=== PATIENT | female | born 1955 | race Caucasian/White ===

== ENCOUNTER 2017-08-10 14:12 | Emergency (ER) | payer MEDICARE, SELFPAY ==
[2017-08-10 14:13] VITALS: BMI 27.4
[2017-08-10 14:18] VITALS: BP 149/71; PULSE 74; RESP 18; TEMP 36.7; O2SAT 96; BMI 29.2
--- NOTE | 2017-08-10 14:57 | HMH.EDSKAF ---
ED Disposition Clinical Impression: Herpes zoster Qualifiers: Herpes zoster complications: without complications Qualified Code(s): B02.9 - Zoster without complications Disposition: Home, Self-Care Condition on Discharge: Good Instructions: DI for Shingles Additional Instructions: Please drink plenty of fluids, do the medications prescribed as directed, follow-up with PCP if not better within 2 days. Prescriptions: Acyclovir [Zovirax] 800 mg PO TID #30 tab Etodolac [Etodolac 200mg Cap] 200 mg PO TID PRN #25 cap PRN Reason: Moderate Pain Referrals: Stephanie Shepherd APRN [Primary Care Provider] - Time of Disposition: 15:00 - Critical Care Critical Care Time: No Attestation: On 08/10/17, the high probability of a clinically significant, sudden or life threatening deterioration of the following system(s) required my full and direct attention, intervention and personal management. The time I documented below is in addition to time spent performing reported procedures but includes the following listed in this critical care notation. Medical Decision Making - Medical Records Medical records reviewed: Yes: I reviewed the patient's medical records. Vital Signs: 08/10/17 14:18 08/10/17 15:30 Temperature 98.0 F 98.0 F Temperature Source Oral Oral Pulse Rate 82 Pulse Rate [Right Brachial] 74 Respiratory Rate 18 18 Blood Pressure 141/70 Blood Pressure [Right Arm] 149/71 Blood Pressure Mean [Right Arm] 97 Blood Pressure Source Automatic Cuff Blood Pressure Source [Right Arm] Automatic Cuff Blood Pressure Position Sitting Blood Pressure Position [Right Arm] Sitting 02 Sat by Pulse Oximetry 96 Oxygen Delivery Method Room Air Room Air Orders (Tests/Meds): ED MEDICATIONS Discontinued Medications Generic Name Dose Route Start Last Admin Trade Name Freq PRN Reason Stop Dose Admin Acyclovir 800 mg 08/10/17 15:01 Zovirax 400mg Tablet PO 08/10/17 15:02 ONCE ONE - Chaitanya Inquiry Pt receiving controlled substance: No - Reevaluation(s) Time: 14:50 Reevaluation #1: Patient advised of diagnosis, need to be quarantined. She understands the need to take acyclovir, as well as possible complications such as postherpetic neuralgia. Follow-up with PCP within 2-3 days if not better. Skin/Abscess/FB HPI - General Chief complaint: Skin/Abscess/Foreign Body Stated complaint: POSSIBLE SHINGLES Time Seen by Provider: 08/10/17 14:25 Mode of Arrival: EMS Source of Information: Patient Limitations: No Limitations Description of Symptoms (Recalled from ER Triage Doc. by RN): LEFT LATERAL RASH AFTER HAVING PAIN FOR 4 DAYS - History of Present Illness HPI narrative: This is a 62-year-old female patient presenting to the emergency room with left flank pain, for the past 1 week, now presenting to the emergency room with rash, for the past 24 hours. Patient denies any shingle outbreaks in the past. She denies any fever, chills, productive cough. Denies any recent exposure to sick contacts, denies any recent travel. MD complaint: rash Onset (ago): day(s) (1) Tetanus up to date: yes Location: chest (left lower chest) Severity scale (1-10): 8 Quality: burning, stabbing Consistency: constant Relieving factors: none Exacerbating factors: palpation, movement Treatments prior to arrival: NSAID - Related Data Previous Rx's Medication Instructions Recorded Acyclovir [Zovirax] 800 mg PO TID #30 tab 08/10/17 Etodolac [Etodolac 200mg Cap] 200 mg PO TID PRN #25 cap 08/10/17 Allergies Allergy/AdvReac Type Severity Reaction Status Date / Time erythromycin base Allergy Severe S-BLISTERING Unverified 07/12/17 14:48 WELTS tiotropium Allergy Severe S-SWELLS-OR Unverified 07/12/17 14:48 [From Spiriva with AL/THROAT HandiHaler] [facility] History I have reviewed the patient's past medical history: Yes Medical History: Denies:: Cancer, Diabetes Mellitus Type 1, Caridad
--- NOTE | 2017-08-10 15:00 | ED_ITS ---
ED Disposition Clinical Impression: Herpes zoster Qualifiers: Herpes zoster complications: without complications Qualified Code(s): B02.9 - Zoster without complications Disposition: Home, Self-Care Condition on Discharge: Good Instructions: DI for Shingles Additional Instructions: Please drink plenty of fluids, do the medications prescribed as directed, follow -up with PCP if not better within 2 days. Prescriptions: Acyclovir [Zovirax] 800 mg PO TID #30 tab Etodolac [Etodolac 200mg Cap] 200 mg PO TID PRN #25 cap PRN Reason: Moderate Pain Referrals: Stephanie Shepherd APRN [Primary Care Provider] - Time of Disposition: 15:00 - Critical Care Critical Care Time: No Attestation: On 08/10/17, the high probability of a clinically significant, sudden or life threatening deterioration of the following system(s) required my full and direct attention, intervention and personal management. The time I documented below is in addition to time spent performing reported procedures but includes the following listed in this critical care notation. Medical Decision Making - Medical Records Medical records reviewed: Yes: I reviewed the patient's medical records. Vital Signs: 08/10/17 14:18 08/10/17 15:30 Temperature 98.0 F 98.0 F Temperature Source Oral Oral Pulse Rate 82 Pulse Rate [Right Brachial] 74 Respiratory Rate 18 18 Blood Pressure 141/70 Blood Pressure [Right Arm] 149/71 Blood Pressure Mean [Right Arm] 97 Blood Pressure Source Automatic Cuff Blood Pressure Source [Right Arm] Automatic Cuff Blood Pressure Position Sitting Blood Pressure Position [Right Arm] Sitting 02 Sat by Pulse Oximetry 96 Oxygen Delivery Method Room Air Room Air Orders (Tests/Meds): ED MEDICATIONS Discontinued Medications Generic Name Dose Route Start Last Admin Trade Name Freq PRN Reason Stop Dose Admin Acyclovir 800 mg 08/10/17 15:01 Zovirax 400mg Tablet PO 08/10/17 15:02 ONCE ONE - Chaitanya Inquiry Pt receiving controlled substance: No - Reevaluation(s) Time: 14:50 Reevaluation #1: Patient advised of diagnosis, need to be quarantined. She understands the need to take acyclovir, as well as possible complications such as postherpetic neuralgia. Follow-up with PCP within 2-3 days if not better. Skin/Abscess/FB HPI - General Chief complaint: Skin/Abscess/Foreign Body Stated complaint: POSSIBLE SHINGLES Time Seen by Provider: 08/10/17 14:25 Mode of Arrival: EMS Source of Information: Patient Limitations: No Limitations Description of Symptoms (Recalled from ER Triage Doc. by RN): LEFT LATERAL RASH AFTER HAVING PAIN FOR 4 DAYS - History of Present Illness HPI narrative: This is a 62-year-old female patient presenting to the emergency room with left flank pain, for the past 1 week, now presenting to the emergency room with rash, for the past 24 hours. Patient denies any shingle outbreaks in the past. She denies any fever, chills, productive cough. Denies any recent exposure to sick contacts, denies any recent travel. complaint: rash Onset (ago): day(s) (1) Tetanus up to date: yes Location: chest (left lower chest) Severity scale (1-10): 8 Quality: burning, stabbing Consistency: constant Relieving factors: none Exacerbating factors: palpation, movement Treatments prio
[2017-08-10 15:30] VITALS: BP 141/70; PULSE 82; RESP 18; TEMP 36.7; O2SAT 100
== END 2017-08-10 15:31 | disposition home or self-care (01) ==
PROVIDERS: Emergency Provider Emergency Medicine; Family Provider Nurse Practitioner; PCP Nurse Practitioner
DX: B02.9 Zoster without complications (principal); Z95.0 Presence of cardiac pacemaker; F17.210 Nicotine dependence, cigarettes, uncomplicated
CPT/HCPCS: 99282

== ENCOUNTER 2020-12-17 08:36 | Emergency (ER) | payer MEDICARE, MEDICAID, SELFPAY ==
[2020-12-17 08:39] VITALS: BP 155/89; PULSE 94; RESP 18; TEMP 36.6; O2SAT 98; BMI 28.0
--- NOTE | 2020-12-17 08:40 | HMH.EDGENADL ---
ED Disposition Clinical Impression: Wrist strain Qualifiers: Encounter type: initial encounter Laterality: right Qualified Code(s): S66.911A - Strain of unspecified muscle, fascia and tendon at wrist and hand level, right hand, initial encounter Disposition: Home, Self-Care Condition on Discharge: Good Instructions: DI for Acute Pain -- Adult Additional Instructions: Wear your wrist splint for comfort, but make sure you take it off several times per day to work on your range of motion. [id number] and topical medications as needed for symptom control. Follow-up with your PCP on Tuesday. Return to the emergency department for worsening pain, fall, weakness. Referrals: Tien Hernandez MD [Primary Care Provider] - 3 days Time of Disposition: 09:12 - Critical Care Critical Care Time: No Attestation: On , the high probability of a clinically significant, sudden or life threatening deterioration of the following system(s) required my full and direct attention, intervention and personal management. The time I documented below is in addition to time spent performing reported procedures but includes the following listed in this critical care notation. Medical Decision Making - Medical Records Medical records reviewed: Yes: I reviewed the patient's medical records. - Chaitanya Inquiry Pt receiving controlled substance: No Reason not queried -: Emergent pt cond-no time Vital Signs: 12/17/20 08:39 Temperature 97.9 F Temperature Source Oral Pulse Rate [Radial] 94 H Respiratory Rate 18 Blood Pressure [Right Arm] 155/89 H Blood Pressure Mean [Right Arm] 111 Blood Pressure Position [Right Arm] Sitting 02 Sat by Pulse Oximetry 98 Oxygen Delivery Method Room Air Medical Decision Narrative: 65yo F evaluated for right wrist pain after cleaning her house yesterday. No history of fall or trauma, therefore do not believe an x-ray is warranted. Other than pain, the patient has a benign x-ray; she is neurovascularly intact. She has slightly reduced range of motion secondary to pain. She has 4 out of 5 sharepoint application architect strength on the right with 5 out of 5 sharepoint application architect strength on the left. There is no ecchymosis, step-off, crepitus. Patient is placed in a wrist splint and instructed to use topical pain medication she already has at home, such as icy hot/capsaicin/BenGay. Patient instructed to take her wrist out of the splint several times per day to work on range of motion. Patient to follow-up with her PCP by the end of the week. General Adult HPI - General Stated complaint: ao rt arm/wrist injury 12/16/20 Time Seen by Provider: 12/17/20 08:40 Mode of Arrival: Ambulatory Limitations: No Limitations - History of Present Illness HPI narrative: 65yo F with past medical history significant hypertension hyperlipidemia presents emergency department secondary to right wrist pain. Patient is right-hand dominant. She reports she worked all day yesterday cleaning her house and developed pain in her right wrist. She denies any fall, injury, crush. She denies any previous pain or surgery to this extremity. She denies any swelling, fever, erythema. - Related Data Home Medications Medication Instructions Recorded Confirmed Amlodipine Besylate [Norvasc 5mg 5 mg PO DAILY 11/16/17 01/24/18 tablet] Atorvastatin Calcium [Atorvastatin 40 mg PO DAILY 11/16/17 01/24/18 40mg Tab] Benazepril HCl 10 mg PO DAILY 11/16/17 01/24/18 aspirin 81 mg tablet,delayed 81 mg PO ONCE 12/12/17 01/24/18 release clonazePAM [Clonazepam] 1 mg PO DAILY 01/24/18 01/24/18 Allergies Allergy/AdvReac Type Severity Reaction Status Date / Time erythromycin base Allergy Severe S-BLISTERING Verified 12/12/17 08:36 WELTS tiotropium Allergy Severe S-SWELLS-OR Verified 12/12/17 08:36 [From Spiriva with AL/THROAT HandiHaler] [facility] History - Hepatitis A Screen Drug use history?: No Attestation statement:: This patient has been screened for Hepa
[2020-12-17 09:20] VITALS: BP 155/89; PULSE 88; RESP 16; TEMP 36.6; O2SAT 97
== END 2020-12-17 09:21 | disposition home or self-care (01) ==
PROVIDERS: Emergency Provider Family Medicine; PCP Family Medicine
DX: S66.911A Strain of unspecified muscle, fascia and tendon at wrist and hand level, right hand, initial encounter (principal); X50.0XXA Overexertion from strenuous movement or load, initial encounter; Y92.019 Unspecified place in single-family (private) house as the place of occurrence of the external cause; I10 Essential (primary) hypertension; E78.5 Hyperlipidemia, unspecified; F17.210 Nicotine dependence, cigarettes, uncomplicated
CPT/HCPCS: 29125; 99281

== ENCOUNTER → 2021-03-26 14:11 | Outpatient (CLI) | payer MEDICARE, MEDICAID, SELFPAY ==
--- NOTE | 2021-03-26 14:14 | US_ITS ---
APPROVED REPORT Exam Type: Lower Extremity Segmental Pressures Terrazzo Laborer: Isha Paz RVT Indications Claudication: Bilaterally Rest Pain: Bilaterally LT GREAT TOE TURNS PURPLE Risk Factors Hypertension Hyperlipidemia TIA/CVA History Current Smoker Pressures/Indices Right Indices Left Indices Brachial 130.00 mmHg Brachial 123.00 mmHg Low Thigh 143.00 mmHg 1.10 Low Thigh 75.00 mmHg 0.58 Calf 162.00 mmHg 1.25 Calf 80.00 mmHg 0.62 Ankle(PT) 151.00 mmHg 1.16 Ankle(PT) 85.00 mmHg 0.65 Ankle(DP) 144.00 mmHg 1.11 Ankle(DP) 121.00 mmHg 0.93 Digit 103.00 mmHg 0.79 Digit 42.00 mmHg 0.32 Findings RT VENU:1.16 LT VENU:0.65 RT TBI:0.79 LT TBI:0.32 DAMPANED WAVEFORMS ON THE LEFT. NORMAL PULSES BILATERAL MODERATE ARTERIAL DISEASE ON THE LEFT. Conclusion RT VENU:1.16 LT VENU:0.65 RT TBI:0.79 LT TBI:0.32 DAMPANED WAVEFORMS ON THE LEFT. NORMAL PULSES BILATERAL MODERATE ARTERIAL DISEASE ON THE LEFT. Electronically signed by : Jimi Barron MD 03/26/2021 16:28:49
== END ==
PROVIDERS: PCP Family Medicine; Visit Provider Family Medicine
DX: I73.9 Peripheral vascular disease, unspecified (principal)
CPT/HCPCS: 93923

== ENCOUNTER → 2021-04-21 09:47 | Outpatient (CLI) | payer MEDICARE, MEDICAID, SELFPAY ==
[2021-04-21 09:50] LABS: Coronavirus 19, PCR Not Detected (NotDetected); Influenza A, PCR Not Detected (NotDetected); Influenza B, PCR Not Detected (NotDetected)
[2021-04-21 10:46] LABS: Basophils % 0.4 % (0.1-2.0); Eosinophils % 0.6 % (0.1-12.0); Hematocrit 43.8 % (37.0-47.0); Hemoglobin 14.2 g/dL (12.2-16.2); Lymphocytes # 1.4 K/mm3 (0.7-4.5); Lymphocytes % 17.8 % (10-50); Mean Corpuscular HGB Conc 32.4 g/dL (31.8-35.4); Mean Corpuscular Hemoglobin 32.5 pg (27.0-31.2); Mean Corpuscular Volume 100.6 fl (81-99); Mean Platelet Volume 8.8 fl (7.4-10.4); Monocytes # 0.3 K/mm3 (0.1-1.0); Monocytes % 3.2 % (1.7-9.3); Platelet Count 265 K/mm3 (142-424); Red Blood Count 4.35 M/mm3 (4.20-5.40); Red Cell Distribution Width 13.9 % (11.5-17.5); White Blood Count 7.7 K/mm3 (4.8-10.8)
[2021-04-21 11:19] LABS: Anion Gap 14.6 mEq/L (5-15); Blood Urea Nitrogen 15 mg/dl (7-17); Carbon Dioxide 27 mmol/L (22.0-30.0); Chloride 102 mmol/L (98-107); Estimated Glomerular Filt Rate 83 ml/min (>60); GFR (African American) 101 ML/MIN (>60); Glucose 134 mg/dl (74-100); Potassium 4.6 mmoL/L (3.5-5.1); Sodium 139 mmol/L (136-145)
== END ==
PROVIDERS: Visit Provider Internal Medicine
DX: Z01.818 Encounter for other preprocedural examination (principal); B02.9 Zoster without complications; M79.606 Pain in leg, unspecified
CPT/HCPCS: 36415; 80048; 85025; C9803; U0003; U0005

== ENCOUNTER 2021-04-21 10:36 | Day surgery (SDC) | payer MEDICARE, MEDICAID, SELFPAY ==
[2021-04-21] VITALS (13 sets, daily range): BP systolic 99–193; BP diastolic 46–98; PULSE 50–90; RESP 13–18; TEMP 36.8; O2SAT 96–100; BMI 29.2
--- NOTE | 2021-04-21 | IR_ITS ---
APPROVED REPORT PROCEDURES Right radial arterial access Catheter placement in the distal abdominal aorta Distal abdominal aortogram Left femoral arterial access Left retrograde femoral angiogram Angioplasty to the left common iliac artery Bare-metal stent deployment to the left common iliac artery Bilateral iliofemoral runoff INDICATION Abnormal VENU 0.6 on the left, Peripheral artery disease, Niels claudication class III-IV left side, Informed consent was obtained prior to the procedure. Estimated Blood Loss: less than 10 ml TECHNIQUE 1% lidocaine used to excise right anterior aspect of the right wrist. The right radial artery was accessed via the Salinger technique and a 5 Estonian hydrophilic sheath was placed in the right radial artery. An arterial cocktail was administered. A PV multi curve catheter was then placed in the descending aorta down into the distal abdominal aorta and distal abdominal aortography was performed. Following this 1% lidocaine was used anesthetize the left groin left femoral artery was accessed via the Salinger technique and a 6 Estonian sheath was placed in the left femoral artery. Therapeutic heparin was administered giving a therapeutic ACT. An 8 mm x 57 mm balloon expandable stent was deployed in the left common iliac artery at 12 carina reducing the 100% occlusion to 0%. Following this the apparatus was removed and bilateral iliofemoral runoff was performed. Thrombus was identified in the proximal left superficial femoral artery therefore the sheath was advanced into the left common iliac artery and a wire was placed into the left superficial femoral artery. The placement of the wire cause disruption of the thrombus and buddhism of flow. At the end of the procedure the arterial sheath was removed good hemostasis was achieved using TR banding. The left groin was then reprepped closure changed sheath was removed good hemostasis was achieved using Perclose device patient was transferred to the postop already in stable condition ANGIOGRAPHIC RESULTS The distal abdominal aorta is patent but atheromatous Right common iliac artery is mildly atheromatous with a 10% ostial stenosis. The left common iliac artery is ostially occluded and fills distally via collaterals. The bilateral internal iliac arteries are patent the bilateral external iliac arteries are patent the bilateral common femoral arteries are patent Bilateral profunda femoris arteries are patent Bilateral superficial femoral arteries are widely patent the bilateral popliteal arteries are patent. There appears to be 2-3 vessel runoff below the knee bilaterally. IMPRESSION Chronically occluded left common iliac artery Successful percutaneous revascularization of left common iliac artery 1% occlusion reduced to 0% with 1 bare-metal stent PLAN 1. Aspirin and Brilinta 2. 2 days from now patient should start Xarelto 2.5 p.o. twice daily with possible discontinuation of Brilinta provided there is no cardiac indication for Brilinta 3. LDL less than 55 4. Physical therapy 5. Avoidance of tobacco products 6. Risk factor modification Electronically signed by : Kel Jamil MD 04/21/2021 15:58:10
--- NOTE | 2021-04-21 13:49 | CT_ITS ---
PROCEDURE: CT ABDOMEN PELVIS WO CON CLINICAL INDICATION: retroperitoneal bleed COMPARISON: No exams were available for comparison TECHNIQUE: Axial images obtained with sagittal and coronal reformats. All CT scans at the facility use one or more dose reduction, viz: automated exposure control, ma/kV adjustment per patient size (including targeted exams where dose is matched to indication, i.e. head), or iterative reconstruction technique. FINDINGS: LOWER THORAX: Atelectatic changes are present in the lung bases posteriorly. Coronary artery calcification and/or stent noted along with calcification of the aortic root. There is a small hiatal hernia. The liver and spleen have an unremarkable appearance. No radiopaque gallstones. Unremarkable appearing adrenal glands and pancreas. Contrast is present in the urinary collecting system. There is a small right renal cyst at 9 mm. There are bilateral common iliac artery stents which appear patent. There is no evidence of hemorrhage around the stents. No free pelvic fluid is evident. There is diffuse increased density in the left inguinal region consistent with hemorrhage. There is focal thickening of the left transverse abdominis musculature inferiorly consistent with a small hematoma also with thickening of the left rectus abdominus inferiorly and the left obturator internus muscle consistent with some underlying hemorrhage. There are mild osteoarthritic changes of the hips and degenerative changes of the lumbar spine. IMPRESSION: 1. No intraperitoneal hemorrhage. 2. Hematoma in the left groin with small hematoma in the inferior aspect of the left transverse abdominus musculature, left obturator internus muscle and the inferior aspect of the left rectus abdominus muscle. No free fluid/blood in the abdomen or pelvis. Dictated by: Jimi Barron MD 04/21/2021 14:08 Jimi Barron MD in [facility] 04/21/2021 14:08
--- NOTE | 2021-04-21 14:01 | ECG_ITS ---
APPROVED REPORT Exam: Resting ECG HR:84 bpm ECG Measurements Heart Rate 84 AXES CO 288 P 58 QRSd 90 QRS 34 QT 392 T 70 QTc 463 Conclusion Sinus rhythm with 1st degree AV block Septal infarct, age undetermined Abnormal ECG Electronically signed by : Tien Parker MD 04/22/2021 11:18:58
--- NOTE | 2021-04-21 14:56 | SUR.PHASEII ---
1330 PATIENT COMPLAINS OF LEFT GROIN PAIN, MILD TENDERNESS. bp 195/95 HYDRAZINE 10 MG IV. 1345 PATIENT COMPLAINING OF ABDOMINAL PAIN 8/10 BP 104/54. DR. HUNTER NOTIFIED ORDERED STAT ABDOMINAL CT. [address], PHYSICIAN AT BEDSIDE NO NEW ORDERS
--- NOTE | 2021-04-21 16:22 | HMH.PHACLD ---
Sandy Heller has received discharge medication counseling on the following medications: MD STARTING BRILINTA AND XARELTO (START TUESDAY). PATIENT IS ALREADY ON ASPIRIN.
== END 2021-04-21 16:03 | disposition home or self-care (01) ==
LOC: CATHLAB 10:41
PROVIDERS: PCP Family Medicine; Visit Provider Internal Medicine
DX: I70.212 Atherosclerosis of native arteries of extremities with intermittent claudication, left leg (principal); Z20.822 Contact with and (suspected) exposure to COVID-19; F17.210 Nicotine dependence, cigarettes, uncomplicated; I10 Essential (primary) hypertension; E78.5 Hyperlipidemia, unspecified; I77.1 Stricture of artery; I74.3 Embolism and thrombosis of arteries of the lower extremities
CPT/HCPCS: 36247; 36415; 37186; 37221; 74176; 75630; 80048; 85025; 93005; 99152; 99153; C1725; C1760; C1769; C1876; C1894; C9803; J1644; J2405; Q9966; U0003; U0005

== ENCOUNTER → 2021-04-24 10:27 | Outpatient (CLI) | payer MEDICARE, MEDICAID, SELFPAY ==
--- NOTE | 2021-04-24 | CA_ITS ---
APPROVED REPORT Laterality: Unilateral right Program Manager Rn: Isha Paz RVT Comments S/P ANGIO 04/21/21, C/O RT WRIST PAIN/BRUISING Findings Study suggests no evidence of psuedoaneurysm or AV fistula of the right wrist. Thrombus is seen in the distal to mid radial artery. Conclusion Study suggests no evidence of psuedoaneurysm or AV fistula of the right wrist. Thrombus is seen in the distal to mid radial artery. Critical Notification Physician Notified Date: 04/24/2021 Time: 10:55 Physician Name: Andrzej Saba Electronically signed by : Jimi Barron MD 04/24/2021 16:17:53
== END ==
PROVIDERS: PCP Family Medicine; Visit Provider Urology
DX: I77.0 Arteriovenous fistula, acquired (principal)
CPT/HCPCS: 93931

== ENCOUNTER → 2021-05-01 09:58 | Outpatient (CLI) | payer MEDICARE, MEDICAID, SELFPAY ==
--- NOTE | 2021-05-01 10:03 | CA_ITS ---
APPROVED REPORT Greaser Helper: Isha Paz RVT Laterality: Bilateral Study Quality: Good Indications: Carotid stenosis Risk Factors Hypertension: TIA/CVA History Surgery/Intervention Endarterectomy: right Doppler Spectral Velocity Analysis ECA (R) 41.10/5.10 cm/s ECA (L) 121.70/11.10 cm/s dICA (R) 113.30/29.90 cm/s dICA (L) 97.70/30.80 cm/s Jose (R) 142.20/37.40 cm/s Jose (L) 125.10/34.30 cm/s pICA (R) 106.90/33.10 cm/s pICA (L) 99.50/36.60 cm/s dCCA (R) 54.00/16.30 cm/s dCCA (L) 53.30/16.70 cm/s pCCA (R) 37.40/9.60 cm/s pCCA (L) 63.60/16.10 cm/s Vert (R) 100.50/17.10 cm/s Vert (L) 54.00/12.00 cm/s ICA/CCA 2.63 ICA/CCA 2.35 Findings Study suggests 20-49% stenosis of the right internal cartoid artery. Study suggests 20-49% stenosis of the left internal cartoid artery. Antegrade flow seen bilateral vertebral arteries. Conclusion Study suggests 20-49% stenosis of the right internal cartoid artery. Study suggests 20-49% stenosis of the left internal cartoid artery. Antegrade flow seen bilateral vertebral arteries. Electronically signed by : Jimi Barron MD 05/05/2021 09:17:40
== END ==
PROVIDERS: PCP Family Medicine; Visit Provider Nurse Practitioner Family
DX: I65.23 Occlusion and stenosis of bilateral carotid arteries (principal)
CPT/HCPCS: 93880

== ENCOUNTER → 2021-05-12 14:29 | Outpatient (CLI) | payer MEDICARE, MEDICAID, SELFPAY ==
[2021-05-12 14:40] LABS: Basophils # 0.1 K/mm3 (0-0.2); Basophils % 0.5 % (0.1-2.0); Eosinophils # 0.1 K/mm3 (0.0-0.4); Eosinophils % 1.3 % (0.1-12.0); Hematocrit 39.8 % (37.0-47.0); Hemoglobin 12.3 g/dL (12.2-16.2); Lymphocytes # 1.9 K/mm3 (0.7-4.5); Mean Corpuscular HGB Conc 30.9 g/dL (31.8-35.4); Mean Corpuscular Hemoglobin 31.9 pg (27.0-31.2); Mean Corpuscular Volume 103.3 fl (81-99); Mean Platelet Volume 8.3 fl (7.4-10.4); Monocytes # 0.7 K/mm3 (0.1-1.0); Monocytes % 7.5 % (1.7-9.3); Neutrophils # 6.8 K/mm3 (1.8-7.8); Neutrophils % 70.7 % (37.0-80.0); Platelet Count 317 K/mm3 (142-424); Red Blood Count 3.85 M/mm3 (4.20-5.40); Red Cell Distribution Width 13.9 % (11.5-17.5); White Blood Count 9.6 K/mm3 (4.8-10.8)
[2021-05-12 15:46] LABS: Chloride 99 mmol/L (98-107)
[2021-05-12 15:47] LABS: Potassium 4.8 mmoL/L (3.5-5.1); Sodium 138 mmol/L (136-145)
[2021-05-12 15:49] LABS: Alanine Aminotransferase 15 U/L (12-78); Aspartate Amino Transferase 28 U/L (14-36); Blood Urea Nitrogen 22 mg/dl (7-17); Estimated Glomerular Filt Rate 55 ml/min (>60); GFR (African American) 67 ML/MIN (>60)
[2021-05-12 15:50] LABS: Albumin Level 3.8 g/dl (3.5-5.0); Alkaline Phosphatase 134 U/L (38-126); Anion Gap 14.8 mEq/L (5-15); Bilirubin,Direct 0.4 mg/dl (0.0-0.4); Bilirubin,Total 0.4 mg/dl (0.2-1.3); Carbon Dioxide 29 mmol/L (22.0-30.0); Chol/HDL Ratio 3.7 (1-3.5); Cholesterol 127 mg/dl (140-200); Glucose 195 mg/dl (74-100); HDL Cholesterol 34 mg/dl (40-60); Total Protein,Serum 7.4 g/dl (6.3-8.2); Triglycerides 173 mg/dl (30-150); VLDL Cholesterol 35 mg/dL (0-40)
[2021-05-12 16:01] LABS: Direct LDL Cholesterol 58.13 mg/dL (100-129)
== END ==
PROVIDERS: Visit Provider Physician Assistant
DX: E78.5 Hyperlipidemia, unspecified (principal); I10 Essential (primary) hypertension; I65.29 Occlusion and stenosis of unspecified carotid artery; I73.9 Peripheral vascular disease, unspecified; I74.2 Embolism and thrombosis of arteries of the upper extremities; M79.601 Pain in right arm
CPT/HCPCS: 36415; 80048; 80061; 80076; 85025

== ENCOUNTER → 2021-06-02 13:38 | Outpatient (CLI) | payer MEDICARE, MEDICAID, SELFPAY ==
--- NOTE | 2021-06-02 13:42 | CT_ITS ---
PROCEDURE: CT ABDOMEN PELVIS WO CON CLINICAL INDICATION: abdominal pain COMPARISON: CT CT ABDOMEN PELVIS WO CON from 04/21/2021 TECHNIQUE: Axial images obtained with sagittal and coronal reformats. All CT scans at the facility use one or more dose reduction, viz: automated exposure control, ma/kV adjustment per patient size (including targeted exams where dose is matched to indication, i.e. head), or iterative reconstruction technique. FINDINGS: LOWER THORAX: No acute finding ABDOMEN & PELVIS: The liver, gallbladder, spleen, and adrenal glands have an unremarkable appearance. A 4 mm hypodensity is present in the central aspect of the spleen nonspecific. The spleen is otherwise unremarkable. No renal or ureteral calculi. No hydronephrosis. Calcification present in the aortoiliac vessels with a stent in the left common iliac artery and proximal left external iliac artery. No acute retroperitoneal hemorrhage is evident. The pelvis has an unremarkable appearance. Previously noted hematoma in the left inguinal region has improved. The thickening of the left rectus abdominus, obturator internus and the inferior aspect of the left transversus abdominus has improved. There is minimal stranding of the fat in the left lower inguinal area. No pelvic hematoma. Mild lumbar scoliosis convex left. Mild osteoarthritic changes of the hips and degenerative changes is present in the lumbar spine. There is minimal ectasia of the infrarenal abdominal aorta. IMPRESSION: Interval improvement in the left inguinal hematoma and improvement in the hemorrhage within the transversus abdominus and obturator internus and rectus abdominus. No evidence of acute retroperitoneal or pelvic hematoma Dictated by: Jimi Barron MD 06/02/2021 19:51 Jimi Barron MD in [facility] 06/02/2021 19:51
== END ==
PROVIDERS: PCP Family Medicine; Visit Provider Nurse Practitioner Family
DX: R10.9 Unspecified abdominal pain (principal); I10 Essential (primary) hypertension; I74.2 Embolism and thrombosis of arteries of the upper extremities; I73.9 Peripheral vascular disease, unspecified; M79.601 Pain in right arm; E78.5 Hyperlipidemia, unspecified
CPT/HCPCS: 74176

== ENCOUNTER → 2021-09-07 14:55 | Outpatient (CLI) | payer MEDICARE, MEDICAID, SELFPAY ==
[2021-09-07 16:46] LABS: Basophils % 0.4 % (0.1-2.0); Eosinophils # 0.1 K/mm3 (0.0-0.4); Eosinophils % 0.7 % (0.1-12.0); Hematocrit 40.1 % (37.0-47.0); Hemoglobin 13.2 g/dL (12.2-16.2); Lymphocytes # 1.7 K/mm3 (0.7-4.5); Lymphocytes % 24.9 % (10-50); Mean Corpuscular Hemoglobin 32.7 pg (27.0-31.2); Mean Platelet Volume 9.5 fl (7.4-10.4); Monocytes # 0.3 K/mm3 (0.1-1.0); Monocytes % 4.1 % (1.7-9.3); Neutrophils # 4.8 K/mm3 (1.8-7.8); Platelet Count 203 K/mm3 (142-424); Red Blood Count 4.05 M/mm3 (4.20-5.40); Red Cell Distribution Width 13.9 % (11.5-17.5); White Blood Count 6.8 K/mm3 (4.8-10.8)
[2021-09-07 17:15] LABS: Triiodothryronine (T3) Uptake 32 % (23.5-40.5)
[2021-09-07 17:16] LABS: Free Thyroxine Index 3.2 ug/dL (5.93-13.13)
[2021-09-07 17:30] LABS: Thyroid Stimulating Hormone 2.34 uIU/mL (0.465-4.68)
[2021-09-07 18:16] LABS: Anion Gap 11.1 mEq/L (5-15); Blood Urea Nitrogen 17 mg/dl (7-17); Calcium 9.4 mg/dl (8.4-10.2); Carbon Dioxide 28 mmol/L (22.0-30.0); Chloride 106 mmol/L (98-107); Estimated Glomerular Filt Rate 50 ml/min (>60); GFR (African American) 60 ML/MIN (>60); Glucose 155 mg/dl (74-100); Potassium 4.1 mmoL/L (3.5-5.1); Sodium 141 mmol/L (136-145)
== END ==
PROVIDERS: PCP Family Medicine; Visit Provider Physician Assistant
DX: E78.2 Mixed hyperlipidemia (principal); I10 Essential (primary) hypertension; I65.23 Occlusion and stenosis of bilateral carotid arteries; I73.9 Peripheral vascular disease, unspecified; I63.9 Cerebral infarction, unspecified
CPT/HCPCS: 36415; 80048; 84436; 84443; 84479; 85025

== ENCOUNTER → 2021-09-09 13:23 | Outpatient (CLI) | payer MEDICARE, MEDICAID, SELFPAY ==
--- NOTE | 2021-09-09 13:24 | US_ITS ---
FINAL REPORT CLINICAL HISTORY: malignant HTN,STENT L LEG, SMOKER,H/O CVA,CLAUDICATION FINDINGS: Ankle brachial indices were obtained bilaterally. The right VENU is 1.0 which is normal. The left VENU is 0.93 which is borderline. IMPRESSION: Borderline vascular disease on the left. Reviewed, Interpreted and Dictated by Turner Mccrary III, MD Transcribed by Calli Joiner Authenticated by Turner Mccrary III, MD on 09/09/2021 03:39:24 PM [facility]
== END ==
PROVIDERS: PCP Family Medicine; Visit Provider Physician Assistant
DX: E78.2 Mixed hyperlipidemia (principal); I10 Essential (primary) hypertension; I65.23 Occlusion and stenosis of bilateral carotid arteries; I73.9 Peripheral vascular disease, unspecified
CPT/HCPCS: 93923

== ENCOUNTER → 2022-05-24 10:43 | Outpatient (CLI) | payer MEDICARE, MEDICAID, SELFPAY ==
[2022-05-24 11:37] LABS: Chloride 96 mmol/L (98-107); Potassium 4.2 mmoL/L (3.5-5.1); Sodium 136 mmol/L (136-145)
[2022-05-24 11:40] LABS: Anion Gap 14.2 mEq/L (5-15); Blood Urea Nitrogen 16 mg/dl (7-17); Calcium 10.3 mg/dl (8.4-10.2); Carbon Dioxide 30 mmol/L (22.0-30.0); Estimated Glomerular Filt Rate 71 ml/min (>60); GFR (African American) 86 ML/MIN (>60); Glucose 190 mg/dl (74-100)
== END ==
PROVIDERS: PCP Family Medicine; Visit Provider Family Medicine
DX: R42 Dizziness and giddiness (principal)
CPT/HCPCS: 36415; 80048

== ENCOUNTER → 2022-05-26 12:55 | Outpatient (CLI) | payer MEDICARE, MEDICAID, SELFPAY ==
--- NOTE | 2022-05-26 13:04 | MR_ITS ---
FINAL REPORT CLINICAL HISTORY: DIZZINESS [id number].[id number]. FALL 3 TIMES. NO LOC. 14ML PROHANCE GIVEN. FINDINGS: Multiplanar MR imaging of the brain was performed without and with contrast. There is age-appropriate atrophy. Multiple foci of increased T2 signal are seen in the cerebral white matter consistent with moderate to severe chronic ischemic/gliotic changes. There is no evidence of intracranial hemorrhage or mass. No abnormal ventricular dilatation is identified. There is no evidence of shift of the midline structures. No abnormal extra-axial fluid collection is seen. No area of abnormal restricted diffusion is identified. There are chronic ischemic/gliotic changes in the aidan. No abnormal contrast enhancement is seen. Normal major vessel vascular flow voids are seen. IMPRESSION: Atrophy with moderate to severe chronic ischemic/gliotic change. No acute intracranial abnormality. Reviewed, Interpreted and Dictated by Turner Mccrary III, MD Transcribed by Francis Smart Authenticated and [facility]
== END ==
PROVIDERS: PCP Family Medicine; Visit Provider Family Medicine
DX: R42 Dizziness and giddiness (principal)
CPT/HCPCS: 70553; A9576

== ENCOUNTER 2022-07-27 08:50 | Emergency (ER) | payer MEDICARE, MEDICAID, SELFPAY ==
[2022-07-27 08:51] VITALS: BP 174/66; PULSE 88; RESP 18; TEMP 36.7; O2SAT 96; BMI 28.3
--- NOTE | 2022-07-27 09:06 | ECG_ITS ---
APPROVED REPORT Exam: Resting ECG HR:72 bpm ECG Measurements Heart Rate 72 AXES NC 181 P 78 QRSd 97 QRS -44 QT 398 T 57 QTc 422 Conclusion SINUS RHYTHM LEFT AXIS DEVIATION [QRS AXIS < -30] MINIMAL VOLTAGE CRITERIA FOR LVH, CONSIDER NORMAL VARIANT [MEETS CRITERIA IN ONE OF: R(aVL), S(V1), R(V5), R(V5/V6)+S(V1)] ANTEROSEPTAL MYOCARDIAL INFARCTION , OF INDETERMINATE AGE [40+ ms Q WAVE IN V1-V4] ABNORMAL ECG UNCONFIRMED REPORT Electronically signed by : Tien Parker MD 07/27/2022 16:57:23
--- NOTE | 2022-07-27 09:10 | HMH.EDGENADL ---
Discharge Plan Disposition Patient Disposition: Home, Self-Care Condition: Good Prescriptions Prescriptions: No Action lorazepam 2 mg tablet 2 mg PO TID PRN albuterol sulfate [ProAir HFA] 90 mcg/actuation HFA aerosol inhaler 2 puff INHALATION ONCE fluticasone propionate 50 mcg/actuation spray,suspension 1 spray INTRANASAL DAILY metoprolol succinate [Toprol XL] 50 mg tablet extended release 24 hr 25 mg PO DAILY benazepril 20 mg tablet 20 mg PO BID aspirin 81 mg tablet,delayed release (DR/EC) 81 mg PO DAILY atorvastatin 40 MG tablet 40 mg PO DAILY Referrals Follow up/Referrals: Emeli Cowan MD [Primary Care Provider] - See instructions Activity Restrictions/Add. Instructions Additional Instructions/Restrictions: 48-hour Holter monitor. See your primary care provider for follow-up of results of Holter monitor and for further evaluation and care. Call today to make appointment. Clinical Impressions Clinical Impression: Syncope and collapse Instructions Patient Instructions: DI for Syncope in Adults (Fainting) Discharge ED Provider: Kurt Poe General Adult HPI General Chief complaint: Dizziness Stated complaint: Fall@home 07/25 physician referral Time Seen by Provider: 07/27/22 09:30 Mode of Arrival: Ambulatory Source of Information: Patient Limitations: No Limitations Description of Symptoms (Recalled from ER Triage Doc. by RN): Pt reports 2 days ago she was at a friends house, got dizzy and suddenly fell out of her chair, pt reports she was unaware of falling out of her chair at the time of it happening. Pt reports was dizzy feeling all day yesterday. Pt reports was told by PCP to be seen in ER today r/t dizziness. History of Present Illness HPI narrative: The patient is a states that night before last she was at a friend's house sitting in a chair and fell out for no apparent reason. She says that she passed out. Her friend told her she was out for 10 to 15 minutes. Currently she feels fine except she is a little bit dizzy. Says that she has been having dizzy spells for months. She has been evaluated with an MRI of the brain which she said showed blood clots in different spots . She has never had syncope in the past. She apparently spoke with her primary care provider's office today and was told to come to the emergency department. She states that she previously had been on a blood thinner because of a blood clot in her left groin that was operated on by Dr. Jamil. She says that Dr. Hernandez took her off of her blood thinner, Xarelto, 6 months ago or more. Also states she has had a prior stroke and carotid endarterectomy. She states she has not recently been ill. She has chronic diarrhea every 3 days for years, but this is unchanged. No recent chest pain, shortness of breath, URI, fever, vomiting. No abdominal pain. No headache. Related Data Home Medications Medication Instructions Recorded Confirmed atorvastatin 40 mg tablet 40 mg PO DAILY Cholesterol 11/16/17 03/08/22 albuterol sulfate 90 mcg/actuation 2 puff inhalation ONCE 04/14/21 03/08/22 aerosol inhaler (ProAir HFA) fluticasone propionate 50 1 spray intranasal DAILY 04/14/21 03/08/22 mcg/actuation nasal spray,suspension lorazepam 2 mg tablet 2 mg PO TID PRN 04/14/21 03/08/22 aspirin 81 mg tablet,delayed 81 mg PO DAILY 04/28/21 03/08/22 release metoprolol succinate 50 mg 25 mg PO DAILY 12/09/21 03/08/22 tablet,extended release 24 hr (Toprol XL) benazepril 20 mg tablet 20 mg PO BID 02/02/22 03/08/22 Allergies Allergy/AdvReac Type Severity Reaction Status Date / Time erythromycin base Allergy Severe S-BLISTERING Verified 03/08/22 14:14 WELTS tiotropium Allergy Severe S-SWELLS-OR Verified 03/08/22 14:14 [From Spiriva with AL/THROAT HandiHaler] [facility] Disclaimer: The information contained in this section may have been updated after the patient w
[2022-07-27 09:24] LABS: Chloride 101 mmol/L (98-107)
[2022-07-27 09:25] LABS: Potassium 4.4 mmoL/L (3.5-5.1); Sodium 138 mmol/L (136-145)
[2022-07-27 09:27] LABS: Alanine Aminotransferase 19 U/L (12-78); Alkaline Phosphatase 144 U/L (38-126); Aspartate Amino Transferase 30 U/L (14-36); Bilirubin,Total 0.5 mg/dl (0.2-1.3); Blood Urea Nitrogen 20 mg/dl (7-17); Creatinine Clearance Estimated 56 mL/min (50-200); Estimated Glomerular Filt Rate 49 ml/min (>60); GFR (African American) 60 ML/MIN (>60)
[2022-07-27 09:28] LABS: Albumin Level 4.2 g/dl (3.5-5.0); Albumin/Globulin Ratio 1.2 (1.1-1.8); Anion Gap 13.4 mEq/L (5-15); Calcium 9.7 mg/dl (8.4-10.2); Carbon Dioxide 28 mmol/L (22.0-30.0); Globulin 3.6 g/dL (1.3-3.2); Glucose 193 mg/dl (74-100); Total Protein,Serum 7.8 g/dl (6.3-8.2)
[2022-07-27 10:04] VITALS: BP 140/62; PULSE 62; RESP 18; O2SAT 96
[2022-07-27 10:11] LABS: Basophils # 0.1 K/mm3 (0-0.2); Basophils % 0.8 % (0.1-2.0); Eosinophils # 0.1 K/mm3 (0.0-0.4); Eosinophils % 0.8 % (0.1-12.0); Hematocrit 42.1 % (37.0-47.0); Hemoglobin 13.7 g/dL (12.2-16.2); Lymphocytes % 22.8 % (10-50); Mean Corpuscular HGB Conc 32.6 g/dL (31.8-35.4); Mean Corpuscular Hemoglobin 31.8 pg (27.0-31.2); Mean Corpuscular Volume 97.7 fl (81-99); Mean Platelet Volume 10.3 fl (7.4-10.4); Monocytes # 0.3 K/mm3 (0.1-1.0); Monocytes % 3.7 % (1.7-9.3); Neutrophils # 6.2 K/mm3 (1.8-7.8); Neutrophils % 71.9 % (37.0-80.0); Platelet Count 239 K/mm3 (142-424); Red Blood Count 4.31 M/mm3 (4.20-5.40); Red Cell Distribution Width 13.8 % (11.5-17.5); Troponin I < 0.01 ng/ml (0.00-0.034); White Blood Count 8.6 K/mm3 (4.8-10.8)
[2022-07-27 10:30] VITALS: BP 130/70; PULSE 58; O2SAT 95
--- NOTE | 2022-07-27 10:31 | PC.NURSE ---
notified RT of order for holter monitor
[2022-07-27 10:50] VITALS: BP 130/70; PULSE 58; RESP 18; TEMP 36.7; O2SAT 95
--- NOTE | 2022-07-27 10:57 | PC.NURSE ---
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
== END 2022-07-27 10:50 | disposition home or self-care (01) ==
PROVIDERS: Emergency Provider Emergency Medicine; PCP Family Medicine
DX: R55 Syncope and collapse (principal); R42 Dizziness and giddiness; R07.9 Chest pain, unspecified; I70.3 Atherosclerosis of unspecified type of bypass graft(s) of the extremities; I10 Essential (primary) hypertension; Z86.718 Personal history of other venous thrombosis and embolism; F17.210 Nicotine dependence, cigarettes, uncomplicated
CPT/HCPCS: 80053; 84484; 85025; 93005; 93225; 93226; 99285

== ENCOUNTER 2022-09-21 11:54 | Emergency (ER) | payer MEDICARE, MEDICAID, SELFPAY ==
[2022-09-21 11:55] VITALS: BP 143/48; PULSE 69; RESP 18; TEMP 36.4; O2SAT 98; BMI 27.8
[2022-09-21 12:07] VITALS: BP 143/48; PULSE 78; O2SAT 98
--- NOTE | 2022-09-21 12:11 | XR_ITS ---
FINAL REPORT CLINICAL HISTORY: left posterior rib pain since lifting and pulling on large furniture. FINDINGS: LEFT RIB SERIES 4 views of the left ribs show no fractures. There is no pneumothorax or pleural fluid collection. Frontal chest radiograph show increased interstitial markings which could be related to chronic edema. The heart mediastinum are unremarkable. IMPRESSION: Negative left rib series. No pneumothorax. Reviewed, Interpreted and Dictated by Ada Waddell MD Transcribed by Tressa Brantley Authenticated and [facility]
--- NOTE | 2022-09-21 12:12 | HMH.EDGENADL ---
Discharge Plan Disposition Patient Disposition: Home, Self-Care Condition: Good Prescriptions Prescriptions: New hydrocodone-acetaminophen 5-325 mg tablet 1 tab PO Q8H PRN (Reason: pain) Qty: 7 0RF No Action lorazepam 2 mg tablet 2 mg PO TID PRN albuterol sulfate [ProAir HFA] 90 mcg/actuation HFA aerosol inhaler 2 puff INHALATION ONCE fluticasone propionate 50 mcg/actuation spray,suspension 1 spray INTRANASAL DAILY benazepril 20 mg tablet 20 mg PO BID aspirin 81 mg tablet,delayed release (DR/EC) 81 mg PO DAILY metoprolol succinate [Toprol XL] 50 mg tablet extended release 24 hr 50 mg PO DAILY Qty: 30 5RF atorvastatin 40 MG tablet 40 mg PO DAILY Referrals Follow up/Referrals: Emeli Cowan MD [Primary Care Provider] - See instructions Activity Restrictions/Add. Instructions Additional Instructions/Restrictions: Avoid exertion. Ice to the affected area as needed for discomfort. Follow-up with primary care provider as needed Clinical Impressions Clinical Impression: Muscle strain Discharge ED Provider: Rafi Howard General Adult HPI General Chief complaint: PAIN Stated complaint: back pain, no accident Time Seen by Provider: 09/21/22 12:08 History of Present Illness HPI narrative: Patient presents complaining of left posterior chest wall pain that began yesterday after having moved some furniture. She states is worse with positional changes. She denies shortness of air. Symptoms are described as moderate to severe Related Data Home Medications Medication Instructions Recorded Confirmed atorvastatin 40 mg tablet 40 mg PO DAILY Cholesterol 11/16/17 09/16/22 albuterol sulfate 90 mcg/actuation 2 puff inhalation ONCE 04/14/21 09/16/22 aerosol inhaler (ProAir HFA) fluticasone propionate 50 1 spray intranasal DAILY 04/14/21 09/16/22 mcg/actuation nasal spray,suspension lorazepam 2 mg tablet 2 mg PO TID PRN 04/14/21 09/16/22 aspirin 81 mg tablet,delayed 81 mg PO DAILY 04/28/21 09/16/22 release benazepril 20 mg tablet 20 mg PO BID 02/02/22 09/16/22 Previous Rx's Medication Instructions Recorded metoprolol succinate 50 mg 50 mg PO DAILY #30 tabs 09/16/22 tablet,extended release 24 hr (Toprol XL) hydrocodone 5 mg-acetaminophen 325 1 tab PO Q8H PRN pain #7 tabs 09/21/22 mg tablet Allergies Allergy/AdvReac Type Severity Reaction Status Date / Time erythromycin base Allergy Severe S-BLISTERING Verified 09/16/22 13:34 WELTS tiotropium Allergy Severe S-SWELLS-OR Verified 09/16/22 13:34 [From Spiriva with AL/THROAT HandiHaler] [facility] Disclaimer: The information contained in this section may have been updated after the patient was seen, as this information can be updated by other users. Medical History Chest pain Claudication DVT (deep venous thrombosis) Malignant hypertension Social History Smoking Status: Current every day smoker tobacco type: cigarettes packs per day: 1 alcohol intake: never substance use type: denies use current occupational status: unemployed Travel in the last 8 weeks: Inside the [place] household members: none housing: apartment current occupational exposures/hazards: No caffeine: Yes ROS Obtained: Yes All systems reviewed & no additional complaints except as documented Physical Exam General General appearance: alert Head Head exam: atraumatic, normocephalic and normal inspection Eye Eye exam: Present normal appearance, PERRL and EOMI ENT ENT exam: Present normal exam, normal oropharynx, mucous membranes moist, TM's normal bilaterally and normal external ear exam Neck Neck exam: Present normal inspection, full ROM and trachea midline; Absent meningismus or lymphadenopathy Chest Chest inspection: Present normal inspection and symmetric chest wall rise; Abse
--- NOTE | 2022-09-21 12:20 | PC.NURSE ---
pt states she cant lay back in bed at this time due to pain, pain medicine given per sep order. no other needs at this time
--- NOTE | 2022-09-21 12:31 | PC.NURSE ---
pt ambulated to bathroom and back to room
--- NOTE | 2022-09-21 12:32 | PC.NURSE ---
pt able to lay back in bed at this time
[2022-09-21 12:42] VITALS: BP 111/63; PULSE 61; O2SAT 98
[2022-09-21 13:00] VITALS: BP 112/46; PULSE 54; O2SAT 98
[2022-09-21 13:45] VITALS: BP 115/42; PULSE 52; RESP 19; TEMP 36.4; O2SAT 95
== END 2022-09-21 14:09 | disposition home or self-care (01) ==
PROVIDERS: Emergency Provider Emergency Medicine; PCP Family Medicine
DX: S29.011A Strain of muscle and tendon of front wall of thorax, initial encounter (principal); I70.219 Atherosclerosis of native arteries of extremities with intermittent claudication, unspecified extremity; I10 Essential (primary) hypertension; F17.210 Nicotine dependence, cigarettes, uncomplicated; X50.0XXA Overexertion from strenuous movement or load, initial encounter; Z86.718 Personal history of other venous thrombosis and embolism
CPT/HCPCS: 71101; 96372; 99283; 99284

== ENCOUNTER → 2022-10-21 12:47 | Outpatient (CLI) | payer MEDICARE, MEDICAID, SELFPAY ==
--- NOTE | 2022-10-21 12:54 | CA_ITS ---
FINAL REPORT TECHNIQUE: Color Doppler, duplex Doppler and medina scale sonography of the bilateral neck arterial vasculature was performed. Velocities were measured in the carotid arteries. Stenosis evaluation based on the validated velocity criteria. CLINICAL HISTORY: RENEE,HTN,HX CVA,HX RT ENDARDECTOMY FINDINGS: The peak systolic velocity of the right common carotid artery is 44 cm/s. The peak systolic velocity of the right internal carotid artery is 157 cm/s and end diastolic velocity 35 cm/s. The ICA/CCA ratio is 3.6. A mild to moderate amount of plaque is present. The right external carotid artery is patent. The right vertebral artery is patent with antegrade flow. The peak systolic velocity of the left common carotid artery is 63 cm/s. The peak systolic velocity of the left internal carotid artery is 162 cm/s and end diastolic velocity 39 cm/s. The ICA/CCA ratio is 2.9. A mild to moderate amount of plaque is present. The left external carotid artery is patent.The left vertebral artery is patent with antegrade flow. IMPRESSION: 50-69% bilateral carotid stenosis. Bilateral patent vertebral arteries with antegrade flow. If indicated, CTA or MRA could further evaluate. Reviewed, Interpreted and Dictated by Ada Waddell MD Transcribed by Calli Joiner Authenticated and [facility]
== END ==
PROVIDERS: PCP Family Medicine; Visit Provider Nurse Practitioner Family
DX: R42 Dizziness and giddiness (principal); R55 Syncope and collapse; I63.9 Cerebral infarction, unspecified; I10 Essential (primary) hypertension
CPT/HCPCS: 93880

== ENCOUNTER → 2022-11-01 12:14 | Outpatient (CLI) | payer MEDICARE, MEDICAID, SELFPAY ==
--- NOTE | 2022-11-01 12:40 | MR_ITS ---
FINAL REPORT CLINICAL HISTORY: CAROTID STENOSIS DIZZINESS FINDINGS: Multiple projection images of the neck arterial vasculature were obtained without contrast. The raw data images were also reviewed. Motion on many of the images decreases exam sensitivity. The right common carotid artery has an unremarkable appearance without evidence of stenosis or occlusion. There is less than 50% stenosis of the proximal ICA. The right external carotid artery is patent. The right vertebral artery is patent without evidence of stenosis. The left common carotid artery has an unremarkable appearance without evidence of stenosis or occlusion. There is less than 50% stenosis of the proximal ICA. The left external carotid artery is patent. The left vertebral artery is patent without evidence of stenosis. IMPRESSION: Less than 50% stenosis of the bilateral proximal ICAs. Reviewed, Interpreted and Dictated by Turner Mccrary III, MD Transcribed by Francis Smart Authenticated and [facility]
--- NOTE | 2022-11-01 12:40 | MR_ITS ---
FINAL REPORT CLINICAL HISTORY: .DIZZINESS FINDINGS: Multiple projection images of the brain arterial vasculature were obtained without contrast. The raw data images were also reviewed. Motion on many of the images decreases exam sensitivity. The distal internal carotid, distal vertebral and basilar arteries have an unremarkable appearance without evidence of significant stenosis or occlusion. The proximal anterior, middle and posterior cerebral arteries have an unremarkable appearance. There is no evidence of significant stenosis or major branch occlusion. No aneurysm or vascular malformation is identified. IMPRESSION: No acute abnormality. Reviewed, Interpreted and Dictated by Turner Mccrary III, MD Transcribed by Francis Smart Authenticated and [facility]
[2022-11-01 12:46] LABS: Blood Urea Nitrogen 24 mg/dl (7-17); Estimated Glomerular Filt Rate 45 ml/min (>60); GFR (African American) 54 ML/MIN (>60)
== END ==
PROVIDERS: PCP Family Medicine; Visit Provider Nurse Practitioner Family
DX: I65.23 Occlusion and stenosis of bilateral carotid arteries (principal)
CPT/HCPCS: 36415; 70544; 70547; 82565; 84520

== ENCOUNTER → 2022-11-04 12:59 | Outpatient (CLI) | payer MEDICARE, MEDICAID, SELFPAY ==
--- NOTE | 2022-11-04 13:04 | MM_ITS ---
PROCEDURE INFORMATION: Exam: MG Bilateral Screening 3D Mammography Exam date and time: 11/04/2022 1:13 PM Age: 67 years old Clinical indication: Screening examination TECHNIQUE: Imaging protocol: Bilateral Screening tomosynthesis and 2D mammography including computer-aided detection (CAD) when performed. COMPARISON: No relevant prior studies available. FINDINGS: MAMMOGRAPHY: Breast composition: There are scattered areas of fibroglandular density. Mass: None. Architectural distortion: None. Calcifications: No suspicious calcifications. Asymmetric density: None. Skin thickening: None. Axillary adenopathy: None. IMPRESSION: No mammographic evidence of malignancy. Annual screening is recommended unless otherwise clinically indicated. ASSESSMENT: BI-RADS Category 1: Negative
--- NOTE | 2022-11-04 13:05 | XR_ITS ---
FINAL REPORT TECHNIQUE: Bone densitometry calculations of the lumbar spine and hip were obtained. CLINICAL HISTORY: post menopausal FINDINGS: DEXA BONE DENSITY AXIAL SKELETON Using L1-4, the bone mineral density of the spine is 0.982 g/cm2, corresponding to T-score of -0.6. These values may be falsely elevated secondary to hypertrophic change. Using the left hip, the bone mineral density of the femoral neck is 0.621 g/cm2, corresponding to a T-score of -2.1. NOTE: T-score: Standard deviation compared with peak bone mass of young adult mean. *Following the recommendations of the International Society of Bone densitometry, classification of hip BMD is based on the lower of two T-scores; total hip or femoral neck. IMPRESSION: Diminished bone mineral density of the lumbar spine and left hip consistent with osteopenia. FRAX 10 year fracture risk is 3.0% for a hip fracture and 11% for a major osteoporotic fracture. Reviewed, Interpreted and Dictated by Turner Mccrary III, MD Transcribed by Keyla Rivera Authenticated and [facility]
== END ==
PROVIDERS: PCP Nurse Practitioner Family; Visit Provider Nurse Practitioner Family
DX: Z12.31 Encounter for screening mammogram for malignant neoplasm of breast (principal); Z78.0 Asymptomatic menopausal state; Z13.820 Encounter for screening for osteoporosis
CPT/HCPCS: 77063; 77067; 77080

== ENCOUNTER → 2022-12-15 11:50 | Outpatient (CLI) | payer MEDICARE, MEDICAID, SELFPAY ==
--- NOTE | 2022-12-15 12:05 | CT_ITS ---
FINAL REPORT TECHNIQUE: Multiple axial CT sections were performed from the foramen magnum to the vertex. Coronal reformatted images were also obtained. Precontrast and postcontrast injection images were obtained. This study was performed with technique to keep radiation doses as low as reasonably achievable, (ALARA). Individualized dose reduction techniques using automated exposure control or adjustment of mA and/or kV according to the patient size were employed. CLINICAL HISTORY: recent dizzy spells , hx cva 3 years ago COMPARISON: 01/24/2018 FINDINGS: There is atrophy and mild periventricular chronic ischemic changes. There is a right posterior frontal area of encephalomalacia, stable. There is a small left basal ganglia lacunar infarct. The ventricles are normal in size. There is no evidence of hemorrhage. No masses are identified. No extra-axial fluid collection is seen. The sinuses are normal. No osseous abnormality is seen on the bone window images. Postcontrast images demonstrate no abnormal enhancement. IMPRESSION: Atrophy and mild chronic ischemic changes. Other chronic appearing findings without acute intracranial abnormality. Reviewed, Interpreted and Dictated by Turner Mccrary III, MD Transcribed by Calli Joiner Authenticated and [facility]
[2022-12-15 12:13] LABS: Blood Urea Nitrogen 18 mg/dl (7-17); Estimated Glomerular Filt Rate 55 ml/min (>60); GFR (African American) 67 ML/MIN (>60)
== END ==
PROVIDERS: PCP Nurse Practitioner Family; Visit Provider Nurse Practitioner Family
DX: I63.9 Cerebral infarction, unspecified (principal)
CPT/HCPCS: 36415; 70470; 82565; 84520; Q9966

== ENCOUNTER 2023-03-18 07:17 | Emergency (ER) | payer MEDICARE, MEDICAID, SELFPAY ==
[2023-03-18] VITALS (7 sets, daily range): BP systolic 130–158; BP diastolic 61–90; PULSE 60–76; RESP 18–20; TEMP 36.5–36.8; O2SAT 95–97; BMI 29.2
--- NOTE | 2023-03-18 07:20 | ECG_ITS ---
APPROVED REPORT Exam: Resting ECG HR:67 bpm ECG Measurements Heart Rate 67 AXES IA 190 P 75 QRSd 94 QRS -44 QT 395 T 69 QTc 411 Conclusion SINUS RHYTHM LEFT AXIS DEVIATION LVH Old anteroseptal changes ABNORMAL ECG UNCONFIRMED REPORT Electronically signed by : Tien Parker MD 03/18/2023 15:29:34
--- NOTE | 2023-03-18 07:27 | XR_ITS ---
FINAL REPORT CLINICAL HISTORY: dyspnea COMPARISON: 09/21/2022 FINDINGS: The heart size is normal. The mediastinum is normal. There is no focal infiltrate or edema. Mild chronic changes are noted in the lung miles bilaterally, unchanged since the prior chest x-ray of August 2022. There are no pleural effusions. There is no pneumothorax. There is no osseous abnormality. IMPRESSION: No acute cardiopulmonary process Reviewed, Interpreted and Dictated by Jessee Gee MD Transcribed by Paula Wu Authenticated and [facility]
--- NOTE | 2023-03-18 07:27 | CT_ITS ---
FINAL REPORT TECHNIQUE: NASCET technique utilized for stenosis evaluation. CLINICAL HISTORY: RLE weakness COMPARISON: None FINDINGS: RIGHT CAROTID: There is moderate vascular calcification present in the proximal right common carotid artery without evidence of significant stenosis. LEFT CAROTID: There is circumferential moderate vascular calcification in the proximal left internal carotid artery, which produces approximately 50 to 60% luminal diameter stenosis. VERTEBRALS: The vertebrals are patent. No significant stenosis is present. IMPRESSION: Bilateral vascular calcification, on the left side producing 50 to 60% stenosis of the proximal left internal carotid artery. Reviewed, Interpreted and Dictated by Jessee Gee MD Transcribed by Paula Wu Authenticated and [facility]
--- NOTE | 2023-03-18 07:27 | CT_ITS ---
FINAL REPORT TECHNIQUE: thin section axial CT with and without IV contrast supplemented with multiplanar 3-D reconstruction of the head. This study was performed with techniques to keep radiation doses as low as reasonably achievable, (ALARA)individualized dose reduction techniques using automated exposure control or adjustment of mA and/or kV according to the patient's size were employed. CLINICAL HISTORY: .bilateral lower ext weakness COMPARISON: Head CT 12/15/2022 FINDINGS: HEAD CT: There is mild to moderate atrophy as well as multiple areas of decreased attenuation in the deep white matter most compatible with ischemic microvascular/gliotic change. This is unchanged since the prior CT of 12/15/2022. There is no evidence of hemorrhage. No masses are identified. No extra-axial fluid is seen. The sinuses are normal. CTA: The cranial circulation is unremarkable. There is no significant stenosis, aneurysm or occlusion. IMPRESSION: No acute process. Reviewed, Interpreted and Dictated by Jessee Gee MD Transcribed by Paula Wu Authenticated and [facility]
--- NOTE | 2023-03-18 07:34 | HMH.EDGENADL ---
Discharge Plan Disposition Patient Disposition: Home, Self-Care Prescriptions Prescriptions: New sulfamethoxazole-trimethoprim [Bactrim DS] 800-160 mg tablet 1 tab PO BID 7 Days Qty: 14 0RF No Action albuterol sulfate [ProAir HFA] 90 mcg/actuation HFA aerosol inhaler 2 puff INHALATION ONCE fluticasone propionate 50 mcg/actuation spray,suspension 1 spray INTRANASAL DAILY benazepril 20 mg tablet 20 mg PO BID aspirin 81 mg tablet,delayed release (DR/EC) 81 mg PO DAILY atorvastatin 40 MG tablet 40 mg PO DAILY metoprolol succinate [Toprol XL] 50 mg tablet extended release 24 hr 50 mg PO DAILY lorazepam 1 mg tablet 1 mg PO TIDP PRN (Reason: Anxiety) Referrals Follow up/Referrals: Provider,Referral, [Referring] - See instructions Activity Restrictions/Add. Instructions Additional Instructions/Restrictions: There is no evidence of an acute neurologic abnormality including stroke today. Your right lower extremity weakness which appears to be chronic in nature seems to have slightly been exacerbated likely secondary to urinary tract infection and systemic effects called on an anamnestic recall of stroke symptoms. This should resolve with treatment of urinary tract infection. Please follow-up with your primary care doctor and return to the emergency part with any worsening symptoms. Clinical Impressions Clinical Impression: Acute UTI, Right leg weakness Discharge ED Provider: Denise Bowden General Adult HPI General Chief complaint: Weakness Stated complaint: fall Time Seen by Provider: 03/18/23 07:27 History of Present Illness HPI narrative: Patient is a 67-year-old female here with right lower extremity weakness. She states she has a history of major stroke 3 years ago and had another small stroke 4 months ago and has residual right lower extremity weakness. She vacillated significantly when asked if this weakness was new. She states that this weakness is the same that its been over the last 4 months however at the same time she states that this morning she felt like it was weaker than normal which led to a fall. She normally walks with assist devices at home and this morning she was try to walk without it. She states that sometimes she is able to walk without it and that this weakness gets worse and better at times. This morning she fell and called 911 as a result. She denies any fevers chills weakness elsewhere or other new neurologic symptoms. She denies any other preceding illnesses leading up to today. She does state that she has an aide that comes to her home and helps her but she does not have home health and is not undergoing physical therapy. She states that she did not enter a rehab facility after her most recent hospitalization. Related Data Home Medications Medication Instructions Recorded Confirmed atorvastatin 40 mg tablet 40 mg PO DAILY Cholesterol 11/16/17 03/18/23 albuterol sulfate 90 mcg/actuation 2 puff inhalation ONCE shortness 04/14/21 03/18/23 aerosol inhaler (ProAir HFA) of breath fluticasone propionate 50 1 spray intranasal DAILY Allergy 04/14/21 03/18/23 mcg/actuation nasal Symptoms spray,suspension aspirin 81 mg tablet,delayed 81 mg PO DAILY antiplatlett therapy 04/28/21 03/18/23 release benazepril 20 mg tablet 20 mg PO BID High Blood Pressure 02/02/22 03/18/23 lorazepam 1 mg tablet 1 mg PO TIDP PRN Anxiety 03/18/23 03/18/23 metoprolol succinate 50 mg 50 mg PO DAILY heart rate & blood 03/18/23 03/18/23 tablet,extended release 24 hr pressure (Toprol XL) Previous Rx's Medication Instructions Recorded sulfamethoxazole 800 1 tab PO BID 7 days #14 tabs 03/18/23 mg-trimethoprim 160 mg tablet (Bactrim DS) Allergies Allergy/AdvReac Type Severity Reaction Status Date / Time erythromycin base Allergy Severe S-BLISTERING Verified 09/16/22 13:34 DALY tiotropium Allergy Severe S-SWELLS-OR Verified 09/16/22 13:34
[2023-03-18 07:47] LABS: Basophils % 0.4 % (0.1-2.0); Eosinophils # 0.1 K/mm3 (0.0-0.4); Eosinophils % 1.5 % (0.1-12.0); Hematocrit 42.6 % (37.0-47.0); Hemoglobin 13.8 g/dL (12.2-16.2); Lymphocytes # 1.4 K/mm3 (0.7-4.5); Lymphocytes % 23.1 % (10-50); Mean Corpuscular HGB Conc 32.3 g/dL (31.8-35.4); Mean Corpuscular Hemoglobin 31.5 pg (27.0-31.2); Mean Corpuscular Volume 97.6 fl (81-99); Mean Platelet Volume 8.7 fl (7.4-10.4); Monocytes # 0.3 K/mm3 (0.1-1.0); Monocytes % 5.6 % (1.7-9.3); Neutrophils # 4.3 K/mm3 (1.8-7.8); Neutrophils % 69.5 % (37.0-80.0); Platelet Count 195 K/mm3 (142-424); Red Blood Count 4.37 M/mm3 (4.20-5.40); Red Cell Distribution Width 13.1 % (11.5-17.5); White Blood Count 6.1 K/mm3 (4.8-10.8)
[2023-03-18 07:48] LABS: Chloride 102 mmol/L (98-107); Potassium 4.3 mmoL/L (3.5-5.1); Sodium 137 mmol/L (136-145)
[2023-03-18 07:51] LABS: Alanine Aminotransferase 21 U/L (12-78); Albumin Level 3.8 g/dl (3.5-5.0); Alkaline Phosphatase 149 U/L (38-126); Anion Gap 13.3 mEq/L (5-15); Aspartate Amino Transferase 29 U/L (14-36); Bilirubin,Total 0.7 mg/dl (0.2-1.3); Blood Urea Nitrogen 20 mg/dl (7-17); Carbon Dioxide 26 mmol/L (22.0-30.0); Creatinine Clearance Estimated 53 mL/min (50-200); Estimated Glomerular Filt Rate 49 ml/min (>60); GFR (African American) 60 ML/MIN (>60); Total Protein,Serum 7.8 g/dl (6.3-8.2)
[2023-03-18 07:52] LABS: Calcium 10.2 mg/dl (8.4-10.2); Glucose 169 mg/dl (74-100)
[2023-03-18 07:53] LABS: Activated Partial Thrombo Time 26.7 seconds (22.8-30.6); Prothrombin Time 10.8 seconds (10.1-12.5)
[2023-03-18 08:04] LABS: Troponin I < 0.01 ng/ml (0.00-0.034)
--- NOTE | 2023-03-18 08:42 | PC.NURSE ---
pt back from ct and I assisted her to the bathroom with her cane. Urine sample was collected. Pt had some difficulty getting back onto the stretcher d/t the height. But with 1x staff assist and standing stool, able to get pt back into the bed.
[2023-03-18 08:49] LABS: Microscopic, Urine URINE MICROSCOPIC (MICROSCOPIC)
[2023-03-18 09:08] LABS: Appearance,Urine CLEAR (Clear); Bilirubin,Urine Negative (Negative); Blood, Urine TRACE-I (Negative); Color,Urine YELLOW (Yellow); Glucose,Urine (UA) Negative (Negative); Ketones,Urine Negative (Negative); Leukocyte Esterase,Urine 1+ (Negative); Nitrate,Urine POSITIVE (Negative); PH,Urine 5.5 (5.0-8.5); Protein,Urine Negative (Negative); Urobilinogen,Urine 0.2 EU/dl (0.2)
--- NOTE | 2023-03-18 09:15 | PC.NURSE ---
rounded on pt, assisted pt to reposition in bed. call button in reach.
== END 2023-03-18 09:50 | disposition home or self-care (01) ==
PROVIDERS: Emergency Provider Student in an Organized Health Care Education/Training Program; PCP Nurse Practitioner Family
DX: N39.0 Urinary tract infection, site not specified (principal); B96.29 Other Escherichia coli [E. coli] as the cause of diseases classified elsewhere; M62.81 Muscle weakness (generalized); I10 Essential (primary) hypertension; F17.210 Nicotine dependence, cigarettes, uncomplicated; Z86.73 Personal history of transient ischemic attack (TIA), and cerebral infarction without residual deficits
CPT/HCPCS: 70496; 70498; 71045; 80053; 81001; 84484; 85025; 85610; 85730; 87086; 87088; 87186; 93005; Q9967

== ENCOUNTER 2023-03-18 12:41 | Observation (INO) | payer MEDICARE, MEDICAID, SELFPAY ==
[2023-03-18] VITALS (7 sets, daily range): BP systolic 126–170; BP diastolic 60–82; PULSE 71–88; RESP 18–22; TEMP 36.6–37.2; O2SAT 90–97; BMI 30.2; BMI 29.7
--- NOTE | 2023-03-18 12:50 | PC.NURSE ---
DR DUMONT SPEAKING WITH DR BERMUDEZ
--- NOTE | 2023-03-18 12:54 | PC.NURSE ---
notified care management of consult needed on pt (placement vs home health) ER MD Bowden has spoken to hospitalist Dr. Urena about pt.
--- NOTE | 2023-03-18 12:55 | HMH.EDGENADL ---
Discharge Plan Disposition Patient Disposition: Home, Self-Care Prescriptions Prescriptions: No Action albuterol sulfate [ProAir HFA] 90 mcg/actuation HFA aerosol inhaler 2 puff INHALATION ONCE fluticasone propionate 50 mcg/actuation spray,suspension 1 spray INTRANASAL DAILY benazepril 20 mg tablet 20 mg PO BID aspirin 81 mg tablet,delayed release (DR/EC) 81 mg PO DAILY atorvastatin 40 MG tablet 40 mg PO DAILY metoprolol succinate [Toprol XL] 50 mg tablet extended release 24 hr 50 mg PO DAILY lorazepam 1 mg tablet 1 mg PO TIDP PRN (Reason: Anxiety) sulfamethoxazole-trimethoprim [Bactrim DS] 800-160 mg tablet 1 tab PO BID Referrals Follow up/Referrals: Becca Park APRN [Primary Care Provider] - See instructions Activity Restrictions/Add. Instructions Additional Instructions/Restrictions: Care management and physical therapy evaluated you today and felt that you are appropriate to be discharged. Please make sure you get your antibiotic prescription filled and complete your antibiotic course. We have put in an order for home health which will be completed by Dr. Cowan's office. Return with any other concerns. Clinical Impressions Clinical Impression: Right leg weakness, Acute UTI, Falling Discharge ED Provider: Denise Bowden General Adult HPI General Chief complaint: Weakness Stated complaint: right side weakness Time Seen by Provider: 03/18/23 12:46 History of Present Illness HPI narrative: Patient is a 67-year-old female who is a bounce back from a discharge earlier this morning. She has a history of a stroke most recently several months ago and presents today with the same neurologic deficits that she had from previous strokes primarily right lower extremity weakness. She states this has gotten to the point where she has difficulty walking at times but this morning she was not walking with her walker and she fell prompting an ER visit. She had CT CT angio of her head and neck that were done which did not show any acute abnormalities. She is already on antiplatelet agents beta-popeye statin and has no focal stenotic lesions that require surgical intervention. This morning I do not feel she needed to be admitted in the hospital and that her symptoms were chronic. However she went home and still was having difficulty with walking and called EMS and returned today. She specifically states she does not want to be in rehab facility or a care home and states those are not options. She denies any new or different symptoms at the moment still has the chronic right lower extremity weakness no other neurologic complaints. She was also treated for urinary tract infection earlier today and presumptively her systemic infection is what exacerbated her symptoms at the moment. Related Data Home Medications Medication Instructions Recorded Confirmed atorvastatin 40 mg tablet 40 mg PO DAILY Cholesterol 11/16/17 03/18/23 albuterol sulfate 90 mcg/actuation 2 puff inhalation ONCE shortness 04/14/21 03/18/23 aerosol inhaler (ProAir HFA) of breath fluticasone propionate 50 1 spray intranasal DAILY Allergy 04/14/21 03/18/23 mcg/actuation nasal Symptoms spray,suspension aspirin 81 mg tablet,delayed 81 mg PO DAILY antiplatlett therapy 04/28/21 03/18/23 release benazepril 20 mg tablet 20 mg PO BID High Blood Pressure 02/02/22 03/18/23 lorazepam 1 mg tablet 1 mg PO TIDP PRN Anxiety 03/18/23 03/18/23 metoprolol succinate 50 mg 50 mg PO DAILY heart rate & blood 03/18/23 03/18/23 tablet,extended release 24 hr pressure (Toprol XL) sulfamethoxazole 800 1 tab PO BID uti 03/1803/18/23 03/18/23 mg-trimethoprim 160 mg tablet (Bactrim DS) Allergies Allergy/AdvReac Type Severity Reaction Status Date / Time erythromycin base Allergy Severe S-BLISTERING Verified 09/16/22 13:34 DALY tiotropium Allergy Severe S-SWELLS-OR Verified 09/16/22 13:34 [From [email or web address] wi
--- NOTE | 2023-03-18 13:00 | PC.NURSE ---
thierno from care management at
--- NOTE | 2023-03-18 13:08 | PC.NURSE ---
notified rehab department of pt/ot consult order
--- NOTE | 2023-03-18 13:31 | PC.NURSE ---
Assisted pt to the Bathroom, she was max x1 assist. She would not bear but 10% of her weight to stand. She could not move her legs OOB. I stood pt and transferred to wheelchair and then took her to the bathroom, where pt was unable to stand on her own or sit upright on the commode. notified of pt's increased difficulty with ambulation.
--- NOTE | 2023-03-18 13:55 | SW/DCPLANNER ---
Addendum entered by [facility] 03/21/23 15:25: Emerald rubin/ Gregorio stated that home health services will begin Tuesday for this patient. Addendum entered by [facility] 03/21/23 12:11: Julissa rubin/ Jose stated patient plans to discharge home w/ son in [place]. Patient information/order has been faxed to Emerald rubin/ [facility]. Addendum entered by [facility] 03/21/23 08:32: I updated Radha rubin/ [facility]aylor that patient discharged home. Patient information/order has been faxed to [facility]. I will follow up with [facility] once patient information/order is reviewed. Addendum entered by [facility] 03/18/23 15:52: Radha rubin/ [facility]aylor stated that she can accept this patient for admission on Tuesday pending precert. Radha will start the precert today. Addendum entered by [facility] 03/18/23 15:06: Patient information has also been faxed to Mayte rubin/ [facility] to see if patient has out of network benefits. Addendum entered by [facility] 03/18/23 14:49: Patient is now interested in placement at [facility] in [place]. Patient information will be faxed to Radha rubin/ Imt[facility] Naylor. I will also follow up with Jason CHAKRABORTY (Rosa) to attempt placement from ED. Per Rosa patient does NOT require an OT evaluation from ED. Original Note: I spoke with this patient regarding plans once medically stable for discharge. PT/OT has been ordered to evaluate this patient. Patient stated that she is unable to walk and resides at home alone. This is patient's second admission to ED today. I discussed with patient options of placement and she is unsure of placement at this time. We discussed having PT work with her to see what she is capable of completing then I will follow back up. If patient is interested in placement the following facilities do not have beds or are not in network with patient's insurance: [facility], [facility], [facility], [facility] and [facility]. I will continue to follow up with patient once PT evaluation is completed.
--- NOTE | 2023-03-18 14:20 | PC.NURSE ---
Physical therapy here to assess pt.
--- NOTE | 2023-03-18 14:34 | PC.NURSE ---
Cayla Villarreal here with Case consulting technical director with Harinder from rehab and Dr Bowden
--- NOTE | 2023-03-18 14:56 | HMH.PTEV ---
Physical Therapy Evaluation Rehab PT IP Evaluation Start: 03/18/23 13:06 Freq: ONCE Status: Active Protocol: Document 03/18/23 14:40 PHOMARISELA (Rec: 03/18/23 14:56 PHOMARISELA [id number]) Subjective/History History History 67 yowf who presents with the ED for the second time this date with c/o weakness and R LE pain. She has hx of prior CVA x 2 with R UE and LE residual weakness. She reports she fell this am landing on her R side. I just got dizzy and fell. Luckily, she had no significant injuries as a result of her fall. She reports she lives alone at baseline and uses a RW for all mobility. She reports she has an aide that comes to her hoem 2 days per week to assist her with bathing and cooking. Subjective Subjective Pt reports pain in the R LE, but does not rate when asked. Rehab PT IP Eval Objective Appearance Patient Behavior Appropriate Patient Orientation Person,Place,Time Difficulty following instructions none Speech Pattern Clear Ambulation Patient Able to Ambulate Yes Ambulation Observation IP General Gait Pattern Observation Shuffling Step Ambulation Distance (feet) 40 Ambulation Assistive Device Rolling Walker Ambulation Ability Supervision/Stand by Balance Ability to Arise Able, uses arms to help Sitting Balance Steady, safe Standing Balance Unsteady Dynamic Sitting Balance Ability Good Dynamic Standing Balance Ability Poor Transfers Bed Transfer Ability Contact Guard/Hand Hold Chair Transfer Ability Supervision/Stand by Sit to Stand Bed Transfer Ability Supervision/Stand by Sit to Stand Chair Transfer Ability Supervision/Stand by Rehab PT IP prob,goals,plan Problems Date of Evaluation: 03/18/23 PT IP Problems Bed Mobility,Transfers,Gait Rehab Potential Rehab Potential Good Plan PT Intervention Plan Bed Mobility,Transfers,Gait PT Plan Frequency Daily Duration LOS Discharge Goals Bed Transfer Ability Supervision/Stand by Sit to Stand Chair Transfer Ability Independent Ambulation Assistive Device Rolling Walker Ambulation Distance (feet) 50 Discharge Plan PT Discharge Plan Pt is currently most
--- NOTE | 2023-03-18 15:28 | PC.NURSE ---
thierno with case management, states unable to get pt placement today. Updated ER MD Villar, I called Dr. Urena (hospitalist) to notify his of what thierno theodore had said. States he will place admission orders for pt.
--- NOTE | 2023-03-18 15:31 | PC.NURSE ---
notified care management of admission
--- NOTE | 2023-03-18 16:00 | PC.NURSE ---
report called to bobby hamilton on second floor at this time, states will send staff down to transport pt.
--- NOTE | 2023-03-18 16:19 | PC.NURSE ---
Dr. Urena at bedside s/w patient
--- NOTE | 2023-03-18 16:30 | PC.NURSE ---
staff here to collect pt to 2nd floor
--- NOTE | 2023-03-18 16:37 | PC.NURSE ---
arrived by w/c from ED
--- NOTE | 2023-03-18 16:45 | PC.NURSE ---
pt has home medications with her, will pass on in report
--- NOTE | 2023-03-18 16:59 | EXP.HP ---
History of Present Illness *Admission Date: 03/18/23 *Reason for visit:: Weakness, fall *History of present illness: Ms. Heller is a 67-year-old female with history of CVA, hypertension, hyperlipidemia, PAD, who ambulates with a walker at home. She presented to the ER twice today. Initially presented with concern for some neurologic deficits, weakness and difficulty walking with pain in her right side. States she fell at home this morning and was unable to get up and walk with her walker. She called EMS and had them bring her to the ER for further evaluation. CT, CT angio of her head and neck were done which did not show any acute abnormalities. She is already on goal-directed therapy. Work-up did identify a UTI. She was deemed stable to discharge home and was discharged. Upon returning home, she realized that she could not ambulate comfortably and did not feel safe being at home. Due to her difficulty walking, she came back to the ER for reevaluation. During her second visit to the ER, PT evaluated and she was able to walk but very unsteady. She fell again when walking with her walker to the bathroom. Both physical therapy and case management were consulted to assist with social needs and possible placement. As patient is not safe to discharge home in her current state, ER consulted medicine for admission to assist with placement and further rehabilitation. On evaluation, patient complains of right leg pain. She appears to have a bruise on her right thigh from her fall. Denies any cough, shortness of breath, nausea, vomiting, confusion, headache, abdominal pain. Complains of residual deficits in her right side from her stroke. Right leg is mainly the affected limb. Is stable on room air. Reviewed labs from initial visit to the ER, urine positive for nitrate, leuk esterase, 5-10 white cells. Was initiated on Bactrim but has not taken any of this medication yet. [facility] Disclaimer: The information contained in this section may have been updated after the patient was seen, as this information can be updated by other users. Medical History Chest pain Claudication DVT (deep venous thrombosis) Malignant hypertension Social History Smoking Status: Current every day smoker tobacco type: cigarettes packs per day: 1 alcohol intake: never substance use type: denies use current occupational status: unemployed Travel in the last 8 weeks: Inside the [place] household members: none housing: apartment current occupational exposures/hazards: No caffeine: Yes Review of Systems Review of Systems Review of systems (narrative): 14 point review of systems performed, pertinent positives and negatives as per HPI Meds Home Medications and Allergies Home Medications Medication Instructions Recorded Confirmed Type atorvastatin 40 mg tablet 40 mg PO DAILY Cholesterol 11/16/17 03/18/23 History albuterol sulfate 90 mcg/actuation 2 puff inhalation ONCE shortness 04/14/21 03/18/23 History aerosol inhaler (ProAir HFA) of breath fluticasone propionate 50 1 spray intranasal DAILY Allergy 04/14/21 03/18/23 History mcg/actuation nasal Symptoms spray,suspension aspirin 81 mg tablet,delayed 81 mg PO DAILY antiplatlett therapy 04/28/21 03/18/23 History release benazepril 20 mg tablet 20 mg PO BID High Blood Pressure 02/02/22 03/18/23 History lorazepam 1 mg tablet 1 mg PO TIDP PRN Anxiety 03/18/23 03/18/23 History metoprolol succinate 50 mg 50 mg PO DAILY heart rate & blood 03/18/23 03/18/23 History tablet,extended release 24 hr pressure (Toprol XL) sulfamethoxazole 800 1 tab PO BID uti 03/1803/18/23 03/18/23 History mg-trimethoprim 160 mg tablet (Bactrim DS) New Prescriptions to Start Prescriptions: Allergies Allergy/AdvReac Type Severity Reaction Status Date / Time erythromycin base Al
[2023-03-19 04:00] VITALS: BP 147/59; PULSE 66; RESP 18; TEMP 36.3; O2SAT 98; BMI 30.1
--- NOTE | 2023-03-19 06:26 | PC.NURSE ---
Patient alert and oriented x3. Complaints of pain treated per MAR with relief noted. Vitals WNL, remains on RA. No other issues at this time. Call mills and personal items in reach POC ongoing.
[2023-03-19 07:46] VITALS: BP 186/77; PULSE 69; RESP 16; TEMP 36.9; O2SAT 92
[2023-03-19 07:48] LABS: Basophils % 0.4 % (0.1-2.0); Eosinophils # 0.1 K/mm3 (0.0-0.4); Eosinophils % 1.3 % (0.1-12.0); Hematocrit 42.7 % (37.0-47.0); Hemoglobin 14.3 g/dL (12.2-16.2); Lymphocytes # 1.2 K/mm3 (0.7-4.5); Lymphocytes % 14.7 % (10-50); Mean Corpuscular HGB Conc 33.5 g/dL (31.8-35.4); Mean Corpuscular Hemoglobin 32.3 pg (27.0-31.2); Mean Corpuscular Volume 96.5 fl (81-99); Mean Platelet Volume 8.5 fl (7.4-10.4); Monocytes # 0.4 K/mm3 (0.1-1.0); Monocytes % 4.4 % (1.7-9.3); Neutrophils # 6.5 K/mm3 (1.8-7.8); Neutrophils % 79.3 % (37.0-80.0); Platelet Count 216 K/mm3 (142-424); Red Blood Count 4.43 M/mm3 (4.20-5.40); Red Cell Distribution Width 13.2 % (11.5-17.5); White Blood Count 8.2 K/mm3 (4.8-10.8)
[2023-03-19 08:10] LABS: Chloride 104 mmol/L (98-107); Potassium 4.3 mmoL/L (3.5-5.1); Sodium 138 mmol/L (136-145)
[2023-03-19 08:12] LABS: Blood Urea Nitrogen 18 mg/dl (7-17); Creatinine Clearance Estimated 49 mL/min (50-200); Estimated Glomerular Filt Rate 45 ml/min (>60); GFR (African American) 54 ML/MIN (>60)
[2023-03-19 08:13] LABS: Alanine Aminotransferase 23 U/L (12-78); Albumin Level 3.8 g/dl (3.5-5.0); Albumin/Globulin Ratio 0.9 (1.1-1.8); Alkaline Phosphatase 152 U/L (38-126); Anion Gap 16.3 mEq/L (5-15); Aspartate Amino Transferase 35 U/L (14-36); Bilirubin,Total 0.7 mg/dl (0.2-1.3); Calcium 10.3 mg/dl (8.4-10.2); Carbon Dioxide 22 mmol/L (22.0-30.0); Globulin 4.1 g/dL (1.3-3.2); Glucose 184 mg/dl (74-100); Magnesium 1.9 mg/dl (1.6-2.3); Total Protein,Serum 7.9 g/dl (6.3-8.2)
--- NOTE | 2023-03-19 09:46 | HMH.PHAINT1 ---
Pharmacy Intervention Comments: MEDICATION RECONCILIATION COMPLETE USING EXTERNAL PHARMACY FILL HISTORY AND MOST RECENT MD OFFICE VISIT (02/21/23).
[2023-03-19 11:07] VITALS: BP 136/62; PULSE 66; RESP 16; TEMP 36.5; O2SAT 96
--- NOTE | 2023-03-19 13:44 | EXP.DC.SUM ---
General Admission date:: 03/18/23 Discharge date: 03/19/23 HPI HPI HPI: Ms. Heller is a 67-year-old female with history of CVA, hypertension, hyperlipidemia, PAD, who ambulates with a walker at home. She presented to the ER twice today. Initially presented with concern for some neurologic deficits, weakness and difficulty walking with pain in her right side. States she fell at home this morning and was unable to get up and walk with her walker. She called EMS and had them bring her to the ER for further evaluation. CT, CT angio of her head and neck were done which did not show any acute abnormalities. She is already on goal-directed therapy. Work-up did identify a UTI. She was deemed stable to discharge home and was discharged. Upon returning home, she realized that she could not ambulate comfortably and did not feel safe being at home. Due to her difficulty walking, she came back to the ER for reevaluation. During her second visit to the ER, PT evaluated and she was able to walk but very unsteady. She fell again when walking with her walker to the bathroom. Both physical therapy and case management were consulted to assist with social needs and possible placement. As patient is not safe to discharge home in her current state, ER consulted medicine for admission to assist with placement and further rehabilitation. On evaluation, patient complains of right leg pain. She appears to have a bruise on her right thigh from her fall. Denies any cough, shortness of breath, nausea, vomiting, confusion, headache, abdominal pain. Complains of residual deficits in her right side from her stroke. Right leg is mainly the affected limb. Is stable on room air. Reviewed labs from initial visit to the ER, urine positive for nitrate, leuk esterase, 5-10 white cells. Was initiated on Bactrim but has not taken any of this medication yet. Hospital Course Hospital Course Hospital Course: 67-year-old female with history of hypertension, hyperlipidemia, stroke with right-sided residual deficits. Fell earlier today and has weakness. Unable to ambulate independently. Found to have UTI. Discussed case with the ER, patient not safe to go home. They request admission for assistance with placement and further management of her UTI along with PT eval and treatment. Medicine agreed to admit for further management. Patient admitted to observation. Problems addressed as follows: UTI: Urine grossly abnormal with leukesterase, nitrate, white blood cells. Initiated on ceftriaxone 1 g daily. Urine culture positive for gram-negative rods. Will transition to cefdinir to complete course. History of stroke Right-sided weakness Frequent falls -PT consulted, appreciate their recommendations and assistance with care and placement -Patient will need placement. Case management consulted to assist with placement. -Continue patient's aspirin 81 mg daily and statin 40 mg Lipitor daily. - Patient is also on Ativan 1 mg 3 times daily as needed at home. We will hold during admission given her unsteadiness and weakness. Hypertension: Continue home metoprolol 50 mg daily and benazepril per home regimen. Patient stable to go home with home health. Extensive discussion about continuing to keep to assist with placement versus discharging home with home health. Patient initially thought she might want to stay admitted but then after much thought, decided she would rather go home she did not want to go to the senior living. Spent 40 minutes in discharge counseling and direct care with patient. Exam Data for Last 24 hours Vital signs and Labs for Last 24 Hours: Temp Pulse Resp BP Pulse Ox O2 Del Method 97.7 F 66 16 136/62 96 Room Air 03/19/23 11:07 03/19/23 11:07 03/19/23 11:07 03/19/23 11:07 03/19/23 11:07 03/19/23 12:59 Laboratory Results - last 24 hr 03/19/23 07:31: WBC 8.2 D, RBC 4.43, Hgb 14.3, Hct 42.7, MCV 96.5, MCH 32.3 H, MCHC 33.5, RDW 13.2, Plt
--- NOTE | 2023-03-21 14:33 | CARE MANAGER ---
Spoke with patient for post-discharge phone interview. No issues noted.
== END 2023-03-19 14:04 | disposition home health service (06) ==
LOC: ER 15:43 → 2ND 16:02
PROVIDERS: Admitting Provider Internal Medicine Adolescent Medicine; Emergency Provider Emergency Medicine; PCP Nurse Practitioner Family; Visit Provider Internal Medicine Adolescent Medicine
DX: N39.0 Urinary tract infection, site not specified (principal); R29.6 Repeated falls; I10 Essential (primary) hypertension; E78.2 Mixed hyperlipidemia; I73.9 Peripheral vascular disease, unspecified; Z86.73 Personal history of transient ischemic attack (TIA), and cerebral infarction without residual deficits; Z86.718 Personal history of other venous thrombosis and embolism
CPT/HCPCS: 36415; 70496; 70498; 71045; 80053; 81001; 83735; 84484; 85025; 85610; 85730; 87086; 87088; 87186; 93005; 99285; G0378; J0696; Q9967

== ENCOUNTER 2023-03-20 19:01 | Emergency (ER) | payer MEDICARE, MEDICAID, SELFPAY ==
[2023-03-20 19:14] VITALS: BP 135/35; PULSE 74; RESP 18; TEMP 36.5; O2SAT 96; BMI 29.2
[2023-03-20 19:30] VITALS: BP 142/57; PULSE 73; O2SAT 96
--- NOTE | 2023-03-20 19:40 | CT_ITS ---
PROCEDURE INFORMATION: Exam: CT Head Without Contrast Exam date and time: 03/20/2023 7:59 PM Age: 67 years old Clinical indication: Injury or trauma; Fall TECHNIQUE: Imaging protocol: Computed tomography of the head without contrast. Radiation optimization: All CT scans at this facility use at least one of these dose optimization techniques: automated exposure control; mA and/or kV adjustment per patient size (includes targeted exams where dose is matched to clinical indication); or iterative reconstruction. REPORTING DATA: Count of CT and Cardiac NM exams in prior 12 months: This patient has received 3 known CTs and 0 known cardiac nuclear medicine studies in the 12 months prior to the current study. COMPARISON: CT ANGIO HEAD WITH W/O 03/18/2023 8:21 AM FINDINGS: Brain: The brain demonstrates diffuse volume loss. There is extensive white matter hypodensity most consistent with severe chronic small vessel ischemic change. There is a small stable region of encephalomalacia of the right frontal parietal junction. There are small foci of low attenuation in the basal ganglia bilaterally related to chronic lacunar infarctions. Cerebral ventricles: The ventricles and CSF spaces are proportionately enlarged. Paranasal sinuses: Visualized sinuses are unremarkable. No fluid levels. Mastoid air cells: Visualized mastoid air cells are well aerated. Auditory system: There is material in the left external auditory canal which presumably represents cerumen. Orbital cavities: There are postop changes from a left lens replacement. Vascular: There is atherosclerotic disease involving the vertebral basilar system and cavernous ICAs. Bones/joints: No acute fracture. Soft tissues: Unremarkable. IMPRESSION: 1. Atrophy and the sequela of prior small vessel ischemia. 2. No sequela of acute intracranial trauma.
--- NOTE | 2023-03-20 19:40 | XR_ITS ---
PROCEDURE INFORMATION: Exam: XR Chest Exam date and time: 03/20/2023 7:49 PM Age: 67 years old Clinical indication: Injury or trauma; Fall; Blunt trauma (contusions or hematomas) TECHNIQUE: Imaging protocol: Radiologic exam of the chest. Views: 1 view. COMPARISON: CR XR CHEST PORTABLE 03/18/2023 8:24 AM FINDINGS: Lungs: Unremarkable. No consolidation. Pleural spaces: Unremarkable. No pleural effusion. No pneumothorax. Heart/Mediastinum: Unremarkable. No cardiomegaly. Vasculature: There are calcifications of the aortic arch. Bones/joints: Unremarkable. IMPRESSION: No dense parenchymal consolidation, pleural effusion, or pneumothorax.
--- NOTE | 2023-03-20 19:40 | CT_ITS ---
PROCEDURE INFORMATION: Exam: CT Cervical Spine Without Contrast Exam date and time: 03/20/2023 8:02 PM Age: 67 years old Clinical indication: Injury or trauma; Fall TECHNIQUE: Imaging protocol: Computed tomography of the cervical spine without contrast. Radiation optimization: All CT scans at this facility use at least one of these dose optimization techniques: automated exposure control; mA and/or kV adjustment per patient size (includes targeted exams where dose is matched to clinical indication); or iterative reconstruction. REPORTING DATA: Count of CT and Cardiac NM exams in prior 12 months: This patient has received 3 known CTs and 0 known cardiac nuclear medicine studies in the 12 months prior to the current study. COMPARISON: [facility] CT cervical spine wo con 01/24/2018 8:50 AM FINDINGS: Bones/joints: There is loss of disc space height throughout, related to degenerative disc disease. There are facet joint degenerative changes. 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 There is no acute cervical spine fracture. There is a stable leftward partially calcified protrusion at C6-C7. Lungs: Lung apices are normal. Vasculature: There is atherosclerotic disease of carotid arteries not fully assessed. Soft tissues: Unremarkable. IMPRESSION: 1. Degenerative changes throughout. 2. There is no acute cervical spine fracture.
--- NOTE | 2023-03-20 19:40 | XR_ITS ---
PROCEDURE INFORMATION: Exam: XR Pelvis Exam date and time: 03/20/2023 7:49 PM Age: 67 years old Clinical indication: Injury or trauma; Fall; Blunt trauma (contusions or hematomas); Bilateral; Pelvic region TECHNIQUE: Imaging protocol: Radiologic exam of the pelvis. Views: 1 or 2 view. COMPARISON: CT ABDOMEN PELVIS WO CON 06/02/2021 1:56 PM FINDINGS: Bones/joints: There is mild osteoarthritis of the hips with joint space narrowing, productive changes, and subchondral sclerosis. There is a left common iliac arterial stent in place. There are partially visualized degenerative changes of the sacroiliac joints and lumbar spine as well as some degenerative disease of the pubic symphysis. No acute fracture or dislocation is identified. Soft tissues: Unremarkable. Vasculature: Scattered atherosclerotic disease of the arterial vasculature. Multiple pelvic phleboliths are present. IMPRESSION: Degenerative disease without acute injury identified.
[2023-03-20 20:15] VITALS: BP 148/40; PULSE 64; O2SAT 95
--- NOTE | 2023-03-20 20:15 | PC.NURSE ---
Pt ambulatory to bathroom x1 person assist. Warm blanket and socks provided.
[2023-03-20 20:28] LABS: Microscopic, Urine URINE MICROSCOPIC (MICROSCOPIC)
[2023-03-20 20:29] LABS: Appearance,Urine CLEAR (Clear); Blood, Urine Negative (Negative); Color,Urine YELLOW (Yellow); Glucose,Urine (UA) Negative (Negative); Ketones,Urine TRACE (Negative); Leukocyte Esterase,Urine Negative (Negative); Nitrate,Urine Negative (Negative); PH,Urine 5.5 (5.0-8.5); Protein,Urine Negative (Negative); Specific Gravity, Urine >= 1.030 (1.005-1.030); Urobilinogen,Urine 0.2 EU/dl (0.2)
--- NOTE | 2023-03-20 20:35 | HMH.EDGENADL ---
Discharge Plan Disposition Patient Disposition: Home, Self-Care Condition: Good Prescriptions Prescriptions: No Action fluticasone propionate 50 mcg/actuation spray,suspension 1 spray INTRANASAL DAILY benazepril 20 mg tablet 20 mg PO DAILY aspirin 81 mg tablet,delayed release (DR/EC) 81 mg PO DAILY atorvastatin 40 MG tablet 40 mg PO DAILY metoprolol succinate [Toprol XL] 50 mg tablet extended release 24 hr 50 mg PO DAILY lorazepam 1 mg tablet 1 mg PO TIDP PRN (Reason: Anxiety) ibandronate 150 mg tablet 150 mg PO MONTHLY albuterol sulfate 90 mcg/actuation Hfa Aerosol Inhaler 2 puff inhalation Q6H PRN (Reason: Dyspnea) 30 Days Qty: 0 0RF cefdinir 300 mg capsule 300 mg PO BID 5 Days Qty: 10 0RF Referrals Follow up/Referrals: Provider,Referral, MD [Primary Care Provider] - See instructions Activity Restrictions/Add. Instructions Additional Instructions/Restrictions: You were evaluated in the emergency department today. Please proceed with home health tomorrow as scheduled. Follow-up with your primary care provider. I recommend PT/OT. Return to the emergency department for new or worsening symptoms. Clinical Impressions Clinical Impression: Fall Qualifiers: Encounter type: initial encounter Qualified Code(s): W19.XXXA - Unspecified fall, initial encounter Instructions Patient Instructions: How to Prevent Falls Discharge ED Provider: Jaquelin Villar General Adult HPI General Chief complaint: Fall Stated complaint: Fall Time Seen by Provider: 03/20/23 19:40 Mode of Arrival: EMS Source of Information: Patient Limitations: No Limitations Description of Symptoms (Recalled from ER Triage Doc. by RN): 67 yo female presents for cc of continued falls at home. According to her, her right leg gives out and she 'falls over'. Patient is A&o x3, verbal with clear speech. vss. emv 15. No LOC, states didn't hurt anything , has alot of bruising from falling . History of Present Illness HPI narrative: This patient is a 67-year-old female with a history of hypertension, hyperlipidemia, peripheral arterial disease, carotid stenosis, and UTIs coming in for evaluation after a mechanical ground-level fall. She states that she was turning to sit down on the toilet when she fell. She was feeling fine prior to the fall. She denies any injuries and states that she is feeling okay. She has been able to ambulate since then. She did not hit her head or lose consciousness, she denies any numbness, tingling, or other concerns, and she was well prior to this. Patient was recently admitted on medical record review and discharged after she refused placement for PT/OT. She has home health that is set to start tomorrow. She states again that she does not want to pursue placement at this time. Related Data Home Medications Medication Instructions Recorded Confirmed atorvastatin 40 mg tablet 40 mg PO DAILY Cholesterol 11/16/17 03/18/23 fluticasone propionate 50 1 spray intranasal DAILY Allergy 04/14/21 03/18/23 mcg/actuation nasal Symptoms spray,suspension aspirin 81 mg tablet,delayed 81 mg PO DAILY Blood Thinner 04/28/21 03/18/23 release benazepril 20 mg tablet 20 mg PO DAILY High Blood Pressure 02/02/22 03/19/23 lorazepam 1 mg tablet 1 mg PO TIDP PRN Anxiety 03/18/23 03/18/23 metoprolol succinate 50 mg 50 mg PO DAILY heart rate & blood 03/18/23 03/18/23 tablet,extended release 24 hr pressure (Toprol XL) ibandronate 150 mg tablet 150 mg PO MONTHLY [facility] 03/19/23 03/19/23 Previous Rx's Medication Instructions Recorded albuterol sulfate 90 mcg/actuation 2 puff inhalation Q6H PRN Dyspnea 03/19/23 aerosol inhaler 30 days #0 grams cefdinir 300 mg capsule 300 mg PO BID 5 days #10 caps 03/19/23 Allergies Allergy/AdvReac Type Severity Reaction Status Date / Time erythromycin base Allergy Severe S-BLISTERING Verified 03/18/23 16:44 DALY tiotropium Herbert
[2023-03-20 20:48] LABS: Bilirubin,Urine 1+ (Negative)
[2023-03-20 21:03] LABS: Squamous Epithelial Cell,Urine Occasional #/hpf (0-5); Uric Acid Crystals,Urine 1+ /lpf; WBC,Urine Occasional #/hpf (0-3)
[2023-03-20 21:19] VITALS: BP 140/50; PULSE 68; RESP 14; TEMP 36.6; O2SAT 96
== END 2023-03-20 21:21 | disposition home or self-care (01) ==
PROVIDERS: Emergency Provider Emergency Medicine
DX: R29.6 Repeated falls (principal); I25.10 Atherosclerotic heart disease of native coronary artery without angina pectoris; I10 Essential (primary) hypertension; E78.5 Hyperlipidemia, unspecified; I73.9 Peripheral vascular disease, unspecified; I65.29 Occlusion and stenosis of unspecified carotid artery; F17.210 Nicotine dependence, cigarettes, uncomplicated; Z79.02 Long term (current) use of antithrombotics/antiplatelets; W18.30XA Fall on same level, unspecified, initial encounter
CPT/HCPCS: 70450; 71045; 72125; 72170; 81001; 99285

== ENCOUNTER 2023-03-22 18:25 | Observation (INO) | payer MEDICARE, MEDICAID, SELFPAY ==
[2023-03-22 18:27] VITALS: BP 140/52; PULSE 67; RESP 16; TEMP 36.8; O2SAT 97; BMI 29.2
[2023-03-22 18:44] VITALS: BP 139/42; PULSE 61; RESP 20; TEMP 36.7; O2SAT 95
--- NOTE | 2023-03-22 20:12 | HMH.EDGENADL ---
Discharge Plan Disposition Patient Disposition: Admitted Condition: Fair Chief Complaint: Weakness Prescriptions Prescriptions: No Action fluticasone propionate 50 mcg/actuation spray,suspension 1 spray INTRANASAL DAILY benazepril 20 mg tablet 20 mg PO DAILY aspirin 81 mg tablet,delayed release (DR/EC) 81 mg PO DAILY atorvastatin 40 MG tablet 40 mg PO DAILY metoprolol succinate [Toprol XL] 50 mg tablet extended release 24 hr 50 mg PO DAILY lorazepam 1 mg tablet 1 mg PO TIDP PRN (Reason: Anxiety) ibandronate 150 mg tablet 150 mg PO MONTHLY albuterol sulfate 90 mcg/actuation Hfa Aerosol Inhaler 2 puff inhalation Q6H PRN (Reason: Dyspnea) 30 Days Qty: 0 0RF cefdinir 300 mg capsule 300 mg PO BID 5 Days Qty: 10 0RF Referrals Follow up/Referrals: Becca Park APRN [Primary Care Provider] - See instructions Clinical Impressions Clinical Impression: Weakness, Falls Discharge ED Provider: Frank Heller General Adult HPI General Chief complaint: Weakness Stated complaint: stroke 4 mo ago, Dizzy,Weakness Time Seen by Provider: 03/22/23 19:57 Mode of Arrival: Wheelchair Source of Information: Patient and Relative Limitations: No Limitations Description of Symptoms (Recalled from ER Triage Doc. by RN): c/o weakness and difficulty doing ADLs since Tuesday.PT states that she was suppose to be admitted to [facility] for PT but pt refused and signed out AMA on 03/19/23 from this hospital. Family talked with her and she has decided that she needs to go for PT. History of Present Illness HPI narrative: Patient is 67-year-old female with past medical history of CVA with right lower extremity residual, recent admission with acute functional decline for placement who elected to go home with home health who presents emergency department for evaluation of continued persistent functional decline and frequent falls. History is obtained by family and patient at bedside as well as chart review of recent hospital discharge summary. Since discharge summary patient has had 1 ground-level fall onto her right hip which she states is sore. Her right lower extremity weakness is at her baseline. Denies hitting her head or anticoagulants. Does not have any other acute complaints at this time however after discussion with family bedside it appears that patient originally at baseline got around with a walker on her own accord and lives alone however due to frequent falls moved in with a friend and subsequently with her daughter over the last 24 hours. After assessment of her needs they determined that they are not fit to take care of her and after discussion with her hearing therapy teacher was referred here for continued evaluation. Related Data Home Medications Medication Instructions Recorded Confirmed atorvastatin 40 mg tablet 40 mg PO DAILY Cholesterol 11/16/17 03/18/23 fluticasone propionate 50 1 spray intranasal DAILY Allergy 04/14/21 03/18/23 mcg/actuation nasal Symptoms spray,suspension aspirin 81 mg tablet,delayed 81 mg PO DAILY Blood Thinner 04/28/21 03/18/23 release benazepril 20 mg tablet 20 mg PO DAILY High Blood Pressure 02/02/22 03/19/23 lorazepam 1 mg tablet 1 mg PO TIDP PRN Anxiety 03/18/23 03/18/23 metoprolol succinate 50 mg 50 mg PO DAILY heart rate & blood 03/18/23 03/18/23 tablet,extended release 24 hr pressure (Toprol XL) ibandronate 150 mg tablet 150 mg PO MONTHLY [facility] 03/19/23 03/19/23 Previous Rx's Medication Instructions Recorded albuterol sulfate 90 mcg/actuation 2 puff inhalation Q6H PRN Dyspnea 03/19/23 aerosol inhaler 30 days #0 grams cefdinir 300 mg capsule 300 mg PO BID 5 days #10 caps 03/19/23 Allergies Allergy/AdvReac Type Severity Reaction Status Date / Time erythromycin base Allergy Severe S-BLISTERING Verified 03/18/23 16:44 DALY tiotropium Allergy Severe S-SWELLS-OR Verified 03/18/23 16:44 [From Fran with AL/THROAT
--- NOTE | 2023-03-22 20:13 | XR_ITS ---
PROCEDURE INFORMATION: Exam: XR Right Hip Exam date and time: 03/22/2023 8:25 PM Age: 67 years old Clinical indication: Injury or trauma; Fall; Blunt trauma (contusions or hematomas); Right; Hip TECHNIQUE: Imaging protocol: Radiologic exam of the right hip. Views: 2 or 3 views hip with pelvis when performed. COMPARISON: CR XR PELVIS 1-2V 03/20/2023 7:49 PM FINDINGS: Bones/joints: The generalized osteopenia. Mild-moderate narrowing of the right hip joint greatest along the superolateral margin. Left common iliac arterial stent again visualized. Soft tissues: Unremarkable. IMPRESSION: 1. No evidence of acute osseous injury. 2. Mild-moderate degenerative osteoarthritis. Findings stable.
--- NOTE | 2023-03-22 20:14 | PC.NURSE ---
pt daughter in law states patient has a pillowcase sewer and her name is Jessie and number is [phone]
[2023-03-22 20:20] LABS: Chloride 104 mmol/L (98-107); Sodium 136 mmol/L (136-145)
[2023-03-22 20:21] LABS: Potassium 4.7 mmoL/L (3.5-5.1)
[2023-03-22 20:23] LABS: Alanine Aminotransferase 22 U/L (12-78); Albumin Level 3.8 g/dl (3.5-5.0); Alkaline Phosphatase 136 U/L (38-126); Anion Gap 14.7 mEq/L (5-15); Aspartate Amino Transferase 41 U/L (14-36); Bilirubin,Total 0.6 mg/dl (0.2-1.3); Blood Urea Nitrogen 22 mg/dl (7-17); Calcium 10.2 mg/dl (8.4-10.2); Carbon Dioxide 22 mmol/L (22.0-30.0); Creatinine Clearance Estimated 39 mL/min (50-200); Estimated Glomerular Filt Rate 35 ml/min (>60); GFR (African American) 42 ML/MIN (>60); Glucose 136 mg/dl (74-100); Total Protein,Serum 7.8 g/dl (6.3-8.2)
[2023-03-22 20:24] LABS: Basophils % 0.2 % (0.1-2.0); Eosinophils # 0.1 K/mm3 (0.0-0.4); Eosinophils % 0.8 % (0.1-12.0); Hematocrit 40.1 % (37.0-47.0); Hemoglobin 13.1 g/dL (12.2-16.2); Lymphocytes # 1.3 K/mm3 (0.7-4.5); Lymphocytes % 16.1 % (10-50); Mean Corpuscular HGB Conc 32.7 g/dL (31.8-35.4); Mean Corpuscular Hemoglobin 32.4 pg (27.0-31.2); Mean Corpuscular Volume 99.2 fl (81-99); Mean Platelet Volume 10.2 fl (7.4-10.4); Monocytes # 0.5 K/mm3 (0.1-1.0); Neutrophils # 6.4 K/mm3 (1.8-7.8); Neutrophils % 76.9 % (37.0-80.0); Platelet Count 200 K/mm3 (142-424); Red Blood Count 4.04 M/mm3 (4.20-5.40); Red Cell Distribution Width 13.2 % (11.5-17.5); White Blood Count 8.3 K/mm3 (4.8-10.8)
--- NOTE | 2023-03-22 20:32 | PC.NURSE ---
pt to radiology
--- NOTE | 2023-03-22 20:41 | PC.NURSE ---
patient returned from radiology
--- NOTE | 2023-03-22 20:54 | PC.NURSE ---
pt resting in bed no needs,call light at bs
--- NOTE | 2023-03-22 22:14 | PC.NURSE ---
contacted data warehouse specialist for bed assignment
--- NOTE | 2023-03-22 22:15 | PC.NURSE ---
Admissions notified for admit
[2023-03-22 22:31] VITALS: BP 146/53; PULSE 58; RESP 18; TEMP 36.7; O2SAT 95; BMI 30.7
--- NOTE | 2023-03-22 22:32 | EXP.HP ---
History of Present Illness *Admission Date: 03/22/23 *Reason for visit:: Weakness *History of present illness: Ms. Heller is a 67-year-old female with history of CVA, hypertension, hyperlipidemia, PAD, who ambulates with a walker at home. She presented to the ER twice today. Initially presented with concern for some neurologic deficits, weakness and difficulty walking with pain in her right side. States she fell at home this morning and was unable to get up and walk with her walker. She called EMS and had them bring her to the ER for further evaluation. CT, CT angio of her head and neck were done which did not show any acute abnormalities. She is already on goal-directed therapy. Work-up did identify a UTI. She was deemed stable to discharge home and was discharged. Upon returning home, she realized that she could not ambulate comfortably and did not feel safe being at home. Due to her difficulty walking, she came back to the ER for reevaluation. During her second visit to the ER, PT evaluated and she was able to walk but very unsteady. She fell again when walking with her walker to the bathroom. Both physical therapy and case management were consulted to assist with social needs and possible placement. As patient is not safe to discharge home in her current state, ER consulted medicine for admission to assist with placement and further rehabilitation. Patient refused to go rehab, and decided to go home. patient was keep returning to ER for the last two days c/o keep falling at home. Stated that she changed her mind and now is accepting rehab placement for therapy. [facility] Disclaimer: The information contained in this section may have been updated after the patient was seen, as this information can be updated by other users. Medical History Chest pain Claudication DVT (deep venous thrombosis) Herpes zoster Hx of completed stroke Malignant hypertension Surgical History (Updated 03/22/23 @ 23:44 by Chloe Garcia RN) H/O tubal ligation Social History (Updated 03/22/23 @ 23:43 by Chloe Garcia RN) Smoking Status: Current every day smoker tobacco type: cigarettes packs per day: 1 pack-years: 42 alcohol intake: never substance use type: denies use current occupational status: unemployed Travel in the last 8 weeks: Inside the [place] household members: none housing: apartment current occupational exposures/hazards: No caffeine: Yes Review of Systems Review of Systems Review of systems:: pertinent systems reviewed and negative unless documented below Meds Home Medications and Allergies Home Medications Medication Instructions Recorded Confirmed Type atorvastatin 40 mg tablet 40 mg PO HS Cholesterol 11/16/17 03/22/23 History fluticasone propionate 50 1 spray intranasal DAILY Allergy 04/14/21 03/22/23 History mcg/actuation nasal Symptoms spray,suspension aspirin 81 mg tablet,delayed 81 mg PO DAILY Blood Thinner 04/28/21 03/22/23 History release benazepril 20 mg tablet 20 mg PO DAILY High Blood Pressure 02/02/22 03/22/23 History lorazepam 1 mg tablet 1 mg PO TIDP PRN Anxiety 03/18/23 03/22/23 History metoprolol succinate 50 mg 50 mg PO DAILY heart rate & blood 03/18/23 03/22/23 History tablet,extended release 24 hr pressure (Toprol XL) albuterol sulfate 90 mcg/actuation 2 puff inhalation Q6H PRN Dyspnea 03/19/23 03/22/23 Rx aerosol inhaler 30 days #0 grams ibandronate 150 mg tablet 150 mg PO MONTHLY [facility] 03/19/23 03/22/23 History cholecalciferol (vitamin D3) 50 50 mcg PO DAILY Supplement 03/22/23 03/22/23 History mcg (2,000 unit) capsule (Vitamin D3) sulfamethoxazole 800 1 tab PO BID UTI 03/22/23 03/22/23 History mg-trimethoprim 160 mg tablet New Prescriptions to Start Prescriptions: Allergies Allergy/AdvReac Type Severity Reaction Status Date / Time erythromycin base Al
--- NOTE | 2023-03-22 22:40 | PC.NURSE ---
called report to 2nd floor bobby Fuentes and all questions answered
[2023-03-22 22:56] VITALS: BP 149/53; PULSE 57; RESP 20; TEMP 36.7; O2SAT 97
--- NOTE | 2023-03-22 22:56 | PC.NURSE ---
PT ARRIVED TO FLOOR AT THIS TIME
[2023-03-23 04:00] VITALS: BP 138/79; PULSE 88; RESP 17; TEMP 36.7; O2SAT 96; BMI 30.7
[2023-03-23 07:07] LABS: Basophils % 0.4 % (0.1-2.0); Eosinophils # 0.1 K/mm3 (0.0-0.4); Eosinophils % 1.1 % (0.1-12.0); Hematocrit 37.5 % (37.0-47.0); Hemoglobin 11.9 g/dL (12.2-16.2); Lymphocytes # 1.2 K/mm3 (0.7-4.5); Lymphocytes % 19.1 % (10-50); Mean Corpuscular HGB Conc 31.7 g/dL (31.8-35.4); Mean Corpuscular Hemoglobin 31.4 pg (27.0-31.2); Mean Corpuscular Volume 99.2 fl (81-99); Mean Platelet Volume 9.3 fl (7.4-10.4); Monocytes # 0.3 K/mm3 (0.1-1.0); Monocytes % 5.6 % (1.7-9.3); Neutrophils # 4.5 K/mm3 (1.8-7.8); Neutrophils % 73.9 % (37.0-80.0); Platelet Count 152 K/mm3 (142-424); Red Blood Count 3.78 M/mm3 (4.20-5.40); Red Cell Distribution Width 13.2 % (11.5-17.5); White Blood Count 6.1 K/mm3 (4.8-10.8)
[2023-03-23 07:14] LABS: Alanine Aminotransferase 17 U/L (12-78); Albumin Level 3.3 g/dl (3.5-5.0); Albumin/Globulin Ratio 0.9 (1.1-1.8); Alkaline Phosphatase 121 U/L (38-126); Anion Gap 12.1 mEq/L (5-15); Aspartate Amino Transferase 29 U/L (14-36); Bilirubin,Total 0.3 mg/dl (0.2-1.3); Blood Urea Nitrogen 19 mg/dl (7-17); Calcium 9.3 mg/dl (8.4-10.2); Carbon Dioxide 25 mmol/L (22.0-30.0); Chloride 105 mmol/L (98-107); Creatinine Clearance Estimated 43 mL/min (50-200); Estimated Glomerular Filt Rate 37 ml/min (>60); GFR (African American) 45 ML/MIN (>60); Globulin 3.5 g/dL (1.3-3.2); Glucose 104 mg/dl (74-100); Potassium 4.1 mmoL/L (3.5-5.1); Sodium 138 mmol/L (136-145); Total Protein,Serum 6.8 g/dl (6.3-8.2)
[2023-03-23 08:00] VITALS: BP 141/53; PULSE 66; RESP 17; TEMP 36.6; O2SAT 93
--- NOTE | 2023-03-23 08:06 | HMH.PHAINT1 ---
Pharmacy Intervention Comments: Medication history complete, medications verified with fill history. - Eri Balderas, PharmD Candidate 2023
--- NOTE | 2023-03-23 08:07 | EXP.PN ---
Subjective *Date: 03/23/23 *Time: 13:57 Interval history: No acute events overnight. Denies chest pain and shortness of breath. Good appetite. Exam Data for Last 24 hours Vital signs and Labs for Last 24 Hours: Temp Pulse Resp BP Pulse Ox O2 Del Method 98.1 F 88 17 138/79 96 Room Air 03/23/23 04:00 03/23/23 04:00 03/23/23 04:00 03/23/23 04:00 03/23/23 04:00 03/23/23 07:00 Laboratory Results - last 24 hr 03/22/23 18:55: WBC 8.3, RBC 4.04 L, Hgb 13.1, Hct 40.1, MCV 99.2 H, MCH 32.4 H, MCHC 32.7, RDW 13.2, Plt Count 200, MPV 10.2, Neut % (Auto) 76.9, Lymph % (Auto) 16.1, [place] % (Auto) 6.0, Eos % (Auto) 0.8, Baso % (Auto) 0.2, Neut # (Auto) 6.4, Lymph # (Auto) 1.3, [place] # (Auto) 0.5, Eos # (Auto) 0.1, Baso # (Auto) 0.0, Sodium 136, Potassium 4.7, Chloride 104, Carbon Dioxide 22, Anion Gap 14.7, BUN 22 H, Creatinine 1.50 H, Estimated Creat Clear 39, Estimated GFR 35 L, Est GFR ( Amer) 42 L, Glucose 136 H, Calcium 10.2, Total Bilirubin 0.6, AST 41 H, ALT 22, Alkaline Phosphatase 136 H, Total Protein 7.8, Albumin 3.8, Globulin 4.0 H, Albumin/Globulin Ratio 1.0 L 03/23/23 06:06: WBC 6.1 D, RBC 3.78 L, Hgb 11.9 L, Hct 37.5, MCV 99.2 H, MCH 31.4 H, MCHC 31.7 L, RDW 13.2, Plt Count 152, MPV 9.3, Neut % (Auto) 73.9, Lymph % (Auto) 19.1, [place] % (Auto) 5.6, Eos % (Auto) 1.1, Baso % (Auto) 0.4, Neut # (Auto) 4.5, Lymph # (Auto) 1.2, [place] # (Auto) 0.3, Eos # (Auto) 0.1, Baso # (Auto) 0.0, Sodium 138, Potassium 4.1, Chloride 105, Carbon Dioxide 25, Anion Gap 12.1, BUN 19 H, Creatinine 1.40 H, Estimated Creat Clear 43, Estimated GFR 37 L, Est GFR ( Amer) 45 L, Glucose 104 H D, Calcium 9.3, Total Bilirubin 0.3, AST 29 D, ALT 17, Alkaline Phosphatase 121, Total Protein 6.8, Albumin 3.3 L D, Globulin 3.5 H, Albumin/Globulin Ratio 0.9 L I & O for Last 24 hours: Intake & Output 03/20/23 03/21/23 03/22/23 03/23/23 23:59 23:59 23:59 23:59 Intake Total 344 / 344 Output Total 150 / 150 Balance 194 / 194 Weight 70.851 kg 70.851 kg Constitutional Constitutional: no acute distress *Routine HEENT Exam Head: Present normocephalic Eye: Present EOMI and PERRL ENT: Present mucous membranes moist *Routine Neck Exam Neck: Present supple; Absent lymphadenopathy *Routine Respiratory Exam Respiratory: Present CTA bilaterally *Routine Cardiovascular Exam Cardiovascular: Present RRR *Routine Abdominal Exam Abdominal: Present soft and normoactive bowel sounds; Absent tenderness *Routine Extremities Exam Extremities: Absent cyanosis, clubbing or edema *Routine Skin Exam Skin: Present warm; Absent rash *Routine Neurological Exam Neurological: Present alert and oriented X3 Assessment and Plan *Assessment and plan (1) Right leg weakness: Status: Acute Category: Medical Code(s): R29.898 - Other symptoms and signs involving the musculoskeletal system (2) Falling: Status: Acute Category: Medical Code(s): R29.6 - Repeated falls (3) HTN (hypertension): Status: Chronic Qualifiers: Hypertension type: primary hypertension Qualified Code(s): I10 - Essential (primary) hypertension Category: Medical Code(s): I10 - Essential (primary) hypertension (4) HLD (hyperlipidemia): Status: Chronic Qualifiers: Hyperlipidemia type: mixed hyperlipidemia Qualified Code(s): E78.2 - Mixed hyperlipidemia Category: Medical Code(s): E78.5 - Hyperlipidemia, unspecified (5) PAD (peripheral artery disease): Status: Chronic Category: Medical Code(s): I73.9 - Peripheral vascular disease, unspecified (6) Hx of completed stroke: Status: Inactive Category: Medical Code(s): Z86.73 - Personal history of transient ischemic attack (TIA), and cerebral infarction without residual deficits Plan #Right-sided weakness #History of stroke #Frequent falls #Hypertension #anxiety Continue PT/OT Continuing l
--- NOTE | 2023-03-23 08:22 | SW/DCPLANNER ---
Addendum entered by Cayla Villarreal 03/24/23 13:42: I have arranged [facility] for this patient. Pack Worker Supervisor w/ [facility] [employer] stated that bus would be here to transport patient around 5PM. Addendum entered by Cayla Villarreal 03/24/23 11:01: Per Jaquelin LOVE patient has been approved for SNF level of care. I will update patient, nursing staff and MD. Patient will discharge to [facility] today SNF level of care. Addendum entered by Cayla Villarreal 03/23/23 13:16: Per Jaquelin rubin/ [facility] she is able to accept this patient and precert will be started today. Original Note: I spoke with patient this AM regarding plans once medically stable for discharge. Patient stated that she is not doing well at home, falls and needs placement. Patient stated that she did not wait for patient during recent hospitalization because she would miss her family too much. Patient and I discussed the need for SNF level of care due to multiple falls at home. [facility]. Jaquelin rubin/ [facility] stated that she does have female beds and is currently onsite to evaluate this patient. I will follow up with Jaquelin once she evaluates patient this AM.
--- NOTE | 2023-03-23 10:49 | HMH.PTEV ---
Physical Therapy Evaluation Rehab PT IP Evaluation Start: 03/22/23 23:02 Freq: ONCE Status: Active Protocol: Document 03/23/23 10:43 [facility] (Rec: 03/23/23 10:49 PHORNE [id number]) Subjective/History History History 67 yowf adm to [facility] with reports of frequent falls. Hx of CVA, hypertension, hyperlipidemia, PAD. Pt reports she lives alone, 1 step to enter her apartment, she uses a RW for all ambulation at baseline. She has an aide that assists her with bathing and some meals 2 x/wk. Subjective Subjective Pt reports no c/o this am. Rehab PT IP Eval Objective Appearance Patient Behavior Appropriate Patient Orientation Person,Place,Time Difficulty following instructions none Speech Pattern Clear Ambulation Patient Able to Ambulate Yes Ambulation Observation IP General Gait Pattern Observation Shuffling Step Ambulation Distance (feet) 40 Ambulation Assistive Device Rolling Walker Ambulation Ability Supervision/Stand by Balance Ability to Arise Able, uses arms to help Sitting Balance Steady, safe Standing Balance Steady, wide stance Dynamic Sitting Balance Ability Good Dynamic Standing Balance Ability Fair Transfers Bed Transfer Ability Supervision/Stand by Chair Transfer Ability Supervision/Stand by Sit to Stand Bed Transfer Ability Supervision/Stand by Sit to Stand Chair Transfer Ability Supervision/Stand by ROM All Extremities PT ROM Status WFL MMT All Extremities PT MMT WFL Rehab PT IP prob,goals,plan Problems Date of Evaluation: 03/23/23 PT IP Problems Bed Mobility,Transfers,Gait Rehab Potential Rehab Potential Good Plan PT Intervention Plan Bed Mobility,Transfers,Gait, Therapeutic Exercise PT Plan Frequency Daily Duration LOS Discharge Goals Bed Transfer Ability Independent Sit to Stand Chair Transfer Ability Independent Ambulation Assistive Device Rolling Walker Ambulation Distance (feet) 50 Discharge Plan PT Discharge Plan Pt is currently most appropriate for rehab placement once medically stable for d/c. She will be at increased risk for falls, in
--- NOTE | 2023-03-23 11:53 | HMH.OTEV ---
OT Inpatient Evaluation Rehab OT IP Evaluation Start: 03/23/23 07:44 Freq: ONCE Status: Active Protocol: Document 03/23/23 11:35 [facility] (Rec: 03/23/23 11:52 [facility] [id number]) Rehab OT IP Assessment Subjective History Pt oriented x 3 on arrival; pt agreeable to engage in therapy evaluation. Pt is a 67 yowf adm to [facility] with reports of frequent falls. Hx of CVA, hypertension, hyperlipidemia, PAD. Pt reports she lives alone, 1 step to enter her apartment, she uses a RW for all ambulation at baseline. She has an aide that assists her with bathing and some meals 2 x/wk. Subjective I am doing okay this morning. Objective Patient Orientation Person,Place,Birthday Transfer Training Sit/Stand Transfer Assist Level Contact Guard/Hand Hold Chair Transfer Ability Contact Guard/Hand Hold Chair Transfer Technique Sit to/from Ambulatory Chair Transfer Assistive Devices Rolling Walker Rehab OT IP prob,goals,plan Problems Date of Evaluation: 03/23/23 OT IP Problems Bed Mobility,Transfers,Balance ,Self care,Safety Rehab Potential Rehab Potential Good Equipment Needs Assistive Devices Rolling / Wheeled Walker Plan OT intervention Plan Bed Mobility,Transfers,Gait, Self care,Safety,Therapeutic Exercise OT Plan Frequency BID Duration LOS Discharge Goals Bed Mobility Ability Standby Assistance Sit to Stand Chair Transfer Ability Supervision/Stand by Chair Transfer Ability Supervision/Stand by Chair Transfer Technique Sit to/from Ambulatory Chair Transfer Assistive Devices Rolling Walker Feeding Ability Assist with Tray Set Up Lower Body Dressing Ability Assistance X1 Upper Body Dressing Ability Standby Assistance Bathing Ability Assistance x1 Performing Toilet Hygiene Ability Assistance X1 Overall Commode/Toilet Transfer Ability Assistance x1 Commode/Toilet Transfer Technique Sit to/from Ambulatory Oral Care Ability Independent Discharge Plan OT Discharge Plan Pt is currently most appropriate for rehab placement once medically stable
[2023-03-23 16:00] VITALS: BP 154/87; PULSE 60; RESP 18; TEMP 36.8; O2SAT 98
--- NOTE | 2023-03-23 18:12 | PC.NURSE ---
A&OX4. RESPIRATIONS REGULAR AND UNLABORED. LUNG SOUNDS CLEAR THROUGHOUT. NO COUGH NOTED. HAND TELEMETRY REGISTERED NURSE EQUAL. +2 PULSES NOTED THROUGHOUT. HEART RATE REGULAR. ACTIVE BOWEL SOUNDS HEARD IN ALL 4 QUADRANTS. SOFT AND NONTENDER ABDOMEN. VOIDS PER TOILET WITH 1 PERSON ASSIST. NO BM REPORTED THUS FAR. NO PAIN REPORTED THUS FAR. RECEIVED ATIVAN TWICE THIS SHIFT DUE TO ANXIETY. NO EDEMA NOTED. NS INFUSING AT 75ML/HR. BED IN LOWEST POSITION. BED ALARM ON TO PROMOTE SAFETY. CALL LIGHT WITHIN REACH. VSS.
[2023-03-23 20:00] VITALS: BP 141/56; PULSE 55; RESP 18; TEMP 36.4; O2SAT 95
[2023-03-23 23:59] VITALS: BP 136/72; PULSE 62; RESP 18; TEMP 36.5; O2SAT 92
[2023-03-24 04:00] VITALS: BP 129/60; PULSE 54; RESP 18; TEMP 36.6; O2SAT 97; BMI 25.0
--- NOTE | 2023-03-24 05:24 | PC.NURSE ---
VITAL SIGNS STABLE/AFEBRILE. RECEIVED LORAZEPSM 0.5 MG PO FOR NERVES AT 2217. NO FURTHER COMPLAINTS VOICED. HAS HAD AN UNEVENTFUL NIGHT.
[2023-03-24 06:41] LABS: Basophils % 0.3 % (0.1-2.0); Eosinophils # 0.1 K/mm3 (0.0-0.4); Eosinophils % 1.8 % (0.1-12.0); Hematocrit 36.6 % (37.0-47.0); Hemoglobin 11.9 g/dL (12.2-16.2); Lymphocytes # 1.6 K/mm3 (0.7-4.5); Lymphocytes % 29.7 % (10-50); Mean Corpuscular HGB Conc 32.4 g/dL (31.8-35.4); Mean Corpuscular Hemoglobin 32.5 pg (27.0-31.2); Mean Corpuscular Volume 100.2 fl (81-99); Mean Platelet Volume 9.1 fl (7.4-10.4); Monocytes # 0.3 K/mm3 (0.1-1.0); Monocytes % 6.4 % (1.7-9.3); Neutrophils # 3.3 K/mm3 (1.8-7.8); Neutrophils % 61.8 % (37.0-80.0); Platelet Count 163 K/mm3 (142-424); Red Blood Count 3.65 M/mm3 (4.20-5.40); White Blood Count 5.3 K/mm3 (4.8-10.8)
[2023-03-24 07:01] LABS: Anion Gap 10.4 mEq/L (5-15); Blood Urea Nitrogen 20 mg/dl (7-17); Calcium 8.8 mg/dl (8.4-10.2); Carbon Dioxide 23 mmol/L (22.0-30.0); Chloride 109 mmol/L (98-107); Creatinine Clearance Estimated 41 mL/min (50-200); Estimated Glomerular Filt Rate 45 ml/min (>60); GFR (African American) 54 ML/MIN (>60); Glucose 110 mg/dl (74-100); Potassium 4.4 mmoL/L (3.5-5.1); Sodium 138 mmol/L (136-145)
[2023-03-24 07:59] VITALS: BP 120/58; PULSE 56; RESP 16; TEMP 36.7; O2SAT 96
[2023-03-24 11:19] VITALS: BP 159/71; PULSE 55; RESP 16; TEMP 36.6; O2SAT 96
--- NOTE | 2023-03-24 12:47 | PC.NURSE ---
Rounded on patient. She denies any questions or concerns. Assisted her in finding a specific channel on her tv.
--- NOTE | 2023-03-24 12:52 | EXP.DC.SUM ---
General Admission date:: 03/22/23 Discharge date: 03/24/23 HPI HPI HPI: Forwarded from Admission H&P: Ms. Heller is a 67-year-old female with history of CVA, hypertension, hyperlipidemia, PAD, who ambulates with a walker at home. She presented to the ER twice today. Initially presented with concern for some neurologic deficits, weakness and difficulty walking with pain in her right side. States she fell at home this morning and was unable to get up and walk with her walker. She called EMS and had them bring her to the ER for further evaluation. CT, CT angio of her head and neck were done which did not show any acute abnormalities. She is already on goal-directed therapy. Work-up did identify a UTI. She was deemed stable to discharge home and was discharged. Upon returning home, she realized that she could not ambulate comfortably and did not feel safe being at home. Due to her difficulty walking, she came back to the ER for reevaluation. During her second visit to the ER, PT evaluated and she was able to walk but very unsteady. She fell again when walking with her walker to the bathroom. Both physical therapy and case management were consulted to assist with social needs and possible placement. As patient is not safe to discharge home in her current state, ER consulted medicine for admission to assist with placement and further rehabilitation. Patient refused to go rehab, and decided to go home. patient was keep returning to ER for the last two days c/o keep falling at home. Stated that she changed her mind and now is accepting rehab placement for therapy. Hospital Course Hospital Course Hospital Course: The patient's HR was mainly in the 60-80 range but the rate would go as low as the mid 50s. She did not have any complaints of chest pain, dyspnea or lightheadedness. I decreased the dose of her metoprolol XR from 50mg qd to 25mg qd. Her other home medications were resumed. She completed her fifth and last day of cefdinir while in the hospital for her recently diagnosed UTI. She will be discharging to [facility] for PT/OT/halfway. Exam Data for Last 24 hours Vital signs and Labs for Last 24 Hours: Temp Pulse Resp BP Pulse Ox O2 Del Method 97.9 F 55 L 16 159/71 H 96 Room Air 03/24/23 11:19 03/24/23 11:19 03/24/23 11:19 03/24/23 11:19 03/24/23 11:19 03/24/23 11:19 Laboratory Results - last 24 hr 03/24/23 05:50: WBC 5.3, RBC 3.65 L, Hgb 11.9 L, Hct 36.6 L, MCV 100.2 H, MCH 32.5 H, MCHC 32.4, RDW 13.0, Plt Count 163, MPV 9.1, Neut % (Auto) 61.8, Lymph % (Auto) 29.7, [place] % (Auto) 6.4, Eos % (Auto) 1.8, Baso % (Auto) 0.3, Neut # (Auto) 3.3, Lymph # (Auto) 1.6, [place] # (Auto) 0.3, Eos # (Auto) 0.1, Baso # (Auto) 0.0, Sodium 138, Potassium 4.4, Chloride 109 H, Carbon Dioxide 23, Anion Gap 10.4, BUN 20 H, Creatinine 1.20 H, Estimated Creat Clear 41, Estimated GFR 45 L, Est GFR ( Amer) 54 L, Glucose 110 H, Calcium 8.8 I & O for Last 24 hours: Intake & Output 03/21/23 03/22/23 03/23/23 03/24/23 23:59 23:59 23:59 23:59 Intake Total 2635 / 2635 817 / 817 Output Total 150 / 150 300 / 300 Balance 2485 / 2485 517 / 517 Weight 70.851 kg 70.851 kg 57.691 kg Constitutional Constitutional: no acute distress *Routine HEENT Exam Head: Present normocephalic Eye: Present EOMI and PERRL ENT: Present mucous membranes moist *Routine Neck Exam Neck: Present supple; Absent lymphadenopathy *Routine Respiratory Exam Respiratory: Present CTA bilaterally *Routine Cardiovascular Exam Cardiovascular: Present RRR *Routine Abdominal Exam Abdominal: Present soft and normoactive bowel sounds; Absent tenderness *Routine Extremities Exam Extremities: Absent cyanosis, clubbing or edema *Routine Skin Exam Skin: Present warm; Absent rash *Routine Neurological Exam Neurological: Present alert and oriented X3 Results Data Completed and Pending Labs on day of discharge: Labs from last 24 h
--- NOTE | 2023-03-24 13:14 | PC.NURSE ---
Attempted to call son and friend on contact list. Not able to reach either. Pt states her son will not be in until tuesday. Pt also states she doesn't have anyone else able to pick her up and take her to [facility]. CM notified.
--- NOTE | 2023-03-24 13:45 | PC.NURSE ---
Report called to [facility]. [facility] will pick pt up around 4:30-5:00 pm.
--- NOTE | 2023-03-24 14:26 | PC.NURSE ---
Courtesy Round Patient awake and sitting up in chair. Trash and linens emptied . Ice water refilled . Patient voiced no other needs at this time. Call light within reach
[2023-03-24 15:13] VITALS: BP 149/79; PULSE 57; RESP 16; TEMP 36.7; O2SAT 98
== END 2023-03-24 15:56 ==
LOC: ER 21:53 → 2ND 23:04
PROVIDERS: Nurse Practitioner Family; Admitting Provider Internal Medicine; Emergency Provider Emergency Medicine; PCP Nurse Practitioner Family; Visit Provider Internal Medicine
DX: R29.898 Other symptoms and signs involving the musculoskeletal system (principal); R29.6 Repeated falls; I10 Essential (primary) hypertension; E78.2 Mixed hyperlipidemia; I73.9 Peripheral vascular disease, unspecified; R53.1 Weakness; I69.398 Other sequelae of cerebral infarction; Z86.718 Personal history of other venous thrombosis and embolism
CPT/HCPCS: 36415; 73502; 80048; 80053; 85025; 97110; 97116; 97163; 97166; 97530; 99285; G0378

== ENCOUNTER 2023-03-26 15:06 | Emergency (ER) | payer MEDICARE, MEDICAID, SELFPAY ==
[2023-03-26 15:15] VITALS: BP 157/84; PULSE 60; RESP 16; TEMP 36.8; O2SAT 99; BMI 29.2
--- NOTE | 2023-03-26 15:17 | ECG_ITS ---
APPROVED REPORT Exam: Resting ECG HR:60 bpm ECG Measurements Heart Rate 60 AXES GA 210 P 71 QRSd 87 QRS -38 QT 417 T 43 QTc 418 Conclusion SINUS RHYTHM WITH SINUS ARRHYTHMIA WITH FIRST DEGREE AV BLOCK LEFT AXIS DEVIATION [QRS AXIS < -30] MODERATE VOLTAGE CRITERIA FOR LVH, CONSIDER NORMAL VARIANT [MEETS CRITERIA IN ONE OF: R(aVL), S(V1), R(V5), R(V5/V6)+S(V1)] POSSIBLE ANTEROSEPTAL MYOCARDIAL INFARCTION , OF INDETERMINATE AGE [30 ms Q WAVE IN V1-V4] ABNORMAL ECG UNCONFIRMED REPORT Electronically signed by : Tien Parker MD 03/28/2023 15:53:17
--- NOTE | 2023-03-26 15:19 | PC.NURSE ---
Dr. Bowden at [facility] for pt eval
--- NOTE | 2023-03-26 15:27 | XR_ITS ---
PROCEDURE INFORMATION: Exam: XR Chest Exam date and time: 03/26/2023 3:38 PM Age: 67 years old Clinical indication: Dyspnea TECHNIQUE: Imaging protocol: Radiologic exam of the chest. Views: 1 view. COMPARISON: CR XR CHEST PORTABLE 03/20/2023 7:49 PM FINDINGS: Lungs: Unremarkable. No consolidation. Pleural spaces: Unremarkable. No pleural effusion. No pneumothorax. Heart/Mediastinum: Unremarkable. No cardiomegaly. Bones/joints: Unremarkable. IMPRESSION: No acute findings.
--- NOTE | 2023-03-26 15:28 | HMH.EDGENADL ---
Discharge Plan Disposition Patient Disposition: Home, Self-Care Prescriptions Prescriptions: No Action fluticasone propionate 50 mcg/actuation spray,suspension 1 spray INTRANASAL DAILY benazepril 20 mg tablet 20 mg PO DAILY aspirin 81 mg tablet,delayed release (DR/EC) 81 mg PO DAILY lorazepam 1 mg tablet 1 mg PO TIDP PRN (Reason: Anxiety) Qty: 90 5RF atorvastatin 40 MG tablet 40 mg PO HS ibandronate 150 mg tablet 150 mg PO MONTHLY albuterol sulfate 90 mcg/actuation Hfa Aerosol Inhaler 2 puff inhalation Q6H PRN (Reason: Dyspnea) 30 Days Qty: 0 0RF cholecalciferol (vitamin D3) [Vitamin D3] 50 mcg (2,000 unit) Capsule 50 mcg PO DAILY metoprolol succinate 25 mg capsule,sprinkle,ER 24hr 25 mg PO DAILY Qty: 30 1RF Referrals Follow up/Referrals: Kel Jamil MD [Staff Physician] - See instructions Activity Restrictions/Add. Instructions Additional Instructions/Restrictions: There is no evidence of a cardiopulmonary emergency or any other concerns today from emergent standpoint. Please follow-up with your proprietary trader regarding your syncopal episode. Return with any worsening symptoms Clinical Impressions Clinical Impression: Syncope Discharge ED Provider: Denise Bowden General Adult HPI General Chief complaint: Dizziness Stated complaint: Dizziness Time Seen by Provider: 03/26/23 15:19 Mode of Arrival: EMS Source of Information: Patient and EMS Limitations: No Limitations Description of Symptoms (Recalled from ER Triage Doc. by RN): 67 yo F presents to ED via EMS for fall and unresponsiveness. per nursing staff report, pt was walking down the hallway and began to feel dizzy. staff reports they gave pt two chest compressions and pt began to talk and wake up. pt reports that she smoked two cigaretts and got dizzy. when she was walking back to her room, the staff laid her down on the floor. pt reports feeling dizzy upon arrival but no other complaints. History of Present Illness HPI narrative: Patient is a 67-year-old female who presents to the emergency department after a syncopal episode. States she was out on her walker felt lightheaded had a loss of consciousness. According to the staff that was there she lost consciousness just for a brief moment no pulse was checked with a attempted to start chest compressions and on the second compression the patient woke up immediately asking what was going on. There is no evidence objectively that she had a loss of pulse. She has no chest pain no shortness of breath then or now. She is at her neurologic baseline she has a history of chronic weakness on one side and she states this is at her baseline without any worsening symptoms. I saw her twice in 1 day last week at which point she was admitted mainly for functional reasons with a negative work-up and sent to [facility] for rehab. She states she is at her baseline right now other than some mild dizziness. She denies any nausea vomiting fevers diarrhea or any other symptoms. Related Data Home Medications Medication Instructions Recorded Confirmed atorvastatin 40 mg tablet 40 mg PO HS Cholesterol 11/16/17 03/22/23 fluticasone propionate 50 1 spray intranasal DAILY Allergy 04/14/21 03/22/23 mcg/actuation nasal Symptoms spray,suspension aspirin 81 mg tablet,delayed 81 mg PO DAILY Blood Thinner 04/28/21 03/22/23 release benazepril 20 mg tablet 20 mg PO DAILY High Blood Pressure 02/02/22 03/22/23 ibandronate 150 mg tablet 150 mg PO MONTHLY BONE HEALTH 03/19/23 03/22/23 cholecalciferol (vitamin D3) 50 50 mcg PO DAILY Supplement 03/22/23 03/22/23 mcg (2,000 unit) capsule (Vitamin D3) Previous Rx's Medication Instructions Recorded albuterol sulfate 90 mcg/actuation 2 puff inhalation Q6H PRN Dyspnea 03/19/23 aerosol inhaler 30 days #0 grams metoprolol succinate 25 mg capsule 25 mg PO DAILY #30 ea 03/24/23 jenniferle, ext. release 24 hr l
--- NOTE | 2023-03-26 15:38 | PC.NURSE ---
pt gave me the okay to let her sanjuanita evertonkristel Heller know what was going on with her
--- NOTE | 2023-03-26 15:38 | PC.NURSE ---
called dietary for lunch tray for pt
--- NOTE | 2023-03-26 15:42 | PC.NURSE ---
[facility] at [facility]
[2023-03-26 15:51] LABS: Alanine Aminotransferase 25 U/L (12-78); Albumin Level 3.9 g/dl (3.5-5.0); Alkaline Phosphatase 128 U/L (38-126); Anion Gap 13.3 mEq/L (5-15); Aspartate Amino Transferase 37 U/L (14-36); Bilirubin,Total 0.6 mg/dl (0.2-1.3); Blood Urea Nitrogen 22 mg/dl (7-17); Calcium 9.9 mg/dl (8.4-10.2); Carbon Dioxide 26 mmol/L (22.0-30.0); Chloride 105 mmol/L (98-107); Creatinine Clearance Estimated 48 mL/min (50-200); Estimated Glomerular Filt Rate 45 ml/min (>60); GFR (African American) 54 ML/MIN (>60); Globulin 4.1 g/dL (1.3-3.2); Glucose 124 mg/dl (74-100); Magnesium 1.8 mg/dl (1.6-2.3); Potassium 4.3 mmoL/L (3.5-5.1); Sodium 140 mmol/L (136-145)
[2023-03-26 15:57] LABS: Basophils % 0.5 % (0.1-2.0); Eosinophils # 0.1 K/mm3 (0.0-0.4); Eosinophils % 0.8 % (0.1-12.0); Hematocrit 39.7 % (37.0-47.0); Hemoglobin 12.6 g/dL (12.2-16.2); Lymphocytes # 1.4 K/mm3 (0.7-4.5); Lymphocytes % 21.3 % (10-50); Mean Corpuscular HGB Conc 31.7 g/dL (31.8-35.4); Mean Corpuscular Hemoglobin 31.5 pg (27.0-31.2); Mean Corpuscular Volume 99.3 fl (81-99); Mean Platelet Volume 9.3 fl (7.4-10.4); Monocytes # 0.3 K/mm3 (0.1-1.0); Monocytes % 3.8 % (1.7-9.3); Neutrophils # 4.7 K/mm3 (1.8-7.8); Neutrophils % 73.6 % (37.0-80.0); Platelet Count 195 K/mm3 (142-424); Red Cell Distribution Width 13.1 % (11.5-17.5); White Blood Count 6.4 K/mm3 (4.8-10.8)
[2023-03-26 16:14] LABS: Troponin I < 0.01 ng/ml (0.00-0.034)
[2023-03-26 16:30] VITALS: BP 140/55; PULSE 62; O2SAT 99
--- NOTE | 2023-03-26 16:30 | PC.NURSE ---
pt still setting up in bed eating food nothing needed at this time, we are working on paperwork to get pt sent back to assisted
--- NOTE | 2023-03-26 16:47 | PC.NURSE ---
Report called to Kitty at [facility]. EMS has been informed of patient transfer.
--- NOTE | 2023-03-26 17:34 | PC.NURSE ---
pt ex called back i let him know we are sending her back to facility
[2023-03-26 18:05] VITALS: BP 140/55; PULSE 62; RESP 13; TEMP 36.7
== END 2023-03-26 18:07 | disposition home or self-care (01) ==
PROVIDERS: Emergency Provider Student in an Organized Health Care Education/Training Program; PCP Family Medicine
DX: R55 Syncope and collapse (principal); I10 Essential (primary) hypertension; F17.210 Nicotine dependence, cigarettes, uncomplicated; Z86.73 Personal history of transient ischemic attack (TIA), and cerebral infarction without residual deficits; Z86.718 Personal history of other venous thrombosis and embolism
CPT/HCPCS: 71045; 80053; 83735; 84484; 85025; 93005; 99285

== ENCOUNTER → 2023-04-12 10:28 | Outpatient (CLI) | payer MEDICARE, MEDICAID, SELFPAY ==
[2023-04-12 11:31] LABS: Basophils % 0.5 % (0.1-2.0); Eosinophils # 0.1 K/mm3 (0.0-0.4); Eosinophils % 0.9 % (0.1-12.0); Hematocrit 43.4 % (37.0-47.0); Hemoglobin 13.4 g/dL (12.2-16.2); Lymphocytes # 1.2 K/mm3 (0.7-4.5); Lymphocytes % 17.1 % (10-50); Mean Corpuscular HGB Conc 30.8 g/dL (31.8-35.4); Mean Corpuscular Hemoglobin 30.6 pg (27.0-31.2); Mean Corpuscular Volume 99.1 fl (81-99); Monocytes # 0.3 K/mm3 (0.1-1.0); Monocytes % 3.8 % (1.7-9.3); Neutrophils # 5.3 K/mm3 (1.8-7.8); Neutrophils % 77.8 % (37.0-80.0); Platelet Count 232 K/mm3 (142-424); Red Blood Count 4.38 M/mm3 (4.20-5.40); Red Cell Distribution Width 13.4 % (11.5-17.5); White Blood Count 6.8 K/mm3 (4.8-10.8)
[2023-04-12 12:03] LABS: Chloride 102 mmol/L (98-107)
[2023-04-12 12:04] LABS: Potassium 4.8 mmoL/L (3.5-5.1); Sodium 139 mmol/L (136-145)
[2023-04-12 12:06] LABS: Alanine Aminotransferase 19 U/L (12-78); Alkaline Phosphatase 144 U/L (38-126); Aspartate Amino Transferase 31 U/L (14-36); Bilirubin,Direct 0.4 mg/dl (0.0-0.4); Bilirubin,Indirect 0.2 mg/dL (0.0-0.9); Bilirubin,Total 0.6 mg/dl (0.2-1.3); Bilirubin,Unconjugated 0.2 mg/dL (0.0-1.1); Blood Urea Nitrogen 21 mg/dl (7-17); Estimated Glomerular Filt Rate 62 ml/min (>60); GFR (African American) 75 ML/MIN (>60)
[2023-04-12 12:07] LABS: Albumin Level 3.7 g/dl (3.5-5.0); Anion Gap 13.8 mEq/L (5-15); Calcium 9.7 mg/dl (8.4-10.2); Carbon Dioxide 28 mmol/L (22.0-30.0); Cholesterol 124 mg/dl (140-200); Glucose 155 mg/dl (74-100); HDL Cholesterol 29 mg/dl (40-60); Magnesium 1.8 mg/dl (1.6-2.3); Total Protein,Serum 7.1 g/dl (6.3-8.2); Triglycerides 163 mg/dl (30-150); VLDL Cholesterol 33 mg/dL (0-40)
[2023-04-12 12:11] LABS: Chol/HDL Ratio 4.3 (1-3.5)
[2023-04-12 12:19] LABS: Direct LDL Cholesterol 64.47 mg/dL (100-129)
[2023-04-12 12:22] LABS: Free T4 (Free Thyroxine) 1.32 ng/dl (0.78-2.19)
[2023-04-12 12:37] LABS: Thyroid Stimulating Hormone 1.57 uIU/mL (0.465-4.68)
== END ==
PROVIDERS: PCP Family Medicine; Visit Provider Physician Assistant
DX: E78.5 Hyperlipidemia, unspecified (principal); I10 Essential (primary) hypertension; I73.9 Peripheral vascular disease, unspecified; R53.1 Weakness
CPT/HCPCS: 36415; 80048; 80061; 80076; 83735; 84439; 84443; 85025

== ENCOUNTER 2023-04-13 10:16 | Emergency (ER) | payer MEDICARE, MEDICAID, SELFPAY ==
[2023-04-13] VITALS (7 sets, daily range): BP systolic 127–164; BP diastolic 51–71; PULSE 60–71; RESP 16–18; TEMP 36.7; O2SAT 94–98; BMI 28.3
--- NOTE | 2023-04-13 10:29 | PC.NURSE ---
Dr. Bowden at [facility] for patient eval
--- NOTE | 2023-04-13 10:35 | HMH.EDGENADL ---
Discharge Plan Disposition Patient Disposition: Xfer SNF Prescriptions Prescriptions: No Action fluticasone propionate 50 mcg/actuation spray,suspension 1 spray INTRANASAL DAILY benazepril 20 mg tablet 20 mg PO DAILY varenicline [Chantix Starting Month Box] 0.5 mg (11)- 1 mg (42) tablets,dose pack See Rx Instructions PO PER PKG DIR Qty: 53 0RF Rx Instructions: PO PER PKG DIR Xarelto 2.5 mg tablet 2.5 mg PO BID Qty: 60 2RF aspirin 81 mg tablet,delayed release (DR/EC) 81 mg PO DAILY clonazepam [Klonopin] 1 mg tablet 1 mg PO TID PRN (Reason: anxiety) Qty: 90 2RF atorvastatin 40 MG tablet 40 mg PO HS albuterol sulfate 90 mcg/actuation Hfa Aerosol Inhaler 2 puff inhalation Q6H PRN (Reason: Dyspnea) 30 Days Qty: 0 0RF cholecalciferol (vitamin D3) [Vitamin D3] 50 mcg (2,000 unit) Capsule 50 mcg PO DAILY metoprolol succinate 25 mg capsule,sprinkle,ER 24hr 25 mg PO DAILY Qty: 30 1RF Referrals Follow up/Referrals: Provider,Referral, MD [Primary Care Provider] - See instructions Clinical Impressions Clinical Impression: Generalized weakness, Unable to care for self Discharge ED Provider: Denise Bowden General Adult HPI General Chief complaint: Weakness Stated complaint: weakness Time Seen by Provider: 04/13/23 10:26 Mode of Arrival: EMS Source of Information: Patient Limitations: No Limitations Description of Symptoms (Recalled from ER Triage Doc. by RN): Patient states she was recently discharge from [facility] on . States she did good for a couple days but then became weak and had pain in her legs anytime she began to walk. Patient states she wants to go back to the residential. History of Present Illness HPI narrative: Patient is a 68-year-old female this is her fifth emergency department visit for similar complaints of last month. I saw her twice 1 month ago where she was seen with her urinary tract infection weakness was discharged came back to the emergency department ultimately was evaluated by case management and physical therapy she walked 40 feet at that time was cleared to go home and then she fell upon being discharged was ultimately admitted to the hospital she returned multiple times to the ED she ultimately was sent to [facility] where she was recently discharged to get physical therapy at her home. She states her physical therapy has not come to her home and she is profoundly weak and she and the person she is living with states that she cannot take care of herself at home that she is return to the emergency department. She has no worsening symptoms other than generalized weakness and proximal leg pain. Related Data Home Medications Medication Instructions Recorded Confirmed atorvastatin 40 mg tablet 40 mg PO HS Cholesterol 11/16/17 04/12/23 fluticasone propionate 50 1 spray intranasal DAILY Allergy 04/14/21 04/12/23 mcg/actuation nasal Symptoms spray,suspension aspirin 81 mg tablet,delayed 81 mg PO DAILY Blood Thinner 04/28/21 04/12/23 release benazepril 20 mg tablet 20 mg PO DAILY High Blood Pressure 02/02/22 04/12/23 cholecalciferol (vitamin D3) 50 50 mcg PO DAILY Supplement 03/22/23 04/12/23 mcg (2,000 unit) capsule (Vitamin D3) Previous Rx's Medication Instructions Recorded albuterol sulfate 90 mcg/actuation 2 puff inhalation Q6H PRN Dyspnea 03/19/23 aerosol inhaler 30 days #0 grams metoprolol succinate 25 mg capsule 25 mg PO DAILY #30 ea 03/24/23 sprinkle, ext. release 24 hr clonazepam 1 mg tablet (Klonopin) 1 mg PO TID PRN anxiety #90 tabs 04/06/23 rivaroxaban 2.5 mg tablet (Xarelto) 2.5 mg PO BID #60 tabs 04/12/23 varenicline 0.5 mg (11)-1 mg (42) See Rx Instructions PO PER PKG DIR 04/12/23 tablets in a dose pack (Chantix #53 tabs Starting Month Box) Allergies Allergy/AdvReac Type Severity Reaction Status Date / Time erythromycin base Allergy Severe S-BLISTE
--- NOTE | 2023-04-13 10:36 | PC.NURSE ---
KARIE contacted about further evaluation for residential. Pt states that she wants to go to the residential due to weakness. PT states she contacted Jaquelin at [facility] who stated to come to the ER for assessment. Cayla TIWARI is contacting [facility] for further information. MD jesus
[2023-04-13 10:41] LABS: Basophils % 0.3 % (0.1-2.0); Eosinophils # 0.1 K/mm3 (0.0-0.4); Hematocrit 42.5 % (37.0-47.0); Hemoglobin 13.1 g/dL (12.2-16.2); Lymphocytes # 1.2 K/mm3 (0.7-4.5); Lymphocytes % 17.4 % (10-50); Mean Corpuscular HGB Conc 30.9 g/dL (31.8-35.4); Mean Corpuscular Hemoglobin 30.7 pg (27.0-31.2); Mean Corpuscular Volume 99.2 fl (81-99); Mean Platelet Volume 9.1 fl (7.4-10.4); Monocytes # 0.3 K/mm3 (0.1-1.0); Monocytes % 3.8 % (1.7-9.3); Neutrophils # 5.3 K/mm3 (1.8-7.8); Neutrophils % 77.5 % (37.0-80.0); Platelet Count 228 K/mm3 (142-424); Red Blood Count 4.28 M/mm3 (4.20-5.40); Red Cell Distribution Width 13.4 % (11.5-17.5); White Blood Count 6.9 K/mm3 (4.8-10.8)
[2023-04-13 10:42] LABS: Chloride 104 mmol/L (98-107)
[2023-04-13 10:43] LABS: Potassium 4.6 mmoL/L (3.5-5.1); Sodium 139 mmol/L (136-145)
[2023-04-13 10:45] LABS: Alanine Aminotransferase 22 U/L (12-78); Alkaline Phosphatase 132 U/L (38-126); Anion Gap 12.6 mEq/L (5-15); Aspartate Amino Transferase 32 U/L (14-36); Bilirubin,Total 0.5 mg/dl (0.2-1.3); Blood Urea Nitrogen 23 mg/dl (7-17); Carbon Dioxide 27 mmol/L (22.0-30.0); Creatinine Clearance Estimated 57 mL/min (50-200); Estimated Glomerular Filt Rate 55 ml/min (>60); GFR (African American) 67 ML/MIN (>60); Phosphorous 3.5 mg/dl (2.5-4.5)
[2023-04-13 10:46] LABS: Albumin Level 3.8 g/dl (3.5-5.0); Calcium 9.8 mg/dl (8.4-10.2); Creatine Kinase 54 U/L (30-135); Globulin 3.9 g/dL (1.3-3.2); Glucose 159 mg/dl (74-100); Magnesium 1.9 mg/dl (1.6-2.3); Total Protein,Serum 7.7 g/dl (6.3-8.2)
--- NOTE | 2023-04-13 11:02 | PC.NURSE ---
pt ambulated with one assist to the bathroom and back, tolerated well
--- NOTE | 2023-04-13 11:03 | PC.NURSE ---
urine sample collected and sent to the lab
[2023-04-13 11:04] LABS: Microscopic, Urine URINE MICROSCOPIC (MICROSCOPIC)
--- NOTE | 2023-04-13 11:08 | SW/DCPLANNER ---
The plan for this patient is to discharge to [facility] level of care from the ED. Jaquelin rubin/ [facility] is able to accept this patient from the ED today. I will arrange [employer] once patient is medically stable for discharge from the ED.
[2023-04-13 11:11] LABS: Appearance,Urine SL CLOUDY (Clear); Blood, Urine TRACE-I (Negative); Color,Urine YELLOW (Yellow); Glucose,Urine (UA) Negative (Negative); Ketones,Urine Negative (Negative); Leukocyte Esterase,Urine Negative (Negative); Nitrate,Urine Negative (Negative); Protein,Urine Negative (Negative); Specific Gravity, Urine 1.025 (1.005-1.030); Urobilinogen,Urine 0.2 EU/dl (0.2)
[2023-04-13 11:17] LABS: Bilirubin,Urine 1+ (Negative)
[2023-04-13 11:22] LABS: Bacteria,Urine 3+ /lpf; RBC,Urine Occasional #/hpf (0-3); WBC,Urine Occasional #/hpf (0-3)
--- NOTE | 2023-04-13 13:18 | PC.NURSE ---
Report called to Kitty at [facility].
== END 2023-04-13 13:25 ==
PROVIDERS: Emergency Provider Student in an Organized Health Care Education/Training Program
DX: R53.1 Weakness (principal); R29.6 Repeated falls; I10 Essential (primary) hypertension; Z86.73 Personal history of transient ischemic attack (TIA), and cerebral infarction without residual deficits
CPT/HCPCS: 80053; 81001; 82550; 83735; 84100; 85025; 87086; 96360; 99285

== ENCOUNTER 2023-06-22 11:57 | Emergency (ER) | payer MEDICARE, MEDICAID, SELFPAY ==
[2023-06-22 11:58] VITALS: BP 170/52; PULSE 69; RESP 16; TEMP 36.8; O2SAT 98; BMI 29.2
--- NOTE | 2023-06-22 12:19 | CT_ITS ---
FINAL REPORT TECHNIQUE: Axial images were obtained of the cervical spine by computed tomography. Coronal and sagittal reconstruction process performed. This study was performed with techniques to keep radiation doses as low as reasonably achievable (ALARA). Individualized dose reduction techniques using automated exposure control or adjustment of mA and/or kV according to the patient's size were employed. CLINICAL HISTORY: fall on xarelto COMPARISON: 03/20/2023 FINDINGS: Cervical vertebrae show normal height. There is moderate disc space narrowing involving primarily the C5-6 and C6-7 levels. Disc spaces are well-preserved. There is no malalignment. The facets are properly aligned. C2-3: No evidence of canal or neural foraminal narrowing. C3-4: A mild broad-based disc protrusion is present with mild canal stenosis. C4-5: Mild diffuse annular bulge, with mild bilateral neural foraminal narrowing. C5-6: Moderate annular disc bulge, with endplate hypertrophy and moderate canal stenosis. C6-7: Mild to moderate annular disc bulge, with endplate hypertrophy. There is mild to moderate bilateral neural foraminal narrowing. C7-T1: No evidence of significant canal stenosis or neural foraminal narrowing. IMPRESSION: Moderate degenerative change is present in the cervical spine, most prominent at the C5-6 and C6-7 levels as described. No acute bony abnormality is identified. Reviewed, Interpreted and Dictated by Jessee Gee MD Transcribed by Paula Wu Authenticated and [facility]
--- NOTE | 2023-06-22 12:19 | XR_ITS ---
FINAL REPORT CLINICAL HISTORY: fall COMPARISON: None FINDINGS: LEFT SHOULDER 3 views of the left shoulder were obtained. There is no acute fracture or dislocation. Visualized joint spaces are normally aligned. Soft tissues are unremarkable. IMPRESSION: No acute bony abnormality. Reviewed, Interpreted and Dictated by Jessee Gee MD Transcribed by Paula Wu Authenticated and [facility]
--- NOTE | 2023-06-22 12:19 | CT_ITS ---
PROCEDURE INFORMATION: Exam: CT Head Without Contrast Exam date and time: 06/22/2023 12:41 PM Age: 68 years old Clinical indication: Injury or trauma; Fall; Blunt trauma (contusions or hematomas); Additional info: Fall, xarelto TECHNIQUE: Imaging protocol: Computed tomography of the head without contrast. Radiation optimization: All CT scans at this facility use at least one of these dose optimization techniques: automated exposure control; mA and/or kV adjustment per patient size (includes targeted exams where dose is matched to clinical indication); or iterative reconstruction. REPORTING DATA: Count of CT and Cardiac NM exams in prior 12 months: This patient has received 5 known CTs and 0 known cardiac nuclear medicine studies in the 12 months prior to the current study. COMPARISON: CT HEAD/BRAIN WO CON 03/20/2023 7:59 PM FINDINGS: Brain: There is no mass effect, midline shift, acute hemorrhage, extra-axial fluid collection or acute lobar infarct. There is advanced hemispheric white matter hypodensity most likely representing chronic microvascular ischemic change. Cerebral ventricles: No ventriculomegaly. Paranasal sinuses: Visualized sinuses are unremarkable. No fluid levels. Mastoid air cells: Mastoid air cells are somewhat under developed. Orbital cavities: The patient is post left cataract surgery. Bones/joints: Unremarkable. No acute fracture. Soft tissues: Unremarkable. IMPRESSION: No acute intracranial process. No significant change from the prior examination.
--- NOTE | 2023-06-22 12:19 | CT_ITS ---
PROCEDURE INFORMATION: Exam: CT Chest Without Contrast; Diagnostic Exam date and time: 06/22/2023 12:45 PM Age: 68 years old Clinical indication: Chest wall pain; Additional info: Fall left anterior/chest wall pain TECHNIQUE: Imaging protocol: Diagnostic computed tomography of the chest without contrast. Radiation optimization: All CT scans at this facility use at least one of these dose optimization techniques: automated exposure control; mA and/or kV adjustment per patient size (includes targeted exams where dose is matched to clinical indication); or iterative reconstruction. REPORTING DATA: Count of CT and Cardiac NM exams in prior 12 months: This patient has received 5 known CTs and 0 known cardiac nuclear medicine studies in the 12 months prior to the current study. COMPARISON: CR XR CHEST PORTABLE 03/26/2023 3:38 PM FINDINGS: Lungs: Bibasilar atelectasis versus parenchymal scarring. 4 mm pleural-based nodule posteriorly left upper lobe. Tree-in-bud opacities in the juxtapleural region left upper lobe, right upper lobe. Findings compatible with mild inflammatory airspace disease. Calcified granulomas demonstrated at both lung bases. Pleural spaces: Unremarkable. No pneumothorax. No pleural effusion. Heart: Unremarkable. No cardiomegaly. No pericardial effusion. Coronary arteries: Coronary artery calcification Lymph nodes: Unremarkable. No enlarged lymph nodes. Vasculature: Regions of atherosclerotic vascular calcification involving the aortic arch. Bones/joints: Unremarkable. No acute fracture. Soft tissues: Unremarkable. IMPRESSION: 1. 4 mm pleural-based nodule posteriorly left upper lobe. For patients at low risk (minimal or absent history of smoking and of other known risk factors), no routine follow-up is indicated. For patients at high risk (history of smoking or of other known risk factors), consider optional CT Chest at 12 months. (Reference: Karol). 2. Tree-in-bud opacities in the juxtapleural region left upper lobe, right upper lobe. Findings compatible with mild inflammatory airspace disease. REFERENCES: Karol H, et al. Guidelines for Management of Incidental Pulmonary Nodules Detected on CT Images: From the Fleischner Society 2017. Radiology. 2017;284(1):228-243.
--- NOTE | 2023-06-22 12:20 | [facility].EDGENADL ---
Discharge Plan Disposition Patient Disposition: Home, Self-Care Prescriptions Prescriptions: No Action fluticasone propionate 50 mcg/actuation spray,suspension 1 spray INTRANASAL DAILY benazepril 20 mg tablet 20 mg PO DAILY varenicline [Chantix Starting Month Box] 0.5 mg (11)- 1 mg (42) tablets,dose pack See Rx Instructions PO PER PKG DIR Qty: 53 0RF Rx Instructions: PO PER PKG DIR Xarelto 2.5 mg tablet 2.5 mg PO BID Qty: 60 2RF aspirin 81 mg tablet,delayed release (DR/EC) 81 mg PO DAILY clonazepam [Klonopin] 1 mg tablet 1 mg PO TID PRN (Reason: anxiety) Qty: 90 2RF atorvastatin 40 MG tablet 40 mg PO HS albuterol sulfate 90 mcg/actuation Hfa Aerosol Inhaler 2 puff inhalation Q6H PRN (Reason: Dyspnea) 30 Days Qty: 0 0RF cholecalciferol (vitamin D3) [Vitamin D3] 50 mcg (2,000 unit) Capsule 50 mcg PO DAILY metoprolol succinate 25 mg capsule,sprinkle,ER 24hr 25 mg PO DAILY Qty: 30 1RF Activity Restrictions/Add. Instructions Additional Instructions/Restrictions: Your CT imaging and x-rays do not show any acute fractures dislocations or any other emergent medical condition. You may take Tylenol as needed for your symptoms return with any other complaints. Clinical Impressions Clinical Impression: Fall, Left shoulder pain, Contusion of left chest wall, Neck strain Discharge ED Provider: Denise Bowden General Adult HPI General Chief complaint: Fall Stated complaint: [id number] Lt shoulder pain Time Seen by Provider: 06/22/23 12:15 Mode of Arrival: Wheelchair Source of Information: Patient Limitations: No Limitations Description of Symptoms (Recalled from ER Triage Doc. by RN): c/o left shoulder pain after falling on the tile floor around 10:30 this morning, states she did not hit her head and denies any other injuries at this time. States she pulled herself up with that shoulder when getting out and she thinks that is what hurt her shoulder. History of Present Illness HPI narrative: Patient is a 68-year-old female who states that she was trying to kill a bug earlier today and she slipped while trying to do this and fell and landed directly onto her left shoulder sustaining left shoulder neck and head injury. She is on aspirin potentially Plavix and she is sure that she is on Xarelto. Denies any abdominal pain. No changes in mental status. No neurologic complaints. No bleeding that she is aware of. Related Data Home Medications Medication Instructions Recorded Confirmed atorvastatin 40 mg tablet 40 mg PO HS Cholesterol 11/16/17 04/12/23 fluticasone propionate 50 1 spray intranasal DAILY Allergy 04/14/21 04/12/23 mcg/actuation nasal Symptoms spray,suspension aspirin 81 mg tablet,delayed 81 mg PO DAILY Blood Thinner 04/28/21 04/12/23 release benazepril 20 mg tablet 20 mg PO DAILY High Blood Pressure 02/02/22 04/12/23 cholecalciferol (vitamin D3) 50 50 mcg PO DAILY Supplement 03/22/23 04/12/23 mcg (2,000 unit) capsule (Vitamin D3) Previous Rx's Medication Instructions Recorded albuterol sulfate 90 mcg/actuation 2 puff inhalation Q6H PRN Dyspnea 03/19/23 aerosol inhaler 30 days #0 grams metoprolol succinate 25 mg capsule 25 mg PO DAILY #30 ea 03/24/23 sprinkle, ext. release 24 hr clonazepam 1 mg tablet (Klonopin) 1 mg PO TID PRN anxiety #90 tabs 04/06/23 rivaroxaban 2.5 mg tablet (Xarelto) 2.5 mg PO BID #60 tabs 04/12/23 varenicline 0.5 mg (11)-1 mg (42) See Rx Instructions PO PER PKG DIR 04/12/23 tablets in a dose pack (Chantix #53 tabs Starting Month Box) Allergies Allergy/AdvReac Type Severity Reaction Status Date / Time erythromycin base Allergy Severe S-BLISTERING Verified 04/12/23 09:49 WELTS tiotropium Allergy Severe S-SWELLS-OR Verified 04/12/23 09:49 [From Spiriva with AL/THROAT HandiHaler] clopidogrel [From Plavix] AdvReac Intermediate Diarrhea Verified 04/12/23 09:49 levofloxacin [From Levaquin]
[2023-06-22 13:00] VITALS: BP 133/52; PULSE 58; RESP 18; O2SAT 96
[2023-06-22 14:45] VITALS: BP 138/79; PULSE 62; RESP 20; TEMP 36.8; O2SAT 97
== END 2023-06-22 14:48 | disposition home or self-care (01) ==
PROVIDERS: Emergency Provider Student in an Organized Health Care Education/Training Program; PCP Family Medicine
DX: S20.212A Contusion of left front wall of thorax, initial encounter (principal); M25.512 Pain in left shoulder; S16.1XXA Strain of muscle, fascia and tendon at neck level, initial encounter; I73.9 Peripheral vascular disease, unspecified; I10 Essential (primary) hypertension; E78.5 Hyperlipidemia, unspecified; Z79.01 Long term (current) use of anticoagulants; Z86.718 Personal history of other venous thrombosis and embolism; Z86.73 Personal history of transient ischemic attack (TIA), and cerebral infarction without residual deficits; W18.30XA Fall on same level, unspecified, initial encounter
CPT/HCPCS: 70450; 71250; 72125; 73030; 99285

== ENCOUNTER 2023-12-27 14:53 | Outpatient (CLI) | payer MEDICARE, MEDICAID, SELFPAY ==
[2023-12-29 13:47] LABS: Rapid Plasma Reagin Ab Titer Non Reactive titer (NonRea<1:1)
[2023-12-30 21:58] LABS: Neisseria gonorrhoeae, NAA Negative (Negative)
[2024-01-04 08:09] LABS: Miscellaneous Test SCANNED IMAGE
[2024-01-04 10:45] LABS: Hepatitis C Antibody Non Reactive
== END 2023-12-27 23:59 | disposition home or self-care (01) ==
LOC: LAB 14:55
PROVIDERS: PCP Nurse Practitioner; Visit Provider Nurse Practitioner
DX: Z11.3 Encounter for screening for infections with a predominantly sexual mode of transmission (principal); Z70.8 Other sex counseling
CPT/HCPCS: 36415; 86593; 87380; 87491; 87591

== ENCOUNTER 2024-02-20 16:24 | Emergency (ER) | payer MEDICARE, MEDICAID, SELFPAY ==
[2024-02-20 16:24] VITALS: BP 133/66; PULSE 77; RESP 19; TEMP 37.1; O2SAT 95; BMI 30.2
--- NOTE | 2024-02-20 16:37 | CT_ITS ---
PROCEDURE INFORMATION: Exam: CT Pelvis Without Contrast; Skeletal Exam date and time: 02/20/2024 5:02 PM Age: 68 years old Clinical indication: Injury or trauma; Fall; Blunt trauma (contusions or hematomas); Right; Hip; Additional info: Fall, pain TECHNIQUE: Imaging protocol: Computed tomography of the pelvis without contrast. Exam focused on the skeleton. Radiation optimization: All CT scans at this facility use at least one of these dose optimization techniques: automated exposure control; mA and/or kV adjustment per patient size (includes targeted exams where dose is matched to clinical indication); or iterative reconstruction. COMPARISON: CT LUMBAR SPINE WO CON 02/20/2024 5:00 PM FINDINGS: Bones/joints: Mild osteoarthritis along the otherwise intact sacroiliac joints. Femoral heads are well seated in the acetabula. Femoral neck and trochanteric regions are intact. Pubic rami are unremarkable. No visible fracture or dislocation. Mild degenerative changes along the otherwise intact pubic symphysis. Soft tissues: Unremarkable. IMPRESSION: No visible fracture or dislocation.
--- NOTE | 2024-02-20 16:37 | CT_ITS ---
PROCEDURE INFORMATION: Exam: CT Lumbar Spine Without Contrast Exam date and time: 02/20/2024 5:00 PM Age: 68 years old Clinical indication: Injury or trauma; Fall; Blunt trauma (contusions or hematomas); Additional info: Fall, pain TECHNIQUE: Imaging protocol: Computed tomography of the lumbar spine without contrast. Radiation optimization: All CT scans at this facility use at least one of these dose optimization techniques: automated exposure control; mA and/or kV adjustment per patient size (includes targeted exams where dose is matched to clinical indication); or iterative reconstruction. COMPARISON: CT THORACIC SPINE WO CON 02/20/2024 4:56 PM FINDINGS: Bones/joints: Diffuse sclerosis along the otherwise intact sacroiliac joints. There is mild levoconvex scoliosis with apex L3. Vertebral alignment is otherwise maintained.There is preservation of vertebral body heights. Facet joints are aligned. No acute fracture. Combination of diffuse disc bulge and facet arthropathy contribute to varying degrees of neural foramina narrowing multiple levels. No acute fracture. Vasculature: The aorta demonstrates moderate atherosclerotic calcification. There is a stent graft in the left common iliac artery Soft tissues: Unremarkable. IMPRESSION: No acute fracture. No traumatic subluxation.
--- NOTE | 2024-02-20 16:37 | XR_ITS ---
PROCEDURE INFORMATION: Exam: XR Right Knee Exam date and time: 02/20/2024 5:13 PM Age: 68 years old Clinical indication: Injury or trauma; Fall; Blunt trauma; Knee; Right; Additional info: Fall, pain TECHNIQUE: Imaging protocol: Radiologic exam of the right knee. Views: 3 views. COMPARISON: CR XR FEMUR RT 2V 02/20/2024 5:13 PM FINDINGS: Bones/joints: Diffuse osteopenia. There is chondrocalcinosis, consistent with calcium pyrophosphate deposition arthropathy. No joint effusion. No visible fracture or dislocation. 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 Soft tissues: Normal. IMPRESSION: No visible fracture or dislocation.
--- NOTE | 2024-02-20 16:37 | XR_ITS ---
PROCEDURE INFORMATION: Exam: XR Right Femur Exam date and time: 02/20/2024 5:13 PM Age: 68 years old Clinical indication: Injury or trauma; Fall; Blunt trauma; Thigh or upper leg; Right; Additional info: Fall, pain TECHNIQUE: Imaging protocol: Radiologic exam of the right femur. Views: 2 views. COMPARISON: CR XR HIP RT 2-3V W/PELVIS 02/20/2024 5:13 PM FINDINGS: Bones/joints: Diffuse osteopenia. No visible fracture or dislocation. Soft tissues: Unremarkable. IMPRESSION: No visible fracture or dislocation.
--- NOTE | 2024-02-20 16:37 | CT_ITS ---
PROCEDURE INFORMATION: Exam: CT Cervical Spine Without Contrast Exam date and time: 02/20/2024 4:54 PM Age: 68 years old Clinical indication: Injury or trauma; Fall; Blunt trauma; Additional info: Fall, pain TECHNIQUE: Imaging protocol: Computed tomography of the cervical spine without contrast. Radiation optimization: All CT scans at this facility use at least one of these dose optimization techniques: automated exposure control; mA and/or kV adjustment per patient size (includes targeted exams where dose is matched to clinical indication); or iterative reconstruction. COMPARISON: CT HEAD/BRAIN WO CON 02/20/2024 4:51 PM FINDINGS: Bones: Congenital non-fusion of the posterior arch of C1. Vertebral alignment is maintained. There is preservation of vertebral body heights. Facet joints are aligned. Odontoid process is intact. Atlantoaxial interval maintained. No acute fracture. Uncovertebral and facet arthropathy result in varying degrees of neural foraminal narrowing at multiple levels. Auditory system: Nodular soft tissue thickening in the left external auditory canal. While nonspecific statistically represents cerumen. Lungs: Lung apices are normal. Soft tissues: Prevertebral and paravertebral soft tissues are maintained IMPRESSION: No acute fracture. No traumatic subluxation.
--- NOTE | 2024-02-20 16:37 | CT_ITS ---
PROCEDURE INFORMATION: Exam: CT Head Without Contrast Exam date and time: 02/20/2024 4:51 PM Age: 68 years old Clinical indication: Injury or trauma; Fall; Blunt trauma (contusions or hematomas); Additional info: Fall, pain TECHNIQUE: Imaging protocol: Computed tomography of the head without contrast. Radiation optimization: All CT scans at this facility use at least one of these dose optimization techniques: automated exposure control; mA and/or kV adjustment per patient size (includes targeted exams where dose is matched to clinical indication); or iterative reconstruction. COMPARISON: CT HEAD/BRAIN WO CON 06/22/2023 12:41 PM FINDINGS: Brain: Age-related volume loss. Decreased attenuation of the supratentorial white matter is likely secondary to chronic microvascular ischemia. Chronic right frontoparietal infarct. No acute intracranial hemorrhage, midline shift or intracranial mass effect. Cerebral ventricles: Ventriculomegaly is commensurate for degree of volume loss. Paranasal sinuses: Visualized sinuses are unremarkable. No fluid levels. Mastoid air cells: Visualized mastoid air cells are well aerated. Bones: Unremarkable. No acute fracture. Soft tissues: Unremarkable. IMPRESSION: No acute intracranial abnormality.
--- NOTE | 2024-02-20 16:37 | XR_ITS ---
PROCEDURE INFORMATION: Exam: XR Right Hip Exam date and time: 02/20/2024 5:13 PM Age: 68 years old Clinical indication: Injury or trauma; Fall; Blunt trauma (contusions or hematomas); Bilateral; Pelvic region; Additional info: Fall, pain TECHNIQUE: Imaging protocol: Radiologic exam of the right hip. Views: 2 or 3 views hip with pelvis when performed. COMPARISON: CR XR FEMUR RT 2V 02/20/2024 5:13 PM FINDINGS: Tubes, catheters and devices: There is a stent graft projected over the left iliac region. Bones/joints: Diffuse osteopenia. No visible fracture or dislocation. Soft tissues: Unremarkable. IMPRESSION: No visible fracture or dislocation.
--- NOTE | 2024-02-20 16:37 | CT_ITS ---
PROCEDURE INFORMATION: Exam: CT Chest Without Contrast; Diagnostic Exam date and time: 02/20/2024 5:05 PM Age: 68 years old Clinical indication: Injury or trauma; Fall; Blunt trauma (contusions or hematomas); Additional info: Fall, pain TECHNIQUE: Imaging protocol: Diagnostic computed tomography of the chest without contrast. Radiation optimization: All CT scans at this facility use at least one of these dose optimization techniques: automated exposure control; mA and/or kV adjustment per patient size (includes targeted exams where dose is matched to clinical indication); or iterative reconstruction. COMPARISON: CT CHEST WO CON 06/22/2023 12:45 PM FINDINGS: Limitations: The absence of intravenous contrast limits the assessment of vascular structures, lesions and lymphadenopathy. Trachea: Main airways are patent. Lungs: Mild bilateral subpleural reticulation. Bibasilar subsegmental atelectasis noted. No pulmonary contusion or laceration. Pleural spaces: Unremarkable. No pneumothorax. No pleural effusion. Heart: Unremarkable. No cardiomegaly. No pericardial effusion. Coronary arteries: There is moderate atherosclerotic calcification of the coronary arteries. Esophagus: There is circumferential thickening and distension of the distal esophagus can be seen in the context of esophageal dysmotility. Lymph nodes: No evidence of hilar or mediastinal lymphadenopathy within the limits of noncontrast exam. Vasculature: The aorta demonstrates moderate atherosclerotic calcification. Bones/joints: Multilevel degenerative changes of the included spine. No acute rib fracture. Sternum is intact. Soft tissues: Unremarkable. IMPRESSION: 1. No pulmonary contusion or laceration. 2. No acute osseous abnormality.
--- NOTE | 2024-02-20 16:37 | CT_ITS ---
PROCEDURE INFORMATION: Exam: CT Thoracic Spine Without Contrast Exam date and time: 02/20/2024 4:56 PM Age: 68 years old Clinical indication: Injury or trauma; Fall; Blunt trauma (contusions or hematomas); Additional info: Fall, pain TECHNIQUE: Imaging protocol: Computed tomography of the thoracic spine without contrast. Radiation optimization: All CT scans at this facility use at least one of these dose optimization techniques: automated exposure control; mA and/or kV adjustment per patient size (includes targeted exams where dose is matched to clinical indication); or iterative reconstruction. COMPARISON: CT CERVICAL SPINE WO CON 02/20/2024 4:54 PM FINDINGS: Bones/joints: There is preservation of vertebral alignment and vertebral body heights. Facet joints are aligned. No acute fracture. There is no significant osseous encroachment of the spinal canal or neural foraminal narrowing at any level. Soft tissues: Unremarkable. Lymph nodes: Calcified mediastinal and hilar lymph nodes suggest prior granulomatous exposure. Lungs: Bibasilar subsegmental atelectasis noted. IMPRESSION: No acute fracture. No traumatic subluxation.
--- OUTSIDE RECORDS SUMMARY | 2024-02-20 16:42 | XMS_ITS ---
Author Organization [facility] ALLERGIES AND ADVERSE REACTIONS No information ASSESSMENT No information CHIEF COMPLAINT No information Medications Date Medication Dosage Dosageunit Startdate Active Dispense Refills Ndccode Isprescription Srcstatus 12/12 00:00 :00 Amoxicillin -Pot Clavulanate 875-125 MG Tablet 10/06/2023 00:00:00 0 14 Tablet 0 [id number] 534 P Discontinu ed 10/05 00:00 :00 Amoxicillin -Pot Clavulanate 875-125 MG Tablet 10/06/2023 00:00:00 1 14 Tablet 0 [id number] 534 P Start 01/04 00:00 :00 Aspirin 81 81 MG Tablet Delayed Release 11/24/2022 00:00:00 1 30 11 [id number] 210 P Taking 01/02 00:00 :00 Aspirin 81 81 MG Tablet Delayed Release 11/24/2022 00:00:00 1 30 11 [id number] 210 P Taking 12/26 00:00 :00 Aspirin 81 81 MG Tablet Delayed Release 11/24/2022 00:00:00 1 30 11 [id number] 210 P Taking 12/14 00:00 :00 Aspirin 81 81 MG Tablet Delayed Release 11/24/2022 00:00:00 1 30 11 [id number] 210 P Taking 12/12 00:00 :00 Aspirin 81 81 MG Tablet Delayed Release 11/24/2022 00:00:00 1 30 11 [id number] 210 P Taking 10/05 00:00 :00 Aspirin 81 81 MG Tablet Delayed Release 11/24/2022 00:00:00 1 30 11 [id number] 210 P Taking 08/25 00:00 :00 Aspirin 81 81 MG Tablet Delayed Release 11/24/2022 00:00:00 1 30 11 [id number] 210 P Refill 06/01 00:00 :00 Aspirin 81 81 MG Tablet Delayed Release 11/24/2022 00:00:00 1 30 5 [id number] 210 P Taking 05/10 00:00 :00 Aspirin 81 81 MG Tablet Delayed Release 11/24/2022 00:00:00 1 30 5 [id number] 210 P Taking 02/21 00:00 :00 Aspirin 81 81 MG Tablet Delayed Release 11/24/2022 00:00:00 1 30 5 [id number] 210 P Taking 01/04 00:00 :00 Atorvastati n Calcium 40 MG Tablet null 1 90 0 [id number] 502 P Taking 01/02 00:00 :00 Atorvastati n Calcium 40 MG Tablet null 1 90 0 [id number] 502 P Taking 12/26 00:00 :00 Atorvastati n Calcium 40 MG Tablet null 1 90 0 [id number] 502 P Taking 12/14 00:00 :00 Atorvastati n Calcium 40 MG Tablet null 1 90 0 [id number] 502 P Taking 12/12 00:00 :00 Atorvastati n Calcium 40 MG Tablet null 1 90 0 [id number] 502 P Taking 10/05 00:00 :00 Atorvastati n Calcium 40 MG Tablet null 1 90 0 [id number] 502 P Refill 10/05 00:00 :00 Atorvastati n Calcium 40 MG Tablet null 1 90 3 [id number] 502 P Taking 08/25 00:00 :00 Atorvastati n Calcium 40 MG Tablet null 1 90 3 [id number] 502 P Refill 06/01 00:00 :00 Atorvastati n Calcium 40 MG Tablet null 1 90 Tablet 1 [id number] 502 Taking 05/10 00:00 :00 Atorvastati n Calcium 40 MG Tablet null 1 90 Tablet 1 [id number] 502 Taking 02/21 00:00 :00 Atorvastati n Calcium 40 MG Tablet null 1 90 Tablet 1 [id number] 502 Taking 01/04 00:00 :00 Benazepril HCl 20 MG Tablet null 1 90 0 [id number] 701 P Taking 01/02 00:00 :00 Benazepril HCl 20 MG Tablet null 1 90 0 [id number] 701 P Taking 12/26 00:00 :00 Benazepril HCl 20 MG Tablet null 1 90 0 [id number] 701 P Taking 12/14 00:00 :00 Benazepril HCl 20 MG Tablet null 1 90 0 [id number] 701 P Taking 12/12 00:00 :00 Benazepril HCl 20 MG Tablet null 1 90 0 [id number] 701 P Taking 10/05 00:00 :00 Benazepril HCl 20 MG Tablet null 1 90 0 [id number] 701 P Refill 10/05 00:00 :00 Benazepril HCl 20 MG Tablet null 1 90 3 [id number] 701 P Taking 08/25 00:00 :00 Benazepril HCl 20 MG Tablet null 1 90 3 [id number] 701 P Refill 06/01 00:00 :00 Benazepril HCl 20 MG Tablet null 1 90 Tablet 1 [id number] 701 Taking 05/10 00:00 :00 Benazepril HCl 20 MG Tablet null 1 90 Tablet 1 [id number] 701 Taking 02/21 00:00 :00 Benazepril HCl 20 MG Tablet null 1 90 Tablet 1 [id number] 701 Taking 12/14 00:00 :00 Doxycycline Hyclate 100 MG Capsule 12/15/2023 00:00:00 1 20 Capsule 0 [id number] 250 P Start 01/04 00:00 :00 Fluticasone Propionate 50 MCG/ACT Suspension 03/16/2021 00:00:00 0 1 2 [id number] 099 P Unknown Status 01/02 00:00 :00 Fluticasone Propionate 50 MCG/ACT Suspension 03/16/2021 00:00:00 0 1 2 [id number] 099 P Unknown Status 12/26 00:00 :00 Fluticasone Propionate 50 MCG/ACT Suspension 03/16/2021 00:00:00 0 1 2 [id number] 099 P Unknown Status 12/14 00:00 :00 Fluticasone Propionate 50 MCG/ACT Suspension 03/16/2021 00:00:00 0 1 2 [id number] 099 P Unknown Status 12/12 00:00 :00 Fluticasone Propionate 50 MCG/ACT Suspension 03/16/2021 00:00:00 0 1 2 [id number] 099 P Unknown Status 10/05 00:00 :00 Fluticasone Propionate 50 MCG/ACT Suspension 03/16/2021 00:00:00 0 1 2 [id number] 099 P Unknown Status 06/01 00:00 :00 Fluticasone Propionate 50 MCG/ACT Suspension 03/16/2021 00:00:00 0 1 2 [id number] 099 P Unknown Status 05/10 00:00 :00 Fluticasone Propionate 50 MCG/ACT Suspension 03/16/2021 00:00:00 0 1 2 [id number] 099 P Unknown Status 02/21 00:00 :00 Fluticasone Propionate 50 MCG/ACT Suspension 03/16/2021 00:00:00 0 1 2 [id number] 099 P Unknown Status 01/04 00:00 :00 Ibandronate Sodium 150 MG Tablet 11/08/2022 00:00:00 1 3 0 [id number] 001 P Taking 01/02 00:00 :00 Ibandronate Sodium 150 MG Tablet 11/08/2022 00:00:00 1 3 0 [id number] 001 P Taking 12/26 00:00 :00 Ibandronate Sodium 150 MG Tablet 11/08/2022 00:00:00 1 3 0 [id number] 001 P Taking 12/14 00:00 :00 Ibandronate Sodium 150 MG Tablet 11/08/2022 00:00:00 1 3 0 [id number] 001 P Taking 12/12 00:00 :00 Ibandronate Sodium 150 MG Tablet 11/08/2022 00:00:00 1 3 0 [id number] 001 P Taking 10/05 00:00 :00 Ibandronate Sodium 150 MG Tablet 11/08/2022 00:00:00 1 3 0 [id number] 001 P Refill 10/05 00:00 :00 Ibandronate Sodium 150 MG Tablet 11/08/2022 00:00:00 1 3 3 [id number] 001 Taking 06/01 00:00 :00 Ibandronate Sodium 150 MG Tablet 11/08/2022 00:00:00 1 3 3 [id number] 001 Taking 05/10 00:00 :00 Ibandronate Sodium 150 MG Tablet 11/08/2022 00:00:00 1 3 3 [id number] 001 Taking 02/21 00:00 :00 Ibandronate Sodium 150 MG Tablet 11/08/2022 00:00:00 1 3 3 [id number] 001 Taking 01/04 00:00 :00 levoFLOXaci n 750 MG Tablet 03/10/2022 00:00:00 0 10 0 [id number] 605 P Unknown Status 01/02 00:00 :00 levoFLOXaci n 750 MG Tablet 03/10/2022 00:00:00 0 10 0 [id number] 605 P Unknown Status 12/26 00:00 :00 levoFLOXaci n 750 MG Tablet 03/10/2022 00:00:00 0 10 0 [id number] 605 P Unknown Status 12/14 00:00 :00 levoFLOXaci n 750 MG Tablet 03/10/2022 00:00:00 0 10 0 [id number] 605 P Unknown Status 12/12 00:00 :00 levoFLOXaci n 750 MG Tablet 03/10/2022 00:00:00 0 10 0 [id number] 605 P Unknown Status 10/05 00:00 :00 levoFLOXaci n 750 MG Tablet 03/10/2022 00:00:00 0 10 0 [id number] 605 P Unknown Status 06/01 00:00 :00 levoFLOXaci n 750 MG Tablet 03/10/2022 00:00:00 0 10 0 [id number] 605 P Unknown Status 05/10 00:00 :00 levoFLOXaci n 750 MG Tablet 03/10/2022 00:00:00 0 10 0 [id number] 605 P Unknown Status 02/21 00:00 :00 levoFLOXaci n 750 MG Tablet 03/10/2022 00:00:00 0 10 0 [id number] 605 P Unknown Status 01/04 00:00 :00 Loratadine 10 MG Tablet 03/11/2020 00:00:00 0 30 5 [id number] 430 P Unknown Status 01/02 00:00 :00 Loratadine 10 MG Tablet 03/11/2020 00:00:00 0 30 5 [id number] 430 P Unknown Status 12/26 00:00 :00 Loratadine 10 MG Tablet 03/11/2020 00:00:00 0 30 5 [id number] 430 P Unknown Status 12/14 00:00 :00 Loratadine 10 MG Tablet 03/11/2020 00:00:00 0 30 5 [id number] 430 P Unknown Status 12/12 00:00 :00 Loratadine 10 MG Tablet 03/11/2020 00:00:00 0 30 5 [id number] 430 P Unknown Status 10/05 00:00 :00 Loratadine 10 MG Tablet 03/11/2020 00:00:00 0 30 5 [id number] 430 P Unknown Status 06/01 00:00 :00 Loratadine 10 MG Tablet 03/11/2020 00:00:00 0 30 5 [id number] 430 P Unknown Status 05/10 00:00 :00 Loratadine 10 MG Tablet 03/11/2020 00:00:00 0 30 5 [id number] 430 P Unknown Status 02/21 00:00 :00 Loratadine 10 MG Tablet 03/11/2020 00:00:00 0 30 5 [id number] 430 P Unknown Status 02/05 00:00 :00 LORazepam 2 MG Tablet 02/06/2024 00:00:00 1 90 Tablet 0 [id number] 601 Start 02/05 00:00 :00 LORazepam 2 MG Tablet null 0 90 Tablet 1 [id number] 701 Stop 01/04 00:00 :00 LORazepam 2 MG Tablet 10/06/2023 00:00:00 1 90 Tablet 1 [id number] 701 P Taking 01/02 00:00 :00 LORazepam 2 MG Tablet 10/06/2023 00:00:00 1 90 Tablet 1 [id number] 701 P Taking 12/26 00:00 :00 LORazepam 2 MG Tablet 10/06/2023 00:00:00 1 90 Tablet 1 [id number] 701 P Taking 12/14 00:00 :00 LORazepam 2 MG Tablet 10/06/2023 00:00:00 1 90 Tablet 1 [id number] 701 P Taking 12/12 00:00 :00 LORazepam 2 MG Tablet 10/06/2023 00:00:00 1 90 Tablet 1 [id number] 701 P Taking 10/05 00:00 :00 LORazepam 2 MG Tablet 10/06/2023 00:00:00 1 90 Tablet 1 [id number] 701 P Refill 10/05 00:00 :00 LORazepam 2 MG/ML Solution 08/25/2023 00:00:00 1 1 [id number] 503 P Taking 08/25 00:00 :00 LORazepam 1 MG Tablet 08/25/2023 00:00:00 1 90 1 [id number] 601 P Refill 06/08 00:00 :00 LORazepam 1 MG Tablet 06/08/2023 00:00:00 1 90 Tablet 2 [id number] 601 P Refill 06/08 00:00 :00 LORazepam 1 MG Tablet 11/24/2022 00:00:00 1 90 Tablet 2 [id number] 601 P Refill 06/01 00:00 :00 LORazepam 1 MG Tablet 11/24/2022 00:00:00 1 90 Tablet 2 [id number] 601 Taking 05/10 00:00 :00 LORazepam 1 MG Tablet 11/24/2022 00:00:00 1 90 Tablet 2 [id number] 601 Taking 02/21 00:00 :00 LORazepam 1 MG Tablet 11/24/2022 00:00:00 1 90 Tablet 2 [id number] 601 Taking 01/04 00:00 :00 Meclizine HCl 12.5 MG Tablet 05/14/2022 00:00:00 0 90 Tablet 1 [id number] 504 P Unknown Status 01/02 00:00 :00 Meclizine HCl 12.5 MG Tablet 05/14/2022 00:00:00 0 90 Tablet 1 [id number] 504 P Unknown Status 12/26 00:00 :00 Meclizine HCl 12.5 MG Tablet 05/14/2022 00:00:00 0 90 Tablet 1 [id number] 504 P Unknown Status 12/14 00:00 :00 Meclizine HCl 12.5 MG Tablet 05/14/2022 00:00:00 0 90 Tablet 1 [id number] 504 P Unknown Status 12/12 00:00 :00 Meclizine HCl 12.5 MG Tablet 05/14/2022 00:00:00 0 90 Tablet 1 [id number] 504 P Unknown Status 10/05 00:00 :00 Meclizine HCl 12.5 MG Tablet 05/14/2022 00:00:00 0 90 Tablet 1 [id number] 504 P Unknown Status 06/01 00:00 :00 Meclizine HCl 12.5 MG Tablet 05/14/2022 00:00:00 0 90 Tablet 1 [id number] 504 P Unknown Status 05/10 00:00 :00 Meclizine HCl 12.5 MG Tablet 05/14/2022 00:00:00 0 90 Tablet 1 [id number] 504 P Unknown Status 02/21 00:00 :00 Meclizine HCl 12.5 MG Tablet 05/14/2022 00:00:00 0 90 Tablet 1 [id number] 504 P Unknown Status 01/04 00:00 :00 Metoprolol Succinate ER 50 MG Tablet Extended Release 24 Hour null 1 90 0 [id number] 302 P Taking 01/02 00:00 :00 Metoprolol Succinate ER 50 MG Tablet Extended Release 24 Hour null 1 90 0 [id number] 302 P Taking 12/26 00:00 :00 Metoprolol Succinate ER 50 MG Tablet Extended Release 24 Hour null 1 90 0 [id number] 302 P Taking 12/14 00:00 :00 Metoprolol Succinate ER 50 MG Tablet Extended Release 24 Hour null 1 90 0 [id number] 302 P Taking 12/12 00:00 :00 Metoprolol Succinate ER 50 MG Tablet Extended Release 24 Hour null 1 90 0 [id number] 302 P Taking 10/05 00:00 :00 Metoprolol Succinate ER 50 MG Tablet Extended Release 24 Hour null 1 90 0 [id number] 302 P Refill 10/05 00:00 :00 Metoprolol Succinate ER 50 MG Tablet Extended Release 24 Hour null 1 90 3 [id number] 302 P Taking 08/25 00:00 :00 Metoprolol Succinate ER 50 MG Tablet Extended Release 24 Hour null 1 90 3 [id number] 302 P Refill 06/01 00:00 :00 Metoprolol Succinate ER 50 MG Tablet Extended Release 24 Hour null 1 90 Tablet 1 [id number] 302 Taking 05/10 00:00 :00 Metoprolol Succinate ER 50 MG Tablet Extended Release 24 Hour null 1 90 Tablet 1 [id number] 302 Taking 02/21 00:00 :00 Metoprolol Succinate ER 50 MG Tablet Extended Release 24 Hour null 1 90 Tablet 1 [id number] 302 Taking 01/04 00:00 :00 Vitamin D (Ergocalcif puma) 13453 UNIT Capsule 03/10/2022 00:00:00 0 12 1 [id number] 901 P Unknown Status 01/02 00:00 :00 Vitamin D (Ergocalcif puma) 12498 UNIT Capsule 03/10/2022 00:00:00 0 12 1 [id number] 901 P Unknown Status 12/26 00:00 :00 Vitamin D (Ergocalcif puma) 84231 UNIT Capsule 03/10/2022 00:00:00 0 12 1 [id number] 901 P Unknown Status 12/14 00:00 :00 Vitamin D (Ergocalcif puma) 07423 UNIT Capsule 03/10/2022 00:00:00 0 12 1 [id number] 901 P Unknown Status 12/12 00:00 :00 Vitamin D (Ergocalcif puma) 78305 UNIT Capsule 03/10/2022 00:00:00 0 12 1 [id number] 901 P Unknown Status 10/05 00:00 :00 Vitamin D (Ergocalcif puma) 58204 UNIT Capsule 03/10/2022 00:00:00 0 12 1 [id number] 901 P Unknown Status 06/01 00:00 :00 Vitamin D (Ergocalcif puma) 12314 UNIT Capsule 03/10/2022 00:00:00 0 12 1 [id number] 901 P Unknown Status 05/10 00:00 :00 Vitamin D (Ergocalcif puma) 36201 UNIT Capsule 03/10/2022 00:00:00 0 12 1 [id number] 901 P Unknown Status 02/21 00:00 :00 Vitamin D (Ergocalcif puma) 14615 UNIT Capsule 03/10/2022 00:00:00 0 12 1 [id number] 901 P Unknown Status 02/13 00:00 :00 Xarelto 2.5 MG Tablet null 1 180 Tablet 0 [id number] 760 Start 02/13 00:00 :00 Xarelto 2.5 MG Tablet null 0 180 0 [id number] 701 Stop 01/04 00:00 :00 Xarelto 2.5 MG Tablet null 1 180 0 [id number] 701 P Taking 01/02 00:00 :00 Xarelto 2.5 MG Tablet null 1 180 0 [id number] 701 P Taking 12/26 00:00 :00 Xarelto 2.5 MG Tablet null 1 180 0 [id number] 701 P Taking 12/14 00:00 :00 Xarelto 2.5 MG Tablet null 1 180 0 [id number] 701 P Taking 12/12 00:00 :00 Xarelto 2.5 MG Tablet null 1 180 0 [id number] 701 P Taking 10/05 00:00 :00 Xarelto 2.5 MG Tablet null 1 180 0 [id number] 701 P Refill 10/05 00:00 :00 Xarelto 2.5 MG Tablet null 1 [id number] 701 Taking OBJECTIVE DATA No information PHYSICAL EXAMINATION No information TREATMENT PLAN No information PROBLEMS No information RESULTS No information REVIEW OF SYSTEMS No information SUBJECTIVE DATA No information VITAL SIGNS No information
--- OUTSIDE RECORDS SUMMARY | 2024-02-20 16:42 | XMS_ITS ---
Author Name Joel Bryant Address [address] [place] [id number] Organization Unknown Address [address] [place] [id number] ALLERGIES AND ADVERSE REACTIONS No information ASSESSMENT No information CHIEF COMPLAINT No information MEDICATIONS No information OBJECTIVE DATA No information PHYSICAL EXAMINATION No information TREATMENT PLAN Planned Care Start Date Provider Encounter for Check-up [id number] [facility] PROBLEMS No information RESULTS No information REVIEW OF SYSTEMS No information SUBJECTIVE DATA No information VITAL SIGNS No information
--- NOTE | 2024-02-20 16:52 | ED_ITS ---
Discharge Plan Disposition Patient Disposition: Home, Self-Care Condition: Good Prescriptions Prescriptions: No Action fluticasone propionate 50 mcg/actuation spray,suspension 1 spray INTRANASAL DAILY benazepril 20 mg tablet 20 mg PO DAILY varenicline [Chantix Starting Month Box] 0.5 mg (11)- 1 mg (42) tablets,dose pack See Rx Instructions PO PER PKG DIR Qty: 53 0RF Rx Instructions: PO PER PKG DIR aspirin 81 mg tablet,delayed release (DR/EC) 81 mg PO DAILY clonazepam [Klonopin] 1 mg tablet 1 mg PO TID PRN (Reason: anxiety) Qty: 90 2RF Xarelto 2.5 mg tablet See Rx Instructions .ROUTE .COMPLEX Qty: 180 4RF Dose Instruction: TAKE ONE TABLET BY MOUTH 2 TIMES A DAY Rx Instructions: TAKE ONE TABLET BY MOUTH 2 TIMES A DAY Clenpiq 10 mg-3.5 gram- 12 gram/175 mL solution 175 ml PO DAILY Qty: 350 0RF Rx Instructions: take first dose at 5-9PM evening before colonoscopy; 2nd dose the next day approximately 5 hrs before colonoscopy atorvastatin 40 MG tablet 40 mg PO HS albuterol sulfate 90 mcg/actuation Hfa Aerosol Inhaler 2 puff inhalation Q6H PRN (Reason: Dyspnea) 30 Days Qty: 0 0RF cholecalciferol (vitamin D3) [Vitamin D3] 50 mcg (2,000 unit) Capsule 50 mcg PO DAILY metoprolol succinate 25 mg capsule,sprinkle,ER 24hr 25 mg PO DAILY Qty: 30 1RF Referrals Follow up/Referrals: Stephanie Shepherd APRN [Primary Care Provider] - See instructions Activity Restrictions/Add. Instructions Additional Instructions/Restrictions: You were evaluated in the emergency department today. Please Clinical Impressions Clinical Impression: Fall, Skin tear of right upper extremity Print Language Print Language: Japanese Discharge ED Provider: Jaquelin Villar General Adult HPI General Chief complaint: Fall Stated complaint: Fall Time Seen by Provider: 02/20/24 16:31 History of Present Illness HPI narrative: This patient is a 68-year-old female with a history of hypertension, hyperlipidemia, prior DVT on Xarelto, prior CVA, PAD presented to the emergency department for evaluation with concern for fall. Patient reports that she was trying to lift her rollator up onto her porch when she fell. She does not further characterize the fall, but states that she did not hit her head or lose consciousness. She currently complains of neck pain, left rib pain, and right hip pain. She also has skin tears to her right upper extremity. She denies any other concerns at this time and states she was well prior to the fall. EMS arrived with the patient and notes that she is alert and oriented and was hemodynamically stable en route. Related Data Home Medications ?Medication ?Instructions ?Recorded ?Confirmed atorvastatin 40 mg tablet 40 mg PO HS Cholesterol 11/16/17 04/12/23 fluticasone propionate 50 1 spray intranasal DAILY Allergy 04/14/21 04/12/23 mcg/actuation nasal Symptoms spray,suspension aspirin 81 mg tablet,delayed 81 mg PO DAILY Blood Thinner 04/28/21 04/12/23 release benazepril 20 mg tablet 20 mg PO DAILY High Blood Pressure 02/02/22 04/12/23 cholecalciferol (vitamin D3) 50 50 mcg PO DAILY Supplement 03/22/23 04/12/23 mcg (2,000 unit) capsule (Vitamin D3) Previous Rx's ?Medication ?Instructions ?Recorded albuterol sulfate 90 mcg/actuation 2 puff inhalation Q6H PRN Dyspnea 03/19/23 aerosol inhaler 30 days #0 grams metoprolol succinate 25 mg capsule 25 mg PO DAILY #30 ea 03/24/23 sprinkle, ext. release 24 hr clonazepam 1 mg tablet (Klonopin) 1 mg PO TID PRN anxiety #90 tabs 04/06/23 varenicline 0.5 mg (11)-1 mg (42) See Rx Instructions PO PER PKG DIR 04/12/23 tablets in a dose pack (Chantix #53 tabs Starting Month Box) rivaroxaban 2.5 mg tablet (Xarelto) See Rx Instructions .Route 08/23/23 .COMPLEX #180 tabs sod picosulf 10 mg-magnes 3.5 175 ml PO DAILY 2 doses #350 mL 12/21/23 gram-citric 12 gram/175 mL oral solution (Clenpiq) Allergies Allergy/AdvReac Type Severity Reaction Status Date / Time erythromycin base Allergy Severe S-BLISTERING Verified 04/12/23 09:49 WELTS tiotropium Allergy Severe S-SWELLS-OR Verified 04/12/23 09:49 [From Spiriva with AL/THROAT HandiHaler] clopidogrel [From Plavix] AdvReac Intermediate Diarrhea Verified 04/12/23 09:49 levofloxacin [From Levaquin] AdvReac Intermediate nausea and Verified 04/12/23 09:49 vomiting [facility] Disclaimer: The information contained in this section may have been updated after the patient was seen, as this information can be updated by other users. Medical History Hx of completed stroke DVT (deep venous thrombosis) Chest pain Malignant hypertension Claudication Herpes zoster Surgical History H/O tubal ligation Social History Smoking Status: Current every day smoker tobacco type: cigarettes packs per day: 1 alcohol intake: never substance use type: denies use current occupational status: unemployed Travel in the last 8 weeks: Inside the [place] household members: none housing: apartment current occupational exposures/hazards: No caffeine: Yes ROS Obtained: Yes All systems reviewed & no additional complaints except as documented Physical Exam General General appearance: alert and in no apparent distress Head Head exam: atraumatic and normocephalic Eye Eye exam: Present normal appearance, PERRL and EOMI ENT ENT exam: Present normal exam, normal oropharynx, mucous membranes moist and normal external ear exam Neck Neck exam: Present trachea midline and other (Patient declined c-collar. Risk of potential spinal cord injury was explained to her. She has no midline bony tenderness.); Absent tenderness, meningismus or lymphadenopathy Chest Chest inspection: Present symmetric chest wall rise and tenderness (Mild tenderness to palpation of the left ribs. No palpable crepitus or step-offs.) Respiratory Respiratory exam: Present normal lung sounds bilaterally; Absent respiratory distress, wheezes, stridor or accessory muscle use Cardiovascular Cardiovascular exam: Present regular rate and normal rhythm Abdominal Exam Abdominal exam: Present soft; Absent distention, tenderness or guarding Extremities Exam Extremities exam: Present full ROM, tenderness (Tenderness palpation of the right hip. All compartments soft. Neurovascularly intact distally.) and normal capillary refill; Absent edema Back Exam Back exam: Present normal inspection and full ROM; Absent tenderness Neurological Exam Neurological exam: Present alert, oriented X3, CN II-XII intact and normal gait; Absent motor sensory deficit Psychiatric Psychiatric exam: Present normal affect and normal mood Skin Skin exam: Present warm, dry and other (Superficial skin tear to the right dorsal forearm that is hemostatic. No deep laceration for repair.) Medical Decision Making Medical Records Medical records reviewed: Yes I reviewed the patient's medical records. Chaitanya Inquiry Pt receiving controlled substance: No Vital Signs: 02/20/24 16:24 02/20/24 17:30 02/20/24 18:00 Temperature 98.7 F Temperature Source Oral Pulse Rate 74 70 Pulse Rate [Left Radial] 77 Respiratory Rate 19 Blood Pressure 194/75 H 146/74 H Blood Pressure [Right Arm] 133/66 Blood Pressure Mean [Right Arm] 88 02 Sat by Pulse Oximetry 95 93 L 96 Oxygen Delivery Method Room Air 02/20/24 18:17 Temperature 98.7 F Temperature Source Oral Pulse Rate 64 Pulse Rate [Left Radial] Respiratory Rate 16 Blood Pressure 146/74 H Blood Pressure [Right Arm] Blood Pressure Mean [Right Arm] 02 Sat by Pulse Oximetry Oxygen Delivery Method Room Air Lab Data Lab results reviewed: Yes I reviewed the patient's lab results. Orders (Tests/Meds): ED MEDICATIONS Discontinued Medications Generic Name Dose Route Start Last Admin Trade Name Freq PRN Reason Stop Dose Admin Bacitracin 1 gm 02/20/24 18:14 02/20/24 18:20 Bacitracin Zinc Oint 30gm Tube TP 02/20/24 18:15 1 gm ONCE ONE Administration ORDERS Category Date Time Status CT bony pelvis Stat Cat Scan 02/20/24 16:[address] cervical spine wo con Stat Cat Scan 02/20/24 16:[address] chest wo con Stat Cat Scan 02/20/24 16:[address] head/brain wo con Stat Cat Scan 02/20/24 16:[address] lumbar spine wo con Stat Cat Scan 02/20/24 16:[address] thoracic spine wo con Stat Cat Scan 02/20/24 16:37 Completed Femur XR right 2 views [XR femur RT 2V] Stat Exams 02/20/24 16:37 Completed Knee XR right 3 views [XR knee RT 3V] Stat Exams 02/20/24 16:37 Completed XR hip RT 2-3V w/pelvis Stat Exams 02/20/24 16:37 Completed Medical Decision Narrative: In summary, this patient is a 68-year-old female presenting to the Emergency Department for evaluation of neck pain, left rib pain, right hip pain after mechanical ground-level fall. Differential diagnoses considered include but are not limited to fracture, contusion, strain/pain, polytrauma. Ruling out the most morbid conditions drove assessment. It should be noted patient's history includes hypertension, hyperlipidemia, DVT on Xarelto which may or may not be at goal therapy. This complicates all aspects of care by increasing patient's risk for morbidity. On exam, the patient is well-appearing. She is alert and oriented with no focal neurologic deficits. Workup included CT head, CT C/T/L-spine, CT chest without contrast, CT bony pelvis. Given this was mechanical in nature I do not feel that labs are indicated at this time. I independently interpreted x-ray and CT prior to the radiologist read and noted no obvious displaced fracture and no obvious intracranial hemorrhage. Please see their read for final interpretation. Ultimately, patient stated that she was ready to go home when she came back from imaging. Given that scans are negative, decision was made to ambulate the patient to make sure that she is able to walk without any difficulty. She performed ambulation trial without issue and stated that she is ready to go. Her skin tear on her right forearm was dressed with bacitracin and patient was discharged home with instructions for supportive management and strict return precautions. Critical Care Critical Care Time Critical Care Time: No
--- NOTE | 2024-02-20 16:54 | PC.NURSE ---
c collar was applied. 1641. pt asked to removed c collar stating that she could not breathe and did not want to wear it. notified. explained risks to pt, she is aware and is refusing to wear the c collar. 1644
[2024-02-20 17:30] VITALS: BP 194/75; PULSE 74; O2SAT 93
[2024-02-20 18:00] VITALS: BP 146/74; PULSE 70; O2SAT 96
[2024-02-20 18:17] VITALS: BP 146/74; PULSE 64; RESP 16; TEMP 37.1; O2SAT 95
[2024-02-20] MEDS: BACITRACIN ZINC OINT 30GM TUBE TP (18:20)
--- NOTE | 2024-02-20 18:21 | PC.NURSE ---
call made to amie mane [phone] for pt transportation.
== END 2024-02-20 18:22 | disposition home or self-care (01) ==
PROVIDERS: Emergency Provider Emergency Medicine; PCP Nurse Practitioner
DX: S51.801A Unspecified open wound of right forearm, initial encounter (principal); R07.81 Pleurodynia; M25.551 Pain in right hip; Z86.718 Personal history of other venous thrombosis and embolism; Z79.01 Long term (current) use of anticoagulants; W01.198A Fall on same level from slipping, tripping and stumbling with subsequent striking against other object, initial encounter
CPT/HCPCS: 70450; 71250; 72125; 72128; 72131; 72192; 73502; 73552; 73562; 99285

== ENCOUNTER 2024-04-30 09:15 | Emergency (ER) | payer MEDICARE, MEDICAID, SELFPAY ==
[2024-04-30 09:15] VITALS: BP 165/72; PULSE 62; RESP 18; TEMP 36.4; O2SAT 98; BMI 29.2
--- NOTE | 2024-04-30 09:18 | PC.NURSE ---
DR GODINEZ AT BEDSIDE
--- NOTE | 2024-04-30 09:19 | XR_ITS ---
FINAL REPORT CLINICAL HISTORY: L hip pain COMPARISON: 02/20/2024 FINDINGS: LEFT HIP: 3 views of the left hip including an AP pelvis view demonstrate no acute fracture or dislocation. There are moderate degenerative changes of the hips. The visualized bony structures are well aligned. Vascular calcifications are identified. IMPRESSION: Degenerative changes without acute bony abnormality. Reviewed, Interpreted and Dictated by Turner Mccrary III, MD Transcribed by Sandy Nuñez Authenticated and [facility]
--- NOTE | 2024-04-30 09:21 | HMH.EDGENADL ---
Discharge Plan Disposition Patient Disposition: Home, Self-Care Condition: Good Prescriptions Prescriptions: No Action fluticasone propionate 50 mcg/actuation spray,suspension 1 spray INTRANASAL DAILY benazepril 20 mg tablet 20 mg PO DAILY varenicline [Chantix Starting Month Box] 0.5 mg (11)- 1 mg (42) tablets,dose pack See Rx Instructions PO PER PKG DIR Qty: 53 0RF Rx Instructions: PO PER PKG DIR aspirin 81 mg tablet,delayed release (DR/EC) 81 mg PO DAILY clonazepam [Klonopin] 1 mg tablet 1 mg PO TID PRN (Reason: anxiety) Qty: 90 2RF Xarelto 2.5 mg tablet See Rx Instructions .ROUTE .COMPLEX Qty: 180 4RF Dose Instruction: TAKE ONE TABLET BY MOUTH 2 TIMES A DAY Rx Instructions: TAKE ONE TABLET BY MOUTH 2 TIMES A DAY Clenpiq 10 mg-3.5 gram- 12 gram/175 mL solution 175 ml PO DAILY Qty: 350 0RF Rx Instructions: take first dose at 5-9PM evening before colonoscopy; 2nd dose the next day approximately 5 hrs before colonoscopy atorvastatin 40 MG tablet 40 mg PO HS albuterol sulfate 90 mcg/actuation Hfa Aerosol Inhaler 2 puff inhalation Q6H PRN (Reason: Dyspnea) 30 Days Qty: 0 0RF cholecalciferol (vitamin D3) [Vitamin D3] 50 mcg (2,000 unit) Capsule 50 mcg PO DAILY metoprolol succinate 25 mg capsule,sprinkle,ER 24hr 25 mg PO DAILY Qty: 30 1RF Referrals Follow up/Referrals: Jaz Shepherd APRN [Primary Care Provider] - See instructions Activity Restrictions/Add. Instructions Additional Instructions/Restrictions: Follow-up with primary care doctor. Take Tylenol and ibuprofen as needed for pain. Please return the emerged part with any new, concerning, worsening symptoms. Clinical Impressions Clinical Impression: Acute pain of left hip Print Language Print Language: Armenian Discharge ED Provider: Donell Tejada General Adult HPI General Chief complaint: PAIN Stated complaint: LEG PAIN Time Seen by Provider: 04/30/24 09:21 Mode of Arrival: EMS Source of Information: Patient Limitations: No Limitations History of Present Illness HPI narrative: This is a 69-year-old female with a history of DVT on Xarelto, claudication status post stenting, hypertension, stroke who presents with left hip pain. States that it began yesterday whenever she was getting up off her couch. Never fell or injured herself. Denies any numbness or tingling of left lower extremity. States that she has been able to walk due to pain leading to her calling EMS today. Typically uses a walker. Related Data Home Medications ?Medication ?Instructions ?Recorded ?Confirmed atorvastatin 40 mg tablet 40 mg PO HS Cholesterol 11/16/17 04/12/23 fluticasone propionate 50 1 spray intranasal DAILY Allergy 04/14/21 04/12/23 mcg/actuation nasal Symptoms spray,suspension aspirin 81 mg tablet,delayed 81 mg PO DAILY Blood Thinner 04/28/21 04/12/23 release benazepril 20 mg tablet 20 mg PO DAILY High Blood Pressure 02/02/22 04/12/23 cholecalciferol (vitamin D3) 50 50 mcg PO DAILY Supplement 03/22/23 04/12/23 mcg (2,000 unit) capsule (Vitamin D3) Previous Rx's ?Medication ?Instructions ?Recorded albuterol sulfate 90 mcg/actuation 2 puff inhalation Q6H PRN Dyspnea 03/19/23 aerosol inhaler 30 days #0 grams metoprolol succinate 25 mg capsule 25 mg PO DAILY #30 ea 03/24/23 sprinkle, ext. release 24 hr clonazepam 1 mg tablet (Klonopin) 1 mg PO TID PRN anxiety #90 tabs 04/06/23 varenicline 0.5 mg (11)-1 mg (42) See Rx Instructions PO PER PKG DIR 04/12/23 tablets in a dose pack (Chantix #53 tabs Starting Month Box) rivaroxaban 2.5 mg tablet (Xarelto) See Rx Instructions .Route 08/23/23 .COMPLEX #180 tabs sod picosulf 10 mg-magnes 3.5 175 ml PO DAILY 2 doses #350 mL 12/21/23 gram-citric 12 gram/175 mL oral solution (Clenpiq) Allergies Allergy/AdvReac Type Severity Reaction Status Date / Time erythromycin base Allergy Severe S-BLISTERING Verified 04/12/23 09:49 WELTS tiotropium Allergy Severe S-SWELLS-OR Verified 04/12/23 09:49 [From Spiriva with AL/THROAT HandiHaler] clopidogrel [From Plavix] AdvReac Intermediate Diarrhea Verified 04/12/23 09:49 levofloxacin [From Levaquin] AdvReac Intermediate nausea and Verified 04/12/23 09:49 vomiting PFSH [facility] Disclaimer: The information contained in this section may have been updated after the patient was seen, as this information can be updated by other users. Medical History Hx of completed stroke DVT (deep venous thrombosis) Chest pain Malignant hypertension Claudication Herpes zoster Surgical History H/O tubal ligation Social History Smoking Status: Current every day smoker tobacco type: cigarettes packs per day: 1 alcohol intake: never substance use type: denies use current occupational status: unemployed Travel in the last 8 weeks: Inside the [place] household members: none housing: apartment current occupational exposures/hazards: No caffeine: Yes Other Medical History Have you received the Flu Vaccine for this season: No Have you received the Pneumonia Vaccine: Yes ROS Obtained: Yes All systems reviewed & no additional complaints except as documented Physical Exam General General appearance: alert and in no apparent distress Eye Eye exam: Present normal appearance, PERRL and EOMI Respiratory Respiratory exam: Present normal lung sounds bilaterally; Absent respiratory distress Cardiovascular Cardiovascular exam: Present regular rate and normal rhythm Abdominal Exam Abdominal exam: Present soft and distention; Absent tenderness, guarding or rebound Extremities Exam Extremities exam: Present normal inspection Neurological Exam Neurological exam: Present alert and oriented X3 Skin Skin exam: Present warm and dry Medical Decision Making Medical Records Medical records reviewed: Yes I reviewed the patient's medical records. Screening: Per USPSTF and CDC recommendations, given the prevalence of disease in our region, it is our hospital?s policy to screen for HIV and viral Hepatitis for all patients aged 18 and over and those with ongoing risk factors. MR Comment: Reviewed cardiology clinic visit note from 04/12/2023 notable for patient's history of claudication. status post left iliac stenting in March 2021. Restarted on Xarelto. Declined angiogram with runoff but was agreeable to ABIs. Chaitanya Inquiry Pt receiving controlled substance: No Vital Signs: 04/30/24 09:15 04/30/24 09:35 04/30/24 10:00 Temperature 97.6 F Temperature Source Oral Pulse Rate 61 55 L Pulse Rate [Radial] 62 Respiratory Rate 18 Blood Pressure 121/90 128/52 L Blood Pressure [Right Arm] 165/72 H Blood Pressure Mean Blood Pressure Mean [Right Arm] 103 Blood Pressure Source Blood Pressure Source [Right Arm] Automatic Cuff Blood Pressure Position Blood Pressure Position [Right Arm] Sitting 02 Sat by Pulse Oximetry 98 98 94 L Oxygen Delivery Method Room Air Room Air Room Air 04/30/24 10:30 04/30/24 11:57 Temperature 97.8 F Temperature Source Oral Pulse Rate 56 L 74 Pulse Rate [Radial] Respiratory Rate 18 Blood Pressure 129/72 142/60 H Blood Pressure [Right Arm] Blood Pressure Mean 91 Blood Pressure Mean [Right Arm] Blood Pressure Source Automatic Cuff Blood Pressure Source [Right Arm] Blood Pressure Position Supine Blood Pressure Position [Right Arm] 02 Sat by Pulse Oximetry 95 Oxygen Delivery Method Room Air Orders (Tests/Meds): ED MEDICATIONS Discontinued Medications Generic Name Dose Route Start Last Admin Trade Name Freq PRN Reason Stop Dose Admin Acetaminophen 1,000 mg 04/30/24 09:19 04/30/24 09:25 Acetaminophen 500mg Tab PO 04/30/24 09:20 1,000 mg ONCE ONE Administration Oxycodone HCl 2.5 mg 04/30/24 09:20 04/30/24 09:25 Oxycodone 5mg Immediate Release Tablet PO 04/30/24 09:21 2.5 mg ONCE ONE Administration ORDERS Category Date Time Status Hip XR left minimum 2 views [XR hip LT 2-3V w/pelvis] Exams 04/30/24 09:19 Completed Stat Medical Decision Narrative: In summary, this 69-year-old female with a history of DVT on Xarelto, PAD status post left iliac stenting in 2020, hypertension, stroke presents to the emergency department today with atraumatic left hip pain that began when she was try to get off of her couch yesterday. On initial evaluation patient is afebrile, hemodynamically stable, nontoxic-appearing, no focal neurological deficits. Differential diagnosis includes but is not limited to acute limb ischemia, osteoarthritis, fracture. No evidence of limb ischemia or DVT. Based on these concerns, I ordered pelvis x-ray, left hip x-ray. Patient received Tylenol and oxycodone for treatment. XR personally interpreted demonstrates osteoarthritis of the left hip but no other acute osseous pathology. On reassessment patient was ambulatory with improvement in symptoms. Was appropriate for discharge at this time with follow-up with her PCP. Critical Care Critical Care Time Critical Care Time: No
[2024-04-30] MEDS: OXYCODONE 5MG IMMEDIATE RELEASE TABLET 2.5 MG PO (09:25)
[2024-04-30] MEDS: ACETAMINOPHEN 500MG TAB 1000 MG PO (09:25)
--- NOTE | 2024-04-30 09:34 | PC.NURSE ---
XR AT BEDSIDE
[2024-04-30 09:35] VITALS: BP 121/90; PULSE 61; O2SAT 98
[2024-04-30 10:00] VITALS: BP 128/52; PULSE 55; O2SAT 94
[2024-04-30 10:30] VITALS: BP 129/72; PULSE 56; O2SAT 95
--- NOTE | 2024-04-30 11:26 | PC.NURSE ---
Pt updated on POC, pt states she will have a ride home.
[2024-04-30 11:57] VITALS: BP 142/60; PULSE 74; RESP 18; TEMP 36.6; O2SAT 98
== END 2024-04-30 12:04 | disposition home or self-care (01) ==
PROVIDERS: Emergency Provider Student in an Organized Health Care Education/Training Program; PCP Nurse Practitioner
DX: M25.552 Pain in left hip (principal)
CPT/HCPCS: 73502; 99283

== ENCOUNTER 2024-06-10 17:33 | Emergency (ER) | payer MEDICARE, MEDICAID, SELFPAY ==
[2024-06-10] VITALS (9 sets, daily range): BP systolic 107–204; BP diastolic 50–76; PULSE 52–78; RESP 16; TEMP 36.6; O2SAT 92–98; BMI 29.2
--- NOTE | 2024-06-10 17:43 | XR_ITS ---
PROCEDURE INFORMATION: Exam: XR Right Knee Exam date and time: 06/10/2024 6:22 PM Age: 69 years old Clinical indication: Pain; Knee; Right; Additional info: Fall TECHNIQUE: Imaging protocol: Radiologic exam of the right knee. Views: 3 views. COMPARISON: CR XR KNEE RT 3V 02/20/2024 5:13 PM FINDINGS: Bones/joints: Osseous alignment is normal. No acute fracture. Chondrocalcinosis of the menisci noted. No other significant arthritic changes. Stable benign-appearing area of sclerosis in the medullary cavity of the proximal tibia Soft tissues: Normal. Vasculature: Mild scattered atherosclerotic calcification of the popliteal artery IMPRESSION: No acute abnormality. Chronic findings as noted.
--- NOTE | 2024-06-10 17:43 | XR_ITS ---
PROCEDURE INFORMATION: Exam: XR Right Elbow Exam date and time: 06/10/2024 6:16 PM Age: 69 years old Clinical indication: Pain; Elbow; Right; Additional info: Fall TECHNIQUE: Imaging protocol: Radiologic exam of the right elbow. Views: 3 or more views. COMPARISON: US CA ARTERIAL PSEUDO RT UPPER 04/24/2021 10:32 AM FINDINGS: Bones/joints: Osseous alignment is normal. No acute fracture. No significant arthritic change. Soft tissues: Normal. IMPRESSION: Negative right elbow
--- NOTE | 2024-06-10 17:51 | ED_ITS ---
Discharge Plan Disposition Patient Disposition: Home, Self-Care Condition: Good Prescriptions Prescriptions: No Action fluticasone propionate 50 mcg/actuation spray,suspension 1 spray INTRANASAL DAILY benazepril 20 mg tablet 20 mg PO DAILY varenicline [Chantix Starting Month Box] 0.5 mg (11)- 1 mg (42) tablets,dose pack See Rx Instructions PO PER PKG DIR Qty: 53 0RF Rx Instructions: PO PER PKG DIR aspirin 81 mg tablet,delayed release (DR/EC) 81 mg PO DAILY clonazepam [Klonopin] 1 mg tablet 1 mg PO TID PRN (Reason: anxiety) Qty: 90 2RF Xarelto 2.5 mg tablet See Rx Instructions .ROUTE .COMPLEX Qty: 180 4RF Dose Instruction: TAKE ONE TABLET BY MOUTH 2 TIMES A DAY Rx Instructions: TAKE ONE TABLET BY MOUTH 2 TIMES A DAY Clenpiq 10 mg-3.5 gram- 12 gram/175 mL solution 175 ml PO DAILY Qty: 350 0RF Rx Instructions: take first dose at 5-9PM evening before colonoscopy; 2nd dose the next day approximately 5 hrs before colonoscopy atorvastatin 40 MG tablet 40 mg PO HS albuterol sulfate 90 mcg/actuation Hfa Aerosol Inhaler 2 puff inhalation Q6H PRN (Reason: Dyspnea) 30 Days Qty: 0 0RF cholecalciferol (vitamin D3) [Vitamin D3] 50 mcg (2,000 unit) Capsule 50 mcg PO DAILY metoprolol succinate 25 mg capsule,sprinkle,ER 24hr 25 mg PO DAILY Qty: 30 1RF Referrals Follow up/Referrals: Provider,Referral, MD [Primary Care Provider] - See instructions Activity Restrictions/Add. Instructions Additional Instructions/Restrictions: Elbow and knee x-rays were both negative. May use Tylenol and ibuprofen for pain if needed. Follow-up with PCP if needed. Clinical Impressions Clinical Impression: Falling, Elbow pain, Acute knee pain Instructions Patient Instructions: How to Prevent Falls Print Language Print Language: Albanian Discharge ED Provider: Rafi Soria General Adult HPI <Jaz Shepherd (ED), SIGN MANU[employer]URER - Last Filed: 06/10/24 20:47> General Chief complaint: Fall Stated complaint: Fall Time Seen by Provider: 06/10/24 17:35 Mode of Arrival: EMS Source of Information: Patient Limitations: No Limitations Description of Symptoms (Recalled from ER Triage Doc. by RN): Reports having frequent falls over the past couple of days. Complaint of bilateral knee and right elbow pain. History of Present Illness HPI narrative: This is a 69-year-old female presents today via EMS after she fell when she was walking with her walker today. She said she tripped over her walker. She fell on her right elbow and right knee. She complains of pain in both of those places. She denies any pain at this time. She did not strike her head or go unconscious. No other symptoms Related Data Home Medications ?Medication ?Instructions ?Recorded ?Confirmed atorvastatin 40 mg tablet 40 mg PO HS Cholesterol 11/16/17 04/12/23 fluticasone propionate 50 1 spray intranasal DAILY Allergy 04/14/21 04/12/23 mcg/actuation nasal Symptoms spray,suspension aspirin 81 mg tablet,delayed 81 mg PO DAILY Blood Thinner 04/28/21 04/12/23 release benazepril 20 mg tablet 20 mg PO DAILY High Blood Pressure 02/02/22 04/12/23 cholecalciferol (vitamin D3) 50 50 mcg PO DAILY Supplement 03/22/23 04/12/23 mcg (2,000 unit) capsule (Vitamin D3) Previous Rx's ?Medication ?Instructions ?Recorded albuterol sulfate 90 mcg/actuation 2 puff inhalation Q6H PRN Dyspnea 03/19/23 aerosol inhaler 30 days #0 grams metoprolol succinate 25 mg capsule 25 mg PO DAILY #30 ea 03/24/23 sprinkle, ext. release 24 hr clonazepam 1 mg tablet (Klonopin) 1 mg PO TID PRN anxiety #90 tabs 04/06/23 varenicline 0.5 mg (11)-1 mg (42) See Rx Instructions PO PER PKG DIR 04/12/23 tablets in a dose pack (Chantix #53 tabs Starting Month Box) rivaroxaban 2.5 mg tablet (Xarelto) See Rx Instructions .Route 08/23/23 .COMPLEX #180 tabs sod picosulf 10 mg-magnes 3.5 175 ml PO DAILY 2 doses #350 mL 12/21/23 gram-citric 12 gram/175 mL oral solution (Clenpiq) Allergies Allergy/AdvReac Type Severity Reaction Status Date / Time erythromycin base Allergy Severe S-BLISTERING Verified 04/12/23 09:49 WELTS tiotropium (From Spiriva Allergy Severe S-SWELLS-OR Verified 04/12/23 09:49 with HandiHaler) AL/THROAT clopidogrel (From Plavix) AdvReac Intermediate Diarrhea Verified 04/12/23 09:49 levofloxacin (From Levaquin) AdvReac Intermediate nausea and Verified 04/12/23 09:49 vomiting PFSH <Jaz Shepherd (ED), SIGN MANU[employer]URER - Last Filed: 06/10/24 20:47> PFSH Disclaimer: The information contained in this section may have been updated after the patient was seen, as this information can be updated by other users. Medical History Hx of completed stroke DVT (deep venous thrombosis) Chest pain Malignant hypertension Claudication Herpes zoster Surgical History H/O tubal ligation Social History Smoking Status: Current every day smoker tobacco type: cigarettes packs per day: 1 alcohol intake: never substance use type: denies use current occupational status: unemployed Travel in the last 8 weeks: [place] the [place] household members: none housing: apartment current occupational exposures/hazards: No caffeine: Yes Other Medical History Have you received the Flu Vaccine for this season: No Have you received the Pneumonia Vaccine: Yes <Jaz Shepherd (ED), SIGN MANU[employer]ER - Last Filed: 06/10/24 20:47> ROS Obtained: Yes Systems reviewed as appropriate & no additional complaints except as documented Constitutional Constitutional: Reports as per HPI Physical Exam <Jaz Shepherd (ED), SIGN MANU[employer]ER - Last Filed: 06/10/24 20:47> General General appearance: alert and in no apparent distress Head Head exam: atraumatic and normocephalic Eye Eye exam: Present normal appearance, PERRL and EOMI ENT ENT exam: Present normal exam, normal oropharynx and mucous membranes moist Neck Neck exam: Present normal inspection, full ROM and trachea midline Chest Chest inspection: Present normal inspection Respiratory Respiratory exam: Present normal lung sounds bilaterally Cardiovascular Cardiovascular exam: Present regular rate, normal rhythm, normal heart sounds, +S1 and +S2 Abdominal Exam Abdominal exam: Present soft and normal bowel sounds Extremities Exam Extremities exam: Present normal inspection, full ROM and normal capillary refill Back Exam Back exam: Present normal inspection Neurological Exam Neurological exam: Present alert and oriented X3 Skin Skin exam: Present warm and dry Medical Decision Making <Jaz Shepherd (NIKIA), SIGN MANU[employer]URER - Last Filed: 06/10/24 20:47> Medical Records Screening: Per USPSTF and CDC recommendations, given the prevalence of disease in our region, it is our hospital?s policy to screen for HIV and viral Hepatitis for all patients aged 18 and over and those with ongoing risk factors. Chaitanya Inquiry Pt receiving controlled substance: No Chaitanya was queried for this patient: No Vital Signs: 06/10/24 17:33 06/10/24 18:10 06/10/24 20:53 Temperature 97.9 F Temperature Source Oral Pulse Rate 78 60 Pulse Rate [Radial] 67 Respiratory Rate 16 Blood Pressure 107/50 L 178/76 H Blood Pressure [Right Arm] 125/55 L Blood Pressure Mean [Right Arm] 78 Blood Pressure Source [Right Arm] Automatic Cuff Blood Pressure Position [Right Arm] Sitting 02 Sat by Pulse Oximetry 95 96 95 Oxygen Delivery Method Room Air Room Air 06/10/24 21:00 06/10/24 21:30 06/10/24 22:01 Temperature Temperature Source Pulse Rate 57 L 62 55 L Pulse Rate [Radial] Respiratory Rate Blood Pressure 180/63 H 204/76 H 182/65 H Blood Pressure [Right Arm] Blood Pressure Mean [Right Arm] Blood Pressure Source [Right Arm] Blood Pressure Position [Right Arm] 02 Sat by Pulse Oximetry 94 L 93 L 92 L Oxygen Delivery Method Orders (Tests/Meds): ORDERS Category Date Time Status Elbow XR right minimum 3 views [XR elbow RT min 3V] Exams 06/10/24 17:43 Completed Stat XR knee RT 3V Stat Exams 06/10/24 17:43 Completed HIV (1&2) Antibody Rapid Stat Lab 06/10/24 19:26 Ordered Hep C Ab with Reflex to RNA Stat Lab 06/10/24 19:26 Ordered Medical Decision Narrative: Insert review patient is a 69-year-old female presenting to the emergency department for evaluation of right elbow pain and right knee pain after fall. Patient is hemodynamically stable and nontoxic-appearing upon arrival, afebrile. Differential diagnosis includes knee abrasion versus fracture, elbow abrasion versus fracture among others. Workup will be conducted with hematologic labs, specific imaging, provocative tests. Initial inventions include x-rays of knee and elbow. Initial knee and elbow x-rays read by my self were negative for fracture. Formal x-rays were also negative for fracture. Patient can be discharged safely. <Rafi Soria MD - Last Filed: 06/10/24 23:02> Vital Signs: 06/10/24 17:33 06/10/24 18:10 06/10/24 20:53 Temperature 97.9 F Temperature Source Oral Pulse Rate 78 60 Pulse Rate [Radial] 67 Respiratory Rate 16 Blood Pressure 107/50 L 178/76 H Blood Pressure [Right Arm] 125/55 L Blood Pressure Mean [Right Arm] 78 Blood Pressure Source [Right Arm] Automatic Cuff Blood Pressure Position [Right Arm] Sitting 02 Sat by Pulse Oximetry 95 96 95 Oxygen Delivery Method Room Air Room Air 06/10/24 21:00 06/10/24 21:30 06/10/24 22:01 Temperature Temperature Source Pulse Rate 57 L 62 55 L Pulse Rate [Radial] Respiratory Rate Blood Pressure 180/63 H 204/76 H 182/65 H Blood Pressure [Right Arm] Blood Pressure Mean [Right Arm] Blood Pressure Source [Right Arm] Blood Pressure Position [Right Arm] 02 Sat by Pulse Oximetry 94 L 93 L 92 L Oxygen Delivery Method Orders (Tests/Meds): ORDERS Category Date Time Status Elbow XR right minimum 3 views [XR elbow RT min 3V] Exams 06/10/24 17:43 Completed Stat XR knee RT 3V Stat Exams 06/10/24 17:43 Completed HIV (1&2) Antibody Rapid Stat Lab 06/10/24 19:26 Ordered Hep C Ab with Reflex to RNA Stat Lab 06/10/24 19:26 Ordered Medical Decision Narrative: Insert review patient is a 69-year-old female presenting to the emergency department for evaluation of right elbow pain and right knee pain after fall. Patient is hemodynamically stable and nontoxic-appearing upon arrival, afebrile. Differential diagnosis includes knee abrasion versus fracture, elbow abrasion versus fracture among others. Workup will be conducted with hematologic labs, specific imaging, provocative tests. Initial inventions include x-rays of knee and elbow. Initial knee and elbow x-rays read by my self were negative for fracture. Formal x-rays were also negative for fracture. Patient can be discharged safely. I was consulted by the SHANNON, and we discussed the complexity of the problems being addressed. I approved the treatment and management plan for this patient's care in the Emergency Department, thus performing a substantive portion of the medical decision making. Rafi Soria MD Critical Care <Jaz Shepherd (ED), SIGN MANUFACTURER - Last Filed: 06/10/24 20:47> Critical Care Time Critical Care Time: No
--- NOTE | 2024-06-10 20:50 | PC.NURSE ---
Pt ready for discharge per provider pt states having no ride home. Attempted to call PD. PD unable to provide a ride. Pt resting in bed.
--- NOTE | 2024-06-10 22:50 | PC.NURSE ---
Pt's ex- called. He states he doesn't have a car and doesn't know anyone that can picker box operator the patient. Pt is still resting at this time.
[2024-06-11] VITALS: BP 193/69; PULSE 66; O2SAT 95
[2024-06-11 06:41] VITALS: BP 215/79; PULSE 64; RESP 20; TEMP 36.5; O2SAT 95
--- NOTE | 2024-06-11 06:44 | PC.NURSE ---
Pt blood pressure on discharge high pt states it is due to not taking blood pressure medication pt took home blood pressure medication.
== END 2024-06-11 06:45 | disposition home or self-care (01) ==
PROVIDERS: Emergency Provider Emergency Medicine
DX: M25.561 Pain in right knee (principal); M25.562 Pain in left knee; M25.521 Pain in right elbow; R29.6 Repeated falls; W01.0XXA Fall on same level from slipping, tripping and stumbling without subsequent striking against object, initial encounter; Y93.89 Activity, other specified; Y92.9 Unspecified place or not applicable
CPT/HCPCS: 73080; 73562; 99283

== ENCOUNTER 2024-06-14 06:02 | Emergency (ER) | payer MEDICARE, MEDICAID, SELFPAY ==
[2024-06-14] VITALS (9 sets, daily range): BP systolic 153–192; BP diastolic 62–85; PULSE 49–64; RESP 16–18; TEMP 36.9–37; O2SAT 94–98
--- NOTE | 2024-06-14 06:05 | CT_ITS ---
PROCEDURE INFORMATION: Exam: CT Cervical Spine Without Contrast Exam date and time: 06/14/2024 6:31 AM Age: 69 years old Clinical indication: Injury or trauma; Fall; Blunt trauma TECHNIQUE: Imaging protocol: Computed tomography of the cervical spine without contrast. Radiation optimization: All CT scans at this facility use at least one of these dose optimization techniques: automated exposure control; mA and/or kV adjustment per patient size (includes targeted exams where dose is matched to clinical indication); or iterative reconstruction. COMPARISON: CT HEAD/BRAIN WO CON 06/14/2024 6:28 AM FINDINGS: Bones: Congenital non-fusion of the posterior arch of C1. Vertebral alignment is maintained. There is preservation of vertebral body heights. Facet joints are aligned. Odontoid process is intact. Atlantoaxial interval maintained. No acute fracture. Uncovertebral and facet arthropathy result in varying degrees of neural foraminal narrowing at multiple levels. Auditory system: Nodular soft tissue thickening in the left external auditory canal. While nonspecific statistically represent cerumen. Lungs: Lung apices are normal. Soft tissues: Prevertebral and paravertebral soft tissues are maintained IMPRESSION: No acute fracture. No traumatic subluxation.
--- NOTE | 2024-06-14 06:05 | XR_ITS ---
PROCEDURE INFORMATION: Exam: XR Pelvis Exam date and time: 06/14/2024 6:40 AM Age: 69 years old Clinical indication: Injury or trauma; Fall; Blunt trauma (contusions or hematomas); Bilateral; Pelvic region; Additional info: Fall, tailbone pain TECHNIQUE: Imaging protocol: Radiologic exam of the pelvis. Views: 1 or 2 view. COMPARISON: CR XR HIP LT 2-3V W/PELVIS 04/30/2024 9:24 AM FINDINGS: Bones/joints: No visible fracture or dislocation. Soft tissues: There is a stent graft partially imaged in the left paravertebral region. IMPRESSION: No visible fracture or dislocation.
--- NOTE | 2024-06-14 06:05 | XR_ITS ---
PROCEDURE INFORMATION: Exam: XR Left Knee Exam date and time: 06/14/2024 6:40 AM Age: 69 years old Clinical indication: Injury or trauma; Fall; Blunt trauma; Knee; Left; Additional info: Pain after falling directly on knee, mild swelling TECHNIQUE: Imaging protocol: Radiologic exam of the left knee. Views: 3 views. COMPARISON: US ARTERIAL LOWER EXT REST 09/09/2021 1:33 PM FINDINGS: Bones/joints: No visible fracture or dislocation. There is chondrocalcinosis, consistent with calcium pyrophosphate deposition arthropathy. No joint effusion Soft tissues: Normal. IMPRESSION: No visible fracture or dislocation.
--- NOTE | 2024-06-14 06:05 | CT_ITS ---
PROCEDURE INFORMATION: Exam: CT Head Without Contrast Exam date and time: 06/14/2024 6:28 AM Age: 69 years old Clinical indication: Injury or trauma; Fall; Blunt trauma (contusions or hematomas); Additional info: Fall on thinners TECHNIQUE: Imaging protocol: Computed tomography of the head without contrast. Radiation optimization: All CT scans at this facility use at least one of these dose optimization techniques: automated exposure control; mA and/or kV adjustment per patient size (includes targeted exams where dose is matched to clinical indication); or iterative reconstruction. COMPARISON: CT HEAD/BRAIN WO CON 02/20/2024 4:51 PM FINDINGS: Brain: There is no evidence of acute intracranial hemorrhage, extra-axial collection or locoregional mass effect. There are scattered hypodensities in the periventricular and subcortical white matter. The appearance is nonspecific, but most likely represents chronic small vessel disease in a person of this age Cerebral ventricles: The ventricles, sulci and cisterns are normal in size and configuration for patient's age. No hydrocephalus or midline structure shift Pituitary gland and sella: Sellar/parasellar structures, craniocervical junction and orbits are unremarkable Paranasal sinuses: Visualized sinuses are unremarkable. No fluid levels. Mastoid air cells: Visualized mastoid air cells are well aerated. Auditory system: Nodular soft tissue thickening in the left external auditory canal. While nonspecific statistically represent cerumen. Bones: Congenital non-fusion of the posterior arch of C1. No calvarial fracture Soft tissues: Unremarkable. Vasculature: There are calcifications in vertebral arteries and carotid siphons. IMPRESSION: No acute intracranial abnormality. No calvarial fracture.
--- NOTE | 2024-06-14 06:08 | HMH.EDGENADL ---
Discharge Plan Disposition Patient Disposition: Home, Self-Care Prescriptions Prescriptions: No Action fluticasone propionate 50 mcg/actuation spray,suspension 1 spray INTRANASAL DAILY benazepril 20 mg tablet 20 mg PO DAILY varenicline [Chantix Starting Month Box] 0.5 mg (11)- 1 mg (42) tablets,dose pack See Rx Instructions PO PER PKG DIR Qty: 53 0RF Rx Instructions: PO PER PKG DIR aspirin 81 mg tablet,delayed release (DR/EC) 81 mg PO DAILY clonazepam [Klonopin] 1 mg tablet 1 mg PO TID PRN (Reason: anxiety) Qty: 90 2RF Xarelto 2.5 mg tablet See Rx Instructions .ROUTE .COMPLEX Qty: 180 4RF Dose Instruction: TAKE ONE TABLET BY MOUTH 2 TIMES A DAY Rx Instructions: TAKE ONE TABLET BY MOUTH 2 TIMES A DAY Clenpiq 10 mg-3.5 gram- 12 gram/175 mL solution 175 ml PO DAILY Qty: 350 0RF Rx Instructions: take first dose at 5-9PM evening before colonoscopy; 2nd dose the next day approximately 5 hrs before colonoscopy atorvastatin 40 MG tablet 40 mg PO HS albuterol sulfate 90 mcg/actuation Hfa Aerosol Inhaler 2 puff inhalation Q6H PRN (Reason: Dyspnea) 30 Days Qty: 0 0RF cholecalciferol (vitamin D3) [Vitamin D3] 50 mcg (2,000 unit) Capsule 50 mcg PO DAILY metoprolol succinate 25 mg capsule,sprinkle,ER 24hr 25 mg PO DAILY Qty: 30 1RF Referrals Follow up/Referrals: Provider,Referral, MD [Primary Care Provider] - See instructions Activity Restrictions/Add. Instructions Additional Instructions/Restrictions: At this time it was felt you are safe to be discharged home. If new or worsening symptoms please do not hesitate to return the emergency department. Please follow-up with your family doctor in the next week for repeat evaluation as well as possible adjustment of your high blood pressure medications and possible home health set up. Clinical Impressions Clinical Impression: Fall, Knee pain, left Print Language Print Language: Iraqi Discharge ED Provider: Cristino Calix General Adult HPI <Cristino Calix MD - Last Filed: 06/14/24 06:56> General Chief complaint: PAIN Stated complaint: Left Knee Pain Time Seen by Provider: 06/14/24 06:05 History of Present Illness HPI narrative: 69-year-old female with history of hypertension, hyperlipidemia, PAD on Xarelto presents to the ER with complaints of left knee pain and tailbone pain after fall. Patient reports between 330 and 430 this morning she got up to lock her door and when she turned around, she fell landing on her left knee then tipping backwards onto her tailbone. She states both her left knee and her tailbone hurt but her left knee is worse. She denies hitting her head or losing consciousness but does take Xarelto. Patient reports no numbness, tingling, weakness, dizziness, headache, chest pain, abdominal pain, difficulty breathing, dysuria, hematuria, or other associated symptoms. Patient was able to get to her couch and crawl up onto it, she let herself rest but her knee did not improve so she called EMS. She reports she has taken her daily medications including her antihypertensives. She has not taken anything for pain. Related Data Home Medications ?Medication ?Instructions ?Recorded ?Confirmed atorvastatin 40 mg tablet 40 mg PO HS Cholesterol 11/16/17 04/12/23 fluticasone propionate 50 1 spray intranasal DAILY Allergy 04/14/21 04/12/23 mcg/actuation nasal Symptoms spray,suspension aspirin 81 mg tablet,delayed 81 mg PO DAILY Blood Thinner 04/28/21 04/12/23 release benazepril 20 mg tablet 20 mg PO DAILY High Blood Pressure 02/02/22 04/12/23 cholecalciferol (vitamin D3) 50 50 mcg PO DAILY Supplement 03/22/23 04/12/23 mcg (2,000 unit) capsule (Vitamin D3) Previous Rx's ?Medication ?Instructions ?Recorded albuterol sulfate 90 mcg/actuation 2 puff inhalation Q6H PRN Dyspnea 03/19/23 aerosol inhaler 30 days #0 grams metoprolol succinate 25 mg capsule 25 mg PO DAILY #30 ea 03/24/23 sprinkle, ext. release 24 hr clonazepam 1 mg tablet (Klonopin) 1 mg PO TID PRN anxiety #90 tabs 04/06/23 varenicline 0.5 mg (11)-1 mg (42) See Rx Instructions PO PER PKG DIR 04/12/23 tablets in a dose pack (Chantix #53 tabs Starting Month Box) rivaroxaban 2.5 mg tablet (Xarelto) See Rx Instructions .Route 01/30/24 .COMPLEX #180 tabs sod picosulf 10 mg-magnes 3.5 175 ml PO DAILY 2 doses #350 mL 12/21/23 gram-citric 12 gram/175 mL oral solution (Clenpiq) Allergies Allergy/AdvReac Type Severity Reaction Status Date / Time erythromycin base Allergy Severe S-BLISTERING Verified 04/12/23 09:49 WELTS tiotropium (From Spiriva Allergy Severe S-SWELLS-OR Verified 04/12/23 09:49 with HandiHaler) AL/THROAT clopidogrel (From Plavix) AdvReac Intermediate Diarrhea Verified 04/12/23 09:49 levofloxacin (From Levaquin) AdvReac Intermediate nausea and Verified 04/12/23 09:49 vomiting PFSH <Cristino Calix MD - Last Filed: 06/14/24 06:56> [facility] Disclaimer: The information contained in this section may have been updated after the patient was seen, as this information can be updated by other users. Medical History Hx of completed stroke DVT (deep venous thrombosis) Chest pain Malignant hypertension Claudication Herpes zoster Surgical History H/O tubal ligation Social History Smoking Status: Current every day smoker tobacco type: cigarettes packs per day: 1 alcohol intake: never substance use type: denies use current occupational status: unemployed household members: none housing: apartment current occupational exposures/hazards: No caffeine: Yes Other Medical History Have you received the Flu Vaccine for this season: No Have you received the Pneumonia Vaccine: Yes <Cristino Calix MD - Last Filed: 06/14/24 06:56> ROS Obtained: Yes Systems reviewed as appropriate & no additional complaints except as documented ROS per HPI Physical Exam <Cristino Calix MD - Last Filed: 06/14/24 06:56> General General appearance: alert and in no apparent distress Head Head exam: atraumatic and normocephalic Eye Eye exam: Present PERRL and EOMI ENT ENT exam: Present mucous membranes moist Neck Neck exam: Present normal inspection and full ROM Chest Chest inspection: Present symmetric chest wall rise Respiratory Respiratory exam: Present normal lung sounds bilaterally; Absent respiratory distress, wheezes or stridor Cardiovascular Cardiovascular exam: Present regular rate and normal rhythm Abdominal Exam Abdominal exam: Present soft; Absent distention or tenderness Extremities Exam Extremities exam: Present tenderness (Mild tenderness to palpation of the anterior left knee), joint swelling (Mild swelling of the anterior left knee without fluctuance, extensor mechanism intact) and other (Neurovascularly intact distal to left knee injury); Absent full ROM (Limited flexion of the left knee secondary to pain, extensor mechanism is intact) Back Exam Back exam: Present other (Tenderness near the coccyx but no deformity or step-off) Neurological Exam Neurological exam: Present alert and oriented X3; Absent motor sensory deficit Psychiatric Psychiatric exam: Present normal affect and normal mood Skin Skin exam: Present warm and dry Medical Decision Making <Cristino Calix MD - Last Filed: 06/14/24 06:56> Medical Records Medical records reviewed: Yes I reviewed the patient's medical records. Screening: Per USPSTF and CDC recommendations, given the prevalence of disease in our region, it is our hospital?s policy to screen for HIV and viral Hepatitis for all patients aged 18 and over and those with ongoing risk factors. MR Comment: Patient is previously known to this ER, she was here just 4 days ago after a trip and fall with right knee pain and elbow pain. She had reassuring workup with negative imaging. Chaitanya Inquiry Pt receiving controlled substance: No Vital Signs: 06/14/24 06:05 06/14/24 07:31 06/14/24 08:01 Temperature 98.6 F Temperature Source Oral Pulse Rate 57 L 61 Pulse Rate [Right Brachial] 64 Respiratory Rate 16 Blood Pressure 173/71 H 157/64 H Blood Pressure [Right Arm] 192/85 H Blood Pressure Mean 109 95 Blood Pressure Mean [Right Arm] 120 Blood Pressure Source [Right Arm] Automatic Cuff 02 Sat by Pulse Oximetry 97 94 L 95 Oxygen Delivery Method Room Air Room Air 06/14/24 08:13 06/14/24 08:30 Temperature Temperature Source Pulse Rate 63 61 Pulse Rate [Right Brachial] Respiratory Rate Blood Pressure 178/62 H 165/67 H Blood Pressure [Right Arm] Blood Pressure Mean Blood Pressure Mean [Right Arm] Blood Pressure Source [Right Arm] 02 Sat by Pulse Oximetry 98 95 Oxygen Delivery Method Orders (Tests/Meds): ED MEDICATIONS Discontinued Medications Generic Name Dose Route Start Last Admin Trade Name Lisa PRN Reason Stop Dose Admin Acetaminophen 1,000 mg 06/14/24 06:05 06/14/24 06:10 Acetaminophen 500mg Tab PO 06/14/24 06:06 1,000 mg ONCE ONE Administration ORDERS Category Date Time Status CT cervical spine wo con Stat Cat Scan 06/14/24 06:[address] head/brain wo con Stat Cat Scan 06/14/24 06:05 Completed Knee XR left 3 views [XR knee LT 3V] Stat Exams 06/14/24 06:05 Completed XR pelvis 1-2V Stat Exams 06/14/24 06:05 Completed HIV (1&2) Antibody Rapid Stat Lab 06/14/24 06:08 Ordered Hep C Ab with Reflex to RNA Stat Lab 06/14/24 06:08 Ordered Medical Decision Narrative: In summary, this 69-year-old female with comorbidities as described in HPI presents to the emergency department today with concerns of fall. On initial evaluation patient is hemodynamically stable, afebrile, mild tenderness and swelling of the left knee, extensor mechanism intact, no obvious ligamentous laxity, neurovascularly intact distally, patient complains of tailbone pain and tenderness as well, remainder of exam benign. Differential diagnosis includes but is not limited to fracture, dislocation, pelvis injury, soft tissue injury such as sprain or ligamentous injury, I did also consider the possibility of intracranial or cervical spine injury which cannot be ruled out with [place] or Nexus criteria due to patient's age so CTs are ordered. Based on these concerns, I ordered appropriate imaging. Patient received Tylenol for treatment. X-rays personally interpreted do not demonstrate acute osseous injury in the left lower extremity or pelvis on my personal interpretation, radiology read pending. CT head and CT cervical spine do not demonstrate traumatic injury on my personal interpretation, radiology read pending. Patient is resting comfortably at the time of physician handoff. Patient handed off to Dr. Heller for continued management and disposition pending imaging results. <Frank Heller MD - Last Filed: 06/14/24 09:51> Vital Signs: 06/14/24 06:05 06/14/24 07:31 06/14/24 08:01 Temperature 98.6 F Temperature Source Oral Pulse Rate 57 L 61 Pulse Rate [Right Brachial] 64 Respiratory Rate 16 Blood Pressure 173/71 H 157/64 H Blood Pressure [Right Arm] 192/85 H Blood Pressure Mean 109 95 Blood Pressure Mean [Right Arm] 120 Blood Pressure Source [Right Arm] Automatic Cuff 02 Sat by Pulse Oximetry 97 94 L 95 Oxygen Delivery Method Room Air Room Air 06/14/24 08:13 06/14/24 08:30 Temperature Temperature Source Pulse Rate 63 61 Pulse Rate [Right Brachial] Respiratory Rate Blood Pressure 178/62 H 165/67 H Blood Pressure [Right Arm] Blood Pressure Mean Blood Pressure Mean [Right Arm] Blood Pressure Source [Right Arm] 02 Sat by Pulse Oximetry 98 95 Oxygen Delivery Method Orders (Tests/Meds): ED MEDICATIONS Discontinued Medications Generic Name Dose Route Start Last Admin Trade Name Freq PRN Reason Stop Dose Admin Acetaminophen 1,000 mg 06/14/24 06:05 06/14/24 06:10 Acetaminophen 500mg Tab PO 06/14/24 06:06 1,000 mg ONCE ONE Administration ORDERS Category Date Time Status CT cervical spine wo con Stat Cat Scan 06/14/24 06:[address] head/brain wo con Stat Cat Scan 06/14/24 06:05 Completed Knee XR left 3 views [XR knee LT 3V] Stat Exams 06/14/24 06:05 Completed XR pelvis 1-2V Stat Exams 06/14/24 06:05 Completed HIV (1&2) Antibody Rapid Stat Lab 06/14/24 06:08 Ordered Hep C Ab with Reflex to RNA Stat Lab 06/14/24 06:08 Ordered Medical Decision Narrative: In summary, this 69-year-old female with comorbidities as described in HPI presents to the emergency department today with concerns of fall. On initial evaluation patient is hemodynamically stable, afebrile, mild tenderness and swelling of the left knee, extensor mechanism intact, no obvious ligamentous laxity, neurovascularly intact distally, patient complains of tailbone pain and tenderness as well, remainder of exam benign. Differential diagnosis includes but is not limited to fracture, dislocation, pelvis injury, soft tissue injury such as sprain or ligamentous injury, I did also consider the possibility of intracranial or cervical spine injury which cannot be ruled out with [place] or Nexus criteria due to patient's age so CTs are ordered. Based on these concerns, I ordered appropriate imaging. Patient received Tylenol for treatment. X-rays personally interpreted do not demonstrate acute osseous injury in the left lower extremity or pelvis on my personal interpretation, radiology read pending. CT head and CT cervical spine do not demonstrate traumatic injury on my personal interpretation, radiology read pending. Patient is resting comfortably at the time of physician handoff. Patient handed off to Dr. Heller for continued management and disposition pending imaging results. Frank Heller: Upon assumption of care patient was hemodynamically stable. Noncontrasted CT scan informally visualized by me, no large intracranial hemorrhage or midline shift. Formal read shows no acute intracranial abnormality. Plain films obtained no visible fracture. Upon repeat evaluation patient was well-appearing. I discussed case with physical therapy who evaluate the patient and recommends standard rolling walker. Patient is able to transfer and walk safely with this device and is appropriate for outpatient management. She will likely benefit from home health set up from her PCP. Given that she has a safe disposition home she is appropriate for outpatient management at this time was given return precautions. Critical Care <Cristino Calix MD - Last Filed: 06/14/24 06:56> Critical Care Time Critical Care Time: No
[2024-06-14] MEDS: ACETAMINOPHEN 500MG TAB 1000 MG PO (06:10)
--- NOTE | 2024-06-14 06:11 | PC.NURSE ---
Left knee slightly swollen and slight bruising noted. Pedal pulses strong and equal. No obvious deformity of left leg. Pt states she was unable to bear weight on leg at home. Pt states after fall she was able to make it to the couch and then called EMS. Pt denies LOC. No shortening of leg noted
--- NOTE | 2024-06-14 06:29 | PC.NURSE ---
Pt to Ct scan via wheelchair
--- NOTE | 2024-06-14 08:11 | PC.NURSE ---
calling PT at this time.
--- NOTE | 2024-06-14 09:11 | PC.NURSE ---
PT at bedside with patient at this time.
--- NOTE | 2024-06-14 09:49 | HMH.PTEV ---
Physical Therapy Evaluation Rehab PT IP Evaluation Start: 06/14/24 08:18 Freq: ONCE Status: Active Protocol: Document 06/14/24 09:37 SAMUEL (Rec: 06/14/24 09:49 SAMUEL [id number]) Subjective/History History History 69 yowf who presents to the ED with c/o ground level fall early this am with resulting L knee pain. X-rays taken show no acute fxs. She reports she lives alone, ramp to enter the home, uses a rolator for ambulation assistance at all times. She reports no family in the area to assist her except for a sister who works 5 days/wk. She has PMH of CVA, hypertension, hyperlipidemia, PAD on [employer]. Subjective Subjective Pt c/o L knee pain, but did not rate at this time. She does agree to OOB mobility assessment this date. Pt does exhibit decreased step height and heel strike on B LE during ambulation. New diagnosis of cancer in past 12 No months? Rehab PT IP Eval Objective Appearance Patient Behavior Appropriate Patient Orientation Person,Place,Time Difficulty following instructions none Speech Pattern Clear Ambulation Patient Able to Ambulate Yes Ambulation Observation IP General Gait Pattern Observation Shuffling Step Ambulation Distance (feet) 150 Ambulation Assistive Device Rolling Walker Ambulation Ability Supervision/Stand by Balance Ability to Arise Able, uses arms to help Sitting Balance Steady, safe Standing Balance Steady, wide stance Dynamic Sitting Balance Ability Good Dynamic Standing Balance Ability Fair Transfers Bed Transfer Ability Supervision/Stand by Chair Transfer Ability Supervision/Stand by Sit to Stand Bed Transfer Ability Supervision/Stand by Sit to Stand Chair Transfer Ability Supervision/Stand by ROM All Extremities PT ROM Status WFL MMT All Extremities PT MMT WFL Abnormal MMT Grade grossly 4/5 throughout B UE and LE Rehab PT IP prob,goals,plan Problems Date of Evaluation: 06/14/24 Discharge Plan PT Discharge Plan Pt currently presents at baseline for all mobility and is appropriate to return home once medically stable. Recommend Rolling walker for home use to improve stability in standing vs rolator and home health vs outpatient therapy to increase general strength and endurance to activity. Eval Complexity Eval Charge Codes 85047 - High Complexity PHYSICIAN CERTIFICATION: I certify the specified therapy services for Sandy Heller are required, authorized, and reviewed every 30 days.
== END 2024-06-14 11:42 | disposition home or self-care (01) ==
PROVIDERS: Emergency Provider Emergency Medicine
DX: M25.562 Pain in left knee (principal); M53.3 Sacrococcygeal disorders, not elsewhere classified; W01.0XXA Fall on same level from slipping, tripping and stumbling without subsequent striking against object, initial encounter; Y93.89 Activity, other specified; Y92.008 Other place in unspecified non-institutional (private) residence as the place of occurrence of the external cause
CPT/HCPCS: 70450; 72125; 72170; 73562; 99284

== ENCOUNTER 2024-06-30 11:32 | Emergency (ER) | payer MEDICARE, MEDICAID, SELFPAY ==
[2024-06-30] VITALS (14 sets, daily range): BP systolic 152–230; BP diastolic 55–116; PULSE 54–78; RESP 16–18; TEMP 36.7–37.1; O2SAT 95–100; BMI 29.2
--- NOTE | 2024-06-30 11:35 | HMH.EDGENADL ---
Discharge Plan Disposition Patient Disposition: Home, Self-Care Prescriptions Prescriptions: New ofloxacin 0.3 % drops 1 drp ophthalmic (eye) QID 5 Days Qty: 10 0RF Rx Instructions: start on day 3 of therapy No Action fluticasone propionate 50 mcg/actuation spray,suspension 1 spray INTRANASAL DAILY benazepril 20 mg tablet 20 mg PO DAILY varenicline [Chantix Starting Month Box] 0.5 mg (11)- 1 mg (42) tablets,dose pack See Rx Instructions PO PER PKG DIR Qty: 53 0RF Rx Instructions: PO PER PKG DIR aspirin 81 mg tablet,delayed release (DR/EC) 81 mg PO DAILY clonazepam [Klonopin] 1 mg tablet 1 mg PO TID PRN (Reason: anxiety) Qty: 90 2RF Xarelto 2.5 mg tablet See Rx Instructions .ROUTE .COMPLEX Qty: 180 4RF Dose Instruction: TAKE ONE TABLET BY MOUTH 2 TIMES A DAY Rx Instructions: TAKE ONE TABLET BY MOUTH 2 TIMES A DAY Clenpiq 10 mg-3.5 gram- 12 gram/175 mL solution 175 ml PO DAILY Qty: 350 0RF Rx Instructions: take first dose at 5-9PM evening before colonoscopy; 2nd dose the next day approximately 5 hrs before colonoscopy atorvastatin 40 MG tablet 40 mg PO HS albuterol sulfate 90 mcg/actuation Hfa Aerosol Inhaler 2 puff inhalation Q6H PRN (Reason: Dyspnea) 30 Days Qty: 0 0RF cholecalciferol (vitamin D3) [Vitamin D3] 50 mcg (2,000 unit) Capsule 50 mcg PO DAILY metoprolol succinate 25 mg capsule,sprinkle,ER 24hr 25 mg PO DAILY Qty: 30 1RF Referrals Follow up/Referrals: Provider,Referral, [Primary Care Provider] - See instructions Activity Restrictions/Add. Instructions Additional Instructions/Restrictions: Please take the eyedrops as prescribed for the entire course. No evidence of anything to explain the groin pain that you came to the emergency department for scans urinalysis blood work all unremarkable please follow with your primary care doctor as needed return of any significant worsening of her symptoms. Clinical Impressions Clinical Impression: Groin pain Print Language Print Language: [place] Discharge ED Provider: Dileep Traore General Adult HPI <Dileep Traore MD - Last Filed: 06/30/24 15:40> General Chief complaint: PAIN Stated complaint: GROIN PAIN Time Seen by Provider: 06/30/24 11:34 History of Present Illness HPI narrative: Patient is a 69-year-old past medical history of COPD, heart cath, CAD, hypertension, hyperlipidemia presenting for left groin pain. Patient said around 5 AM this morning she noticed that she was having pain in her left inguinal region. She has never had pain like this before, but does note that she had her stent placed through access in her left groin. Patient says she is having difficulty with walking due to the pain that she is having. Patient denies numbness, tingling, nausea, vomiting. Patient said that she did have a bowel movement this morning. Related Data Home Medications ?Medication ?Instructions ?Recorded ?Confirmed atorvastatin 40 mg tablet 40 mg PO HS Cholesterol 11/16/17 04/12/23 fluticasone propionate 50 1 spray intranasal DAILY Allergy 04/14/21 04/12/23 mcg/actuation nasal Symptoms spray,suspension aspirin 81 mg tablet,delayed 81 mg PO DAILY Blood Thinner 04/28/21 04/12/23 release benazepril 20 mg tablet 20 mg PO DAILY High Blood Pressure 02/02/22 04/12/23 cholecalciferol (vitamin D3) 50 50 mcg PO DAILY Supplement 03/22/23 04/12/23 mcg (2,000 unit) capsule (Vitamin D3) Previous Rx's ?Medication ?Instructions ?Recorded albuterol sulfate 90 mcg/actuation 2 puff inhalation Q6H PRN Dyspnea 03/19/23 aerosol inhaler 30 days #0 grams metoprolol succinate 25 mg capsule 25 mg PO DAILY #30 ea 03/24/23 sprinkle, ext. release 24 hr clonazepam 1 mg tablet (Klonopin) 1 mg PO TID PRN anxiety #90 tabs 04/06/23 varenicline 0.5 mg (11)-1 mg (42) See Rx Instructions PO PER PKG DIR 04/12/23 tablets in a dose pack (Chantix #53 tabs Starting Month Box) rivaroxaban 2.5 mg tablet (Xarelto) See Rx Instructions .Route 08/23/23 .COMPLEX #180 tabs sod picosulf 10 mg-magnes 3.5 175 ml PO DAILY 2 doses #350 mL 12/21/23 gram-citric 12 gram/175 mL oral solution (Clenpiq) ofloxacin 0.3 % eye drops 1 drp ophthalmic (eye) QID 5 days 06/30/24 #10 mL Allergies Allergy/AdvReac Type Severity Reaction Status Date / Time erythromycin base Allergy Severe S-BLISTERING Verified 04/12/23 09:49 WELTS tiotropium (From Spiriva Allergy Severe S-SWELLS-OR Verified 04/12/23 09:49 with HandiHaler) AL/THROAT clopidogrel (From Plavix) AdvReac Intermediate Diarrhea Verified 04/12/23 09:49 levofloxacin (From Levaquin) AdvReac Intermediate nausea and Verified 04/12/23 09:49 vomiting PFS <Dileep Traore MD - Last Filed: 06/30/24 15:40> [facility] Disclaimer: The information contained in this section may have been updated after the patient was seen, as this information can be updated by other users. Medical History Hx of completed stroke DVT (deep venous thrombosis) Chest pain Malignant hypertension Claudication Herpes zoster Surgical History H/O tubal ligation Social History (Updated 06/14/24 @ 09:51 by Frank Heller MD) Smoking Status: Unknown if ever smoked alcohol intake: never substance use type: denies use current occupational status: unemployed Travel in the last 8 weeks: None household members: none housing: apartment current occupational exposures/hazards: No caffeine: Yes Other Medical History Have you received the Flu Vaccine for this season: No Have you received the Pneumonia Vaccine: Yes <Dileep Traore MD - Last Filed: 06/30/24 15:40> ROS Obtained: Yes All systems reviewed & no additional complaints except as documented Physical Exam <Dileep Traore MD - Last Filed: 06/30/24 15:40> General General appearance: alert and in no apparent distress Head Head exam: atraumatic, normocephalic and normal inspection Eye Eye exam: Present PERRL, EOMI, conjunctival redness (Left eye) and discharge (Watery); Absent periorbital swelling or periorbital tenderness ENT ENT exam: Present normal exam, normal oropharynx, mucous membranes moist, TM's normal bilaterally and normal external ear exam Neck Neck exam: Present normal inspection, full ROM and trachea midline; Absent meningismus or lymphadenopathy Chest Chest inspection: Present normal inspection and symmetric chest wall rise; Absent tenderness Respiratory Respiratory exam: Present normal lung sounds bilaterally; Absent respiratory distress Cardiovascular Cardiovascular exam: Present regular rate and normal rhythm; Absent JVD Abdominal Exam Abdominal exam: Present soft, tenderness (Left inguinal region, without obvious skin changes or hernia. No peritonitis, guarding or rebound) and normal bowel sounds; Absent distention or guarding Extremities Exam Extremities exam: Present normal inspection, full ROM and normal capillary refill; Absent calf tenderness Back Exam Back exam: Present normal inspection; Absent tenderness Neurological Exam Neurological exam: Present alert and oriented X3 Psychiatric Psychiatric exam: Present normal affect and normal mood Skin Skin exam: Present warm, dry, intact and normal color Lymphatic Lymphatic Findings: no adenopathy Medical Decision Making <Dileep Traore MD - Last Filed: 06/30/24 15:40> Medical Records Screening: Per USPSTF and CDC recommendations, given the prevalence of disease in our region, it is our hospital?s policy to screen for HIV and viral Hepatitis for all patients aged 18 and over and those with ongoing risk factors. Chaitanya Inquiry Pt receiving controlled substance: No Vital Signs: 06/30/24 11:36 06/30/24 11:37 06/30/24 11:41 Temperature 98.7 F Temperature Source Oral Pulse Rate 68 67 Pulse Rate [Right Radial] 78 Respiratory Rate 18 Blood Pressure 230/89 H 228/92 H Blood Pressure [Left Arm] 228/92 H Blood Pressure Mean Blood Pressure Mean [Left Arm] 137 02 Sat by Pulse Oximetry 98 97 100 Oxygen Delivery Method Room Air Room Air Room Air 06/30/24 12:01 06/30/24 12:29 06/30/24 14:16 Temperature Temperature Source Pulse Rate 70 69 66 Pulse Rate [Right Radial] Respiratory Rate Blood Pressure 193/80 H 208/106 H 175/68 H Blood Pressure [Left Arm] Blood Pressure Mean Blood Pressure Mean [Left Arm] 02 Sat by Pulse Oximetry 95 98 99 Oxygen Delivery Method Room Air Room Air Room Air 06/30/24 14:31 06/30/24 15:01 06/30/24 15:30 Temperature Temperature Source Pulse Rate 67 65 68 Pulse Rate [Right Radial] Respiratory Rate 18 18 Blood Pressure 183/59 H 173/62 H 179/116 H Blood Pressure [Left Arm] Blood Pressure Mean 100 99 Blood Pressure Mean [Left Arm] 02 Sat by Pulse Oximetry 97 95 96 Oxygen Delivery Method Room Air 06/30/24 16:00 Temperature Temperature Source Pulse Rate 70 Pulse Rate [Right Radial] Respiratory Rate Blood Pressure 167/62 H Blood Pressure [Left Arm] Blood Pressure Mean 105 Blood Pressure Mean [Left Arm] 02 Sat by Pulse Oximetry 98 Oxygen Delivery Method Lab Data Lab Results 06/30/24 11:43: Sodium 137, Potassium 4.8, Chloride 105, Carbon Dioxide 28, Anion Gap 8.8, BUN 17, Creatinine 0.90, Estimated Creat Clear 56, Estimated GFR 62, Est GFR ( Amer) 75, Glucose 94, Calcium 9.7, Total Bilirubin 1.2, AST 31, ALT 13, Alkaline Phosphatase 147 H, Total Protein 7.8, Albumin 4.1, Globulin 3.7 H, Albumin/Globulin Ratio 1.1, Lipase 123, HIV 1&2 Antibody Rapid Nonreactive 06/30/24 12:58: WBC 7.6, RBC 4.00 L, Hgb 12.9, Hct 38.4, MCV 96.0, MCH 32.3 H, MCHC 33.6, RDW 13.9, Plt Count 154, MPV 8.4, Neut % (Auto) 80.9 H, Lymph % (Auto) 13.1, Peach % (Auto) 4.7, Eos % (Auto) 0.7, Baso % (Auto) 0.5, Neut # (Auto) 6.2, Lymph # (Auto) 1.0, Peach # (Auto) 0.4, Eos # (Auto) 0.1, Baso # (Auto) 0.0 06/30/24 14:10: Lactate 0.8 06/30/24 15:55: Urine Color Yellow, Urine Appearance Clear, Urine pH 6.0, Ur Specific App[place] 1.015, Urine Protein Negative, Urine Glucose (UA) Negative, Urine Ketones Trace, Urine Blood 1+ A, Urine Nitrate Negative, Urine Bilirubin Negative, Urine Urobilinogen 0.2, Ur Leukocyte Esterase Negative, Urine RBC 3-5, Urine WBC Occasional, Ur Squamous Epith Cells 3-5 06/30/24 12:58 06/30/24 11:43 Orders (Tests/Meds): ED MEDICATIONS Discontinued Medications Generic Name Dose Route Start Last Admin Trade Name Freq PRN Reason Stop Dose Admin Acetaminophen 1,000 mg 06/30/24 12:16 06/30/24 12:24 Acetaminophen 1,000mg/100ml Vial IV 06/30/24 12:17 1,000 mg ONCE ONE Administration Iopamidol 75 ml 06/30/24 13:22 06/30/24 13:58 Iopamidol-370 (76%);100ml Bottle IV 06/30/24 13:23 75 ml ONCE ONE Administration Morphine Sulfate 4 mg 06/30/24 12:16 06/30/24 12:25 Morphine 4mg/Ml Syringe IV 06/30/24 12:17 4 mg ONCE ONE Administration Sodium Chloride 10 ml 06/30/24 13:22 06/30/24 13:58 Sodium Chloride 0.9% 10ml Syr (Rad Only) IV 06/30/24 13:23 10 ml ONCE ONE Administration ORDERS Category Date Time Status CT abdomen pelvis w con Stat Cat Scan 06/30/24 12:16 Completed Complete Blood Count Auto Diff Stat Lab 06/30/24 12:58 Completed Comprehensive Metabolic Panel Stat Lab 06/30/24 11:43 Completed HIV (1&2) Antibody Rapid Stat Lab 06/30/24 11:43 Completed Hep C Ab with Reflex to RNA Stat Lab 06/30/24 11:43 Received Lactic Acid Stat Lab 06/30/24 14:10 Completed Lipase Stat Lab 06/30/24 11:43 Completed Urinalysis and Microscopic Stat Lab 06/30/24 15:55 Completed Medical Decision Narrative: In summary, this 69-year-old female presents to the emergency department today with groin pain. On initial evaluation patient is hemodynamically stable, hypertensive, alert and oriented. Patient said that this pain started this morning, she has no obvious external skin findings but does have tenderness and some difficulty with lifting her left leg due to this pain. She has symmetric and strong pulses bilaterally, with full sensation. differential diagnosis includes but is not limited to diverticulitis, ovarian cyst, hernia, UTI. Based on these concerns, I ordered CT, labs and pain meds. Patient received Tylenol, morphine for treatment. Labs personally reviewed demonstrate no leukocytosis, mildly elevated alk phos without transaminitis. CT imaging personally interpreted demonstrate no pneumoperitoneum or hemoperitoneum. On reassessment patient pain is better controlled. Will send patient home with ofloxacin drops for a conjunctivitis of the left eye. patient was signed out to Dr. Bowden pending urinalysis. <Denise Bowden MD - Last Filed: 06/30/24 16:43> Vital Signs: 06/30/24 11:36 06/30/24 11:37 06/30/24 11:41 Temperature 98.7 F Temperature Source Oral Pulse Rate 68 67 Pulse Rate [Right Radial] 78 Respiratory Rate 18 Blood Pressure 230/89 H 228/92 H Blood Pressure [Left Arm] 228/92 H Blood Pressure Mean Blood Pressure Mean [Left Arm] 137 02 Sat by Pulse Oximetry 98 97 100 Oxygen Delivery Method Room Air Room Air Room Air 06/30/24 12:01 06/30/24 12:29 06/30/24 14:16 Temperature Temperature Source Pulse Rate 70 69 66 Pulse Rate [Right Radial] Respiratory Rate Blood Pressure 193/80 H 208/106 H 175/68 H Blood Pressure [Left Arm] Blood Pressure Mean Blood Pressure Mean [Left Arm] 02 Sat by Pulse Oximetry 95 98 99 Oxygen Delivery Method Room Air Room Air Room Air 06/30/24 14:31 06/30/24 15:01 06/30/24 15:30 Temperature Temperature Source Pulse Rate 67 65 68 Pulse Rate [Right Radial] Respiratory Rate 18 18 Blood Pressure 183/59 H 173/62 H 179/116 H Blood Pressure [Left Arm] Blood Pressure Mean 100 99 Blood Pressure Mean [Left Arm] 02 Sat by Pulse Oximetry 97 95 96 Oxygen Delivery Method Room Air 06/30/24 16:00 Temperature Temperature Source Pulse Rate 70 Pulse Rate [Right Radial] Respiratory Rate Blood Pressure 167/62 H Blood Pressure [Left Arm] Blood Pressure Mean 105 Blood Pressure Mean [Left Arm] 02 Sat by Pulse Oximetry 98 Oxygen Delivery Method Lab Data Lab results reviewed: Yes I reviewed the patient's lab results. Lab Results 06/30/24 11:43: Sodium 137, Potassium 4.8, Chloride 105, Carbon Dioxide 28, Anion Gap 8.8, BUN 17, Creatinine 0.90, Estimated Creat Clear 56, Estimated GFR 62, Est GFR ( Amer) 75, Glucose 94, Calcium 9.7, Total Bilirubin 1.2, AST 31, ALT 13, Alkaline Phosphatase 147 H, Total Protein 7.8, Albumin 4.1, Globulin 3.7 H, Albumin/Globulin Ratio 1.1, Lipase 123, HIV 1&2 Antibody Rapid Nonreactive 06/30/24 12:58: WBC 7.6, RBC 4.00 L, Hgb 12.9, Hct 38.4, MCV 96.0, MCH 32.3 H, MCHC 33.6, RDW 13.9, Plt Count 154, MPV 8.4, Neut % (Auto) 80.9 H, Lymph % (Auto) 13.1, Peach % (Auto) 4.7, Eos % (Auto) 0.7, Baso % (Auto) 0.5, Neut # (Auto) 6.2, Lymph # (Auto) 1.0, Peach # (Auto) 0.4, Eos # (Auto) 0.1, Baso # (Auto) 0.0 06/30/24 14:10: Lactate 0.8 06/30/24 15:55: Urine Color Yellow, Urine Appearance Clear, Urine pH 6.0, Ur Specific [place] 1.015, Urine Protein Negative, Urine Glucose (UA) Negative, Urine Ketones Trace, Urine Blood 1+ A, Urine Nitrate Negative, Urine Bilirubin Negative, Urine Urobilinogen 0.2, Ur Leukocyte Esterase Negative, Urine RBC 3-5, Urine WBC Occasional, Ur Squamous Epith Cells 3-5 Orders (Tests/Meds): ED MEDICATIONS Discontinued Medications Generic Name Dose Route Start Last Admin Trade Name Lisa PRN Reason Stop Dose Admin Acetaminophen 1,000 mg 06/30/24 12:16 06/30/24 12:24 Acetaminophen 1,000mg/100ml Vial IV 06/30/24 12:17 1,000 mg ONCE ONE Administration Iopamidol 75 ml 06/30/24 13:22 06/30/24 13:58 Iopamidol-370 (76%);100ml Bottle IV 06/30/24 13:23 75 ml ONCE ONE Administration Morphine Sulfate 4 mg 06/30/24 12:16 06/30/24 12:25 Morphine 4mg/Ml Syringe IV 06/30/24 12:17 4 mg ONCE ONE Administration Sodium Chloride 10 ml 06/30/24 13:22 06/30/24 13:58 Sodium Chloride 0.9% 10ml Syr (Rad Only) IV 06/30/24 13:23 10 ml ONCE ONE Administration ORDERS Category Date Time Status CT abdomen pelvis w con Stat Cat Scan 06/30/24 12:16 Completed Complete Blood Count Auto Diff Stat Lab 06/30/24 12:58 Completed Comprehensive Metabolic Panel Stat Lab 06/30/24 11:43 Completed HIV (1&2) Antibody Rapid Stat Lab 06/30/24 11:43 Completed Hep C Ab with Reflex to RNA Stat Lab 06/30/24 11:43 Received Lactic Acid Stat Lab 06/30/24 14:10 Completed Lipase Stat Lab 06/30/24 11:43 Completed Urinalysis and Microscopic Stat Lab 06/30/24 15:55 Completed Medical Decision Narrative: In summary, this 69-year-old female presents to the emergency department today with groin pain. On initial evaluation patient is hemodynamically stable, hypertensive, alert and oriented. Patient said that this pain started this morning, she has no obvious external skin findings but does have tenderness and some difficulty with lifting her left leg due to this pain. She has symmetric and strong pulses bilaterally, with full sensation. differential diagnosis includes but is not limited to diverticulitis, ovarian cyst, hernia, UTI. Based on these concerns, I ordered CT, labs and pain meds. Patient received Tylenol, morphine for treatment. Labs personally reviewed demonstrate no leukocytosis, mildly elevated alk phos without transaminitis. CT imaging personally interpreted demonstrate no pneumoperitoneum or hemoperitoneum. On reassessment patient pain is better controlled. Will send patient home with ofloxacin drops for a conjunctivitis of the left eye. patient was signed out to Dr. Bowden pending urinalysis. Reassessment this is Dr. Bowden I took over around 3 PM for this patient's case urinalysis was pending which showed trace blood but no evidence of infection. She has been advised that there is no definitive explanation for her symptoms today I also reviewed the patient's CT read. Patient was discharged in improved and stable condition she states she feels much better. She is advised to follow-up with primary care doctor and to return with any significant worsening of her symptoms. Procedures <Dileep Traore MD - Last Filed: 06/30/24 15:40> Risk/Benefits of Procedure(s) Were Explained: Yes Critical Care <Dileep Traore MD - Last Filed: 06/30/24 15:40> Critical Care Time Critical Care Time: No
--- NOTE | 2024-06-30 12:16 | CT_ITS ---
PROCEDURE INFORMATION: Exam: CT Abdomen And Pelvis With Contrast Exam date and time: 06/30/2024 1:22 PM Age: 69 years old Clinical indication: Other: Left groin pain TECHNIQUE: Imaging protocol: Computed tomography of the abdomen and pelvis with contrast. Radiation optimization: All CT scans at this facility use at least one of these dose optimization techniques: automated exposure control; mA and/or kV adjustment per patient size (includes targeted exams where dose is matched to clinical indication); or iterative reconstruction. Contrast material: ISOVUE; Contrast volume: 75 ml; Contrast route: IV; COMPARISON: CT BONY PELVIS 02/20/2024 5:02 PM FINDINGS: Lungs: bibasilar atelectasis Heart: There is calcification of the aortic valve annulus. There is calcification of the mitral valve annulus. Coronary arteries: Coronary artery calcifications may indicate coronary artery disease. Liver: Normal. No mass. Gallbladder and biliary ducts: Normal. No calcified stones. No ductal dilation. Pancreas: Pancreatic atrophy Spleen: Normal. No splenomegaly. Adrenal glands: Normal. No mass. Kidneys and ureters: 13 mm simple cyst posterior right kidney . No follow-up imaging recommended . Stomach and bowel: Unremarkable. No obstruction. No mucosal thickening. Appendix: Normal appendix Intraperitoneal space: Unremarkable. No free air. No significant fluid collection. Vasculature: Unremarkable. No abdominal aortic aneurysm. Lymph nodes: Unremarkable. No enlarged lymph nodes. Urinary bladder: Unremarkable as visualized. Reproductive: Unremarkable as visualized. Bones/joints: Unremarkable. No acute fracture. Soft tissues: Unremarkable. IMPRESSION: No acute process COMMENTS: Consistent with the [employer]'s Incidental Findings Committee white paper (J Am Dorcas Radiol 2018): Any incidental renal lesion less than 1 cm or classified as too small to characterize, or any incidental cystic renal lesion characterized as simple-appearing, is likely benign. No follow-up imaging is recommended for these lesions per consensus recommendations based on imaging criteria.
[2024-06-30] MEDS: ACETAMINOPHEN 1,000MG/100ML VIAL 1000 MG IV (12:24)
[2024-06-30] MEDS: MORPHINE 4MG/ML SYRINGE 4 MG IV (12:25)
[2024-06-30 12:33] LABS: Albumin Level 4.1 g/dl (3.5-5.0); Chloride 105 mmol/L (98-107); Potassium 4.8 mmoL/L (3.5-5.1); Sodium 137 mmol/L (136-145)
[2024-06-30 12:35] LABS: Blood Urea Nitrogen 17 mg/dl (7-17); Creatinine Clearance Estimated 56 mL/min (50-200); Estimated Glomerular Filt Rate 62 ml/min (>60); GFR (African American) 75 ML/MIN (>60); Lipase 123 U/L (23-300)
[2024-06-30 12:36] LABS: Alanine Aminotransferase 13 U/L (12-78); Albumin/Globulin Ratio 1.1 (1.1-1.8); Alkaline Phosphatase 147 U/L (38-126); Anion Gap 8.8 mEq/L (5-15); Aspartate Amino Transferase 31 U/L (14-36); Bilirubin,Total 1.2 mg/dl (0.2-1.3); Calcium 9.7 mg/dl (8.4-10.2); Carbon Dioxide 28 mmol/L (22.0-30.0); Globulin 3.7 g/dL (1.3-3.2); Glucose 94 mg/dl (74-100); Total Protein,Serum 7.8 g/dl (6.3-8.2)
[2024-06-30 13:06] LABS: Basophils % 0.5 % (0.1-2.0); Eosinophils # 0.1 K/mm3 (0.0-0.4); Eosinophils % 0.7 % (0.1-12.0); Hematocrit 38.4 % (37.0-47.0); Hemoglobin 12.9 g/dL (12.2-16.2); Lymphocytes % 13.1 % (10-50); Mean Corpuscular HGB Conc 33.6 g/dL (31.8-35.4); Mean Corpuscular Hemoglobin 32.3 pg (27.0-31.2); Mean Platelet Volume 8.4 fl (7.4-10.4); Monocytes # 0.4 K/mm3 (0.1-1.0); Monocytes % 4.7 % (1.7-9.3); Neutrophils # 6.2 K/mm3 (1.8-7.8); Neutrophils % 80.9 % (37.0-80.0); Platelet Count 154 K/mm3 (142-424); Red Cell Distribution Width 13.9 % (11.5-17.5); White Blood Count 7.6 K/mm3 (4.8-10.8)
[2024-06-30] MEDS: SODIUM CHLORIDE 0.9% 10ML SYR (RAD ONLY) 10 ML IV (13:58)
[2024-06-30] MEDS: IOPAMIDOL-370 (76%);100ML BOTTLE 75 ML IV (13:58)
[2024-06-30 15:02] LABS: Lactic Acid 0.8 mmol/L (0.7-2.1)
[2024-06-30 16:00] LABS: Microscopic, Urine URINE MICROSCOPIC (MICROSCOPIC)
[2024-06-30 16:02] LABS: Appearance,Urine CLEAR (Clear); Bilirubin,Urine Negative (Negative); Blood, Urine 1+ (Negative); Color,Urine YELLOW (Yellow); Glucose,Urine (UA) Negative (Negative); Ketones,Urine TRACE (Negative); Leukocyte Esterase,Urine Negative (Negative); Nitrate,Urine Negative (Negative); Protein,Urine Negative (Negative); Specific Gravity, Urine 1.015 (1.005-1.030); Urobilinogen,Urine 0.2 EU/dl (0.2)
[2024-06-30 16:03] LABS: HIV (1&2) Antibody Rapid NONREACTIVE (NONREACTIVE)
[2024-06-30 16:21] LABS: WBC,Urine Occasional #/hpf (0-3)
[2024-07-01 09:08] LABS: HCV Ab Non Reactive (Non Reactive)
== END 2024-06-30 18:05 | disposition home or self-care (01) ==
PROVIDERS: Emergency Provider Student in an Organized Health Care Education/Training Program
DX: R10.30 Lower abdominal pain, unspecified (principal)
CPT/HCPCS: 74177; 80053; 81001; 83605; 83690; 85025; 86803; 87389; 96374; 96375; 99285; J0131; J2270; Q9967

== ENCOUNTER 2024-07-28 06:33 | Emergency (ER) | payer MEDICARE, MEDICAID, SELFPAY ==
[2024-07-28 06:34] VITALS: BP 204/75; PULSE 63; RESP 18; TEMP 36.4; O2SAT 100; BMI 27.8
--- NOTE | 2024-07-28 06:36 | XR_ITS ---
PROCEDURE INFORMATION: Exam: XR Right Ankle Exam date and time: 07/28/2024 6:43 AM Age: 69 years old Clinical indication: Pain; Ankle; Right; Additional info: Ankle pain since 4am. No trauma TECHNIQUE: Imaging protocol: Radiologic exam of the right ankle. Views: 3 or more views. COMPARISON: CR XR KNEE RT 3V 06/10/2024 6:22 PM FINDINGS: Bones/joints: Normal. Soft tissues: Normal. IMPRESSION: No acute findings.
--- NOTE | 2024-07-28 06:36 | HMH.EDGENADL ---
Discharge Plan Disposition Patient Disposition: Home, Self-Care Prescriptions Prescriptions: New sulfamethoxazole-trimethoprim 800-160 mg tablet 1 tab PO BID 7 Days Qty: 14 0RF No Action fluticasone propionate 50 mcg/actuation spray,suspension 1 spray INTRANASAL DAILY benazepril 20 mg tablet 20 mg PO DAILY varenicline tartrate [Chantix Starting Month Box] 0.5 mg (11)- 1 mg (42) tablets,dose pack See Rx Instructions PO PER PKG DIR Qty: 53 0RF Rx Instructions: PO PER PKG DIR aspirin 81 mg tablet,delayed release (DR/EC) 81 mg PO DAILY clonazepam [Klonopin] 1 mg tablet 1 mg PO TID PRN (Reason: anxiety) Qty: 90 2RF Xarelto 2.5 mg tablet See Rx Instructions .ROUTE .COMPLEX Qty: 180 4RF Dose Instruction: TAKE ONE TABLET BY MOUTH 2 TIMES A DAY Rx Instructions: TAKE ONE TABLET BY MOUTH 2 TIMES A DAY Clenpiq 10 mg-3.5 gram- 12 gram/175 mL solution 175 ml PO DAILY Qty: 350 0RF Rx Instructions: take first dose at 5-9PM evening before colonoscopy; 2nd dose the next day approximately 5 hrs before colonoscopy atorvastatin 40 MG tablet 40 mg PO HS albuterol sulfate 90 mcg/actuation Hfa Aerosol Inhaler 2 puff inhalation Q6H PRN (Reason: Dyspnea) 30 Days Qty: 0 0RF cholecalciferol (vitamin D3) [Vitamin D3] 50 mcg (2,000 unit) Capsule 50 mcg PO DAILY metoprolol succinate 25 mg capsule,sprinkle,ER 24hr 25 mg PO DAILY Qty: 30 1RF ofloxacin 0.3 % drops 1 drp ophthalmic (eye) QID 5 Days Qty: 10 0RF Rx Instructions: start on day 3 of therapy Activity Restrictions/Add. Instructions Additional Instructions/Restrictions: Please take antibiotics as prescribed for treatment of cellulitis. Please follow-up with your primary care provider. Please return to the emergency department if you develop any new or worsening symptoms or become concerned for your health. Clinical Impressions Clinical Impression: Cellulitis of right ankle Print Language Print Language: Croatian Discharge ED Provider: Samir Bailey General Adult HPI General Chief complaint: PAIN Stated complaint: Pain Time Seen by Provider: 07/28/24 06:36 History of Present Illness HPI narrative: 69-year-old female, resident at [facility], presents for right ankle pain. She reports it was a little bit sore yesterday and then when she woke up this morning it was hurting much more. There is a little bit of redness over the medial ankle. She does not remember a fall or any other injuries to the area. Denies fever at home. Related Data Home Medications ?Medication ?Instructions ?Recorded ?Confirmed atorvastatin 40 mg tablet 40 mg PO HS Cholesterol 11/16/17 04/12/23 fluticasone propionate 50 1 spray intranasal DAILY Allergy 04/14/21 04/12/23 mcg/actuation nasal Symptoms spray,suspension aspirin 81 mg tablet,delayed 81 mg PO DAILY Blood Thinner 04/28/21 04/12/23 release benazepril 20 mg tablet 20 mg PO DAILY High Blood Pressure 02/02/22 04/12/23 cholecalciferol (vitamin D3) 50 50 mcg PO DAILY Supplement 03/22/23 04/12/23 mcg (2,000 unit) capsule (Vitamin D3) Previous Rx's ?Medication ?Instructions ?Recorded albuterol sulfate 90 mcg/actuation 2 puff inhalation Q6H PRN Dyspnea 03/19/23 aerosol inhaler 30 days #0 grams metoprolol succinate 25 mg capsule 25 mg PO DAILY #30 ea 03/24/23 sprinkle, ext. release 24 hr clonazepam 1 mg tablet (Klonopin) 1 mg PO TID PRN anxiety #90 tabs 04/06/23 varenicline tartrate 0.5 mg (11)-1 See Rx Instructions PO PER PKG DIR 04/12/23 mg (42) tablets in a dose pack #53 tabs (Chantix Starting Month Box) rivaroxaban 2.5 mg tablet (Xarelto) See Rx Instructions .Route 08/23/23 .COMPLEX #180 tabs sod picosulf 10 mg-magnes 3.5 175 ml PO DAILY 2 doses #350 mL 12/21/23 gram-citric 12 gram/175 mL oral solution (Clenpiq) ofloxacin 0.3 % eye drops 1 drp ophthalmic (eye) QID 5 days 06/30/24 #10 mL sulfamethoxazole 800 1 tab PO BID 7 days #14 tabs 07/28/24 mg-trimethoprim 160 mg tablet Allergies Allergy/AdvReac Type Severity Reaction Status Date / Time erythromycin base Allergy Severe S-BLISTERING Verified 04/12/23 09:49 WELTS tiotropium (From Spiriva Allergy Severe S-SWELLS-OR Verified 04/12/23 09:49 with HandiHaler) AL/THROAT clopidogrel (From Plavix) AdvReac Intermediate Diarrhea Verified 04/12/23 09:49 levofloxacin (From Levaquin) AdvReac Intermediate nausea and Verified 04/12/23 09:49 vomiting PFSH [facility] Disclaimer: The information contained in this section may have been updated after the patient was seen, as this information can be updated by other users. Medical History Hx of completed stroke DVT (deep venous thrombosis) Chest pain Malignant hypertension Claudication Herpes zoster Surgical History H/O tubal ligation Social History (Updated 06/14/24 @ 09:51 by Frank Heller MD) Smoking Status: Current every day smoker tobacco type: cigarettes packs per day: 1 alcohol intake: never substance use type: denies use current occupational status: unemployed Travel in the last 8 weeks: None household members: none housing: apartment current occupational exposures/hazards: No caffeine: Yes Other Medical History Have you received the Flu Vaccine for this season: No Have you received the Pneumonia Vaccine: Yes ROS Obtained: Yes All systems reviewed & no additional complaints except as documented Physical Exam General General appearance: alert and in no apparent distress Head Head exam: atraumatic and normocephalic Eye Eye exam: Present normal appearance, PERRL and EOMI ENT ENT exam: Present normal oropharynx and normal external ear exam Neck Neck exam: Present normal inspection and full ROM Chest Chest inspection: Present normal inspection and symmetric chest wall rise; Absent tenderness Respiratory Respiratory exam: Present normal lung sounds bilaterally; Absent respiratory distress Cardiovascular Cardiovascular exam: Present regular rate and normal rhythm Abdominal Exam Abdominal exam: Present soft; Absent distention, tenderness or guarding Extremities Exam Extremities exam: Present other (Right ankle: There is some erythema and tenderness over the medial foot and ankle. No swelling, no laceration or abrasion.) Back Exam Back exam: Present normal inspection; Absent tenderness Neurological Exam Neurological exam: Present alert and oriented X3; Absent motor sensory deficit Psychiatric Psychiatric exam: Present normal affect and normal mood Skin Skin exam: Present warm, dry and normal color Lymphatic Lymphatic Findings: no adenopathy Medical Decision Making Medical Records Medical records reviewed: Yes I reviewed the patient's medical records. Screening: Per USPSTF and CDC recommendations, given the prevalence of disease in our region, it is our hospital?s policy to screen for HIV and viral Hepatitis for all patients aged 18 and over and those with ongoing risk factors. Chaitanya Inquiry Pt receiving controlled substance: No Chaitanya was queried for this patient: No Vital Signs: 07/28/24 06:34 Temperature 97.6 F Temperature Source Oral Pulse Rate [Right Brachial] 63 Respiratory Rate 18 Blood Pressure [Right Arm] 204/75 H Blood Pressure Mean [Right Arm] 118 Blood Pressure Source [Right Arm] Automatic Cuff Blood Pressure Position [Right Arm] Sitting 02 Sat by Pulse Oximetry 100 Oxygen Delivery Method Room Air Lab Data Lab results reviewed: Yes I reviewed the patient's lab results. Orders (Tests/Meds): ED MEDICATIONS Generic Name Dose Route Start Last Admin Trade Name Freq PRN Reason Stop Dose Admin Trimethoprim/Sulfamethoxazole 1 each 07/28/24 06:55 07/28/24 06:58 Sulfa/Trimethoprim 1 Tablet PO 07/28/24 06:56 1 each ONCE ONE Administration ORDERS Category Date Time Status Ankle XR -Right minimum 3 Views [XR ankle RT min 3V] Exams 07/28/24 06:36 Taken Stat Medical Decision Narrative: 69-year-old female with presents with right medial ankle pain and redness. Was obtained via interactive discussion with patient. On arrival, patient is [afebrile, hemodynamically stable, satting appropriately, alert, oriented x4, GCS 15], moving all extremities spontaneously. Full physical exam performed and significant for mild redness over the right medial foot and medial ankle, appears consistent with mild cellulitis. Differential includes but is not limited to cellulitis, abscess, abrasion, fracture dislocation, septic joint. Workup initiated including right ankle radiographs. On re-evaluation, patient [remains afebrile, HD stable.] Imaging independently interpreted by me and significant for no evidence of acute fracture or dislocation.. See radiology read for full review of final results. Given patient history, exam and workup, patient's presentation most likely represents mild cellulitis. There is no significant pain with range of motion, no swelling in the joint, no streaking erythema etc to suggest a deeper space infection at this time. Patient was given Bactrim and discharged with prescription for Bactrim. She was encouraged to return if symptoms worsen or do not improve with antibiotic therapy as this could be very early onset of a more serious infection. Procedures Risk/Benefits of Procedure(s) Were Explained: Yes Critical Care Critical Care Time Critical Care Time: No
[2024-07-28] MEDS: SULFA/TRIMETHOPRIM 1 TABLET 1 EACH PO (06:58)
[2024-07-28 07:40] VITALS: BP 178/70; PULSE 66; RESP 16; TEMP 36.9; O2SAT 98
== END 2024-07-28 07:41 | disposition home or self-care (01) ==
LOC: ER 06:58
PROVIDERS: Emergency Provider Emergency Medicine
DX: M25.571 Pain in right ankle and joints of right foot (principal); L03.115 Cellulitis of right lower limb
CPT/HCPCS: 73610; 99283

== ENCOUNTER 2024-09-17 15:28 | Outpatient (CLI) | payer MEDICARE, MEDICAID, SELFPAY ==
[2024-09-17 16:04] LABS: Basophils % 0.4 % (0.1-2.0); Eosinophils # 0.1 K/mm3 (0.0-0.4); Eosinophils % 0.7 % (0.1-12.0); Hematocrit 38.5 % (37.0-47.0); Hemoglobin 12.2 g/dL (12.2-16.2); Lymphocytes # 1.6 K/mm3 (0.7-4.5); Lymphocytes % 21.6 % (10-50); Mean Corpuscular HGB Conc 31.7 g/dL (31.8-35.4); Mean Corpuscular Hemoglobin 32.2 pg (27.0-31.2); Mean Corpuscular Volume 101.6 fl (81-99); Monocytes # 0.4 K/mm3 (0.1-1.0); Neutrophils # 5.2 K/mm3 (1.8-7.8); Platelet Count 187 K/mm3 (142-424); Red Blood Count 3.79 M/mm3 (4.20-5.40); White Blood Count 7.4 K/mm3 (4.8-10.8)
[2024-09-17 16:44] LABS: Alanine Aminotransferase 27 U/L (12-78); Albumin/Globulin Ratio 1.3 (1.1-1.8); Alkaline Phosphatase 130 U/L (38-126); Aspartate Amino Transferase 38 U/L (14-36); Bilirubin,Total 0.4 mg/dl (0.2-1.3); Blood Urea Nitrogen 24 mg/dl (7-17); Calcium 10.3 mg/dl (8.4-10.2); Carbon Dioxide 30 mmol/L (22.0-30.0); Chloride 108 mmol/L (98-107); Estimated Glomerular Filt Rate 55 ml/min (>60); GFR (African American) 66 ML/MIN (>60); Globulin 3.2 g/dL (1.3-3.2); Glucose 132 mg/dl (74-100); Sodium 140 mmol/L (136-145); Total Protein,Serum 7.2 g/dl (6.3-8.2)
[2024-09-17 16:49] LABS: C-Reactive Protein 9.6 mg/L (0-4)
[2024-09-17 16:50] LABS: Hemoglobin A1C 5.7 % (4.0-6.0)
[2024-09-17 17:02] LABS: 25-OH Vitamin D, Total 42.9 ng/mL (30-100)
[2024-09-17 17:10] LABS: Creatinine,Urine Random 145 mg/dL (Not Estab.)
[2024-09-17 17:13] LABS: Microalbumin/Creatinine Ratio 16.6
[2024-09-17 17:16] LABS: Thyroid Stimulating Hormone 2.23 uIU/mL (0.465-4.68)
[2024-09-17 17:35] LABS: Vitamin B12 314 pg/mL (239-931)
== END 2024-09-17 23:59 | disposition home or self-care (01) ==
LOC: LAB 15:29
PROVIDERS: PCP Internal Medicine; Visit Provider Internal Medicine
DX: I10 Essential (primary) hypertension (principal); E78.2 Mixed hyperlipidemia; R29.898 Other symptoms and signs involving the musculoskeletal system; R53.1 Weakness; L03.115 Cellulitis of right lower limb; Z13.1 Encounter for screening for diabetes mellitus
CPT/HCPCS: 36415; 80053; 82043; 82306; 82570; 82607; 83036; 84443; 85025; 86140

== ENCOUNTER 2024-10-22 09:14 | Outpatient (CLI) | payer MEDICARE, MEDICAID, SELFPAY ==
--- NOTE | 2024-10-22 09:15 | XR_ITS ---
FINAL REPORT CLINICAL HISTORY: right foot pain FINDINGS: RIGHT FOOT 2 views of the right foot were obtained. There is no acute fracture or dislocation. There is mild hallux valgus deformity with moderate degenerative changes of the first MTP joint. Bones are osteopenic. There is mild calcaneal spurring. Mild degenerative changes are seen of the midfoot. IMPRESSION: Degenerative changes most pronounced at the first MTP joint. No acute bony abnormality. Reviewed, Interpreted and Dictated by Grace Maria MD Transcribed by Bruna Truong Authenticated and [facility]
--- NOTE | 2024-10-22 09:15 | FL_ITS ---
FINAL REPORT CLINICAL HISTORY: evaluation pain and weight loss dap 1023.21 fluoro 2.27 FINDINGS: UPPER GI EXAM HISTORY: Epigastric pain. Difficulty swallowing. PROCEDURE: The patient ingested barium. Effervescent crystals were also administered. 21 fluoroscopic films were obtained. FINDINGS: The esophagus is normal. There is no hiatal hernia. There is no gastroesophageal reflux. Esophageal dysmotility was demonstrated during the exam. The rugal fold pattern of the stomach is normal. The duodenal bulb is normal. A 13 mm barium passes through the esophagus and into the stomach without delay. Fluoro time: 2 minutes 27 seconds DAP: 1023.21 uGy.m2 IMPRESSION: Esophageal dysmotility. Otherwise, unremarkable exam. Films reviewed , interpreted and dictated by Dr. Maria. Transcribed by Rhett Mortensen PA-C. Reviewed, Interpreted and Dictated by Grace Maria MD Transcribed by DEVIN Leos Authenticated and [facility]
--- NOTE | 2024-10-22 09:15 | CT_ITS ---
FINAL REPORT CLINICAL HISTORY: lung cancer screening. SMOKER. 1PPD, FOR 53 YEARS FINDINGS: CT CHEST LOW DOSE SCREENING HISTORY: Screening exam for lung cancer. DOSE: CTDI vol: 2.90 mGy, DLP: 105.51 mGy*cm TECHNIQUE: Axial CT without IV contrast administration using low dose protocol. This study was performed with techniques to keep radiation doses as low as reasonably achievable, (ALARA). Individualized dose reduction techniques using automated exposure control or adjustment of mA and/or kV according to the patient's size were employed. No acute lung disease is present. No pulmonary lesions are seen suspicious for neoplasm. There is old calcified granulomatous disease noted. No pleural or pericardial effusion is seen. No adenopathy or mass lesion is present. IMPRESSION: No evidence of lung cancer LUNG RADS CATEGORY 1 RECOMMENDATION: 12 month LDCT follow up Reviewed, Interpreted and Dictated by Grace Maria MD Transcribed by Bruna Truong Authenticated and . [facility]
[2024-10-22] MEDS: BARIUM SULFATE (E-Z-HD 340GM);135ML BOTTLE 135 ML PO (09:40)
[2024-10-22] MEDS: BARIUM SULFATE(LIQUID E-Z-PAQUE);355ML BOTTLE 355 ML PO (09:40)
[2024-10-22] MEDS: E-Z-GASII EFFERVESCENT GRANULES;1PK 1 EACH PO (09:53)
== END 2024-10-22 23:59 | disposition home or self-care (01) ==
LOC: RAD 09:15
PROVIDERS: PCP Nurse Practitioner; Visit Provider Internal Medicine
DX: R10.13 Epigastric pain (principal); R13.10 Dysphagia, unspecified; R63.4 Abnormal weight loss; Z68.24 Body mass index [BMI] 24.0-24.9, adult; M79.671 Pain in right foot; Z87.891 Personal history of nicotine dependence
CPT/HCPCS: 71271; 73620; 74220; 74240

== ENCOUNTER 2024-12-14 07:18 | Outpatient (CLI) | payer MEDICARE, MEDICAID, SELFPAY ==
--- NOTE | 2024-12-14 07:20 | US_ITS ---
FINAL REPORT TECHNIQUE: Ultrasound images of the abdomen were obtained. CLINICAL HISTORY: ABD PAIN COMPARISON: None FINDINGS: ULTRASOUND ABDOMEN The liver is unremarkable. Spleen has a normal sonographic appearance. There is an ovoid intermediate echogenic structure along the posterior wall of the gallbladder considered to represent a sludge ball. There is no associated shadowing. The gallbladder is otherwise unremarkable. No biliary ductal dilatation is identified. The right kidney shows an exophytic 12 mm lower pole cyst. The left kidney shows moderate parenchymal atrophy. There is no hydronephrosis. Pancreas is not well visualized. IVC and aorta are grossly unremarkable. There is no obvious fluid collection. IMPRESSION: No evidence of gallstones or biliary obstruction. Moderate left renal atrophy. Reviewed, Interpreted and Dictated by Grace Maria MD Transcribed by Sandy Nuñez Authenticated and [facility]
== END 2024-12-14 23:59 | disposition home or self-care (01) ==
LOC: RAD 07:19
PROVIDERS: PCP Nurse Practitioner; Visit Provider Nurse Practitioner
DX: N26.1 Atrophy of kidney (terminal) (principal)
CPT/HCPCS: 76700

== ENCOUNTER 2024-12-20 16:52 | Emergency (ER) | payer MEDICARE, MEDICAID, SELFPAY ==
[2024-12-20] VITALS (15 sets, daily range): BP systolic 105–151; BP diastolic 31–65; PULSE 54–77; RESP 14–18; TEMP 36.6–36.8; O2SAT 90–98; BMI 29.8
--- NOTE | 2024-12-20 17:05 | ECG_ITS ---
APPROVED REPORT Exam: Resting ECG HR:62 bpm ECG Measurements Heart Rate 62 AXES AK 221 P 64 QRSd 98 QRS -38 QT 425 T 62 QTc 430 Conclusion SINUS RHYTHM WITH SINUS ARRHYTHMIA WITH FIRST DEGREE AV BLOCK LEFT AXIS DEVIATION [QRS AXIS < -30] LEFT VENTRICULAR HYPERTROPHY AND ST-T CHANGE [VOLTAGE CRITERIA PLUS ST/T ABNORMALITY] POSSIBLE ANTEROSEPTAL MYOCARDIAL INFARCTION , OF INDETERMINATE AGE [30 ms Q WAVE IN V1-V4] ABNORMAL ECG Electronically signed by : LISSET ROSALES, 12/22/2024 12:26:33
[2024-12-20 17:40] LABS: Basophils % 0.7 % (0.1-2.0); Eosinophils # 0.1 Kmm3 (0.0-0.4); Eosinophils % 1.2 % (0.1-12.0); Hemoglobin 12.9 g/dL (12.2-16.2); Immature Granulocytes # 0.02 10^3uL; Immature Granulocytes % 0.3 %; Lymphocytes # 1.8 K/mm3 (0.7-4.5); Mean Corpuscular HGB Conc 32.3 g/dL (31.8-35.4); Mean Corpuscular Hemoglobin 32.1 pg (27.0-31.2); Mean Corpuscular Volume 99.5 fl (81-99); Mean Platelet Volume 11.2 fl (7.4-10.4); Monocytes # 0.4 K/mm3 (0.1-1.0); Neutrophils # 3.7 K/mm3 (1.8-7.8); Neutrophils % 61.8 % (37.0-80.0); Nucleated Red Blood Cells # 0 10^3/uL; Nucleated Red Blood Cells % 0 %; Platelet Count 180 K/mm3 (142-424); Red Blood Count 4.02 M/mm3 (4.20-5.40); Red Cell Distribution Width 12.4 % (11.5-17.5); Red Cell Distribution Width-SD 45.4 fL
[2024-12-20 17:45] LABS: Albumin Level 4.1 g/dl (3.5-5.0); Chloride 108 mmol/L (98-107); Sodium 141 mmol/L (136-145)
[2024-12-20 17:47] LABS: Alanine Aminotransferase 19 U/L (12-78); Alkaline Phosphatase 120 U/L (38-126); Aspartate Amino Transferase 31 U/L (14-36); Bilirubin,Total 0.5 mg/dl (0.2-1.3); Blood Urea Nitrogen 22 mg/dl (7-17); Carbon Dioxide 28 mmol/L (22.0-30.0); Creatinine Clearance Estimated 40 mL/min (50-200); Estimated Glomerular Filt Rate 40 ml/min (>60); GFR (African American) 49 ML/MIN (>60)
[2024-12-20 17:48] LABS: Albumin/Globulin Ratio 1.2 (1.1-1.8); Calcium 10.5 mg/dl (8.4-10.2); Globulin 3.5 g/dL (1.3-3.2); Glucose 124 mg/dl (74-100); Lipase 126 U/L (23-300); Total Protein,Serum 7.6 g/dl (6.3-8.2)
--- NOTE | 2024-12-20 17:52 | HMH.EDGENADL ---
Discharge Plan Disposition Patient Disposition: Home, Self-Care Prescriptions Prescriptions: No Action fluticasone propionate 50 mcg/actuation spray,suspension 1 spray INTRANASAL DAILY benazepril 20 mg tablet 20 mg PO DAILY ofloxacin 0.3 % drops 10 drp otic (ear) DAILY 7 Days Qty: 10 1RF aspirin 81 mg tablet,delayed release (DR/EC) 81 mg PO DAILY biotin 10,000 mcg capsule 10,000 mcg PO .daiy 60 Days Qty: 60 3RF Xarelto 2.5 mg tablet See Rx Instructions .ROUTE .COMPLEX Qty: 180 4RF Dose Instruction: TAKE ONE TABLET BY MOUTH 2 TIMES A DAY Rx Instructions: TAKE ONE TABLET BY MOUTH 2 TIMES A DAY metoprolol succinate 50 mg tablet extended release 24 hr 50 mg PO lorazepam 2 mg tablet 2 mg PO pantoprazole 40 mg tablet,delayed release (DR/EC) PO atorvastatin 40 MG tablet 40 mg PO HS albuterol sulfate 90 mcg/actuation Hfa Aerosol Inhaler 2 puff inhalation Q6H PRN (Reason: Dyspnea) 30 Days Qty: 0 0RF cholecalciferol (vitamin D3) [Vitamin D3] 50 mcg (2,000 unit) Capsule 50 mcg PO DAILY Referrals Follow up/Referrals: eKl Jamil MD [Staff Physician, Cardiology] - See instructions Provider,Referral, [Primary Care Provider, Medical] - See instructions Activity Restrictions/Add. Instructions Additional Instructions/Restrictions: You are seen in the emergency department today with complaints of abdominal pain. 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 Recommend following up with Dr. Jamil here in [facility]. Return to the emergency room if condition worsens. Clinical Impressions Clinical Impression: Superior mesenteric artery stenosis, Abdominal pain Instructions Patient Instructions: DI for Acute Abdominal Pain Print Language Print Language: Nauruan Discharge ED Provider: Donell Tejada General Adult HPI <Inocencia Gonzales, [employer] REPRES[employer]ES - Last Filed: 12/20/24 21:32> General Chief complaint: Abdominal Pain Stated complaint: DIAH Time Seen by Provider: 12/20/24 16:59 Mode of Arrival: EMS Source of Information: Patient Description of Symptoms (Recalled from ER Triage Doc. by RN): pt is c/o epigasteric pain that is a dull ache and 8/10. pt states this started after eating a greasy lunch. pt states this is a common occurance when she eats greasy foods. History of Present Illness HPI narrative: Sandy Heller is a 69-year-old female past medical history symptom for HTN, HLD, PAD on Xarelto who presents emergency room today with complaints of epigastric pain and diarrhea. Ms. Heller states that she had some chicken fingers for lunch this afternoon. An hour or 2 later, she was unable to make it to the bathroom and was incontinent of stool. Patient reports epigastric pain that is nonradiating. Reports some diaphoresis. No tenderness to palpation. No nausea or vomiting. No other complaints at this time. Please note that the above description of symptoms, and this electronic medical record under categorization of recalled from ER triage doctor by RN are reflective of an initial nursing assessment, however, is not reflective of my full history and physical exam that was personally taken and clarified. Consequentially, this proceeding description of symptoms, which may include the patient's cauterized chief complaint in the EMR, do not reflect my personal clinical impression, and the ultimate description of the history of present illness stated complaints should be deferred to this section of this note. Unless stated otherwise were congruent with the section of the note, additional signs, symptoms, or incongruence can be interpreted as in or accurate with my clinical impression. Related Data Home Medications ?Medication ?Instructions ?Recorded ?Confirmed atorvastatin 40 mg tablet 40 mg PO HS Cholesterol 11/16/17 10/15/24 fluticasone propionate 50 1 spray intranasal DAILY Allergy 04/14/21 10/15/24 mcg/actuation nasal Symptoms spray,suspension aspirin 81 mg tablet,delayed 81 mg PO DAILY Blood Thinner 04/28/21 10/15/24 release benazepril 20 mg tablet 20 mg PO DAILY High Blood Pressure 02/02/22 10/15/24 cholecalciferol (vitamin D3) 50 50 mcg PO DAILY Supplement 03/22/23 10/15/24 mcg (2,000 unit) capsule (Vitamin D3) lorazepam 2 mg tablet 2 mg PO 10/15/24 metoprolol succinate 50 mg 50 mg PO 10/15/24 tablet,extended release 24 hr pantoprazole 40 mg tablet,delayed mg PO 10/15/24 release Previous Rx's ?Medication ?Instructions ?Recorded albuterol sulfate 90 mcg/actuation 2 puff inhalation Q6H PRN Dyspnea 03/19/23 aerosol inhaler 30 days #0 grams rivaroxaban 2.5 mg tablet (Xarelto) See Rx Instructions .Route 08/23/23 .COMPLEX #180 tabs ofloxacin 0.3 % ear drops 10 drp otic (ear) DAILY 7 days #10 09/19/24 mL biotin 10,000 mcg capsule 10,000 mcg PO .daiy 60 days #60 10/01/24 caps Allergies Allergy/AdvReac Type Severity Reaction Status Date / Time erythromycin base Allergy Severe S-BLISTERING Verified 10/15/24 14:28 WELTS tiotropium (From Spiriva Allergy Severe S-SWELLS-OR Verified 10/15/24 14:28 with HandiHaler) AL/THROAT clopidogrel (From Plavix) AdvReac Intermediate Diarrhea Verified 10/15/24 14:28 levofloxacin (From Levaquin) AdvReac Intermediate nausea and Verified 10/15/24 14:28 vomiting PFS <Inocencia Gonzales [employer]PRES[employer]ES - Last Filed: 12/20/24 21:32> [facility] Disclaimer: The information contained in this section may have been updated after the patient was seen, as this information can be updated by other users. Medical History Hx of completed stroke DVT (deep venous thrombosis) Chest pain Malignant hypertension Claudication Herpes zoster Surgical History H/O tubal ligation Social History Smoking Status: Current every day smoker tobacco type: cigarettes packs per day: 1 alcohol intake: never substance use type: denies use current occupational status: unemployed Travel in the last 8 weeks?: None household members: none housing: apartment current occupational exposures/hazards: No caffeine: Yes Have you lived/traveled outside [place] in past 30 days?: No Contact w/someone who lives/traveled outside US past 30 days?: No Exposure to someone with infectious disease in past 14 days?: No Do you have a fever (greater than 100.4 F or 38 C)?: No Have you tested positive for COVID-19?: No Exposed to someone with COVID-19 in past 14 days?: No Do you have a sore throat?: No Do you have a cough?: No Do you have any weakness?: No Do you have any diarrhea?: No Are you experiencing any unusual bleeding?: No Do you have any muscle aches/pain?: No Do you have any abdominal pain?: No Are you experiencing loss of taste or smell?: No Other Medical History Have you received the Flu Vaccine for this season: No Have you received the Pneumonia Vaccine: Yes <Inocencia Gonzales [employer]PRES[employer]ES - Last Filed: 12/20/24 21:32> ROS Obtained: Yes Systems reviewed as appropriate & no additional complaints except as documented Physical Exam <Inocencia Gonzales, [employer]PRES[employer]ES - Last Filed: 12/20/24 21:32> General General appearance: alert and in no apparent distress Head Head exam: atraumatic and normocephalic Eye Eye exam: Present PERRL and EOMI Chest Chest inspection: Present symmetric chest wall rise Respiratory Respiratory exam: Present normal lung sounds bilaterally Cardiovascular Cardiovascular exam: Present regular rate and normal rhythm Abdominal Exam Abdominal exam: Present soft and normal bowel sounds; Absent tenderness Extremities Exam Extremities exam: Present full ROM Neurological Exam Neurological exam: Present alert and oriented X3 Skin Skin exam: Present warm, dry and intact Medical Decision Making <Inocencia Gonzales [employer]PRES[employer] - Last Filed: 12/20/24 21:32> Medical Records Screening: Per USPSTF and CDC recommendations, given the prevalence of disease in our region, it is our hospital?s policy to screen for HIV and viral Hepatitis for all patients aged 18 and over and those with ongoing risk factors. Chaitanya Inquiry Pt receiving controlled substance: No Vital Signs: 12/20/24 16:59 12/20/24 17:00 12/20/24 17:03 Temperature 97.9 F Temperature Source Oral Pulse Rate 73 67 Pulse Rate [Left] 69 Respiratory Rate 14 Blood Pressure 114/53 L 114/65 Blood Pressure [Right Arm] 114/53 L Blood Pressure Mean [Right Arm] 73 Blood Pressure Source [Right Arm] Automatic Cuff Blood Pressure Position [Right Arm] Sitting 02 Sat by Pulse Oximetry 97 95 96 Oxygen Delivery Method Room Air Room Air Room Air 12/20/24 17:07 12/20/24 17:30 12/20/24 18:00 Temperature Temperature Source Pulse Rate 63 58 L 56 L Pulse Rate [Left] Respiratory Rate 18 Blood Pressure 105/52 L 105/52 L 107/51 L Blood Pressure [Right Arm] Blood Pressure Mean [Right Arm] Blood Pressure Source [Right Arm] Blood Pressure Position [Right Arm] 02 Sat by Pulse Oximetry 96 96 90 L Oxygen Delivery Method Room Air Room Air Room Air 12/20/24 18:17 12/20/24 19:01 12/20/24 19:04 Temperature Temperature Source Pulse Rate 54 L 74 64 Pulse Rate [Left] Respiratory Rate Blood Pressure 121/46 L 131/31 L 117/43 L Blood Pressure [Right Arm] Blood Pressure Mean [Right Arm] Blood Pressure Source [Right Arm] Blood Pressure Position [Right Arm] 02 Sat by Pulse Oximetry 92 L 97 97 Oxygen Delivery Method Room Air Room Air Room Air 12/20/24 19:30 12/20/24 20:00 12/20/24 20:07 Temperature Temperature Source Pulse Rate 67 74 71 Pulse Rate [Left] Respiratory Rate Blood Pressure 119/48 L 106/45 L 114/52 L Blood Pressure [Right Arm] Blood Pressure Mean [Right Arm] Blood Pressure Source [Right Arm] Blood Pressure Position [Right Arm] 02 Sat by Pulse Oximetry 96 93 L 98 Oxygen Delivery Method Room Air Room Air Room Air 12/20/24 20:31 12/20/24 21:24 12/20/24 21:48 Temperature 97.9 F 98.2 F Temperature Source Oral Pulse Rate 73 77 73 Pulse Rate [Left] Respiratory Rate 18 18 Blood Pressure 146/57 H 139/49 L 151/56 H Blood Pressure [Right Arm] Blood Pressure Mean [Right Arm] Blood Pressure Source [Right Arm] Blood Pressure Position [Right Arm] 02 Sat by Pulse Oximetry 95 Oxygen Delivery Method Room Air Room Air Room Air Lab Data Lab Results 12/20/24 17:14: WBC 6.0, RBC 4.02 L, Hgb 12.9, Hct 40.0, MCV 99.5 H, MCH 32.1 H, MCHC 32.3, RDW 12.4, Plt Count 180, MPV 11.2 H, Neut % (Auto) 61.8, Lymph % (Auto) 29.0, Gilmer % (Auto) 7.0, Eos % (Auto) 1.2, Baso % (Auto) 0.7, Neut # (Auto) 3.7, Lymph # (Auto) 1.8, Gilmer # (Auto) 0.4, Eos # (Auto) 0.1, Baso # (Auto) 0.0, Sodium 141, Potassium 4.0, Chloride 108 H, Carbon Dioxide 28, Anion Gap 9.0, BUN 22 H, Creatinine 1.30 H, Estimated Creat Clear 40, Estimated GFR 40 L, Est GFR ( Amer) 49 L, Glucose 124 H, Calcium 10.5 H, Total Bilirubin 0.5, AST 31, ALT 19, Alkaline Phosphatase 120, Troponin I < 0.01, Total Protein 7.6, Albumin 4.1, Globulin 3.5 H, Albumin/Globulin Ratio 1.2, Lipase 126 12/20/24 20:15: Troponin I < 0.01 12/20/24 17:14 12/20/24 17:14 Orders (Tests/Meds): ED MEDICATIONS Discontinued Medications Generic Name Dose Route Start Last Admin Trade Name Freq PRN Reason Stop Dose Admin Belladonna Alkaloids 60 ml 12/20/24 20:06 12/20/24 20:15 Belladonna Alkaloids 60 Ml Ml PO 12/20/24 20:07 60 ml ONCE ONE Administration Sodium Chloride 1,000 mls @ 999 mls/hr 12/20/24 18:04 12/20/24 18:16 Sod Chlor 0.9% 1000ml Bag IV 12/20/24 19:04 999 mls/hr .Q1H1M ONE Administration Iopamidol 75 ml 12/20/24 19:00 12/20/24 19:02 Iopamidol-370 (76%);100ml Bottle IV 12/20/24 19:01 75 ml ONCE ONE Administration Sodium Chloride 10 ml 12/20/24 19:00 12/20/24 19:02 Sodium Chloride 0.9% 10ml Syr (Rad Only) IV 12/20/24 19:01 10 ml ONCE ONE Administration ORDERS Category Date Time Status CT abdomen pelvis w con Stat Cat Scan 12/20/24 18:25 Completed CBC w/Auto Diff [Complete Blood Count Auto Diff] Stat Lab 12/20/24 17:14 Completed CMP [Comprehensive Metabolic Panel] Stat Lab 12/20/24 17:14 Completed Lipase Stat Lab 12/20/24 17:14 Completed Trop I [Troponin I] Stat Lab 12/20/24 17:14 Completed Troponin I Q3H Lab 12/20/24 20:15 Completed Stool Culture Stat Micro 12/20/24 17:23 Received Medical Decision Narrative: In summary patient is an 69-year-old female who presents emergency department for evaluation of epigastric pain and incontinence of diarrhea. Patient states she was unable to make it to the bathroom after eating her chicken fingers. Reporting some epigastric pain, no nausea, vomiting. No diaphoresis noted. Denies any dysuria or hematuria. Patient does, that she does have some postprandial pain occasionally. Patient is hemodynamically stable upon arrival, afebrile. Unremarkable nonfocal exam. Differential diagnosis includes cholecystitis, pancreatitis, ACS. Initial workup will be conducted with hematologic labs, stool culture and an EKG. CT scan will be deferred at this time as patient does not have any abdominal tenderness to palpation. Initial interventions included a 1L IVF bolus, and a GI cocktail. Initial workup reviewed by me CBC unremarkable. CMP showed a slightly elevated creatinine of 1.3, [address] of the abdomen pelvis shows severe stenosis of the SMA. Findings are discussed with patient and patient states that she has a an appointment scheduled with GI on 14 January. I explained to her that she likely would need to go see Dr. Jamil who would discuss placing a stent in her SMA. Upon repeat evaluation patient states she is feeling better after her GI cocktail. States she is ready to go home. Patient already on Xarelto, statin, aspirin daily. Given this patient is appropriate discharge at this time. She will be discharged to follow-up with Dr. Jamil as an outpatient. Did offer her an appointment tomorrow morning at around 11 AM. Patient states that she has family coming in and would prefer to follow-up with Dr. Jamil as an outpatient on her own time. <Donell Tejada MD - Last Filed: 12/20/24 23:49> Vital Signs: 12/20/24 16:59 12/20/24 17:00 12/20/24 17:03 Temperature 97.9 F Temperature Source Oral Pulse Rate 73 67 Pulse Rate [Left] 69 Respiratory Rate 14 Blood Pressure 114/53 L 114/65 Blood Pressure [Right Arm] 114/53 L Blood Pressure Mean [Right Arm] 73 Blood Pressure Source [Right Arm] Automatic Cuff Blood Pressure Position [Right Arm] Sitting 02 Sat by Pulse Oximetry 97 95 96 Oxygen Delivery Method Room Air Room Air Room Air 12/20/24 17:07 12/20/24 17:30 12/20/24 18:00 Temperature Temperature Source Pulse Rate 63 58 L 56 L Pulse Rate [Left] Respiratory Rate 18 Blood Pressure 105/52 L 105/52 L 107/51 L Blood Pressure [Right Arm] Blood Pressure Mean [Right Arm] Blood Pressure Source [Right Arm] Blood Pressure Position [Right Arm] 02 Sat by Pulse Oximetry 96 96 90 L Oxygen Delivery Method Room Air Room Air Room Air 12/20/24 18:17 12/20/24 19:01 12/20/24 19:04 Temperature Temperature Source Pulse Rate 54 L 74 64 Pulse Rate [Left] Respiratory Rate Blood Pressure 121/46 L 131/31 L 117/43 L Blood Pressure [Right Arm] Blood Pressure Mean [Right Arm] Blood Pressure Source [Right Arm] Blood Pressure Position [Right Arm] 02 Sat by Pulse Oximetry 92 L 97 97 Oxygen Delivery Method Room Air Room Air Room Air 12/20/24 19:30 12/20/24 20:00 12/20/24 20:07 Temperature Temperature Source Pulse Rate 67 74 71 Pulse Rate [Left] Respiratory Rate Blood Pressure 119/48 L 106/45 L 114/52 L Blood Pressure [Right Arm] Blood Pressure Mean [Right Arm] Blood Pressure Source [Right Arm] Blood Pressure Position [Right Arm] 02 Sat by Pulse Oximetry 96 93 L 98 Oxygen Delivery Method Room Air Room Air Room Air 12/20/24 20:31 12/20/24 21:24 12/20/24 21:48 Temperature 97.9 F 98.2 F Temperature Source Oral Pulse Rate 73 77 73 Pulse Rate [Left] Respiratory Rate 18 18 Blood Pressure 146/57 H 139/49 L 151/56 H Blood Pressure [Right Arm] Blood Pressure Mean [Right Arm] Blood Pressure Source [Right Arm] Blood Pressure Position [Right Arm] 02 Sat by Pulse Oximetry 95 Oxygen Delivery Method Room Air Room Air Room Air Lab Data Lab Results 12/20/24 17:14: WBC 6.0, RBC 4.02 L, Hgb 12.9, Hct 40.0, MCV 99.5 H, MCH 32.1 H, MCHC 32.3, RDW 12.4, Plt Count 180, MPV 11.2 H, Neut % (Auto) 61.8, Lymph % (Auto) 29.0, Gilmer % (Auto) 7.0, Eos % (Auto) 1.2, Baso % (Auto) 0.7, Neut # (Auto) 3.7, Lymph # (Auto) 1.8, Gilmer # (Auto) 0.4, Eos # (Auto) 0.1, Baso # (Auto) 0.0, Sodium 141, Potassium 4.0, Chloride 108 H, Carbon Dioxide 28, Anion Gap 9.0, BUN 22 H, Creatinine 1.30 H, Estimated Creat Clear 40, Estimated GFR 40 L, Est GFR ( Amer) 49 L, Glucose 124 H, Calcium 10.5 H, Total Bilirubin 0.5, AST 31, ALT 19, Alkaline Phosphatase 120, Troponin I < 0.01, Total Protein 7.6, Albumin 4.1, Globulin 3.5 H, Albumin/Globulin Ratio 1.2, Lipase 126 12/20/24 20:15: Troponin I < 0.01 Orders (Tests/Meds): ED MEDICATIONS Discontinued Medications Generic Name Dose Route Start Last Admin Trade Name Freq PRN Reason Stop Dose Admin Belladonna Alkaloids 60 ml 12/20/24 20:06 12/20/24 20:15 Belladonna Alkaloids 60 Ml Ml PO 12/20/24 20:07 60 ml ONCE ONE Administration Sodium Chloride 1,000 mls @ 999 mls/hr 12/20/24 18:04 12/20/24 18:16 Sod Chlor 0.9% 1000ml Bag IV 12/20/24 19:04 999 mls/hr .Q1H1M ONE Administration Iopamidol 75 ml 12/20/24 19:00 12/20/24 19:02 Iopamidol-370 (76%);100ml Bottle IV 12/20/24 19:01 75 ml ONCE ONE Administration Sodium Chloride 10 ml 12/20/24 19:00 12/20/24 19:02 Sodium Chloride 0.9% 10ml Syr (Rad Only) IV 12/20/24 19:01 10 ml ONCE ONE Administration ORDERS Category Date Time Status CT abdomen pelvis w con Stat Cat Scan 12/20/24 18:25 Completed CBC w/Auto Diff [Complete Blood Count Auto Diff] Stat Lab 12/20/24 17:14 Completed CMP [Comprehensive Metabolic Panel] Stat Lab 12/20/24 17:14 Completed Lipase Stat Lab 12/20/24 17:14 Completed Trop I [Troponin I] Stat Lab 12/20/24 17:14 Completed Troponin I Q3H Lab 12/20/24 20:15 Completed Stool Culture Stat Micro 12/20/24 17:23 Received ECG Data Tracing #1: I reviewed this ECG and interpreted as documented below: Sinus rhythm with sinus arrhythmia at a rate of 62, QTc 430, normal axis, no STEMI Medical Decision Narrative: In summary patient is an 69-year-old female who presents emergency department for evaluation of epigastric pain and incontinence of diarrhea. Patient states she was unable to make it to the bathroom after eating her chicken fingers. Reporting some epigastric pain, no nausea, vomiting. No diaphoresis noted. Denies any dysuria or hematuria. Patient does, that she does have some postprandial pain occasionally. Patient is hemodynamically stable upon arrival, afebrile. Unremarkable nonfocal exam. Differential diagnosis includes cholecystitis, pancreatitis, ACS. Initial workup will be conducted with hematologic labs, stool culture and an EKG. CT scan will be deferred at this time as patient does not have any abdominal tenderness to palpation. Initial interventions included a 1L IVF bolus, and a GI cocktail. Initial workup reviewed by me CBC unremarkable. CMP showed a slightly elevated creatinine of 1.3, [address] of the abdomen pelvis shows severe stenosis of the SMA. Findings are discussed with patient and patient states that she has a an appointment scheduled with GI on 14 January. I explained to her that she likely would need to go see Dr. Jamil who would discuss placing a stent in her SMA. Upon repeat evaluation patient states she is feeling better after her GI cocktail. States she is ready to go home. Patient already on Xarelto, statin, aspirin daily. Given this patient is appropriate discharge at this time. She will be discharged to follow-up with Dr. Jamil as an outpatient. Did offer her an appointment tomorrow morning at around 11 AM. Patient states that she has family coming in and would prefer to follow-up with Dr. Jamil as an outpatient on her own time. SHANNON attestation I was consulted by the SHANNON, and we discussed the complexity of problems being addressed. I approved the treatment and management plan for this patient's care in the emergency department, thus performing a substantial portion of the medical decision making. I also personally evaluated the patient at bedside. She had mild epigastric discomfort, nonsurgical abdomen on my exam. Laboratory workup was nonactionable. CT abdomen pelvis was independently interpreted by me, revealing of no acute intra-abdominal pathology, however radiology report notes severe stenosis of the SMA. Patient then disclosed that she was having some postprandial pain. She was refusing oral intake in the emergency department however stated that she wished to be discharged. She was offered cardiology follow-up who performs SMA stenting as described above, however the patient stated that she was busy at this time tomorrow. Was ultimately discharged in stable condition. Donell Tejada MD Critical Care <Inocencia Gonzales, [employer] - Last Filed: 12/20/24 21:32> Critical Care Time Critical Care Time: No
[2024-12-20 18:06] LABS: Troponin I < 0.01 ng/ml (0.00-0.034)
[2024-12-20] MEDS: 0.9 % SODIUM CHLORIDE 1000ML 1,000 ML 999 ML IV (18:16)
--- NOTE | 2024-12-20 18:25 | CT_ITS ---
PROCEDURE INFORMATION: Exam: CT Abdomen And Pelvis With Contrast Exam date and time: 12/20/2024 6:50 PM Age: 69 years old Clinical indication: Abdominal pain; Additional info: Abd pain TECHNIQUE: Imaging protocol: Computed tomography of the abdomen and pelvis with contrast. Radiation optimization: All CT scans at this facility use at least one of these dose optimization techniques: automated exposure control; mA and/or kV adjustment per patient size (includes targeted exams where dose is matched to clinical indication); or iterative reconstruction. Contrast material: ISOVUE; Contrast volume: 75 ml; Contrast route: IV; COMPARISON: CT ABDOMEN PELVIS W CON 06/30/2024 1:22 PM FINDINGS: Lungs: Dependent bilateral lung base opacities favor atelectasis. Liver: Normal. No mass. Gallbladder and biliary ducts: Normal. No calcified stones. No ductal dilation. Pancreas: Normal. No ductal dilation. Spleen: Normal. No splenomegaly. Adrenal glands: Normal. No mass. 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 Multiple right renal Bosniak 1 cystic lesions having homogeneous and fluid density (-9-20 HU), no septations or calcifications, having moore smooth and thin. Largest measures 1.1 cm. No follow-up recommended. Stomach and bowel: Unremarkable. No obstruction. No mucosal thickening. Appendix: No evidence of appendicitis. Intraperitoneal space: Unremarkable. No free air. No significant fluid collection. Vasculature: Moderate calcific atherosclerotic disease of the abdominal aorta without aneurysmal dilatation is present. 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 Lymph nodes: Unremarkable. No enlarged lymph nodes. Urinary bladder: Unremarkable as visualized. Reproductive: Unremarkable as visualized. Bones/joints: Stenting of the left common iliac which remains opacified with contrast. Moderate loss of intervertebral disc space with degenerative changes involving L2 through L5. Soft tissues: Normal. 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 COMMENTS: Consistent with the [employer]'s Incidental Findings Committee white paper (J Am Dorcas Radiol 2018): Any incidental renal lesion less than 1 cm or classified as too small to characterize, or any incidental cystic renal lesion characterized as simple-appearing, is likely benign. No follow-up imaging is recommended for these lesions per consensus recommendations based on imaging criteria.
[2024-12-20] MEDS: IOPAMIDOL-370 (76%);100ML BOTTLE 75 ML IV (19:02)
[2024-12-20] MEDS: SODIUM CHLORIDE 0.9% 10ML SYR (RAD ONLY) 10 ML IV (19:02)
[2024-12-20] MEDS: BELLADONNA ALKALOIDS 60 ML ML PO (20:15)
--- NOTE | 2024-12-20 20:30 | PC.NURSE ---
PO challenge started. Pt was reluctant. Educated PT the benefit. Pt stated she has a GI doctor appointment coming up to figure out why the same complaint today has been ongoing for a month.
--- NOTE | 2024-12-20 20:41 | PC.NURSE ---
Pt decling to complete PO challenge. PT hasnt had any attemps of N/V just states that she isnt hungry. Provider notified.
[2024-12-20 21:03] LABS: Troponin I < 0.01 ng/ml (0.00-0.034)
== END 2024-12-20 21:47 | disposition home or self-care (01) ==
PROVIDERS: Nurse Practitioner Acute Care; Emergency Provider Student in an Organized Health Care Education/Training Program
DX: R10.0 Acute abdomen (principal); F17.210 Nicotine dependence, cigarettes, uncomplicated; I10 Essential (primary) hypertension; Z86.73 Personal history of transient ischemic attack (TIA), and cerebral infarction without residual deficits
CPT/HCPCS: 36415; 74177; 80053; 83690; 84484; 85025; 87045; 93005; 96360; 99285; J7030; Q9967

== ENCOUNTER 2025-01-09 13:16 | Outpatient (CLI) | payer MEDICARE, MEDICAID, SELFPAY ==
--- NOTE | 2025-01-09 | CA_ITS ---
APPROVED REPORT Exam: Pharmacologic Technologist: Lakia Funez Ht: 5 ft 0 in Wt: 134 lbs BSA: 1.57 m2 Medical History Medications: albuterol, aspirin, benazepril, biotin, vitamin D3, flonase, lorazepam, metoprolol succinate er, ofloxacin 0.3%, pantoprazole, xarelto. Stress Test Details Test: Lexiscan Reason for pharmacologic stress test: physical limitation. HR Resting HR: 58 bpm Max Heart Rate (APMHR): 150 bpm Max HR Achieved: 83 bpm Target HR (85% APMHR): 128 bpm % of APMHR: 55 Recovery HR: 78 bpm BP Resting BP: 184.0/57.0 mmHg Max BP: 184.0/57.0 mmHg Recovery BP: 175.0/72.0 mmHg ECG Resting ECG: SB Stress ECG Conclusion Symptoms: SOB and dizziness with Lexiscan. Arrhythmias/Ectopy: None. ST-T Changes: unremarkable with Lexiscan. Electronically signed by : Mandi Silva MD 01/11/2025 15:38:40
--- NOTE | 2025-01-09 13:00 | NM_ITS ---
APPROVED REPORT Exam: Nuclear Stress Test Indication: Chest pain, HTN, High cholesterol, Tobacco use, Family history, CAD Patient Location: Outpatient Stress Tech: Lakia Garcia NM Tech:Dea Thompson, ARRT, RT (R)(N) Ht: 4 ft 9 in Wt: 134 lbs Bra Size: 40C HR: 55 bpm BP: 124/54 mmHg BSA: 1.52 m2 TID: 0.69 BMI: 28.9 Procedure: Patient received 0.4 mg of intravenous Lexiscan, resting heart rate 55 bpm, resting blood pressure 124/54 mmHg, with Lexiscan maximum heart rate achieved was 89 bpm which is % of the maximum predicted heart rate and blood pressure was 100/40 mmHg. With Lexiscan, patient denied any complaint of chest pain. Cardiac Stress and Resting SPECT Images: Cardiac Stress and Resting SPECT images were obtained using technetium 99m Myoview 32.4 mCi stress and 9.78 mCi at rest. Resting and stress imaging in supine position demonstrate no evidence of fixed or reversible perfusion defects. Gated imaging demonstrates normal global and regional LV systolic function. LVEF is calculated at 71%. Conclusion: No evidence of fixed or reversible perfusion defects. Gated imaging demonstrates normal global and regional LV systolic function. LVEF is calculated at 71%. Electronically signed by : Mandi Silva MD 01/24/2025 12:32:36
--- OUTSIDE RECORDS SUMMARY | 2025-01-09 13:24 | XMS_ITS | Clinical Summary ---
Author Organization Healthcare Address [address] [place] [address] Care Team Providers Care Supervisor Histology Name Role Phone Unavailable Primary Care Provider Unavailabl e Family History Medical History Relation Name Comments Cardiac disorder Other 1 Stroke Other 2 Hypertension Other 3 Other cancer Other 4 Relation Name Status Comments Other 1 Other 2 Other 3 Other 4 Social History Tobacco Use Types Packs/Day Years Used Date Smoking Tobacco: Every Day Comments Unknown Sex and Gender Information Value Date Recorded Sex Assigned at Not on file Legal Sex Female 7:49 PM EDT Gender Identity Not on file Sexual Orientation Not on file Plan of Treatment Health Maintenance Due Date Last Done Comments UKY-Bone Density Scan 1955 UKY-Depression Screening 1955 [facility]Y-Hepatitis C Screening 1955 UKY-Medicare Annual Wellness (AWV) 1955 UKY-Infant/Child/Adol SDOH Screenings 1955 UKY- SDOH Screenings 1972 UKY-Adult SDOH Screenings 1972 UKY-DTaP,Tdap,and Td Vaccine s (1 - Tdap) 1973 CT Colonography 1999 Colonoscopy 1999 FIT-DNA 1999 FIT 1999 FOBT 1999 Sigmoidoscopy 1999 UKY-Colorectal Cancer Screening 1999 UKY-Breast Cancer Screening 2004 UKY-Pneumococcal Vaccine: 50 + Years (1 of 1 - PCV) 2004 UKY-Zoster Vaccines (1 of 2) 2004 [id number] Vaccine (2 - season) 2024 07/15/2021 UKY-Influenza Vaccine (Seaso n Ended) 2025 05/20/2020, 04/26/2016 UKY-RSV Vaccine: 60+ Years o r (1 - 1-dose 75+ series) 2029 HPV Vaccines Aged Out No longer eligi ble based on patient's age to complete this topic UKY-HIB Vaccines Aged Out No longer e ligible based on patient's age to complete this topic UKY-Hepatitis A Vaccines Aged Out No longer eligible based on patient's age to complete this topic UKY-IPV Vaccines Aged Out No longer e ligible based on patient's age to complete this topic UKY-Rotavirus Vaccines Aged Out No lo nger eligible based on patient's age to complete this topic Insurance DR MCKEON, RADHA [id number] [facility] MEDICARE
--- OUTSIDE RECORDS SUMMARY | 2025-01-09 13:24 | XMS_ITS ---
Author Organization [facility] Care Team Providers Care Radiologic Technologist Chief Name Role Phone Juan Pablo Emerson Unavailable Unavailable Allergies and adverse reactions Code CodeSystem Substance Reaction Severity StartDate Concern Status 42020 RXNORM Tiotropium Severe 03/24/2023 active 66850 RXNORM levoFLOXacin Moderate 03/24/2023 active 4053 RXNORM Erythromycin Severe 03/24/2023 active 77479 RXNORM Clopidogrel Moderate 03/24/2023 active Care Team Name Role Address Phone Organization Dates Juan Pablo Emerson PCP [address] [place], [address], [facility] (Office): : [facility] 04/13/2023 - 04/19/2023 Immunizations Immunization Status Vaccine Details Vaccine Code CodeSystem Date Notes Influenza completed Influenza, high-dose, split virus, quadrivalent, injectable, preservative free 197 CVX created date: 03/30/2023 administer ed date: 05/20/2022 per resident @ [facility] TB 1 Step Mantoux (PPD) completed tuberculin skin test; unspecified formulation lotNumber: [id number] Mfg: PAR Given 0.1 ml Left Forearm intradermally 98 CVX created date: 04/14/2023 consent date: 04/14/2023 administer ed date: 04/14/2023 Educated by Effie Segovia RN on 04/13/2023 TB 1 Step Mantoux (PPD) completed tuberculin skin test; unspecified formulation lotNumber: [id number] expiry: 11/23/2023 Given 0.1 ml Left Forearm intradermally 98 CVX created date: 03/31/2023 consent date: 03/31/2023 administer ed date: 03/31/2023 Educated by Aurora Thompson on 03/31/2023 TB 1 Step Mantoux (PPD) completed tuberculin skin test; unspecified formulation lotNumber: [id number] expiry: 04/23/2024 Mfg: Par RawFlow Given 0.1 ml Left Forearm intradermally 98 CVX created date: 03/25/2023 consent date: 03/24/2023 administer ed date: 03/25/2023 SARS-COV-2 (COVID-19) completed SARS-COV-2 (COVID-19) vaccine, mRNA, spike protein, LNP, preservative free, 50 mcg/0.5 mL dose Step 1 of Multi-step with next step required 221 CVX created date: 03/30/2023 administer ed date: 07/15/2021 Did not receive 2nd step r/t the health department was out of them per resident Mental Status Section Date Assessment Total Score Description 04/19/2023 BIMS 13 cognitively int act CAM 0 No delirium ind icated PHQ-9 12 moderate depres juliann 04/07/2023 BIMS 15 cognitively int act CAM 0 No delirium ind icated PHQ-9 02 minimal depress ion Problems Problem # Description Date of onset Resolved Date Code CodeSystem Concern Status 1 ANXIETY DISORDER, UNSPECIFIED 03/24/[address] active 2 DIFFICULTY IN WALKING, NOT ELSEWHERE CLASSIFIED 03/24/[address] active 3 ESSENTIAL (PRIMARY) HYPERTENSION 03/24/[address] active 4 HEMIPLEGIA AND HEMIPARESIS FOLLOWING CEREBRAL INFARCTION AFFECTING RIGHT DOMINANT SIDE 03/24/[address] active 5 HYPERLIPIDEMIA, UNSPECIFIED 03/24/[address] active 6 PERIPHERAL VASCULAR DISEASE, UNSPECIFIED 03/24/[address] active 7 PERSONAL HISTORY OF OTHER VENOUS THROMBOSIS AND EMBOLISM 03/24/[address] active 8 REPEATED FALLS 03/24/[address] ac tive 9 RESPIRATORY DISORDERS IN DISEASES CLASSIFIED ELSEWHERE 03/24/[address] active 10 TOBACCO USE 03/24/2023 Z72.0 ICD-10-CM active 11 UNSTEADINESS ON FEET 03/24/[address] active 12 ZOSTER WITHOUT COMPLICATIONS 03/24/[address] active Reason for Referral No Reasons for Referral Entered Social History Social History Observation Description Start Date End Date Code Code System Current Smoking Status Tobacco smoking consumption unknown 285437996 SNOMED CT Sex Assigned At Female 1955 51996-5 [facility] Gender Identity Female [id number] [address] Vital Signs Code Code System Vitals Name Values and Units Timing Information 97143-7 [facility] Pain Level Value=0.0 04/19/2023 8462-4 [facility] Blood Pressure-Diastolic Value=46 Un its=mmHg 04/16/2023 8480-6 [facility] Blood Pressure-Systolic Rcjss=950 Un its=mmHg 04/16/2023 8310-5 [facility] Body Temperature Value=98.2 Units= F 04/16/2023 98905-5 [facility] Weight Lwzje=734.6 Units=Lbs 9279-1 [facility] Respiratory Rate Value=18.0 Units=/m in 04/15/2023 8867-4 [facility] Heart rate Value=70.0 Units=/min 55954-7 [facility] O2 % BldC Oximetry Value=96.0 Units= % 04/15/2023 8302-2 [facility] Height Value=60.0 Units=Inches 03/24/2023
[2025-01-09] MEDS: SODIUM CHLORIDE 0.9% 10ML SYR (RAD ONLY) 10 ML IV ×2 (15:40)
[2025-01-09] MEDS: REGADENOSON 0.4MG/5ML SYRINGE 0.4 MG IV (15:40)
[2025-01-09] MEDS: ISOTOPE MYOVIEW (PER STUDY) 1 DOSE IV (15:40)
== END 2025-01-09 23:59 | disposition home or self-care (01) ==
LOC: RAD 13:17
PROVIDERS: PCP Nurse Practitioner Family; Visit Provider Nurse Practitioner Family
DX: I25.10 Atherosclerotic heart disease of native coronary artery without angina pectoris (principal); E78.00 Pure hypercholesterolemia, unspecified; I10 Essential (primary) hypertension; R10.13 Epigastric pain; R94.31 Abnormal electrocardiogram [ECG] [EKG]; Z72.0 Tobacco use
CPT/HCPCS: 78452; 93017; 93018; A9502; J2785

== ENCOUNTER 2025-01-11 13:13 | Outpatient (CLI) | payer MEDICARE, MEDICAID, SELFPAY ==
--- NOTE | 2025-01-11 13:00 | CA_ITS ---
APPROVED REPORT EXAM: Comprehensive 2D, Doppler, and color-flow Echocardiogram Sugar Cane Farm Manager: Eladia Cohen RDCS Ht: 5 ft 0 in Wt: 134lbs BSA: 1.57 BP: 173/90 mmHg Indications: CP M-Mode Dimensions RVDd 1.71 cm (0.9-2.6) LA Diam 4.00 cm (1.9-4.0) LVDd 5.02 cm (3.5-5.7) LVDs 3.61 cm (3.5-5.7) IVSd 0.72 cm (0.6-1.1) PWd 0.76 cm (0.6-1.1) EF (Teich) 54.10% FS 28.10% EDV (Teich) 119.30 mL TAPSE 1.64 (<1.7) ESV (Teich) 54.80 mL LV Diastology E Decel Time 327 (160-240 msec) E/A Ratio 0.8 Mitral Valve MV E Max Felipe. 56.0 (40-130 cm/s) MV A Velocity 69.0 (40-130 cm/s) E/A Ratio 0.81 MV PHT 96.0 ms Tricuspid Valve TR P. Velocity 288.00 cm/s RAP Estimate 10.00 mmHg RVSP 43.10 mmHg Left Ventricle The left ventricle is normal size. The left ventricular systolic function is normal. The left ventricular ejection fraction is within the normal range. Proximal septal thickening is present. There is normal LV segmental wall motion. The left ventricular diastolic function is normal. LVEF is 60%. Right Ventricle The right ventricle is normal size. The right ventricular systolic function is normal. Atria The left atrium is mildly dilated. The right atrium is mildly dilated. There is no Doppler evidence of interatrial shunt. Aortic Valve The aortic valve is mildly thickened. There is no aortic valvular stenosis. No aortic regurgitation is present. Mitral Valve The mitral valve is normal in structure. No evidence of mitral valve stenosis. Trace mitral regurgitation. Tricuspid Valve Tricuspid valve is grossly normal in structure and function. Trace tricuspid regurgitation. There is insufficient TR jet to estimate RVSP. Pulmonic Valve The pulmonary valve is normal in structure. Trace pulmonic regurgitation. Great Vessels The aortic root is normal in size. IVC is normal in size and collapses >50% with inspiration. Pericardium There is no pericardial effusion. Other Information Study Quality: Fair Conclusion Normal biventricular systolic function. Mild biatrial dilation. No significant valvular stenosis or regurgitation. Electronically signed by : Mandi Silva MD 01/15/2025 12:07:04
--- OUTSIDE RECORDS SUMMARY | 2025-01-11 13:15 | XMS_ITS | Clinical Summary ---
Author Organization Healthcare Address [address] [place] [address] Care Team Providers Care Document Management Technician Name Role Phone Unavailable Primary Care Provider [...] 2004 UKY-Zoster Vaccines (1 of 2) 2004 [id number] Vaccine (2 - season) 2024 07/15/2021 UKY-Influenza [...] complete this topic Insurance DR MCKEON, RADHA [id number] [facility] MEDICARE
--- OUTSIDE RECORDS SUMMARY | 2025-01-11 13:15 | XMS_ITS ---
Author Organization [facility] Care Team Providers Care Proofer Black And White Name Role Phone Juan Pablo Emerson Unavailable Unavailable Allergies and adverse reactions Code CodeSystem Substance Reaction Severity StartDate Concern Status 41739 RXNORM Tiotropium Severe 03/24/2023 active 11908 RXNORM levoFLOXacin Moderate 03/24/2023 active 4053 RXNORM Erythromycin Severe 03/24/2023 active 97783 RXNORM Clopidogrel Moderate 03/24/2023 active Care Team Name Role Address Phone Organization Dates Juan Pablo Emerson PCP [address] [place], [address], [facility] (Office): : [facility] 04/13/2023 - 04/19/2023 Immunizations Immunization Status Vaccine Details Vaccine Code CodeSystem Date Notes Influenza completed Influenza, high-dose, split virus, quadrivalent, injectable, preservative free 197 CVX created date: 03/30/2023 administer ed date: 05/20/2022 per resident @ [facility] TB 1 Step Mantoux (PPD) completed tuberculin skin test; unspecified formulation lotNumber: [id number] Mfg: PAR Given 0.1 ml Left Forearm intradermally 98 CVX created date: 04/14/2023 consent date: 04/14/2023 administer ed date: 04/14/2023 Educated by Effie Segovia RN on 04/13/2023 TB 1 Step Mantoux (PPD) completed tuberculin skin test; unspecified formulation lotNumber: [id number] expiry: 11/23/2023 Given 0.1 ml Left Forearm intradermally 98 CVX created date: 03/31/2023 consent date: 03/31/2023 administer ed date: 03/31/2023 Educated by Aurora Thompson on 03/31/2023 TB 1 Step Mantoux (PPD) completed tuberculin skin test; unspecified formulation lotNumber: [id number] expiry: 04/23/2024 Mfg: Par [employer] Given 0.1 ml Left Forearm intradermally 98 [...] Concern Status 1 ANXIETY DISORDER, UNSPECIFIED 03/24/[address] active 2 DIFFICULTY IN WALKING, NOT ELSEWHERE CLASSIFIED 03/24/[address] active 3 ESSENTIAL (PRIMARY) HYPERTENSION 03/24/[address] active 4 HEMIPLEGIA AND HEMIPARESIS FOLLOWING CEREBRAL INFARCTION AFFECTING RIGHT DOMINANT SIDE 03/24/[address] active 5 HYPERLIPIDEMIA, UNSPECIFIED 03/24/[address] active 6 PERIPHERAL VASCULAR DISEASE, UNSPECIFIED 03/24/[address] active 7 PERSONAL HISTORY OF OTHER VENOUS THROMBOSIS AND EMBOLISM 03/24/[address] active 8 REPEATED FALLS 03/24/[address] ac tive 9 RESPIRATORY DISORDERS IN DISEASES CLASSIFIED ELSEWHERE 03/24/[address] active 10 TOBACCO USE 03/24/2023 Z72.0 ICD-10-CM active 11 UNSTEADINESS ON FEET 03/24/[address] active 12 ZOSTER WITHOUT COMPLICATIONS 03/24/[address] active Reason for Referral No Reasons for Referral Entered Social History Social History Observation Description Start Date End Date Code Code System Current Smoking Status Tobacco smoking consumption unknown 650707123 SNOMED CT Sex Assigned At Female 1955 23245-9 [facility] Gender Identity Female [id number] [address] Vital Signs Code Code System Vitals Name Values and Units Timing Information 10429-4 [facility] Pain Level Value=0.0 04/19/2023 8462-4 [facility] Blood Pressure-Diastolic Value=46 Un its=mmHg 04/16/2023 8480-6 [facility] Blood Pressure-Systolic Ilmdn=248 Un its=mmHg 04/16/2023 8310-5 [facility] Body Temperature Value=98.2 Units= F 04/16/2023 52649-4 [facility] Weight Hglna=093.6 Units=Lbs 9279-1 [facility] Respiratory Rate Value=18.0 Units=/m in 04/15/2023 8867-4 [facility] Heart rate Value=70.0 Units=/min 29081-8 [facility] O2 % BldC Oximetry Value=96.0 Units= % 04/15/2023 8302-2 [facility] Height Value=60.0 Units=Inches 03/24/2023
--- NOTE | 2025-01-11 13:45 | CA_ITS ---
FINAL REPORT CLINICAL HISTORY: RCEA, Bruit, HTN FINDINGS: The peak systolic velocity of the right common carotid artery is 83 cm/s. The peak systolic velocity of the right internal carotid artery is 195 cm/s and end diastolic velocity 41 cm/s. The ICA/CCA ratio is 2.3. A mild to moderate amount of plaque is present. The right external carotid artery is patent. The right vertebral artery is patent with antegrade flow. The peak systolic velocity of the left common carotid artery is 63 cm/s. The peak systolic velocity of the left internal carotid artery is 120 cm/s and end diastolic velocity 19 cm/s. The ICA/CCA ratio is 1.9. A mild amount of plaque is present. The left external carotid artery is patent.The left vertebral artery is patent with antegrade flow. IMPRESSION: 50 to 69% right carotid stenosis. Less than 50% left carotid stenosis. Bilateral patent vertebral arteries with antegrade flow. If indicated, CTA or MRA could further evaluate. Reviewed, Interpreted and Dictated by Ada Waddell MD Transcribed by Calli Joiner Authenticated and [facility]
== END 2025-01-11 23:59 | disposition home or self-care (01) ==
LOC: RT 13:14
PROVIDERS: PCP Nurse Practitioner; Visit Provider Nurse Practitioner Family
DX: I65.23 Occlusion and stenosis of bilateral carotid arteries (principal); I51.7 Cardiomegaly; R94.31 Abnormal electrocardiogram [ECG] [EKG]; R10.13 Epigastric pain
CPT/HCPCS: 93306; 93880

== ENCOUNTER 2025-01-23 12:47 | Outpatient (CLI) | payer MEDICARE, MEDICAID, SELFPAY ==
--- NOTE | 2025-01-23 | CA_ITS ---
APPROVED REPORT Exam: Pharmacologic Technologist: Lakia Garcia Ht: 5 ft 0 in Wt: 134 lbs BSA: 1.57 m2 HR: 55 bpm BP: 124/54 mmHg Stress Test Details HR Resting HR: 55 bpm Max Heart Rate (APMHR): 150.219791 bpm Max HR Achieved: 77 bpm Target HR (85% APMHR): 127.721922 bpm % of APMHR: 51.33 BP Resting BP: 124.0/54.0 mmHg Recovery BP: 83.0/39.0 mmHg ECG Clinical Reason for Termination: Completed protocol Stress ECG Conclusion Symptoms - SOA Arrhythmias - PVC ST-T changes - EKG nondiagnostic Mary Electronically signed by : Mandi Silva MD 01/24/2025 12:36:53
--- OUTSIDE RECORDS SUMMARY | 2025-01-23 12:49 | XMS_ITS ---
Author Organization [facility] Care Team Providers Care Wafer Abrading Machine Tender Name Role Phone Juan Pablo Emerson Unavailable Unavailable Allergies and adverse reactions Code CodeSystem Substance Reaction Severity StartDate Concern Status 15734 RXNORM Tiotropium Severe 03/24/2023 active 43762 RXNORM levoFLOXacin Moderate 03/24/2023 active 4053 RXNORM Erythromycin Severe 03/24/2023 active 24977 RXNORM Clopidogrel Moderate 03/24/2023 active Care Team Name Role Address Phone Organization Dates Juan Pablo Emerson PCP [address] [place], [address], [facility] (Office): : [facility] 04/13/2023 - 04/19/2023 Immunizations Immunization Status Vaccine Details Vaccine Code CodeSystem Date Notes Influenza completed Influenza, high-dose, split virus, quadrivalent, injectable, preservative free 197 CVX created date: 03/30/2023 administer ed date: 05/20/2022 per resident @ [facility] TB 1 Step Mantoux (PPD) completed tuberculin skin test; unspecified formulation lotNumber: [id number] Mfg: PAR Given 0.1 ml Left Forearm intradermally 98 CVX created date: 04/14/2023 consent date: 04/14/2023 administer ed date: 04/14/2023 Educated by Effie Segovia RN on 04/13/2023 TB 1 Step Mantoux (PPD) completed tuberculin skin test; unspecified formulation lotNumber: [id number] expiry: 11/23/2023 Given 0.1 ml Left Forearm intradermally 98 CVX created date: 03/31/2023 consent date: 03/31/2023 administer ed date: 03/31/2023 Educated by Aurora Thompson on 03/31/2023 TB 1 Step Mantoux (PPD) completed tuberculin skin test; unspecified formulation lotNumber: [id number] expiry: 04/23/2024 Mfg: Par Tendril Given 0.1 ml Left Forearm intradermally 98 [...] Concern Status 1 ANXIETY DISORDER, UNSPECIFIED 03/24/[address] active 2 DIFFICULTY IN WALKING, NOT ELSEWHERE CLASSIFIED 03/24/[address] active 3 ESSENTIAL (PRIMARY) HYPERTENSION 03/24/[address] active 4 HEMIPLEGIA AND HEMIPARESIS FOLLOWING CEREBRAL INFARCTION AFFECTING RIGHT DOMINANT SIDE 03/24/[address] active 5 HYPERLIPIDEMIA, UNSPECIFIED 03/24/[address] active 6 PERIPHERAL VASCULAR DISEASE, UNSPECIFIED 03/24/[address] active 7 PERSONAL HISTORY OF OTHER VENOUS THROMBOSIS AND EMBOLISM 03/24/[address] active 8 REPEATED FALLS 03/24/[address] ac tive 9 RESPIRATORY DISORDERS IN DISEASES CLASSIFIED ELSEWHERE 03/24/[address] active 10 TOBACCO USE 03/24/2023 Z72.0 ICD-10-CM active 11 UNSTEADINESS ON FEET 03/24/[address] active 12 ZOSTER WITHOUT COMPLICATIONS 03/24/[address] active Reason for Referral No Reasons for Referral Entered Social History Social History Observation Description Start Date End Date Code Code System Current Smoking Status Tobacco smoking consumption unknown 421164372 SNOMED CT Sex Assigned At Female 1955 85785-4 [facility] Gender Identity Female [id number] [address] Vital Signs Code Code System Vitals Name Values and Units Timing Information 88015-3 [facility] Pain Level Value=0.0 04/19/2023 8462-4 [facility] Blood Pressure-Diastolic Value=46 Un its=mmHg 04/16/2023 8480-6 [facility] Blood Pressure-Systolic Tkixj=390 Un its=mmHg 04/16/2023 8310-5 [facility] Body Temperature Value=98.2 Units= F 04/16/2023 14895-7 [facility] Weight Yqrox=125.6 Units=Lbs 9279-1 [facility] Respiratory Rate Value=18.0 Units=/m in 04/15/2023 8867-4 [facility] Heart rate Value=70.0 Units=/min 56693-7 [facility] O2 % BldC Oximetry Value=96.0 Units= % 04/15/2023 8302-2 [facility] Height Value=60.0 Units=Inches 03/24/2023
--- OUTSIDE RECORDS SUMMARY | 2025-01-23 12:49 | XMS_ITS | Clinical Summary ---
Author Organization Healthcare Address [address] [place] [address] Care Team Providers Care Appeals Specialist Name Role Phone Unavailable Primary Care Provider [...] 2004 UKY-Zoster Vaccines (1 of 2) 2004 [id number] Vaccine (2 - season) 2024 07/15/2021 [facility]Y-Influenza [...] complete this topic Insurance DR MCKEON, RADHA [id number] [facility] MEDIC[facility]
[2025-01-23] MEDS: SODIUM CHLORIDE 0.9% 10ML SYR (RAD ONLY) 10 ML IV (13:15)
== END 2025-01-23 23:59 | disposition home or self-care (01) ==
LOC: RAD 12:47
PROVIDERS: PCP Nurse Practitioner; Visit Provider Nurse Practitioner Family
DX: I49.3 Ventricular premature depolarization (principal); R94.31 Abnormal electrocardiogram [ECG] [EKG]; R10.13 Epigastric pain
CPT/HCPCS: 93016; 93017; 93018; J2785

== ENCOUNTER 2025-03-22 08:48 | Emergency (ER) | payer MEDICARE, MEDICAID, SELFPAY ==
[2025-03-22] VITALS (9 sets, daily range): BP systolic 128–201; BP diastolic 51–74; PULSE 50–52; RESP 14–21; TEMP 36.9; O2SAT 98–99; BMI 32.4
--- NOTE | 2025-03-22 08:46 | ECG_ITS ---
APPROVED REPORT Exam: Resting ECG HR:50 bpm ECG Measurements Heart Rate 50 AXES CA 249 P 73 QRSd 116 QRS -26 QT 441 T 56 QTc 414 Conclusion SINUS BRADYCARDIA WITH SINUS ARRHYTHMIA WITH FIRST DEGREE AV BLOCK SEPTAL MYOCARDIAL INFARCTION , PROBABLY OLD [40+ ms Q WAVE IN V1/V2] ABNORMAL ECG UNCONFIRMED REPORT Electronically signed by : CHELO DUKE, 03/25/2025 05:06:24
--- NOTE | 2025-03-22 08:56 | PC.NURSE ---
er at bedside
--- NOTE | 2025-03-22 09:04 | ED_ITS ---
Discharge Plan Disposition Patient Disposition: Home, Self-Care Condition: Good Prescriptions Prescriptions: No Action fluticasone propionate 50 mcg/actuation spray,suspension 1 spray INTRANASAL DAILY benazepril 20 mg tablet 20 mg PO DAILY ofloxacin 0.3 % drops 10 drp otic (ear) DAILY 7 Days Qty: 10 1RF aspirin 81 mg tablet,delayed release (DR/EC) 81 mg PO DAILY biotin 10,000 mcg capsule 10,000 mcg PO .daiy 60 Days Qty: 60 3RF Xarelto 2.5 mg tablet See Rx Instructions .ROUTE .COMPLEX Qty: 180 4RF Dose Instruction: TAKE ONE TABLET BY MOUTH 2 TIMES A DAY Rx Instructions: TAKE ONE TABLET BY MOUTH 2 TIMES A DAY metoprolol succinate 50 mg tablet extended release 24 hr 50 mg PO lorazepam 2 mg tablet 2 mg PO pantoprazole 40 mg tablet,delayed release (DR/EC) PO atorvastatin 40 MG tablet 40 mg PO HS albuterol sulfate 90 mcg/actuation Hfa Aerosol Inhaler 2 puff inhalation Q6H PRN (Reason: Dyspnea) 30 Days Qty: 0 0RF cholecalciferol (vitamin D3) [Vitamin D3] 50 mcg (2,000 unit) Capsule 50 mcg PO DAILY Referrals Follow up/Referrals: Jaz Shepherd APRN [Primary Care Provider, Medical] - See instructions Activity Restrictions/Add. Instructions Additional Instructions/Restrictions: Please keep your follow up appointment with Cardiology in march as we discussed. If you have any new or worsening symptoms please return for further evaluation. Clinical Impressions Clinical Impression: Chest pain Print Language Print Language: [place] Discharge ED Provider: Jose Carlos Moreno General Chief Complaint: Chest Pain Stated Complaint: CP Time Seen by Provider: 03/22/25 08:55 Mode of Arrival: EMS Source of Information: Patient Description of Symptoms (Recalled from ER Triage Doc. by RN): pt brought in by [facility] for substernal chest pain that has been intermittent for the last week, currently states pain is a 9/10 and throbbing, also reports cough, congestion, runny nose, and chills, denies sob, denies hx of OH, pt states she has had issues with food getting stuck in her esophagus for the last few months and hasn't seen a dr for it History of Present Illness HPI narrative: This is a 69-year-old female patient, with past medical history of peripheral arterial disease, severe superior mesenteric artery stenosis, hypertension, hyperlipidemia, bilateral carotid stenosis, and history of DVT, who is presenting to the emergency department today for evaluation of chest pain. Patient states that her chest pain has been going on over the course of the last week. She states that her pain is present at rest and with moving. It does not get worse with exertion. Her pain does not radiate to the neck, arms, jaw, or back. She is not experiencing any abdominal pain. She is not experiencing dyspnea or orthopnea. She is still smoking cigarettes. She is anticoagulated on Xarelto. She denies cough and production of phlegm as well as fevers. She has had no lower extremity erythema or edema. Related Data Home Medications ?Medication ?Instructions ?Recorded ?Confirmed atorvastatin 40 mg tablet 40 mg PO HS Cholesterol 10/2402/27/25 fluticasone propionate 50 1 spray intranasal DAILY All ergy 04/14/21 02/27/25 mcg/actuation nasal Symptoms spray,suspension aspirin 81 mg tablet,delayed 81 mg PO DAILY Blood Thin ner 04/28/21 02/27/25 release benazepril 20 mg tablet 20 mg PO DAILY High Blood Pr essure 02/02/22 02/27/25 cholecalciferol (vitamin D3) 50 50 mcg PO DAILY Supple ment 03/22/23 02/27/25 mcg (2,000 unit) capsule (Vitamin D3) lorazepam 2 mg tablet 2 mg PO 10/15/24 02/27/25 metoprolol succinate 50 mg 50 mg PO 10/15/24 02/27/25 tablet,extended release 24 hr pantoprazole 40 mg tablet,delayed mg PO 10/15/2402/27 release Previous Rx's ?Medication ?Instructions ?Recorded albuterol sulfate 90 mcg/actuation 2 puff inhalation Q 6H PRN Dyspnea 03/19/23 aerosol inhaler 30 days #0 grams rivaroxaban 2.5 mg tablet (Xarelto) See Rx Instruction s .Route 08/23/23 .COMPLEX #180 tabs ofloxacin 0.3 % ear drops 10 drp otic (ear) DAILY 7 da ys #10 09/19/24 mL biotin 10,000 mcg capsule 10,000 mcg PO .daiy 60 days #60 10/01/24 caps Allergies Allergy/AdvReac Type Severity Reaction Status Date / Time erythromycin base Allergy Severe S-BLISTERING Verified 03/22/25 08:57 WELTS tiotropium (From Spiriva Allergy Severe S-SWELLS-OR Verified 03/22/25 08:57 with HandiHaler) AL/THROAT clopidogrel (From Plavix) AdvReac Intermediate Diarrhea Verified 03/22/25 08:57 levofloxacin (From Levaquin) AdvReac Intermediate nausea and Verified 03/22/25 08:57 vomiting PFSH [facility] Disclaimer: The information contained in this section may have been updated after the patient was seen, as this information can be updated by other users. Medical History Other chest pain Occlusion and stenosis of bilateral carotid arteries Chest pain PAD (peripheral artery disease) HTN (hypertension) HLD (hyperlipidemia) Carotid stenosis, bilateral Peripheral vascular disease Abnormal electrocardiogram [ECG] [EKG] Superior mesenteric artery stenosis Weight loss Epigastric pain Hx of completed stroke DVT (deep venous thrombosis) Malignant hypertension Claudication Herpes zoster Surgical History H/O tubal ligation Social History Smoking Status: Current every day smoker tobacco type: cigarettes packs per day: 1 pack-years: 42 alcohol intake: never substance use type: denies use current occupational status: unemployed Travel in the last 8 weeks?: None household members: none housing: apartment current occupational exposures/hazards: No caffeine: Yes Have you lived/traveled outside US in past 30 days?: No Contact w/someone who lives/traveled outside US past 30 days?: No Exposure to someone with infectious disease in past 14 days?: No Do you have a fever (greater than 100.4 F or 38 C)?: No Have you tested positive for COVID-19?: No Exposed to someone with COVID-19 in past 14 days?: No Do you have a sore throat?: No Do you have a cough?: No Do you have any weakness?: No Do you have any diarrhea?: No Are you experiencing any unusual bleeding?: No Do you have any muscle aches/pain?: No Do you have any abdominal pain?: No Are you experiencing loss of taste or smell?: No Other Medical History Have you received the Flu Vaccine for this season: No Have you received the Pneumonia Vaccine: Yes ROS Obtained: Yes Systems reviewed as appropriate & no additional complaints except as documented Physical Exam General General appearance: other (See MDM) Respiratory Respiratory exam: Present other (See MDM) Cardiovascular Cardiovascular exam: Present other (See MDM) Neurological Exam Neurological exam: Present other (See MDM) HEART Score HEART Score HEART Score assessment performed?: Yes History (anamnesis): Slightly suspicious ECG: Normal Age: >65 years Risk factors: 3 or more risk factors Troponin: </= normal limit HEART Score: 4 Critical Care Critical Care Time Critical Care Time: No Medical Decision Making Medical Records Medical records reviewed: Yes I reviewed the patient's medical records. Chaitanya Inquiry Pt receiving controlled substance: No Chaitanya was queried for this patient: No Vital Signs Vital Signs: 03/22/25 08:51 03/22/25 08:57 03/22/25 10:10 Temperature 98.4 F Temperature Source Oral Pulse Rate 52 L 50 L Pulse Rate [Left Radial] 52 L Respiratory Rate 16 18 Blood Pressure 145/60 H Blood Pressure [Right Arm] 201/74 H Blood Pressure Mean [Right Arm] 116 Blood Pressure Source Blood Pressure Source [Right Arm] Automatic Cuff Blood Pressure Position Blood Pressure Position [Right Arm] Sitting 02 Sat by Pulse Oximetry 99 Oxygen Delivery Method Room Air 03/22/25 10:30 03/22/25 11:00 03/22/25 11:30 Temperature Temperature Source Pulse Rate Pulse Rate [Left Radial] Respiratory Rate 21 21 18 Blood Pressure 140/53 L 129/51 L 128/53 L Blood Pressure [Right Arm] Blood Pressure Mean [Right Arm] Blood Pressure Source Blood Pressure Source [Right Arm] Blood Pressure Position Blood Pressure Position [Right Arm] 02 Sat by Pulse Oximetry Oxygen Delivery Method 03/22/25 12:00 03/22/25 12:32 03/22/25 13:16 Temperature 98.4 F Temperature Source Oral Pulse Rate 50 L 52 L Pulse Rate [Left Radial] Respiratory Rate 18 14 16 Blood Pressure 133/52 L 155/56 H 169/60 H Blood Pressure [Right Arm] Blood Pressure Mean [Right Arm] Blood Pressure Source Automatic Cuff Blood Pressure Source [Right Arm] Blood Pressure Position Sitting Blood Pressure Position [Right Arm] 02 Sat by Pulse Oximetry Oxygen Delivery Method Room Air Lab Data Labs: Lab Results 03/22/25 08:33: WBC 6.2, RBC 3.69 L, Hgb 12.3, Hct 36.4 L, MCV 98.6, MCH 33.3 H, MCHC 33.8, RDW 12.4, Plt Count 172, MPV 10.9 H, Neut % (Auto) 74.2, Lymph % (Auto) 19.0, Mckenzie % (Auto) 5.2, Eos % (Auto) 0.8, Baso % (Auto) 0.6, Neut # (Auto) 4.6, Lymph # (Auto) 1.2, Mckenzie # (Auto) 0.3, Eos # (Auto) 0.1, Baso # (Auto) 0.0, Sodium 138, Potassium 4.6, Chloride 106, Carbon Dioxide 29, Anion Gap 7.6, BUN 21 H, Creatinine 1.00, Estimated Creat Clear 56, Estimated GFR 55 L , Est GFR ( Amer) 66, Glucose 110 H, Calcium 9.7, Total Bilirubin 0.8, AST 31, ALT 12, Alkaline Phosphatase 112, Troponin I < 0.01, Total Protein 7.6, Albumin 4.0, Globulin 3.6 H, Albumin/Globulin Ratio 1.1, Lipase 64 03/22/25 11:47: Troponin I < 0.01 03/22/25 08:33 03/22/25 08:33 Response Orders (Tests/Meds): ED MEDICATIONS Discontinued Medications Generic Name Dose Route Start Last Admin Trade Name Freq PRN Reason Stop Dose Admin Morphine Sulfate 2 mg 03/22/25 09:50 03/22/25 09:57 Morphine 2mg/Ml Syringe IV 03/22/25 09:51 2 mg ONCE ONE Administration Ondansetron HCl 4 mg 03/22/25 09:50 03/22/25 09:57 Ondansetron 4mg/2ml Vial IV 03/22/25 09:51 4 mg ONCE ONE Administration ORDERS Category Date Time Status CXR --portable [XR chest portable] Stat Exams 03/22/25 09:06 Completed CBC w/Auto Diff [Complete Blood Count Auto Diff] Stat Lab 03/22/25 08:33 Completed CMP [Comprehensive Metabolic Panel] Stat Lab 03/22/25 08:33 Completed Lipase Stat Lab 03/22/25 08:33 Completed Troponin I Q3H Lab 03/22/25 11:47 Completed Troponin I Stat Lab 03/22/25 08:33 Completed ECG Data Tracing #1: Attestation: I reviewed this ECG and interpreted as documented below: ECG Narrative: EKG personally interpreted by me demonstrates sinus bradycardia with a rate of 50 bpm, left axis, CT prolongation consistent with first-degree AV block, narrow QRS, no QTc prolongation. No ST elevation. No overt signs of ischemia or arrhythmia. MDM Narrative Medical Decision Narrative: In summary, this is a 69-year-old female patient who is presented to the emergency department today for evaluation of chest pain that has been going on for the last week and acutely worsened this morning. Chest pain is located in the central portion of her chest. It is nonradiating and nonexertional. She is not having associated respiratory symptoms. Comorbidities include hypertension hyperlipidemia as well as a past medical history of peripheral arterial disease with superior mesenteric stenosis and carotid stenosis bilaterally. Patient is anticoagulated on Xarelto and takes a daily baby aspirin. On initial evaluation of the patient they were resting comfortably in no acute distress and nontoxic in appearance. They are hemodynamically stable, saturating well room air, and are neurologically intact. On physical examination of the patient her heart and lungs are clear to auscultation bilaterally. She has no lower extremity erythema or edema. Radial pulses are symmetric bilaterally. Abdominal exam is benign. No obvious peritonitis. Differential diagnosis includes ACS/OH, pneumothorax, pleural effusion, pulmonary edema, among others. She is not wheezing to suggest a COPD exacerbation and she is also not having cough or production of phlegm which makes this less likely as well. Workup was initiated with hematologic labs as well as a chest x-ray and EKG. EKG interpretation as above. I have reviewed prior EKGs and this does appear largely unchanged from prior. We did not provide aspirin to the patient as she received 324 mg of aspirin from EMS arrival. Chest x-ray was personally interpreted by me and demonstrates no lobar consolidation or pleural effusion. Official radiology read is in agreement and states there is no acute abnormality. Labs were personally turbid by me and demonstrate no actionable abnormality. There is no leukocytosis, actionable anemia, or significant electrolyte derangement. No evidence of acute kidney injury. Troponin and delta troponin are both less than 0.01. Exact etiology of this patient's pain is unclear. I am reassured that her troponins are nonischemic and her heart score is 4. On repeat reassessment her pain had completely resolved and she tells me that she has a follow-up in the cardiology clinic coming up in March. I do feel that this is a reasonable amount of time for her to follow-up in. At this time all questions have been answered and all parties are agreeable with the decision to discharge home.
--- NOTE | 2025-03-22 09:06 | XR_ITS ---
FINAL REPORT CLINICAL HISTORY: Chest pain COMPARISON: 03/26/2023 FINDINGS: A portable view of the chest was obtained. Cardiac and mediastinal silhouettes are within normal limits. The lungs are clear. There is no pleural effusion or pneumothorax. IMPRESSION: No acute process on this portable exam. Reviewed, Interpreted and Dictated by Ada Waddell MD Transcribed by Calli Joiner Authenticated and [facility]
[2025-03-22 09:13] LABS: Hematocrit 36.4 % (37.0-47.0); Hemoglobin 12.3 g/dL (12.2-16.2); Immature Granulocytes % 0.2 %; Mean Corpuscular HGB Conc 33.8 g/dL (31.8-35.4); Mean Corpuscular Hemoglobin 33.3 pg (27.0-31.2); Mean Corpuscular Volume 98.6 fl (81-99); Nucleated Red Blood Cells % 0 %; Platelet Count 172 K/mm3 (142-424); Red Blood Count 3.69 M/mm3 (4.20-5.40); Red Cell Distribution Width-SD 45.1 fL; White Blood Count 6.2 K/mm3 (4.8-10.8)
[2025-03-22 09:15] LABS: Albumin Level 4.0 g/dl (3.5-5.0); Chloride 106 mmol/L (98-107); Sodium 138 mmol/L (136-145)
[2025-03-22 09:16] LABS: Potassium 4.6 mmoL/L (3.5-5.1)
[2025-03-22 09:18] LABS: Alanine Aminotransferase 12 U/L (12-78); Albumin/Globulin Ratio 1.1 (1.1-1.8); Alkaline Phosphatase 112 U/L (38-126); Anion Gap 7.6 mEq/L (5-15); Aspartate Amino Transferase 31 U/L (14-36); Bilirubin,Total 0.8 mg/dl (0.2-1.3); Blood Urea Nitrogen 21 mg/dl (7-17); Carbon Dioxide 29 mmol/L (22.0-30.0); Creatinine Clearance Estimated 56 mL/min (50-200); Creatinine,Serum 1.00 mg/dl (0.52-1.04); Estimated Glomerular Filt Rate 55 ml/min (>60); GFR (African American) 66 ML/MIN (>60); Globulin 3.6 g/dL (1.3-3.2); Lipase 64 U/L (23-300); Total Protein,Serum 7.6 g/dl (6.3-8.2)
[2025-03-22 09:19] LABS: Calcium 9.7 mg/dl (8.4-10.2); Glucose 110 mg/dl (74-100)
[2025-03-22 09:37] LABS: Troponin I < 0.01 ng/ml (0.00-0.034)
--- OUTSIDE RECORDS SUMMARY | 2025-03-22 09:38 | XMS_ITS | Clinical Summary ---
Author Organization [facility] Address [address] [place] [address] Care Team Providers Care Sign Installer Name Role Phone Unavailable Primary Care Provider Unavailabl e Social History Tobacco Use Types Packs/Day Years Used Date Smoking Tobacco: Never Assessed Abuse Screen Answer Date Recorded Unsafe at Home or Work/School Not on file Feels Threatened by Someone? Not on file 04/2023 Does Anyone Keep You from Co ntacting Others or Doint Things Outside the Home? Not on file 05/03/2023 Physical Sign of Abuse Present Not on file 1 Housing Stability Answer Date Recorded Current Living Arrangements Not on file 04/24 Potentially Unsafe Housing Conditions Not on hitesh e 05/03/2023 Family and Community Support Answer Bandar e Recorded Help with Day-to-Day Activities Not on file 05/03/2023 Lonely or Isolated Not on file 05/03/2023 Employment Answer Date Recorded Do you want help finding or keeping work or a aby b? Not on file 05/03/2023 Disabilities Answer Date Recorded Concentrating, Remembering, or Making Decisions Difficulty Not on file 05/03/2023 Doing Errands Independently Difficulty Not on fi le 05/03/2023 Education Answer Date Recorded Help with school or training? Not on file Preferred Language Not on file 05/03/2023 Comments Unknown Sex and Gender Information Value Date Recorded Sex Assigned at Not on file Legal Sex Female 1:39 PM EDT Gender Identity Not on file Sexual Orientation Not on file Last Filed Vital Signs Vital Sign Reading Time Taken Comments Blood Pressure 119/79 03/20/2014 4:52 PM EDT Pulse 110 03/20/2014 4:52 PM EDT Temperature 36.7 C (98.1 F) 11/05/2013 11:47 AM EDT Respiratory Rate 16 12/13/2013 10:4 7 AM EDT Oxygen Saturation 96% 11/05/2013 11: 47 AM EDT Inhaled Oxygen Concentration - - Weight 69.8 kg (153 lb 15.9 oz) 03/20/2014 4:52 PM EDT Height 157.5 cm (5' 2 ) 03/20/2014 4:52 PM EDT Body Mass Index 28.17 03/20/2014 4:52 PM EDT Plan of Treatment Health Maintenance Due Date Last Done Comments ANNUAL PHYSICAL 1955 DXA SCAN 1955 HEPATITIS C SCREENING 1954 TDAP/TD VACCINES (1 - Tdap) 1973 MAMMOGRAM 1994 COLOGUARD 1999 COLON CANCER SCREENING 5 YEAR SIGMOIDOSCOPY 1999 COLONOSCOPY 1999 COL[address]AL CANCER SCREENING 1999 CT COLONOGRAPHY 1999 FECAL OCCULT BLOOD TEST 1999 FIT Testing (1 year) 1999 Pneumococcal Vaccine 50+ (1 of 1 - PCV) 2004 ZOSTER VACCINE (1 of 2) 2004 COVID-19 Vaccine (1 - season) 2024 INFLUENZA VACCINE 04/24/2025
--- OUTSIDE RECORDS SUMMARY | 2025-03-22 09:38 | XMS_ITS | Clinical Summary ---
Author Organization Healthcare Address [address] [place] [address] Care Team Providers Care Professional Driver Name Role Phone Unavailable Primary Care Provider [...] 2004 [facility]-Zoster Vaccines (1 of 2) 2004 [id number] Vaccine (2 - season) 2024 07/15/2021 [facility]-Influenza Vaccine (#1) 03/25/202505/20, 04/26/2016 [facility]-RSV Vaccine: 60+ Years o r [...] patient's age to complete this topic Insurance RADHA HIGGINS [id number] [facility]
[2025-03-22] MEDS: ONDANSETRON 4MG/2ML VIAL 4 MG IV (09:57)
[2025-03-22] MEDS: MORPHINE 2MG/ML SYRINGE 2 MG IV (09:57)
[2025-03-22 12:15] LABS: Troponin I < 0.01 ng/ml (0.00-0.034)
--- NOTE | 2025-03-22 13:04 | PC.NURSE ---
[facility] called for transport. State will be up shortly to pick her up.
== END 2025-03-22 13:18 | disposition home or self-care (01) ==
PROVIDERS: Emergency Provider Student in an Organized Health Care Education/Training Program; PCP Nurse Practitioner
DX: R07.89 Other chest pain (principal); I10 Essential (primary) hypertension; E78.5 Hyperlipidemia, unspecified; I73.9 Peripheral vascular disease, unspecified; I65.23 Occlusion and stenosis of bilateral carotid arteries; F17.210 Nicotine dependence, cigarettes, uncomplicated
CPT/HCPCS: 71045; 80053; 83690; 84484; 85025; 93005; 96374; 96375; 99285; J2270; J2405

== ENCOUNTER 2025-05-23 16:47 | Observation (INO) | payer MEDICARE, MEDICAID, SELFPAY ==
[2025-05-23 16:48] VITALS: BP 191/71; PULSE 58; RESP 16; TEMP 36.9; O2SAT 97; BMI 32.4
--- NOTE | 2025-05-23 16:50 | CT_ITS ---
PROCEDURE INFORMATION: Exam: CT Thoracic Spine Without Contrast Exam date and time: 05/23/2025 5:13 PM Age: 70 years old Clinical indication: Injury or trauma; Fall TECHNIQUE: Imaging protocol: Computed tomography of the thoracic spine without contrast. Radiation optimization: All CT scans at this facility use at least one of these dose optimization techniques: automated exposure control; mA and/or kV adjustment per patient size (includes targeted exams where dose is matched to clinical indication); or iterative reconstruction. COMPARISON: CT THORACIC SPINE WO CON 02/20/2024 4:56 PM FINDINGS: Bones/joints: Multilevel mild thoracic degenerative disc disease. No acute fracture or subluxation. No severe spinal stenosis or foraminal stenosis. Soft tissues: Unremarkable. Vasculature: Moderate atherosclerotic changes are seen within the thoracic aorta without evidence of aneurysm. IMPRESSION: No acute findings.
--- NOTE | 2025-05-23 16:50 | CT_ITS ---
PROCEDURE INFORMATION: Exam: CT Pelvis Without Contrast, Skeleton Exam date and time: 05/23/2025 5:19 PM Age: 70 years old Clinical indication: Injury or trauma; Fall TECHNIQUE: Imaging protocol: Computed tomography of the pelvis without contrast. Exam focused on the skeleton. Radiation optimization: All CT scans at this facility use at least one of these dose optimization techniques: automated exposure control; mA and/or kV adjustment per patient size (includes targeted exams where dose is matched to clinical indication); or iterative reconstruction. COMPARISON: CT ABDOMEN PELVIS W CON 12/20/2024 6:50 PM FINDINGS: Bones/joints: No acute fracture or dislocation. Mild bilateral hip joint space narrowing. SI joints and pubic symphysis are unremarkable. Soft tissues: Hematoma in the left buttock subcutaneous tissues abutting the posterior margin of the left gluteus pratik muscle. No acute hemorrhage. Adjacent subcutaneous soft tissue swelling. IMPRESSION: 1. No acute fracture. 2. Left buttock region soft tissue hematoma.
--- NOTE | 2025-05-23 16:50 | CT_ITS ---
PROCEDURE INFORMATION: Exam: CT Lumbar Spine Without Contrast Exam date and time: 05/23/2025 5:16 PM Age: 70 years old Clinical indication: Injury or trauma; Fall TECHNIQUE: Imaging protocol: Computed tomography of the lumbar spine without contrast. Radiation optimization: All CT scans at this facility use at least one of these dose optimization techniques: automated exposure control; mA and/or kV adjustment per patient size (includes targeted exams where dose is matched to clinical indication); or iterative reconstruction. COMPARISON: CT LUMBAR SPINE WO CON 02/20/2024 5:00 PM FINDINGS: Bones/joints: Mild lumbar spinal curvature. Mild disc space narrowing and endplate osteophytes at L3-L4. Small concentric disc bulges at L3-L4 and L4-L5. No acute fracture, spondylolysis or spondylolisthesis. No severe spinal stenosis. Kidneys and ureters: Mild left renal atrophy. Vasculature: Moderate atherosclerotic changes are seen within the abdominal aorta and branch vasculature without evidence of aneurysm. Left common iliac artery stent. Soft tissues: Unremarkable. IMPRESSION: No acute findings.
--- NOTE | 2025-05-23 16:50 | CT_ITS ---
PROCEDURE INFORMATION: Exam: CT Cervical Spine Without Contrast Exam date and time: 05/23/2025 5:10 PM Age: 70 years old Clinical indication: Injury or trauma; Fall TECHNIQUE: Imaging protocol: Computed tomography of the cervical spine without contrast. Radiation optimization: All CT scans at this facility use at least one of these dose optimization techniques: automated exposure control; mA and/or kV adjustment per patient size (includes targeted exams where dose is matched to clinical indication); or iterative reconstruction. COMPARISON: CT CERVICAL SPINE WO CON 06/14/2024 6:31 AM FINDINGS: Bones: No acute fracture. Normal alignment. Moderate disc space narrowing and endplate osteophytes at C5-C6 and C6-C7. No significant disc bulge or herniation. No severe spinal canal stenosis. Mild bilateral bony foraminal stenosis at C4-C5, C5-C6 and C6-C7. Lungs: No acute findings at the lung apices. Soft tissues: Unremarkable. IMPRESSION: No acute findings within the cervical spine.
--- NOTE | 2025-05-23 16:50 | CT_ITS ---
PROCEDURE INFORMATION: Exam: CT Head Without Contrast Exam date and time: 05/23/2025 5:10 PM Age: 70 years old Clinical indication: Injury or trauma; Fall; Additional info: Fall with blood thinners TECHNIQUE: Imaging protocol: Computed tomography of the head without contrast. Radiation optimization: All CT scans at this facility use at least one of these dose optimization techniques: automated exposure control; mA and/or kV adjustment per patient size (includes targeted exams where dose is matched to clinical indication); or iterative reconstruction. COMPARISON: CT HEAD/BRAIN WO CON 06/14/2024 6:28 AM FINDINGS: Brain: Severe central and cortical atrophy and small-vessel ischemic disease. No intracranial hemorrhage. No midline shift. Cerebral ventricles: No ventriculomegaly. Paranasal sinuses: Visualized sinuses are unremarkable. No fluid levels. Mastoid air cells: Visualized mastoid air cells are well aerated. Bones: Unremarkable. No acute fracture. Soft tissues: Unremarkable. IMPRESSION: No acute intracranial abnormality.
--- NOTE | 2025-05-23 16:55 | ED_ITS ---
<Statement entered by Emperatriz Rodriguez DO - 05/24/25 00:05> I was consulted by the SHANNON, and we discussed the complexity of problems being addressed. I approve the treatment and management plan for this patient's care in the emergency department, thus performing a substantial portion of the medical decision making. Emperatriz Rodriguez DO Discharge Plan Disposition Patient Disposition: Admitted Condition: Good Clinical Impressions Clinical Impression: At risk for falls Discharge ED Provider: Emperatriz Rodriguez General Adult HPI <Jaz Shepherd (ED), FURNACE OPERATOR - Last Filed: 05/23/25 18:45> General Chief complaint: Fall Stated complaint: fall Time Seen by Provider: 05/23/25 16:50 Mode of Arrival: EMS Source of Information: Patient and EMS Description of Symptoms (Recalled from ER Triage Doc. by RN): pt had a fall at home. lost her footing and fell backward hitting her head. she denies LOC. pt is alert and oriented. c collar in place History of Present Illness HPI narrative: 70-year-old female presents to the ED today for complaint of a fall prior to arrival. She states that she was on the couch and lost her footing and fell backwards. EMS brought patient in with c-collar on. Patient is alert and oriented patient did not wish consciousness. Patient does complain of head and neck pain. Patient has chronic back pain. Typically she uses walker to walk. It is unknown if she had her walker. Related Data Home Medications ?Medication ?Instructions ?Recorded ?Confirmed atorvastatin 40 mg tablet 40 mg PO HS Cholesterol 10/2405/23/25 fluticasone propionate 50 1 spray intranasal DAILY All ergy 04/14/21 05/23/25 mcg/actuation nasal Symptoms spray,suspension aspirin 81 mg tablet,delayed 81 mg PO DAILY Blood Thin ner 04/28/21 05/23/25 release benazepril 20 mg tablet 20 mg PO DAILY High Blood Pr essure 02/02/22 05/23/25 metoprolol succinate 50 mg 50 mg PO DAILY 10/15/24 tablet,extended release 24 hr lorazepam 2 mg tablet 2 mg PO TID 05/23/25 5 rivaroxaban 2.5 mg tablet (Xarelto) 2.5 mg PO BID 10/3 0/25 10/30/25 Previous Rx's ?Medication ?Instructions ?Recorded albuterol sulfate 90 mcg/actuation 2 puff inhalation Q 6H PRN Dyspnea 03/19/23 aerosol inhaler 30 days #0 grams ofloxacin 0.3 % ear drops 10 drp otic (ear) DAILY 7 da ys #10 09/19/24 mL Allergies Allergy/AdvReac Type Severity Reaction Status Date / Time erythromycin base Allergy Severe S-BLISTERING Verified 04/08/25 10:32 WELTS tiotropium (From Spiriva Allergy Severe S-SWELLS-OR Verified 04/08/25 10:32 with HandiHaler) AL/THROAT clopidogrel (From Plavix) AdvReac Intermediate Diarrhea Verified 04/08/25 10:32 levofloxacin (From Levaquin) AdvReac Intermediate nausea and Verified 04/08/25 10:32 vomiting PFS <Jaz Shepherd (ED), FURNACE OPERATOR - Last Filed: 05/23/25 18:45> [facility] Disclaimer: The information contained in this section may have been updated after the patient was seen, as this information can be updated by other users. Medical History Other chest pain Occlusion and stenosis of bilateral carotid arteries Chest pain PAD (peripheral artery disease) HTN (hypertension) HLD (hyperlipidemia) Carotid stenosis, bilateral Peripheral vascular disease Abnormal electrocardiogram [ECG] [EKG] Superior mesenteric artery stenosis Weight loss Epigastric pain Hx of completed stroke DVT (deep venous thrombosis) Malignant hypertension Claudication Herpes zoster Surgical History H/O tubal ligation Social History Smoking Status: Current every day smoker tobacco type: cigarettes packs per day: 1 pack-years: 42 alcohol intake: never substance use type: denies use current occupational status: unemployed Travel in the last 8 weeks?: None household members: none housing: apartment current occupational exposures/hazards: No caffeine: Yes Have you lived/traveled outside [place] in past 30 days?: No Contact w/someone who lives/traveled outside US past 30 days?: No Exposure to someone with infectious disease in past 14 days?: No Do you have a fever (greater than 100.4 F or 38 C)?: No Have you tested positive for COVID-19?: No Exposed to someone with COVID-19 in past 14 days?: No Do you have a sore throat?: No Do you have a cough?: No Do you have any weakness?: No Do you have any diarrhea?: No Are you experiencing any unusual bleeding?: No Do you have any muscle aches/pain?: No Do you have any abdominal pain?: No Are you experiencing loss of taste or smell?: No Other Medical History Have you received the Flu Vaccine for this season: No Have you received the Pneumonia Vaccine: Yes <[facility] ([facility]), FURNACE OPERATOR - Last Filed: 05/23/25 18:45> ROS Obtained: Yes Systems reviewed as appropriate & no additional complaints except as documented Constitutional Constitutional: Reports as per HPI Physical Exam <[facility] ([facility]), FURNACE OPERATOR - Last Filed: 05/23/25 18:45> General General appearance: alert Head Head exam: normocephalic Eye Eye exam: Present PERRL and EOMI ENT ENT exam: Present normal oropharynx and mucous membranes moist Neck Neck exam: Present trachea midline and other (Patient has c-collar on) Respiratory Respiratory exam: Present normal lung sounds bilaterally Cardiovascular Cardiovascular exam: Present normal rhythm, bradycardia, normal heart sounds, +S1 and +S2 Abdominal Exam Abdominal exam: Present soft and normal bowel sounds Extremities Exam Extremities exam: Present full ROM and normal capillary refill Neurological Exam Neurological exam: Present alert and oriented X3 Skin Skin exam: Present warm, dry and intact Medical Decision Making <Jaz [facility] (ED), FURNACE OPERATOR - Last Filed: 05/23/25 18:45> Medical Records Screening: Per USPSTF and CDC recommendations, given the prevalence of disease in our region, it is our hospital?s policy to screen for HIV and viral Hepatitis for all patients aged 18 and over and those with ongoing risk factors. Chaitanya Inquiry Pt receiving controlled substance: No Chaitanya was queried for this patient: No Vital Signs: 05/23/25 16:48 05/23/25 17:01 05/23/25 19:31 Temperature 98.5 F Temperature Source Oral Pulse Rate 60 58 L Pulse Rate [Right] 58 L Respiratory Rate 16 16 Blood Pressure 160/68 H 92/65 L Blood Pressure [Right Arm] 191/71 H Blood Pressure Mean [Right Arm] 111 Blood Pressure Source [Right Arm] Blood Pressure Position 02 Sat by Pulse Oximetry 97 96 97 Oxygen Delivery Method Room Air Room Air 05/23/25 19:46 05/23/25 20:16 05/23/25 20:20 Temperature 98.1 F 98.0 F Temperature Source Oral Oral Pulse Rate 50 L Pulse Rate [Right] 54 L Respiratory Rate 18 16 Blood Pressure 92/62 L Blood Pressure [Right Arm] 134/56 L Blood Pressure Mean [Right Arm] 82 Blood Pressure Source [Right Arm] Automatic Cuff Blood Pressure Position Sitting 02 Sat by Pulse Oximetry 100 Oxygen Delivery Method Room Air Room Air Room Air 05/23/25 20:31 Temperature 97.9 F Temperature Source Oral Pulse Rate 57 L Pulse Rate [Right] Respiratory Rate 18 Blood Pressure 172/63 H Blood Pressure [Right Arm] Blood Pressure Mean [Right Arm] Blood Pressure Source [Right Arm] Blood Pressure Position 02 Sat by Pulse Oximetry Oxygen Delivery Method Orders (Tests/Meds): ED MEDICATIONS Generic Name Dose Route Start Last Admin Trade Name Freq PRN Reason Stop Dose Admin Acetaminophen 650 mg 05/23/25 21:04 Acetaminophen 325mg Tab PO 06/22/25 21:03 Q4HP PRN Fever or Mild Pain (1-3) Discontinued Medications Generic Name Dose Route Start Last Admin Trade Name Freq PRN Reason Stop Dose Admin Acetaminophen 1,000 mg 05/23/25 16:54 05/23/25 17:26 Acetaminophen 500mg Tab PO 05/23/25 16:55 1,000 mg ONCE ONE Administration Ketorolac Tromethamine 60 mg 05/23/25 18:00 05/23/25 18:07 Ketorolac 60mg/2ml Vial IM 05/23/25 18:01 60 mg ONCE ONE Administration Ketorolac Tromethamine 30 mg 05/23/25 18:30 05/23/25 18:45 Ketorolac 30mg/Ml Vial IM 05/23/25 18:31 Not Given ONCE ONE ORDERS Category Date Time Status CT bony pelvis Stat Cat Scan 05/23/25 16:[address] cervical spine wo con Stat Cat Scan 05/23/25 16:[address] head/brain wo con Stat Cat Scan 05/23/25 16:[address] lumbar spine wo con Stat Cat Scan 05/23/25 16:[address] thoracic spine wo con Stat Cat Scan 05/23/25 16:50 Completed Medical Decision Narrative: patient is a 70-year-old female presenting to the emergency department for evaluation of fall injuries on blood thinners. Patient complains of pain in her head and neck and back. She has chronic back pain. Patient is hemodynamically stable and nontoxic-appearing upon arrival, afebrile. Differential diagnosis includes sprain and strains versus fractures, head bleed from being on Xarelto, among others. Workup will be conducted with hematologic labs, specific imaging. Initial inventions include crystalloid bolus, analgesics. Imaging informally interpreted by me and remarkable for no acute findings on her in imaging except a hematoma on her Left buttock region she has a soft tissue hematoma. Patient says she does want to go back home. Patient's CT scan of her brain is normal with no acute findings. Patient does live at home by herself but uses a walker and has been referred several times to a correction facility. Patient will call and say that she does not want to go to a correction. She will then fall again end up in the emergency room and call PCP office they will place her in a correction again and she will do the same thing. This has been done 7 different times. Patient does not have a ride home but she wants to go home rather than coming the hospital. I am signing out to Dr. Rodriguez. <Emperatriz Rodriguez, DO - Last Filed: 05/24/25 00:05> Vital Signs: 05/23/25 16:48 05/23/25 17:01 05/23/25 19:31 Temperature 98.5 F Temperature Source Oral Pulse Rate 60 58 L Pulse Rate [Right] 58 L Respiratory Rate 16 16 Blood Pressure 160/68 H 92/65 L Blood Pressure [Right Arm] 191/71 H Blood Pressure Mean [Right Arm] 111 Blood Pressure Source [Right Arm] Blood Pressure Position 02 Sat by Pulse Oximetry 97 96 97 Oxygen Delivery Method Room Air Room Air 05/23/25 19:46 05/23/25 20:16 05/23/25 20:20 Temperature 98.1 F 98.0 F Temperature Source Oral Oral Pulse Rate 50 L Pulse Rate [Right] 54 L Respiratory Rate 18 16 Blood Pressure 92/62 L Blood Pressure [Right Arm] 134/56 L Blood Pressure Mean [Right Arm] 82 Blood Pressure Source [Right Arm] Automatic Cuff Blood Pressure Position Sitting 02 Sat by Pulse Oximetry 100 Oxygen Delivery Method Room Air Room Air Room Air 05/23/25 20:31 Temperature 97.9 F Temperature Source Oral Pulse Rate 57 L Pulse Rate [Right] Respiratory Rate 18 Blood Pressure 172/63 H Blood Pressure [Right Arm] Blood Pressure Mean [Right Arm] Blood Pressure Source [Right Arm] Blood Pressure Position 02 Sat by Pulse Oximetry Oxygen Delivery Method Lab Data Lab results reviewed: Yes I reviewed the patient's lab results. Orders (Tests/Meds): ED MEDICATIONS Generic Name Dose Route Start Last Admin Trade Name Freq PRN Reason Stop Dose Admin Acetaminophen 650 mg 05/23/25 21:04 Acetaminophen 325mg Tab PO 06/22/25 21:03 Q4HP PRN Fever or Mild Pain (1-3) Discontinued Medications Generic Name Dose Route Start Last Admin Trade Name Freq PRN Reason Stop Dose Admin Acetaminophen 1,000 mg 05/23/25 16:54 05/23/25 17:26 Acetaminophen 500mg Tab PO 05/23/25 16:55 1,000 mg ONCE ONE Administration Ketorolac Tromethamine 60 mg 05/23/25 18:00 05/23/25 18:07 Ketorolac 60mg/2ml Vial IM 05/23/25 18:01 60 mg ONCE ONE Administration Ketorolac Tromethamine 30 mg 05/23/25 18:30 05/23/25 18:45 Ketorolac 30mg/Ml Vial IM 05/23/25 18:31 Not Given ONCE ONE ORDERS Category Date Time Status CT bony pelvis Stat Cat Scan 05/23/25 16:[address] cervical spine wo con Stat Cat Scan 05/23/25 16:[address] head/brain wo con Stat Cat Scan 05/23/25 16:[address] lumbar spine wo con Stat Cat Scan 05/23/25 16:[address] thoracic spine wo con Stat Cat Scan 05/23/25 16:50 Completed Medical Decision Narrative: patient is a 70-year-old female presenting to the emergency department for evaluation of fall injuries on blood thinners. Patient complains of pain in her head and neck and back. She has chronic back pain. Patient is hemodynamically stable and nontoxic-appearing upon arrival, afebrile. Differential diagnosis includes sprain and strains versus fractures, head bleed from being on Xarelto, among others. Workup will be conducted with hematologic labs, specific imaging. Initial inventions include crystalloid bolus, analgesics. Imaging informally interpreted by me and remarkable for no acute findings on her in imaging except a hematoma on her Left buttock region she has a soft tissue hematoma. Patient says she does want to go back home. Patient's CT scan of her brain is normal with no acute findings. Patient does live at home by herself but uses a walker and has been referred several times to a correction facility. Patient will call and say that she does not want to go to a correction. She will then fall again end up in the emergency room and call PCP office they will place her in a correction again and she will do the same thing. This has been done 7 different times. Patient does not have a ride home but she wants to go home rather than coming the hospital. I am signing out to Dr. Rodriguez. I assumed care of the patient at 1900. Patient lives at home and patient has had multiple falls over the last week. Patient was attempted to ambulate in the emergency department and patient was unable to ambulate by herself. Patient currently does not have a ride home. After lengthy discussion with the patient, I stated that I felt she was unsafe to go home given that she has been falling frequently and patient should be evaluated by PT OT and possible rehab placement. Was agreeable with this plan. I discussed the case with hospitalist and patient was ultimately admitted to their service for further evaluation workup. Critical Care <Jaz Shepherd (ED), FURNACE OPERATOR - Last Filed: 05/23/25 18:45> Critical Care Time Critical Care Time: No
[2025-05-23 17:01] VITALS: BP 160/68; PULSE 60; O2SAT 96
--- OUTSIDE RECORDS SUMMARY | 2025-05-23 17:14 | XMS_ITS | Clinical Summary ---
Author Organization [facility] ystem Address [address] [place] [address] Care Team Providers Care Interactive Producer Name Role Phone Unavailable Primary Care Provider [...] 2004 ZOSTER VACCINE (1 of 2) 2004 INFLUENZA VACCINE 02/22/2025 COVID-19 Vaccine (1 - season) 2025
--- OUTSIDE RECORDS SUMMARY | 2025-05-23 17:14 | XMS_ITS | Clinical Summary ---
Author Organization Healthcare Address [address] [place] [address] Care Team Providers Care Loan Originator Name Role Phone Unavailable Primary Care Provider [...] Screening 1954 [facility]-Medicare Annual Wellness (AWV) 1954 [facility]-/Child/Adol SDOH Screenings 1954 [facility]- SDOH Screenings 1972 [facility]-Adult SDOH Screenings 1972 [facility]-DTaP,Tdap,and Td Vaccine s (1 - Tdap) 1973 CT Colonography 1999 Colonoscopy 1999 FIT-DNA 1999 FIT 1999 FOBT 1999 Sigmoidoscopy 1999 [facility]-Colorectal Cancer Screening 1999 [facility]-Breast Cancer Screening 2004 [facility]-Pneumococcal Vaccine: 50 + Years (1 of 1 - PCV) 2004 [facility]-Zoster Vaccines (1 of 2) 2004 [id number]-[id number]-[id number] Vaccine (2 - season) 2025 07/15/2021 [facility]-Influenza Vaccine (#1) 03/25/202505/20, 04/26/2016 [facility]-RSV [...] to complete this topic Insurance RADHA HIGGINS [id number] [facility]
--- NOTE | 2025-05-23 17:23 | ECG_ITS ---
APPROVED REPORT Exam: Resting ECG HR:57 bpm ECG Measurements Heart Rate 57 AXES TX 224 P 79 QRSd 96 QRS -29 QT 414 T 262 QTc 407 Conclusion Sinus bradycardia no acute ST or T wave changes concerning for ischemia Electronically signed by : Emperatriz Rodriguez, 05/24/2025 00:39:45
[2025-05-23] MEDS: ACETAMINOPHEN 500MG TAB 1000 MG PO (17:26)
[2025-05-23] MEDS: KETOROLAC 60MG/2ML VIAL 60 MG IM (18:07)
--- NOTE | 2025-05-23 18:45 | PC.NURSE ---
60mg IM toradol given to pt, prior to pharmacy verification of medication. pharmacy stated pt needed 30 mg IM, but pt was given 60 mg IM due to order being placed by provider
--- NOTE | 2025-05-23 18:49 | PC.NURSE ---
I spoke to pt regarding discharge plans. She states she is unable to find a ride. [employer] notified
--- NOTE | 2025-05-23 19:01 | PC.NURSE ---
i attempted to ambulate pt. She reports increased dizziness and gait is very unsteady and weak. notified
[2025-05-23 19:31] VITALS: BP 92/65; PULSE 58; RESP 16; O2SAT 97
--- NOTE | 2025-05-23 19:52 | PC.NURSE ---
Report given to Nathan CUADRA. Room is currently being cleaned, staff to come get patient once room is ready
[2025-05-23 20:16] VITALS: BP 92/62; PULSE 50; RESP 18; TEMP 36.7; O2SAT 98
[2025-05-23 20:20] VITALS: BP 134/56; PULSE 54; RESP 16; TEMP 36.7; O2SAT 100; BMI 27.0
[2025-05-23 20:31] VITALS: BP 172/63; PULSE 57; RESP 18; TEMP 36.6; O2SAT 97
--- NOTE | 2025-05-23 21:08 | P.HP_ITS ---
<Statement entered by Abhijeet Red MD - 05/26/25 15:40> Agree with plan of care as outlined by the SKEIN WASHER. History of Present Illness *Admission Date: 05/23/25 *Reason for visit:: Frequent falls, weakness *History of present illness: Patient is a 70-year-old female with a past medical history significant for dysphagia, PAD, anxiety, chronic benzodiazepine use, severe superior mesenteric artery stenosis, hypertension, hyperlipidemia, bilateral carotid stenosis, and history of DVT, chronically anticoagulated with Xarelto. Presents to [facility] due to a fall at home today. Patient reports that she shuffles when she walks and ultimately got caught up under her feet, fell backwards on her tailbone and also hit her head. EMS was notified and she was transferred to our facility for further evaluation. She is usually assisted with a walker when ambulating, but still falls despite use. Patient denies any injury or headache from the fall. On assessment at bedside there is no acute distress, resting in bed without complaint. Hemodynamically stable. There is concern as patient lives alone and there has been an increase in falls. ER provider discussed options concerning possible rehab/placement. Patient agreed for further workup with physical and possible placement at discharge. Patient denies any other correlating symptoms or has any other complaints. Denies fever, chills, shortness of breath, chest pain or injury. Initial ED workup included imaging studies which I personally reviewed. CT head without any acute findings. CT cervical spine, CT lumbar spine and CT thoracic spine, unremarkable for any acute findings. CT pelvis without evidence of acute fracture but with evidence of left buttock region soft tissue hematoma. PT OT consult placed while in emergency department. [facility] Disclaimer: The information contained in this section may have been updated after the patient was seen, as this information can be updated by other users. Medical History Other chest pain Occlusion and stenosis of bilateral carotid arteries Chest pain PAD (peripheral artery disease) HTN (hypertension) HLD (hyperlipidemia) Carotid stenosis, bilateral Peripheral vascular disease Abnormal electrocardiogram [ECG] [EKG] Superior mesenteric artery stenosis Weight loss Epigastric pain Hx of completed stroke DVT (deep venous thrombosis) Malignant hypertension Claudication Herpes zoster Surgical History H/O tubal ligation Social History Smoking Status: Current every day smoker tobacco type: cigarettes packs per day: 1 pack-years: 42 alcohol intake: never substance use type: denies use current occupational status: unemployed Travel in the last 8 weeks?: None household members: none housing: apartment current occupational exposures/hazards: No caffeine: Yes Have you lived/traveled outside [place] in past 30 days?: No Contact w/someone who lives/traveled outside US past 30 days?: No Exposure to someone with infectious disease in past 14 days?: No Do you have a fever (greater than 100.4 F or 38 C)?: No Have you tested positive for COVID-19?: No Exposed to someone with COVID-19 in past 14 days?: No Do you have a sore throat?: No Do you have a cough?: No Do you have any weakness?: No Do you have any diarrhea?: No Are you experiencing any unusual bleeding?: No Do you have any muscle aches/pain?: No Do you have any abdominal pain?: No Are you experiencing loss of taste or smell?: No Other Medical History Have you received the Flu Vaccine for this season: No Have you received the Pneumonia Vaccine: No Review of Systems Review of Systems Review of systems:: other and pertinent systems reviewed and negative unless documented below Constitutional Constitutional: Reports as per HPI and Reports weakness Eyes Eyes: Reports system reviewed and no additional complaints, except as documented and Reports as per HPI ENT Ears, Nose, Mouth, and Throat: Reports system reviewed and no additional complaints, except as documented and Reports as per HPI *Cardiovascular Cardiovascular: Reports system reviewed and no additional complaints, except as documented and Reports as per HPI *Respiratory Respiratory: Reports system reviewed and no additional complaints, except as documented and Reports as per HPI *Gastrointestinal Gastrointestinal: Reports system reviewed and no additional complaints, except as documented and Reports as per HPI *Genitourinary Genitourinary: Reports system reviewed and no additional complaints, except as documented and Reports as per HPI *Musculoskeletal Musculoskeletal: Reports as per HPI, Reports abnormal gait and Reports limited range of motion Integumentary/Breasts Skin/Breast: Reports system reviewed and no additional complaints, except as documented and Reports as per HPI *Neurologic Neurologic: Reports system reviewed and no additional complaints, except as documented, Reports abnormal gait and Reports weakness Psychiatric Psychiatric: Reports system reviewed and no additional complaints, except as documented and Reports as per HPI Endocrine Endocrine: Reports system reviewed and no additional complaints, except as documented and Reports as per HPI Hematologic/Lymphatic Hematologic/Lymphatic: Reports system reviewed and no additional complaints, except as documented and Reports as per HPI Allergic/Immunologic Allergic/Immunologic: Reports system reviewed and no additional complaints, except as documented and Reports as per HPI Meds Home Medications and Allergies Home Medications ?Medication ?Instructions ?Recorded ?Confirmed ?Type atorvastatin 40 mg tablet 40 mg PO HS Cholesterol 10/2405/23/25 History fluticasone propionate 50 1 spray intranasal DAILY All ergy 04/14/21 05/23/25 History mcg/actuation nasal Symptoms spray,suspension aspirin 81 mg tablet,delayed 81 mg PO DAILY Blood Thin ner 04/28/21 05/23/25 History release benazepril 20 mg tablet 20 mg PO DAILY High Blood Pr essure 02/02/22 05/23/25 History albuterol sulfate 90 mcg/actuation 2 puff inhalation Q 6H PRN Dyspnea 03/19/23 05/23/25 Rx aerosol inhaler 30 days #0 grams ofloxacin 0.3 % ear drops 10 drp otic (ear) DAILY 7 da ys #10 09/19/24 05/23/25 Rx mL metoprolol succinate 50 mg 50 mg PO DAILY 10/15/24 History tablet,extended release 24 hr lorazepam 2 mg tablet 2 mg PO TID 05/23/25 5 History rivaroxaban 2.5 mg tablet (Xarelto) 2.5 mg PO BID 04/2605/23/25 History New Prescriptions to Start Prescriptions: Allergies Allergy/AdvReac Type Severity Reaction Status Date / Time erythromycin base Allergy Severe S-BLISTERING Verified 04/08/25 10:32 WELTS tiotropium (From Spiriva Allergy Severe S-SWELLS-OR Verified 04/08/25 10:32 with HandiHaler) AL/THROAT clopidogrel (From Plavix) AdvReac Intermediate Diarrhea Verified 04/08/25 10:32 levofloxacin (From Levaquin) AdvReac Intermediate nausea and Verified 04/08/25 10:32 vomiting Exam Data for Last 24 hours Vital signs and Labs for Last 24 Hours: Temp Pulse Resp BP Pulse Ox O2 Del Method 97.9 F 57 L 18 172/63 H 97 Room Air 05/23/25 20:31 05/23/25 20:31 05/23/25 20:31 05/23/25 20:31 05/23/25 19:31 05/23/25 20:16 I & O for Last 24 hours: Intake & Output 05/20/25 05/21/25 05/22/25 05/23/25 23:59 23:59 23:59 23:59 Weight 68.039 kg Constitutional Constitutional: no acute distress *Routine HEENT Exam Head: Present normocephalic and atraumatic Eye: Present EOMI, PERRL and normal accommodation ENT: Present mucous membranes moist *Routine Neck Exam Neck: Present supple and full ROM *Routine Respiratory Exam Respiratory: Present normal respiratory effort *Routine Cardiovascular Exam Cardiovascular: Present RRR, Normal S1 and Normal S2 *Routine Abdominal Exam Abdominal: Present soft and normoactive bowel sounds *Routine Rectal Exam Rectal:: deferred *Routine Genitalia Exam Genitalia:: deferred *Routine Extremities Exam Extremities: Present pulses intact and normal capillary refill Routine Back/Spine/Pelvis Exam Back/Spine: Present full ROM *Routine Skin Exam Skin: Present intact Comments: Bruising noted to buttock region due to fall, minor multiple bruising due to fall *Routine Neurological Exam Neurological: Present alert, oriented X3 and CN II-XII intact Routine Psychiatric Exam Psychiatric: Present normal affect and normal thought process Assessment and Plan *Assessment and plan (1) Gait difficulty: Status: Acute Category: Medical Code(s): R26.9 - Unspecified abnormalities of gait and mobility (2) Frequent falls: Status: Acute Category: Medical Code(s): R29.6 - Repeated falls (3) Frail elderly: Status: Acute Category: Medical Code(s): R54 - Age-related physical debility (4) Generalized weakness: Status: Acute Category: Medical Code(s): R53.1 - Weakness (5) Anxiety state: Status: Acute Category: Medical Code(s): F41.1 - Generalized anxiety disorder (6) HTN (hypertension): Status: Chronic Qualifiers: Hypertension type: primary hypertension Qualified Code(s): I10 - Essential (primary) hypertension Category: Medical Code(s): I10 - Essential (primary) hypertension (7) HLD (hyperlipidemia): Status: Chronic Qualifiers: Hyperlipidemia type: mixed hyperlipidemia Qualified Code(s): E78.2 - Mixed hyperlipidemia Category: Medical Code(s): E78.5 - Hyperlipidemia, unspecified (8) Dysphagia: Status: Acute Qualifiers: Dysphagia type: oropharyngeal phase Qualified Code(s): R13.12 - Dysphagia, oropharyngeal phase Category: Medical Code(s): R13.10 - Dysphagia, unspecified (9) Chronic prescription benzodiazepine use: Status: Acute Category: Medical Code(s): Z79.899 - Other [facility] (current) drug therapy (10) Anticoagulated on rivaroxaban: Status: Acute Category: Medical Code(s): Z79.01 - correction (current) use of anticoagulants Plan 1. Gait difficulty/frequent falls/generalized weakness: Fall precautions, PT/OT possible placement. Case management consult. CT head obtained without any acute findings. CT cervical spine, CT lumbar spine and CT thoracic spine, unremarkable for any acute findings. CT pelvis without evidence of acute fracture. Left buttock region soft tissue hematoma. Currently resides at home alone. Noted patient has been offered/recommended transitioning to [facility]. Patient declined at that time. Patient is now willing to therapy for possible placement. 2. HTN/HLD/PAD: Stable resume home antihypertensive medication along with statin therapy. Healthy heart diet/OP dysphagia diet. 3. Generalized anxiety: Chronic use of benzodiazepine-patient currently stable without any acute anxiety. Home medication- lorazepam 2 mg 3 times daily. 3. Dysphagia: Evaluated per GI on 04/08/2025, noting dysphagia, gastric pain, choking and weight loss. Placed on pantoprazole with benefit to epigastric pain, recommended diet for oropharyngeal dysphagia. Resume with recommended diet per GI. Aspiration precautions. Noted plan per GI; resume pantoprazole, outpatient EGD. 4. History of CVA x2/anticoagulated: Home medications include Xarelto and aspirin-High risk for bleed due to frequent falls. Monitor closely. DVT prophylaxis: SCD's Full code SCDs Healthy heart diet I personally discussed the management of this patient with the emergency depart ment provider, patient to be admitted under observation due to frequent falls patient lives at home alone. PT OT to assess, case management to follow for rehab/home health placement.
--- NOTE | 2025-05-23 21:56 | PC.NURSE ---
Pt did not have an IV upon arriving to the floor. Spoke with hospitalist to see if one was needed. She says she alright with her not having one.
[2025-05-24] VITALS: BP 176/72; PULSE 59; RESP 12; TEMP 36.4; O2SAT 98
[2025-05-24 04:00] VITALS: BMI 27.0
[2025-05-24 06:21] LABS: Hematocrit 37.3 % (37.0-47.0); Hemoglobin 11.7 g/dL (12.2-16.2); Immature Granulocytes % 0.2 %; Mean Corpuscular HGB Conc 31.4 g/dL (31.8-35.4); Mean Corpuscular Hemoglobin 31.5 pg (27.0-31.2); Mean Corpuscular Volume 100.5 fl (81-99); Nucleated Red Blood Cells % 0 %; Platelet Count 142 K/mm3 (142-424); Red Blood Count 3.71 M/mm3 (4.20-5.40); Red Cell Distribution Width-SD 46.3 fL; White Blood Count 5.7 K/mm3 (4.8-10.8)
[2025-05-24 06:42] LABS: Chloride 104 mmol/L (98-107); Potassium 4.2 mmoL/L (3.5-5.1); Sodium 134 mmol/L (136-145)
[2025-05-24 06:45] LABS: Blood Urea Nitrogen 23 mg/dl (7-17); Creatinine Clearance Estimated 39 mL/min (50-200); Creatinine,Serum 1.20 mg/dl (0.52-1.04); Estimated Glomerular Filt Rate 44 ml/min (>60); GFR (African American) 54 ML/MIN (>60)
[2025-05-24 06:46] LABS: Anion Gap 6.2 mEq/L (5-15); Calcium 8.8 mg/dl (8.4-10.2); Carbon Dioxide 28 mmol/L (22.0-30.0); Glucose 110 mg/dl (74-100)
--- NOTE | 2025-05-24 07:45 | HMH.PHAINT1 ---
Pharmacy Intervention Comments: HOME MEDICATION LIST COMPLETED USING LIST FROM OUTPATIENT PHARMACY
[2025-05-24 07:56] VITALS: BP 158/60; PULSE 56; RESP 18; TEMP 36.5; O2SAT 100
[2025-05-24] MEDS: LISINOPRIL 20MG TABLET 20 MG PO (08:16)
[2025-05-24] MEDS: METOPROLOL SUCCINATE XL 50MG TABLET 50 MG PO (08:16)
--- NOTE | 2025-05-24 08:32 | HMH.PTEV ---
Physical Therapy Evaluation Rehab PT IP Evaluation Start: 05/23/25 20:36 Freq: ONCE Status: Active Protocol: Document 05/24/25 08:24 ODALIS (Rec: 05/24/25 08:32 ODALIS [id number]) Subjective/History History History Per H&P: Patient is a 70-year-old female with a past medical history significant for dysphagia, PAD, anxiety , chronic benzodiazepine use, severe superior mesenteric artery stenosis, hypertension, hyperlipidemia, bilateral carotid stenosis, and history of DVT, chronically anticoagulated with Xarelto. Presents to [facility] due to a fall at home today. Patient reports that she shuffles when she walks and ultimately got caught up under her feet, fell backwards on her tailbone and also hit her head. EMS was notified and she was transferred to our facility for further evaluation. She is usually assisted with a walker when ambulating, but still falls despite use. Patient denies any injury or headache from the fall. On assessment at bedside there is no acute distress, resting in bed without complaint. Hemodynamically stable. There is concern as patient lives alone and there has been an increase in falls. ER provider discussed options concerning possible rehab /placement. Patient agreed for further workup with physical and possible placement at discharge. Patient denies any other correlating symptoms or has any other complaints. Denies fever, chills, shortness of breath, chest pain or injury. Subjective Subjective Pt reports she lives alone in a SS home. Pt reports ~17 falls in the past few weeks d/t weakness and balance deficits. Pt reports she wants to go home but also reports wanting to go to a fpc d/t safety concern. Pt normally uses a RW for all mobility. [facility] How much help from another person do you currently need... Turning from your None back to your side while in a flat bed without using bedrails? Moving from lying on None back to sitting on the side of a flat bed without using bedrails? Moving to and from a A little bed to a chair ( including a wheelchair)? Standing up from a A little chair using your arms? (e.g., wheelchair, bedside chair) Walking in hospital A little room? Climbing 3-5 steps A little with a railing? Mobility Score 20 Mobility Level [facility] Mobility 6 Walk 10 steps or more Mobility Calculator Rehab PT IP Eval Objective Appearance Patient Behavior Appropriate,Cooperative Patient Orientation Person,Situation Difficulty following none instructions Speech Pattern Soft-Spoken Ambulation Patient Able to Yes Ambulate Ambulation Observation IP General Gait Narrow Based Gait,Shuffling Step Pattern Observation Ambulation Distance 20 (feet) Ambulation Assistive Rolling Walker Device Ambulation Ability Minimal x 1 (25% assist) Balance Ability to Arise Able, uses arms to help Sitting Balance Steady, safe Standing Balance Steady, wide stance Dynamic Sitting Good Balance Ability Dynamic Standing Poor Balance Ability Transfers Bed Transfer Ability Supervision/Stand by Sit to Stand Bed Contact Guard/Hand Hold Transfer Ability Rehab PT IP prob,goals,plan Problems Date of Evaluation: 05/24/25 PT IP Problems Bed Mobility,Transfers,Gait,Balance,Self care,Safety Rehab Potential Rehab Potential Good Plan PT Intervention Plan Bed Mobility,Transfers,Gait,Balance,Self care,Safety, Therapeutic Exercise Other Intervention 1-2 times Plan PT Plan Frequency Daily Duration LOS Discharge Goals Bed Transfer Ability Supervision/Stand by Sit to Stand Chair Supervision/Stand by Transfer Ability Ambulation Distance 50 (feet) Discharge Plan PT Discharge Plan Initial PT evaluation performed and pt presents with impaired balance, global strength, and safety awareness . Pt able to ambulate a household distance but demo'd impaired safety awareness and impaired dynamic standing balance. Pt is a high fall risk d/t these impairments. Pt is not safe to return home alone at this time d/t impaired balance, ambulation, and hx of frequent falls. Pt most appropriate for skilled inpatient rehabilitation upon d/c from [facility] to maximize safety. Pt would benefit from skilled acute care PT while at [facility] to prevent further functional decline. Eval Complexity Eval Charge Codes 94099 - Moderate Complexity PHYSICIAN CERTIFICATION: I certify the specified therapy services for Sandy Heller are required, authorized, and reviewed every 30 days.
[2025-05-24 09:00] LABS: Thyroid Stimulating Hormone 1.41 uIU/mL (0.465-4.68)
[2025-05-24 09:04] LABS: Ferritin 59.3 ng/ml (11.1-264)
[2025-05-24 09:19] LABS: Vitamin B12 250 pg/mL (239-931)
--- NOTE | 2025-05-24 09:25 | SW/DCPLANNER ---
Addendum entered by Cayla Villarreal 05/27/25 08:47: Per Elda rubin/ [facility] patient is approved SNF level of care for today. I have updated . [facility] fax #: [phone] Addendum entered by Cayla Villarreal 05/24/25 13:16: Per Elda rubin/ [facility] patient's [facility] approved patient and she is waiting on [facility] approval. CM will continue to follow up. Addendum entered by Cayla Villarreal 05/24/25 11:40: [facility] will start auth on this patient pending insurance verification. Per patient is medically stable for discharge today. Original Note: I spoke w/ patient regarding plans once medically stable for discharge. PT/OT evaluated patient and recommended SNF level of care. Patient is agreeable to placement and prefers [facility], [facility] or [facility] in [place]. [facility] does have a female bed open and willing to review patient information. Patient information has been faxed at this time. Discharge date is unknown. CM will continue to follow up.
--- NOTE | 2025-05-24 09:44 | HMH.OTEV ---
OT Evaluation Rehab OT IP Evaluation Start: 05/23/25 20:36 Freq: ONCE Status: Active Protocol: Document 05/24/25 09:37 DENTON (Rec: 05/24/25 09:44 [facility] [id number]) Rehab OT IP Assessment Subjective History Pt oriented x 3 on arrival. Pt agreeable to engage in therapy evaluation. Pt admitted on 05/23/25 due to frequent falls. History and physical: Patient is a 70-year-old female with a past medical history significant for dysphagia, PAD, anxiety, chronic benzodiazepine use, severe superior mesenteric artery stenosis, hypertension, hyperlipidemia, bilateral carotid stenosis, and history of DVT, chronically anticoagulated with Xarelto. Presents to [facility] due to a fall at home today. Patient reports that she shuffles when she walks and ultimately got caught up under her feet, fell backwards on her tailbone and also hit her head. EMS was notified and she was transferred to our facility for further evaluation. She is usually assisted with a walker when ambulating, but still falls despite use. Patient denies any injury or headache from the fall. On assessment at bedside there is no acute distress, resting in bed without complaint. Hemodynamically stable. There is concern as patient lives alone and there has been an increase in falls. ER provider discussed options concerning possible rehab/placement. Patient agreed for further workup with physical and possible placement at discharge. Patient denies any other correlating symptoms or has any other complaints. Denies fever, chills, shortness of breath, chest pain or injury. Subjective Prior to being in the hospital, pt lived at home alone. Pt reports she does have a home health speech therapist that assists every other day for ~4 hours. Pt claims she is able to complete ADLs and light IADLs independently. However, her aide completed heavier IADLs for her. Pt does use a rolling walker during functional transfers. Pt no longer drives. Pt reports she feels much weaker than normal in the last few weeks. Objective Patient Orientation Person,Place,Birthday Right Upper Min Limitation <25% Extremity Gross ROM Left Upper Extremity Min Limitation <25% Gross ROM Shoulder ROM Muscle Weakness Limitations Elbow ROM Muscle Weakness Limitations Wrist Limitations of Muscle Weakness Range of Motion Bed Mobility bed mobility-scooting,bed mobility - supine/sit Assist Level Moderate x 1 (50% assist) Assist Level Minimal x 1 (25% assist) Rehab OT IP prob,goals,plan Problems Date of Evaluation: 05/24/25 OT IP Problems Bed Mobility,Transfers,Balance,Self care,Safety Rehab Potential Rehab Potential Good Equipment Needs Assistive Devices Rolling / Wheeled Walker Plan OT intervention Plan Bed Mobility,Transfers,Balance,Self care,Safety, Therapeutic Exercise OT Plan Frequency Daily Duration LOS Discharge Goals Bed Mobility Ability Assistance x1 Sit to Stand Chair Contact Guard/Hand Hold Transfer Ability Chair Transfer Contact Guard/Hand Hold Ability Chair Transfer Sit to/from Ambulatory Technique Chair Transfer Rolling Walker Assistive Devices Lower Body Dressing Minimal Assistance Ability Upper Body Dressing Contact Guard Ability Performing Toilet Minimal Assistance Hygiene Ability Overall Commode/ Contact Guard,Minimal Assistance Toilet Transfer Ability Commode/Toilet Sit to/from Ambulatory Transfer Technique Discharge Plan OT Discharge Plan Pt will continue to be seen for OT services while at [facility]. Pt would benefit from short term rehab at SNF following discharge from hospital. Continued skilled therapy is important in order for patient to improve strength, safety, endurance, ADL independence, and functional transfers to reach PLOF. Eval Complexity Eval Charge Codes 35190 - Moderate Complexity PHYSICIAN CERTIFICATION: I certify the specified therapy services for Sandy Heller are required, authorized, and reviewed every 30 days.
--- NOTE | 2025-05-24 10:00 | DIET.NUTRFU ---
Consulted for diet, she has hx of dysphasia. Has no memory of ever seeing speech. She did see GI in [place] and they recommended oropharyngeal dysphasia diet, she also is not wearing her dentures she left them at home. She reported she tolerated eggs, biscuits and gravy this morning. But did state she would not be able to tolerate regular chicken breast. She has follow up with GI in May. Will change her to [facility] ground diet, updated order. She also drinks boost/ensure at home 5-6/day, she says she just really likes them. Likes strawberry- out of stock. Ordered homemade strawberry shakes with lunch and dinner
[2025-05-24 10:06] VITALS: BMI 27.0
[2025-05-24] MEDS: VITAMIN B-12 1,000 MCG 1ML VIAL 1000 MCG IM (12:43)
[2025-05-24 12:58] LABS: Folate 4.73 ng/mL
[2025-05-24 13:02] VITALS: BP 144/61; BP 161/72; BP 177/67; PULSE 54; PULSE 55; PULSE 68
[2025-05-24 16:00] VITALS: BP 191/70; PULSE 56; RESP 18; TEMP 36.7; O2SAT 98
[2025-05-24] MEDS: LACTATED RINGERS 1000ML 500 ML 250 ML IV (16:20)
--- NOTE | 2025-05-24 17:58 | EXP.PN ---
Subjective *Date: 05/24/25 *Time: 17:58 Interval history: Patient feels slightly better today, less dizziness. Continues to be globally weak, follow-up UA. Pending placement. Exam Data for Last 24 hours Vital signs and Labs for Last 24 Hours: Temp Pulse Resp BP Pulse Ox O2 Del Method 98.0 F 56 L 18 191/70 H 98 Room Air 05/24/25 16:00 05/24/25 16:00 05/24/25 16:00 05/24/25 16:00 05/24/25 16:00 05/24/25 17:48 Laboratory Results - last 24 hr 05/24/25 06:07: WBC 5.7, RBC 3.71 L, Hgb 11.7 L, Hct 37.3, MCV 100.5 H, MCH 31.5 H, MCHC 31.4 L, RDW 12.5, Plt Count 142, MPV 10.9 H, Neut % (Auto) 69.8, Lymph % (Auto) 21.0, [place] % (Auto) 6.8, Eos % (Auto) 1.7, Baso % (Auto) 0.5, Neut # (Auto) 4.0, Lymph # (Auto) 1.2, [place] # (Auto) 0.4, Eos # (Auto) 0.1, Baso # (Auto) 0.0, Sodium 134 L, Potassium 4.2, Chloride 104, Carbon Dioxide 28, Anion Gap 6.2, BUN 23 H, Creatinine 1.20 H, Estimated Creat Clear 39, Estimated GFR 44 L, Est GFR ( Amer) 54 L, Glucose 110 H, Calcium 8.8, Ferritin 59.3, Vitamin B12 250, Folate 4.73, TSH 1.41 I & O for Last 24 hours: Intake & Output 05/21/25 05/22/25 05/23/25 05/24/25 23:59 23:59 23:59 23:59 Intake Total 630 / 630 Output Total 100 / 100 Balance 530 / 530 Weight 56.835 kg 56.835 kg Constitutional Constitutional: no acute distress *Routine HEENT Exam Head: Present normocephalic Eye: Present EOMI and PERRL ENT: Present mucous membranes moist *Routine Neck Exam Neck: Present supple; Absent lymphadenopathy *Routine Respiratory Exam Respiratory: Present CTA bilaterally *Routine Cardiovascular Exam Cardiovascular: Present RRR *Routine Abdominal Exam Abdominal: Present soft and normoactive bowel sounds; Absent tenderness *Routine Extremities Exam Extremities: Absent cyanosis, clubbing or edema *Routine Skin Exam Skin: Present warm; Absent rash *Routine Neurological Exam Neurological: Present alert and oriented X3 Assessment and Plan *Assessment and plan (1) Frequent falls: Status: Acute Category: Medical Code(s): R29.6 - Repeated falls (2) Carotid stenosis, bilateral: Status: Acute Category: Medical Code(s): I65.23 - Occlusion and stenosis of bilateral carotid arteries Plan Sandy Heller is a 70-year-old female who presented after lightheadedness, fall and was admitted for the same. #Fall #Lightheadedness #Bradycardia #Polypharmacy ? Patient presented with a fall after feeling lightheaded. She states she is been having episodes lightheaded more recently. ? Patient does have slight bradycardia, heart rate in the 50s. EKG showing sinus bradycardia without acute ischemia, heart blocks. Orthostatic vitals also borderline positive. Takes metoprolol at home. ? Additionally, patient takes lorazepam 2 mg 3 times daily which is also likely contributing to falls. Will decrease dose, see below. ? Carotid ultrasound did not show significant stenosis in December 2024. ? PT/OT consulted, recommended SNF due to impaired balance and decreased global strength. Discussed with case management, assisting with placement. [facility] in [facility] has preliminary accepted patient pending prior authorization. ? Ordered 500 cc bolus due to borderline orthostatic vitals. ? Discontinued home metoprolol succinate 50 mg. ? Follow-up urinalysis. ? TSH normal, vitamin B12 and folate borderline low. Given IM cyanocobalamin, will start multivitamins. ? Continuous cardiac telemetry. #Hypertension ? Elevated blood pressures during admission, continue home lisinopril 20 mg. Started amlodipine 5 mg nightly. #Anxiety/depression ? Decreased lorazepam from 2 mg to 1 mg three times daily due to falls, dizziness. Dysphagia: Evaluated per GI on 04/08/2025, noting dysphagia, gastric pain, choking and weight loss. Placed on pantoprazole with benefit to epigastric pain, recommended diet for oropharyngeal dysphagia. Resume with recommended diet per GI. Aspiration precautions. Noted plan per GI; resume pantoprazole, outpatient EGD. Carotid artery stenosis History of CVA x2/anticoagulated: Home medications include Xarelto and aspirin. Continue aspirin, hold Xarelto due to frequent falls. Full code DVT prophylaxis: Lovenox 40 mg Home meds: Reconciled.
[2025-05-24 18:53] LABS: Adenovirus,PCR Not Detected (NotDetected); Chlamydophila Pneumoniae, PCR Not Detected (NotDetected); Coronavirus 19, PCR Not Detected (NotDetected); Coronovirus HKU1,PCR Not Detected (NotDetected); Influenza A, PCR Not Detected (NotDetected); Influenza AH1, 2009 Not Detected (NotDetected); Influenza AH1, PCR Not Detected (NotDetected); Influenza AH3,PCR Not Detected (NotDetected); Influenza B, PCR Not Detected (NotDetected); Mycoplasma Pneumoniae, PCR Not Detected (NotDetected); Parainfluenza 1, PCR Not Detected (NotDetected); Parainfluenza 2, PCR Not Detected (NotDetected); Parainfluenza 3, PCR Not Detected (NotDetected); Parainfluenza 4, PCR Not Detected (NotDetected)
[2025-05-24 20:00] VITALS: PULSE 50
[2025-05-24] MEDS: ATORVASTATIN 40MG TABLET 40 MG PO (20:16)
[2025-05-24] MEDS: AMLODIPINE 5MG TABLET 5 MG PO (20:16)
[2025-05-25] VITALS (7 sets, daily range): BP systolic 138–179; BP diastolic 58–72; PULSE 40–80; RESP 12–20; TEMP 36.5–37; O2SAT 97–100; BMI 27.0
[2025-05-25 00:57] LABS: Microscopic, Urine URINE MICROSCOPIC (MICROSCOPIC)
[2025-05-25 01:14] LABS: Bilirubin,Urine Negative (Negative); Color,Urine YELLOW (Yellow); Glucose,Urine (UA) Negative (Negative); Ketones,Urine Negative (Negative); Leukocyte Esterase,Urine TRACE (Negative); PH,Urine 6.5 (5.0-8.5); Protein,Urine Negative (Negative); Specific Gravity, Urine 1.015 (1.005-1.030); Urobilinogen,Urine 0.2 EU/dl (0.2)
[2025-05-25 02:01] LABS: Bacteria,Urine Trace /lpf
--- NOTE | 2025-05-25 03:06 | PC.NURSE ---
Pt AOx4. Tolerating room air. VSS. Running sinus drew to NSR on tele. Has continually denied pain or additional needs throughout the shift. Pt is currently resting in bed with eyes closed. Respirations even and unlabored. Bed is low, locked, and call light is in reach.
[2025-05-25 06:58] LABS: Hematocrit 36.6 % (37.0-47.0); Hemoglobin 12.1 g/dL (12.2-16.2); Immature Granulocytes % 0.4 %; Mean Corpuscular HGB Conc 33.1 g/dL (31.8-35.4); Mean Corpuscular Hemoglobin 32.3 pg (27.0-31.2); Mean Corpuscular Volume 97.6 fl (81-99); Nucleated Red Blood Cells % 0 %; Platelet Count 151 K/mm3 (142-424); Red Blood Count 3.75 M/mm3 (4.20-5.40); Red Cell Distribution Width-SD 44.5 fL; White Blood Count 5.1 K/mm3 (4.8-10.8)
--- NOTE | 2025-05-25 07:39 | P.PN_ITS ---
Subjective *Date: 05/25/25 *Time: 13:41 Interval history: Stable on room air. Able to ambulate with standby assist with her walker from the bed to the bathroom. No nausea or vomiting. Tolerating p.o. intake. Cooperative. Discussed staying admitted for placement versus home where she is by herself and a high fall risk, patient is elected to stay admitted for now. [facility]. Discussion this morning on rounds, patient appears worried about her living situation and risk for eviction as well as what to do with her stuff while she is at rehab. Has a family member that can facilitate obtaining her belongings if need be. Will fa cilitate coordinating this on Tuesday. Medical Exam Vital signs and Labs for Last 24 Hours: Vital Signs Temp Pulse Pulse Pulse Pulse Pulse Resp 05/25/25 06:45 05/25/25 05:00 05/25/25 04:00 70 05/25/25 03:00 05/25/25 01:00 05/25/25 00:00 40 L 05/25/25 00:00 97.8 F 68 12 05/24/25 23:00 05/24/25 21:00 05/24/25 20:00 50 L 05/24/25 20:00 05/24/25 17:48 05/24/25 16:49 05/24/25 16:00 98.0 F 56 L 18 05/24/25 15:00 05/24/25 13:02 55 L 54 L 68 05/24/25 13:00 05/24/25 11:00 05/24/25 09:00 05/24/25 08:00 05/24/25 07:56 97.7 F 56 L 18 BP BP BP BP Pulse Ox O2 Del Method 05/25/25 06:45 Room Air 05/25/25 05:00 Room Air 05/25/25 04:00 05/25/25 03:00 Room Air 05/25/25 01:00 Room Air 05/25/25 00:00 05/25/25 00:00 158/72 H 98 Room Air 05/24/25 23:00 Room Air 05/24/25 21:00 Room Air 05/24/25 20:00 05/24/25 20:00 Room Air 05/24/25 17:48 Room Air 05/24/25 16:49 Room Air 05/24/25 16:00 191/70 H 98 Room Air 05/24/25 15:00 Room Air 05/24/25 13:02 177/67 H 161/72 H 144/61 H 05/24/25 13:00 Room Air 05/24/25 11:00 Room Air 05/24/25 09:00 Room Air 05/24/25 08:00 Room Air 05/24/25 07:56 158/60 H 100 Room Air Intake and Output 05/24/25 05/24/25 05/25/25 15:59 23:59 07:59 Intake Total 630 / 1130 500 / 1130 Output Total 0 / 200 100 / 200 250 / 250 Balance 630 / 930 400 / 930 -250 / -250 Intake: Intake, Oral Amount 630 / 630 0 / 630 Intake, Total IV Amount 500 / 500 Lactated Ringers 1000ML 500 ml 500 / 500 @ 250 mls/hr IV .Q2H ONE Rx#: [id number] Output: Output, Urine Amount 0 / 200 100 / 200 250 / 250 Other: Number of Unmeasured Voids 1 1 Number of Bowel Movements 1 Weight 56.835 kg 56.835 kg Patient Weight 05/25/25 23:59 Weight 56.835 kg Laboratory Results - last 24 hr 05/24/25 00:49: Urine Color Yellow, Urine Appearance Clear, Urine pH 6.5, Ur Specific [place] 1.015, Urine Protein Negative, Urine Glucose (UA) Negative, Urine Ketones Negative, Urine Blood Negative, Urine Nitrate Negative, Urine Bilirubin Negative, Urine Urobilinogen 0.2, Ur Leukocyte Esterase Trace, Urine RBC None, Urine WBC 3-5, Ur Squamous Epith Cells 5-10, Urine Bacteria Trace 05/24/25 06:07: Ferritin 59.3, Vitamin B12 250, Folate 4.73, TSH 1.41 05/24/25 18:18: Chlamy pneumoniae PCR Not detected, Adenovirus (PCR) Not detected, B. pertussis DNA (PCR) Not detected, Coronavirus OC43 (PCR) Not detected, Coronavirus HKU1 (PCR) Not detected, Coronavirus 229E (PCR) Not detected, SARS-CoV-2 (PCR) Not detected, Coronavirus NL63 (PCR) Not detected, Human Metapneumovir PCR Not detected, Influenza A (H1) PCR Not detected, Influ A (H1N1/09) PCR Not detected, Influenza A (H3) PCR Not detected, Influenza Type A (PCR) Not detected, Influenza Type B (PCR) Not detected, M. pneumoniae (PCR) Not detected, Parainfluenza 1 (PCR) Not detected, Parainfluenza 2 (PCR) Not detected, Parainfluenza 3 (PCR) Not detected, Parainfluenza 4 (PCR) Not detected, RSV (PCR) Not detected, Entero/Rhino (PCR) Not detected 05/25/25 06:32: WBC 5.1, RBC 3.75 L, Hgb 12.1 L, Hct 36.6 L, MCV 97.6, MCH 32.3 H, MCHC 33.1, RDW 12.3, Plt Count 151, MPV 11.1 H, Neut % (Auto) 63.2, Lymph % (Auto) 29.3, [place] % (Auto) 4.9, Eos % (Auto) 1.6, Baso % (Auto) 0.6, Neut # (Auto) 3.2, Lymph # (Auto) 1.5, [place] # (Auto) 0.3, Eos # (Auto) 0.1, Baso # (Auto) 0.0 I & O for Labs for Last 24 Hours: Intake & Output 05/22/25 05/23/25 05/24/25 05/25/25 23:59 23:59 23:59 23:59 Intake Total 1130 / 1130 Output Total 200 / 200 250 / 250 Balance 930 / 930 -250 / -250 Weight 56.835 kg 56.835 kg 56.835 kg Constitutional: Present no acute distress, average body habitus, chronically ill appearing and cooperative Head: Present atraumatic and normocephalic ENT: Present normal exam Respiratory: Present normal respiratory effort; Absent rhonchi, wheezes or crackles Cardiac: Present Reg Rate and Rhythm GI: Present normal bowel sounds; Absent tenderness Extremities: Present normal inspection and full ROM Skin: Present intact; Absent erythema Neuro: Present Grossly Intact, alert, awake and moves all extremities Comment:: Mild tremor Assessment and Plan *Assessment and plan (1) Frequent falls: Status: Acute Category: Medical Code(s): R29.6 - Repeated falls (2) Carotid stenosis, bilateral: Status: Acute Category: Medical Code(s): I65.23 - Occlusion and stenosis of bilateral carotid arteries (3) Gait difficulty: Status: Acute Category: Medical Code(s): R26.9 - Unspecified abnormalities of gait and mobility (4) HTN (hypertension): Status: Chronic Qualifiers: Hypertension type: primary hypertension Qualified Code(s): I10 - Essential (primary) hypertension Category: Medical Code(s): I10 - Essential (primary) hypertension (5) HLD (hyperlipidemia): Status: Chronic Qualifiers: Hyperlipidemia type: mixed hyperlipidemia Qualified Code(s): E78.2 - Mixed hyperlipidemia Category: Medical Code(s): E78.5 - Hyperlipidemia, unspecified Plan Sandy Heller is a 70-year-old female who presented after lightheadedness, fall and was admitted for the same. Awaiting placement with [facility]. Anticipate discharge on Tuesday. Continues to require inpatient management. #Fall #Lightheadedness #Bradycardia #Polypharmacy ? Patient presented with a fall after feeling lightheaded. She states she is been having episodes lightheaded more recently. ?Heart rate better today in the 60s. Orthostatics improving. Able to ambulate with minimal assistance today from the bed to the bathroom. - Continue amlodipine 5 mg nightly, aspirin 81 mg daily, Lipitor 40 mg nightly. Lisinopril 20 mg daily. Ativan 1 mg 3 times a day. Holding metoprolol and Xarelto. ? Carotid ultrasound did not show significant stenosis in December 2024. ? PT/OT consulted, recommended SNF due to impaired balance and decreased global strength. Discussed with case management, assisting with placement. [facility] has preliminary accepted patient pending prior authorization. ? TSH normal, vitamin B12 and folate borderline low. Given IM cyanocobalamin, continue daily multivitamins. ? Continuous cardiac telemetry. - Labs stable, hemoglobin 12.1. White count 5.1. Kidney function remains normal at BUN 22, creatinine 1. Lab holiday tomorrow. Continue to await placement recommendations. #Hypertension ? Elevated blood pressures during admission, continue home lisinopril 20 mg. Continue amlodipine 5 mg nightly. #Anxiety/depression ? Decreased lorazepam from 2 mg to 1 mg three times daily due to falls, dizziness. Dysphagia: Evaluated per GI on 04/08/2025, noting dysphagia, gastric pain, choking and weight loss. Placed on pantoprazole with benefit to epigastric pain, recommended diet for oropharyngeal dysphagia. Resume with recommended diet per GI. Aspiration precautions. Noted plan per GI; resume pantoprazole, outpatient EGD. Carotid artery stenosis History of CVA x2/anticoagulated: Home medications include Xarelto and aspirin. Continue aspirin, hold Xarelto due to frequent falls. Full code DVT prophylaxis: Lovenox 40 mg Home meds: Reconciled.
[2025-05-25] MEDS: LISINOPRIL 20MG TABLET 20 MG PO (08:09)
[2025-05-25] MEDS: ASPIRIN EC 81MG TABLET 81 MG PO (08:09)
[2025-05-25 08:44] LABS: Alanine Aminotransferase 16 U/L (12-78); Albumin Level 2.9 g/dl (3.5-5.0); Albumin/Globulin Ratio 0.7 (1.1-1.8); Alkaline Phosphatase 113 U/L (38-126); Anion Gap 8.8 mEq/L (5-15); Aspartate Amino Transferase 32 U/L (14-36); Bilirubin,Total 0.8 mg/dl (0.2-1.3); Blood Urea Nitrogen 22 mg/dl (7-17); Calcium 9.2 mg/dl (8.4-10.2); Carbon Dioxide 27 mmol/L (22.0-30.0); Chloride 103 mmol/L (98-107); Creatinine Clearance Estimated 46 mL/min (50-200); Creatinine,Serum 1.00 mg/dl (0.52-1.04); Estimated Glomerular Filt Rate 55 ml/min (>60); GFR (African American) 66 ML/MIN (>60); Globulin 4.1 g/dL (1.3-3.2); Glucose 101 mg/dl (74-100); Potassium 4.8 mmoL/L (3.5-5.1); Sodium 134 mmol/L (136-145); Total Protein,Serum 7.0 g/dl (6.3-8.2)
[2025-05-25 17:15] LABS: POC Glucose,Bedside 113 gm/dL (70-110)
[2025-05-25] MEDS: ATORVASTATIN 40MG TABLET 40 MG PO (20:45)
[2025-05-25] MEDS: AMLODIPINE 5MG TABLET 5 MG PO (20:45)
[2025-05-26] VITALS (7 sets, daily range): BP systolic 110–145; BP diastolic 51–78; PULSE 40–100; RESP 16; TEMP 36.4–36.6; O2SAT 94–99; BMI 27.3
[2025-05-26] MEDS: ASPIRIN EC 81MG TABLET 81 MG PO (08:21)
[2025-05-26] MEDS: LISINOPRIL 20MG TABLET 20 MG PO (08:21)
--- NOTE | 2025-05-26 10:11 | P.PN_ITS ---
<Statement entered by Hussein Urena MD - 05/26/25 12:32> Rounded on patient after nurse practitioner. Personally examined and interviewed patient. Agree with exam findings and care plan as documented. Subjective *Date: 05/26/25 *Time: 10:11 Interval history: Ms. Heller is doing very well this morning. Assisted patient in transferring to chair. Ambulated with walker with no assistance. Patient awaiting placement at this time. Medical Exam Vital signs and Labs for Last 24 Hours: Vital Signs Temp Pulse Pulse Resp BP Pulse Ox O2 Del Method 05/26/25 09:00 Room Air 05/26/25 08:00 100 H 05/26/25 08:00 Room Air 05/26/25 08:00 97.8 F 100 H 16 110/54 L 94 L Room Air 05/26/25 06:29 Room Air 05/26/25 05:00 Room Air 05/26/25 04:00 97.7 F 76 16 127/51 L 99 Room Air 05/26/25 04:00 40 L 05/26/25 03:00 Room Air 05/26/25 01:00 EST Room Air 05/26/25 00:00 97.8 F 54 L 16 134/58 L 97 Room Air 05/26/25 00:00 60 05/25/25 23:00 Room Air 05/25/25 21:00 Room Air 05/25/25 20:00 60 05/25/25 20:00 97.7 F 62 16 138/58 L 97 Room Air 05/25/25 20:00 Room Air 05/25/25 18:21 Room Air 05/25/25 17:00 Room Air 05/25/25 16:00 98.6 F 68 18 179/67 H 100 Room Air 05/25/25 16:00 70 05/25/25 14:09 Room Air 05/25/25 13:00 Room Air 05/25/25 12:00 98.3 F 64 20 150/66 H 100 Room Air 05/25/25 12:00 60 Intake and Output 05/25/25 05/26/25 05/26/25 23:59 06:59 15:59 Intake Total 0 / 540 270 / 270 Output Total 250 / 600 0 / 0 0 / 0 Balance -250 / -60 0 / 270 270 / 270 Intake: Intake, Oral Amount 0 / 540 270 / 270 Output: Output, Urine Amount 250 / 600 0 / 0 0 / 0 Other: Number of Unmeasured Voids 1 1 1 Weight 57.379 kg Patient Weight 05/26/25 22:59 Weight 57.379 kg Laboratory Results - last 24 hr 05/25/25 11:59: POC Glucose 113 H I & O for Labs for Last 24 Hours: Intake & Output 05/23/25 05/24/25 05/25/25 05/26/25 23:59 23:59 23:59 22:59 Intake Total 1130 / 1130 540 / 540 270 / 270 Output Total 200 / 200 600 / 600 0 / 0 Balance 930 / 930 -60 / -60 270 / 270 Weight 56.835 kg 56.835 kg 56.835 kg 57.379 kg Constitutional: Present no acute distress, average body habitus, chronically ill appearing and cooperative Head: Present atraumatic and normocephalic ENT: Present normal exam Respiratory: Present normal respiratory effort; Absent rhonchi, wheezes or crackles Cardiac: Present Reg Rate and Rhythm GI: Present normal bowel sounds; Absent tenderness Extremities: Present normal inspection and full ROM Skin: Present intact; Absent erythema Neuro: Present Grossly Intact, alert, awake and moves all extremities Comment:: Mild tremor Assessment and Plan *Assessment and plan (1) Frequent falls: Status: Acute Category: Medical Code(s): R29.6 - Repeated falls (2) Carotid stenosis, bilateral: Status: Acute Category: Medical Code(s): I65.23 - Occlusion and stenosis of bilateral carotid arteries (3) Gait difficulty: Status: Acute Category: Medical Code(s): R26.9 - Unspecified abnormalities of gait and mobility (4) HTN (hypertension): Status: Chronic Qualifiers: Hypertension type: primary hypertension Qualified Code(s): I10 - Essential (primary) hypertension Category: Medical Code(s): I10 - Essential (primary) hypertension (5) HLD (hyperlipidemia): Status: Chronic Qualifiers: Hyperlipidemia type: mixed hyperlipidemia Qualified Code(s): E78.2 - Mixed hyperlipidemia Category: Medical Code(s): E78.5 - Hyperlipidemia, unspecified Plan Sandy Heller is a 70-year-old female who presented after lightheadedness and a fall, admitted due to frequent falls. Awaiting placement with [facility]. Anticipate discharge on Tuesday. Continues to require inpatient management. Plan of care as follows: #Fall #Lightheadedness #Bradycardia #Polypharmacy ? Patient presented with a fall after feeling lightheaded. She states she is been having episodes lightheaded more recently. ? Patient able to ambulate with no assist and walker independently. Has intermittent episodes of continued weakness. Patient remains hemodynamically stable. - Continue amlodipine 5 mg nightly, aspirin 81 mg daily, Lipitor 40 mg nightly. Lisinopril 20 mg daily. Ativan 1 mg 3 times a day. Holding metoprolol and Xarelto. ? Carotid ultrasound did not show significant stenosis in December 2024. ? PT/OT consulted, recommended SNF due to impaired balance and decreased global strength. Discussed with case management, assisting with placement. [facility] has preliminary accepted patient pending prior authorization. ? TSH normal, vitamin levels within normal limits. ? Continuous cardiac telemetry. - Labs stable yesterday, hemoglobin 12.1. White count 5.1. Kidney function remains normal at BUN 22, creatinine 1. Lab holiday today, will recheck CBC and BMP tomorrow. #Hypertension ? Elevated blood pressures during admission, continue home lisinopril 20 mg. Continue amlodipine 5 mg nightly. Blood pressure today stable at 119/62. #Anxiety/depression ? Decreased lorazepam from 2 mg to 1 mg three times daily due to falls, dizziness. Dysphagia: Evaluated per GI on 04/08/2025, noting dysphagia, gastric pain, choking and weight loss. Placed on pantoprazole with benefit to epigastric pain, recommended diet for oropharyngeal dysphagia. Resume with recommended diet per GI. Aspiration precautions. Noted plan per GI; resume pantoprazole, outpatient EGD. Carotid artery stenosis History of CVA x2/anticoagulated: Home medications include Xarelto and aspirin. Continue aspirin, hold Xarelto due to frequent falls. Full code DVT prophylaxis: Lovenox 40 mg Up with assistance, bed alarm Soft mechanical diet
[2025-05-26] MEDS: METOPROLOL SUCCINATE XL 25MG TABLET 25 MG PO (13:24)
[2025-05-26] MEDS: MULTIVITAMIN TABLET 1 EACH PO (17:23)
[2025-05-26] MEDS: AMLODIPINE 5MG TABLET 5 MG PO (20:51)
[2025-05-26] MEDS: ATORVASTATIN 40MG TABLET 40 MG PO (20:51)
[2025-05-27] VITALS: BP 116/51; PULSE 40; PULSE 67; RESP 16; TEMP 36.4; O2SAT 97
--- NOTE | 2025-05-27 03:47 | PC.NURSE ---
Patient is alert and oriented. Patient has used call light this shift when needing assistance. Standby assist ambulating with walker. No complaints from patient. Has rested well. Patient tele began to show bradycardia as the shift went on, see provider notification. Scattered bruising noted to knees, arms, and back. Room air. Bed alarm on and working. Call light in reach.
[2025-05-27 04:00] VITALS: BP 152/67; PULSE 40; PULSE 58; RESP 16; TEMP 36.4; O2SAT 97; BMI 27.3
--- NOTE | 2025-05-27 04:12 | ECG_ITS ---
APPROVED REPORT Exam: Resting ECG HR:54 bpm ECG Measurements Heart Rate 54 AXES QRSd 95 QRS -14 QT 442 T 118 QTc 429 Conclusion 2nd degree AV block - Wenckebach pattern MODERATE T-WAVE ABNORMALITY, CONSIDER LATERAL ISCHEMIA [-0.1+ mV T-WAVE IN I/aVL/V5/V6] ABNORMAL ECG UNCONFIRMED REPORT Electronically signed by : Tien Parker MD 05/27/2025 08:42:12
[2025-05-27 06:41] LABS: Hematocrit 33.5 % (37.0-47.0); Hemoglobin 10.9 g/dL (12.2-16.2); Immature Granulocytes % 0.4 %; Mean Corpuscular HGB Conc 32.5 g/dL (31.8-35.4); Mean Corpuscular Hemoglobin 32.2 pg (27.0-31.2); Mean Corpuscular Volume 98.8 fl (81-99); Nucleated Red Blood Cells % 0 %; Platelet Count 141 K/mm3 (142-424); Red Blood Count 3.39 M/mm3 (4.20-5.40); Red Cell Distribution Width-SD 45.3 fL; White Blood Count 4.5 K/mm3 (4.8-10.8)
[2025-05-27 07:02] LABS: Anion Gap 7.1 mEq/L (5-15); Blood Urea Nitrogen 34 mg/dl (7-17); Calcium 8.9 mg/dl (8.4-10.2); Carbon Dioxide 25 mmol/L (22.0-30.0); Chloride 106 mmol/L (98-107); Creatinine Clearance Estimated 42 mL/min (50-200); Creatinine,Serum 1.10 mg/dl (0.52-1.04); Estimated Glomerular Filt Rate 49 ml/min (>60); GFR (African American) 59 ML/MIN (>60); Glucose 117 mg/dl (74-100); Potassium 4.1 mmoL/L (3.5-5.1); Sodium 134 mmol/L (136-145)
[2025-05-27 07:47] VITALS: BP 150/55; PULSE 69; RESP 18; TEMP 36.9; O2SAT 98
[2025-05-27 08:00] VITALS: PULSE 70
--- NOTE | 2025-05-27 08:53 | P.DS_ITS ---
<Statement entered by Hussein Urena MD - 05/27/25 09:56> Rounded on patient after nurse practitioner. Personally examined and interviewed patient. Agree with exam findings and care plan as documented. General Admission date:: 05/23/25 Discharge date: 05/27/25 HPI HPI HPI: Patient is a 70-year-old female with a past medical history significant for dysphagia, PAD, anxiety, chronic benzodiazepine use, severe superior mesenteric artery stenosis, hypertension, hyperlipidemia, bilateral carotid stenosis, and history of DVT, chronically anticoagulated with Xarelto. Presents to [facility] due to a fall at home today. Patient reports that she shuffles when she walks and ultimately got caught up under her feet, fell backwards on her tailbone and also hit her head. EMS was notified and she was transferred to our facility for further evaluation. She is usually assisted with a walker when ambulating, but still falls despite use. Patient denies any injury or headache from the fall. On assessment at bedside there is no acute distress, resting in bed without complaint. Hemodynamically stable. There is concern as patient lives alone and there has been an increase in falls. ER provider discussed options concerning possible rehab/placement. Patient agreed for further workup with physical and possible placement at discharge. Patient denies any other correlating symptoms or has any other complaints. Denies fever, chills, shortness of breath, chest pain or injury. Initial ED workup included imaging studies which I personally reviewed. CT head without any acute findings. CT cervical spine, CT lumbar spine and CT thoracic spine, unremarkable for any acute findings. CT pelvis without evidence of acute fracture but with evidence of left buttock region soft tissue hematoma. PT OT consult placed while in emergency department. Hospital Course Hospital Course Hospital Course: Ms. Heller is a 70-year-old female who was admitted to the medical surgical floor after a fall at home. Patient had no injuries from the fall but lives alone and cannot take care of herself. She was admitted to the medical surgical unit and care management was consulted for assistance in possible placement options. PT/OT was consulted and recommended patient go to SNF facility for further rehab services due to impaired balance and decreased global strength. During admission patient had intermittent episodes of lightheadedness, and was noted to be bradycardic heart rate 30s?40s. Patient home med of metoprolol 50 mg daily was held. Patient does have known paroxysmal atrial fibrillation. She worked with PT/OT and was able to ambulate with a walker and standby assistance but continued to have intermittent episodes of weakness. She was accepted to [facility] facility in [facility] and was pending authorization over the weekend. Patient has been approved to go to SNF facility today. Patient was initially taken off metoprolol daily but continued to have intermittent episodes of A-fib so was started on a significantly reduced dose of metoprolol 12.5 mg daily. Patient should continue home medications of benazepril 20 mg daily, amlodipine 5 mg daily, Xarelto 2.5 mg twice daily, aspirin 81 mg daily, lorazepam 1 mg 3 times daily, multivitamin, and albuterol inhaler as needed. Patient does have a history of dysphagia for which she was evaluated for it on 04/08/2025 by GI. GI recommended patient start pantoprazole 40 mg daily, and continue with a mechanically soft diet. Patient should have follow-up outpatient EGD in the future. Pantoprazole 40 mg daily prescribed at discharge. Total time spent on discharge 34 minutes in counseling, documentation, chart review, and direct care with patient. Exam Data for Last 24 hours Vital signs and Labs for Last 24 Hours: Temp Pulse Resp BP Pulse Ox O2 Del Method 98.4 F 69 18 150/55 H 98 Room Air 05/27/25 07:47 05/27/25 07:47 05/27/25 07:47 05/27/25 07:47 05/27/25 07:47 05/27/25 07:47 Laboratory Results - last 24 hr 05/27/25 05:30: WBC 4.5 L, RBC 3.39 L, Hgb 10.9 L, Hct 33.5 L, MCV 98.8, MCH 32.2 H, MCHC 32.5, RDW 12.4, Plt Count 141 L, MPV 11.5 H, Neut % (Auto) 66.3, Lymph % (Auto) 25.3, [place] % (Auto) 6.3, Eos % (Auto) 1.3, Baso % (Auto) 0.4, Neut # (Auto) 3.0, Lymph # (Auto) 1.1, [place] # (Auto) 0.3, Eos # (Auto) 0.1, Baso # (Auto) 0.0, Sodium 134 L, Potassium 4.1, Chloride 106, Carbon Dioxide 25, Anion Gap 7.1, BUN 34 H D, Creatinine 1.10 H, Estimated Creat Clear 42, Estimated GFR 49 L, Est GFR ( Amer) 59, Glucose 117 H, Calcium 8.9 I & O for Last 24 hours: Intake & Output 05/24/25 05/25/25 05/26/25 05/27/25 23:59 23:59 22:59 23:59 Intake Total 1130 / 1130 540 / 540 1200 / 1380 480 / 480 Output Total 200 / 200 600 / 600 0 / 0 0 / 0 Balance 930 / 930 -60 / -60 1200 / 1380 480 / 480 Weight 56.835 kg 56.835 kg 57.379 kg 57.37 kg Constitutional Constitutional: no acute distress, average body habitus, chronically ill appearing and cooperative *Routine HEENT Exam Head: Present normocephalic Eye: Present EOMI and PERRL ENT: Present mucous membranes moist *Routine Neck Exam Neck: Present supple; Absent lymphadenopathy *Routine Respiratory Exam Respiratory: Present CTA bilaterally and normal respiratory effort; Absent wheezes or crackles *Routine Cardiovascular Exam Cardiovascular: Present RRR, Normal S1 and Normal S2; Absent murmur *Routine Abdominal Exam Abdominal: Present soft and normoactive bowel sounds; Absent tenderness or distended *Routine Rectal Exam Patient deferred: visual exam *Routine Exam Patient deferred: external exam *Routine Extremities Exam Extremities: Present full ROM; Absent cyanosis, clubbing or edema *Routine Skin Exam Skin: Present intact, dry and warm; Absent rash *Routine Neurological Exam Neurological: Present alert, oriented X3, vision grossly intact, hearing grossly intact and normal speech Routine Psychiatric Exam Psychiatric: Present normal affect Results Data Completed and Pending Labs on day of discharge: Labs from last 24 hours 05/27/25 05:30 WBC 4.5 L RBC 3.39 L Hgb 10.9 L Hct 33.5 L MCV 98.8 MCH 32.2 H MCHC 32.5 RDW 12.4 Plt Count 141 L MPV 11.5 H Neut % (Auto) 66.3 Lymph % (Auto) 25.3 [place] % (Auto) 6.3 Eos % (Auto) 1.3 Baso % (Auto) 0.4 Neut # (Auto) 3.0 Lymph # (Auto) 1.1 [place] # (Auto) 0.3 Eos # (Auto) 0.1 Baso # (Auto) 0.0 Sodium 134 L Potassium 4.1 Chloride 106 Carbon Dioxide 25 Anion Gap 7.1 BUN 34 H D Creatinine 1.10 H Estimated Creat Clear 42 Estimated GFR 49 L Est GFR ( Amer) 59 Glucose 117 H Calcium 8.9 DS: Diagnosis Discharge Diagnosis (1) Frequent falls: Status: Acute Code(s): R29.6 - Repeated falls (2) Carotid stenosis, bilateral: Status: Acute Code(s): I65.23 - Occlusion and stenosis of bilateral carotid arteries (3) Gait difficulty: Status: Acute Code(s): R26.9 - Unspecified abnormalities of gait and mobility (4) HTN (hypertension): Status: Chronic Code(s): I10 - Essential (primary) hypertension Qualifiers: Hypertension type: primary hypertension Qualified Code(s): I10 - Essential (primary) hypertension (5) HLD (hyperlipidemia): Status: Chronic Code(s): E78.5 - Hyperlipidemia, unspecified Qualifiers: Hyperlipidemia type: mixed hyperlipidemia Qualified Code(s): E78.2 - Mixed hyperlipidemia (6) Bradycardia: Status: Acute Code(s): R00.1 - Bradycardia, unspecified Meds Home Medications and Allergies Home Medications ?Medication ?Instructions ?Recorded ?Confirmed ?Type atorvastatin 40 mg tablet 40 mg PO HS Cholesterol 10/2405/23/25 History aspirin 81 mg tablet,delayed 81 mg PO DAILY Blood Thin ner 04/28/21 05/23/25 History release benazepril 20 mg tablet 20 mg PO DAILY 02/02/2204/26 History albuterol sulfate 90 mcg/actuation 2 puff inhalation Q 6H PRN Dyspnea 03/19/23 05/23/25 Rx aerosol inhaler 30 days #0 grams rivaroxaban 2.5 mg tablet (Xarelto) 2.5 mg PO BID 04/2605/23/25 History amlodipine 5 mg tablet 5 mg PO HS 30 days #30 tabs 05/27/25 Rx lorazepam 2 mg tablet 1 mg (1/2 x 2 mg) PO TID 30 days 05/27/25 05/23/25 Rx #0 tabs metoprolol succinate 25 mg 12.5 mg (1/2 x 25 mg) PO DA ASHLEY #30 05/27/25 Rx tablet,extended release 24 hr tabs multivitamin with folic acid 400 1 tab PO 1700 #0 tabs 05/27/25 Rx mcg tablet (Tab-A-Court) pantoprazole 40 mg tablet,delayed 40 mg PO DAILY #30 t abs 05/27/25 Rx release New Prescriptions to Start Prescriptions: amlodipine Winter Pereyra metoprolol succinate Winter Pereyra pantoprazole Winter Pereyra Allergies Allergy/AdvReac Type Severity Reaction Status Date / Time erythromycin base Allergy Severe S-BLISTERING Verified 04/08/25 10:32 WELTS tiotropium (From Spiriva Allergy Severe S-SWELLS-OR Verified 04/08/25 10:32 with HandiHaler) AL/THROAT clopidogrel (From Plavix) AdvReac Intermediate Diarrhea Verified 04/08/25 10:32 levofloxacin (From Levaquin) AdvReac Intermediate nausea and Verified 04/08/25 10:32 vomiting Discharge Plan Disposition Patient Disposition: [facility] SN[facility] Condition: Good Discharge Order Discharge Orders: Discharge Order (Routine); Ordered 05/27/25 Ordered By: Winter Pereyra Follow up Plan Follow up with: Jaz Shepherd APRN [Referring, Medical] - Enter time for follow up Prescriptions/Medication Reconciliation: New amlodipine 5 mg Tablet 5 mg PO HS 30 Days Qty: 30 0RF multivitamin with folic acid [Tab-A-Court] 400 mcg Tablet 1 tab PO 1700 Qty: 0 0RF metoprolol succinate 25 mg tablet extended release 24 hr 12.5 mg PO DAILY Qty: 30 0RF pantoprazole 40 mg tablet,delayed release (DR/EC) 40 mg PO DAILY Qty: 30 0RF Continued benazepril 20 mg tablet 20 mg PO DAILY aspirin 81 mg tablet,delayed release (DR/EC) 81 mg PO DAILY rivaroxaban [Xarelto] 2.5 mg tablet 2.5 mg PO BID Rx Instructions: TAKE ONE TABLET BY MOUTH 2 TIMES A DAY atorvastatin 40 MG tablet 40 mg PO HS albuterol sulfate 90 mcg/actuation Hfa Aerosol Inhaler 2 puff inhalation Q6H PRN (Reason: Dyspnea) 30 Days Qty: 0 0RF Changed lorazepam 2 mg tablet 1 mg PO TID 30 Days Qty: 0 0RF Discontinued metoprolol succinate 50 mg tablet extended release 24 hr 50 mg PO DAILY Problem Reconciliation Problems Reviewed?: Yes Patient Discharge Instructions ACTIVITY: Continue current activity and Ambulate as tolerated DIET: continue same diet Patient Instructions: How to Prevent Falls Print Language: Croatian Providers Primary Care Provider: Provider,Referral Admit Provider: Abhijeet Red Attending Provider: Abhijeet Red
[2025-05-27] MEDS: LISINOPRIL 20MG TABLET 20 MG PO (09:09)
[2025-05-27] MEDS: ASPIRIN EC 81MG TABLET 81 MG PO (09:09)
== END 2025-05-27 11:58 ==
LOC: ER 19:40 → 2ND 19:43
PROVIDERS: Nurse Practitioner Acute Care; Admitting Provider Student in an Organized Health Care Education/Training Program; Emergency Provider Student in an Organized Health Care Education/Training Program; Visit Provider Student in an Organized Health Care Education/Training Program
DX: R29.6 Repeated falls (principal); I65.23 Occlusion and stenosis of bilateral carotid arteries; R26.9 Unspecified abnormalities of gait and mobility; I10 Essential (primary) hypertension; E78.2 Mixed hyperlipidemia; R54 Age-related physical debility; F41.1 Generalized anxiety disorder; R13.12 Dysphagia, oropharyngeal phase; R00.1 Bradycardia, unspecified; I48.91 Unspecified atrial fibrillation; I44.1 Atrioventricular block, second degree; F32.A Depression, unspecified; I73.9 Peripheral vascular disease, unspecified; F17.210 Nicotine dependence, cigarettes, uncomplicated; S30.0XXA Contusion of lower back and pelvis, initial encounter; Z86.73 Personal history of transient ischemic attack (TIA), and cerebral infarction without residual deficits; Z86.718 Personal history of other venous thrombosis and embolism; Z88.1 Allergy status to other antibiotic agents; Z88.8 Allergy status to other drugs, medicaments and biological substances; Z79.82 Long term (current) use of aspirin; Z79.01 Long term (current) use of anticoagulants; Z79.899 Other long term (current) drug therapy
CPT/HCPCS: 0223U; 36415; 70450; 72125; 72128; 72131; 72192; 80048; 80053; 81001; 82607; 82728; 82746; 82962; 84443; 85025; 93005; 96360; 96361; 96372; 97162; 97166; 97530; 99285; G0378; J1650; J1885; J3420; J7120